=== PATIENT | female | born 1995 | race Caucasian/White ===

== ENCOUNTER 2018-05-10 18:28 | Emergency (ER) | payer MEDICAID, SELFPAY ==
[2018-05-10 18:33] VITALS: BP 133/90; PULSE 82; RESP 16; TEMP 36.8; O2SAT 99
--- NOTE | 2018-05-10 19:01 | W.ED.GENAD ---
Discharge Plan Discharge Details Chief Complaint: Vascular Reason For Visit: LEG PAINS Primary Care Provider: NONE,NONE ED Provider: Jalen Sierra Home Meds and New Rx's Prescriptions: No Action Ibuprofen [Motrin Ib] 200 MG Tablet 600 mg PO Q6H 5 Days Qty: 60 RF: 0 Medical Decision Making MDM Narrative Medical decision making narrative: This is a 22-year-old female who presents with atraumatic right lower extremity/calf swelling. She has asymmetric swelling and calf tenderness on exam. She is otherwise well-appearing. She does not take oral contraceptives currently and she does not have a family history of thrombosis. Differential diagnosis includes DVT, Romero's cyst, muscular strain. Ultrasound not available tonight and has been ordered for tomorrow morning, likely at 9 AM. Discussed with the patient risks and benefits to anticoagulation with Lovenox ?1. I do feel that she has an exam suspicious for DVT. She states that she is not . With the patient's consent, she is given single dose of 100 mg subcu Lovenox, she will return tomorrow for ultrasound of the right leg to rule out DVT HPI - General Adult General Mode of arrival: ambulatory. Date/Time Provider Initiated Documentation: 05/10/18 18:37. Limitations to Documentation: no limitations. Information obtained by: patient. HPI Narrative: 22-year-old female presents from home with a gradual onset over 4 days of right calf pain and swelling. She has dull, achy, minimally radiating pain. It is worse with flexion, improved with rest. It has not been associated with chest pain or shortness of breath. No other exacerbating or ameliorating factors Related Data Previous Rx's Medication Instructions Recorded Ibuprofen [Motrin Ib] 600 mg PO Q6H 5 Days #60 tablet 04/02/18 Allergies Allergy/AdvReac Type Severity Reaction Status Date / Time No Known Allergies Allergy Unverified 05/10/18 18:39 General Stated Complaint: Vascular HALEY: 3 Review of Systems Review of Systems 6 systems reviewed, otherwise neg PFSH Family History Mother Multiple sclerosis Medical History Chlamydia trachomatis infection (05/17/13) Recent childbirth (06/01/17) Social History Smoking/Tobacco Use Status: Never Exam Const General: cooperative Orientation: alert, awake and oriented x3 HENMT Head: normal to inspection Eyes General: appearance normal, both eyes and all related structures Eyelids: eyelids normal Pupils: PERRL EOM: EOM intact bilaterally Resp Effort & Inspection: normal respiratory effort and able to speak in complete sentences Auscultation: clear to auscultation bilaterally Cardio Rate: regular rate Rhythm: regular rhythm Neuro General: alert and awake Cognition: normal cognition Speech: speech normal Extrem General: full ROM, normal capillary refill and calf tenderness (Right primarily lateral calf tenderness and approximately 2 cm difference circumference from contralateral. Distal 2+ DP bilaterally) on the right Psych Speech and Movement: speech and movement normal Mood: congruent mood Affect: normal affect Attitude: cooperative Course Vital Signs Temperature 36.8 C 05/10/18 18:33 Pulse 82 05/10/18 18:33 Respiratory Rate 16 05/10/18 18:33 Blood Pressure 133/90 05/10/18 18:33 Pulse Oximetry 99 05/10/18 18:33 Temperature 36.8 C 05/10/18 18:33 Pulse 82 05/10/18 18:33 Respiratory Rate 16 05/10/18 18:33 Blood Pressure 133/90 05/10/18 18:33 Pulse Oximetry 99 05/10/18 18:33
--- NOTE | 2018-05-10 19:07 | ED.GENADUL_ITS ---
Discharge Plan Discharge Details Chief Complaint: Vascular Reason For Visit: LEG PAINS Primary Care Provider: NONE,NONE ED Provider: Jalen Sierra Home Meds and New Rx's Prescriptions: No Action Ibuprofen [Motrin Ib] 200 MG Tablet 600 mg PO Q6H 5 Days Qty: 60 RF: 0 Medical Decision Making MDM Narrative Medical decision making narrative: This is a 22-year-old female who presents with atraumatic right lower extremity/calf swelling. She has asymmetric swelling and calf tenderness on exam. She is otherwise well-appearing. She does not take oral contraceptives currently and she does not have a family history of thrombosis. Differential diagnosis includes DVT, Romero's cyst, muscular strain. Ultrasound not available tonight and has been ordered for tomorrow morning, likely at 9 AM. Discussed with the patient risks and benefits to anticoagulation with Lovenox ?1. I do feel that she has an exam suspicious for DVT. She states that she is not . With the patient's consent, she is given single dose of 100 mg subcu Lovenox, she will return tomorrow for ultrasound of the right leg to rule out DVT HPI - General Adult General Mode of arrival: ambulatory . Date/Time Provider Initiated Documentation: 05/10/18 18:37 . Limitations to Documentation: no limitations . Information obtained by: patient . HPI Narrative: 22-year-old female presents from home with a gradual onset over 4 days of right calf pain and swelling. She has dull, achy, minimally radiating pain. It is worse with flexion, improved with rest. It has not been associated with chest pain or shortness of breath. No other exacerbating or ameliorating factors Related Data Previous Rx's Medication Instructions Recorded Ibuprofen [Motrin Ib] 600 mg PO Q6H 5 Days #60 tablet 04/02/18 Allergies Allergy/AdvReac Type Severity Reaction Status Date / Time No Known Allergies Allergy Unverified 05/10/18 18:39 General Stated Complaint: Vascular HALEY: 3 Review of Systems Review of Systems 6 systems reviewed, otherwise neg PFSH Family History Mother Multiple sclerosis Medical History Chlamydia trachomatis infection (05/17/13) Recent childbirth (06/01/17) Social History Smoking/Tobacco Use Status: Never Exam Const General: cooperative Orientation: alert, awake and oriented x3 HENMT Head: normal to inspection Eyes General: appearance normal, both eyes and all related structures Eyelids: eyelids normal Pupils: PERRL EOM: EOM intact bilaterally Resp Effort & Inspection: normal respiratory effort and able to speak in complete sentences Auscultation: clear to auscultation bilaterally Cardio Rate: regular rate Rhythm: regular rhythm Neuro General: alert and awake Cognition: normal cognition Speech: speech normal Extrem General: full ROM, normal capillary refill and calf tenderness (Right primarily lateral calf tenderness and approximately 2 cm difference circumference from contralateral. Distal 2+ DP bilaterally) on the right Psych Speech and Movement: speech and movement normal Mood: congruent mood Affect: normal affect Attitude: cooperative Course Vital Signs Temperature 36.8 C 05/10/18 18:33 Pulse 82 05/10/18 18:33 Respiratory Rate 16 05/10/18 18:33 Blood Pressure 133/90 05/10/18 18:33 Pulse Oximetry 99 05/10/18 18:33 Temperature 36.8 C 05/10/18 18:33 Pulse 82 05/10/18 18:33 Respiratory Rate 16 05/10/18 18:33 Blood Pressure 133/90 05/10/18 18:33 Pulse Oximetry 99 05/10/18 18:33
[2018-05-10] MEDS: Enoxaparin 100 MG/ML SYR SC (19:35)
[2018-05-10 19:39] VITALS: BP 133/90; PULSE 82; RESP 16; TEMP 36.8; O2SAT 99
== END 2018-05-10 19:39 | disposition home or self-care (01) ==
PROVIDERS: Emergency Provider Emergency Medicine
DX: M79.661 Pain in right lower leg (principal)
CPT/HCPCS: 96372; 99284; 99283; J1650

== ENCOUNTER 2018-05-11 10:30 | Emergency (ER) | payer MEDICAID, SELFPAY ==
[2018-05-11 10:52] VITALS: BP 97/67; PULSE 79; RESP 12; TEMP 36.8; O2SAT 97
--- NOTE | 2018-05-11 11:30 | W.ED.GENAD ---
Discharge Plan Disposition Patient Disposition: HOME Condition: Good Discharge Details Chief Complaint: Recheck Clinical Impression: Right calf pain, Muscle inflammation Primary Care Provider: NONE,NONE ED Provider: Angeli Sebastian Home Meds and New Rx's Prescriptions: Continue Ibuprofen [Motrin Ib] 200 MG Tablet 600 mg PO Q6H 5 Days Qty: 60 RF: 0 No Action amoxicillin-pot clavulanate [Augmentin] 875-125 mg tablet 1 tab PO BID Qty: 14 RF: 0 Discharge Instructions Instructions: Leg Pain (ED) Additional Instructions: Encourage rest, ice, elevation. Encourage hydration Tylenol and/or ibuprofen as needed for discomfort. Continue with Semaj wrap while pain persist. I have asked her acute care assistant to help facilitate follow-up with primary care, you should hear from her in the next few days. If you develop new or worsening symptoms please seek care urgently once again. Referrals: NONE,NONE [Primary Care Provider] - Discharge Data Discharge Date/Time-TO BE ENTERED AT DEPARTURE: 05/11/18 11:49 Medical Decision Making MDM Narrative Medical decision making narrative: Patient presents today with chief complaint of lateral right calf pain. Patient presents for outpatient ultrasound results. I did consult with the radiologist who reviewed the images. He advised there is no evidence of DVT. Is reported there is fluid in the soft tissue of the calf but states this is limited to the area where patient is having discomfort. Reported that he could be inflammatory versus small hematoma. Advised that it is not diffuse like edema nor is a focal like an abscess or Romero's cyst. I discussed these results with the patient. While initially, when she saw Dr. Muniz yesterday, she had reported that pain had insidious onset, she is now reporting that she felt a pop prior to the onset of symptoms when she bent down to water her ducks. Since that time the pain had progressively increase. However, today the pain is improving. I plan to wrap the lower extremity with an Semaj to help with swelling. Encourage rest, ice, elevation. Patient does not have a primary care, I have asked her acute care assistant to help facilitate follow-up. We discussed new/worsening symptoms once he care urgently once again. Advised Tylenol and/or ibuprofen as needed for discomfort. All of her questions and concerns were addressed and she is in agreement with this plan. HPI - General Adult General Date/Time Provider Initiated Documentation: 05/11/18 11:20. Limitations to Documentation: no limitations. Information obtained by: patient. HPI Narrative: Patient is a 22-year-old female presenting today with chief complaint lateral right calf pain. Please see yesterday's note as patient seen in the ER and is presenting today for follow-up. Patient received Lovenox injection yesterday with concern for DVT. Patient presented this morning for outpatient ultrasound. Presents the ER at this time for results. She reports that around the leg is feeling improved from yesterday. However, she does report that during the night she developed nausea, vomiting and diarrhea. She reports these were fairly limited and that she has not had any nausea, vomiting or diarrhea since 7:00 this morning. She is questioning if this may have been related to the medication she received yes Related Data Previous Rx's Medication Instructions Recorded Ibuprofen [Motrin Ib] 600 mg PO Q6H 5 Days #60 tablet 04/02/18 amoxicillin-pot clavulanate 1 tab PO BID #14 tab 05/13/18 [Augmentin] Allergies Allergy/AdvReac Type Severity Reaction Status Date / Time No Known Allergies Allergy Unverified 05/13/18 12:05 General Stated Complaint: Recheck HALEY: 4 Review of Systems Constitutional Reports as per HPI, Denies chills and Denies fever(s) Cardiovascular Denies chest pain, Denies chest pain with activity, Denies dyspnea and Denies dyspnea on exertion Respiratory Denies cough, Denies dyspnea and Denies dyspnea on exertion Musculoskeletal Reports as per HPI Integumentary/Breasts Reports as per HPI Neurologic Reports as per HPI [facility] Family History Mother Multiple sclerosis Medical History Chlamydia trachomatis infection (05/17/13) Recent childbirth (06/01/17) Social History Smoking/Tobacco Use Status: Never Exam Const General: cooperative, healthy appearing, comfortable, no acute distress and well developed Nutritional Appearance: average body habitus Orientation: alert and awake Resp Effort & Inspection: normal respiratory effort, able to speak in complete sentences and no respiratory distress Auscultation: clear to auscultation bilaterally Cardio Rate: regular rate Rhythm: regular rhythm Heart Sounds: S1 normal and S2 normal Skin General skin exam: no rashes or lesions noted Lesions: no lesions Rashes: no rashes Trauma: no lacerations or abrasions Neuro General: alert and awake Cognition: normal cognition Speech: speech normal Gait: normal gait Motor: muscle tone normal throughout Sensory Exam: no sensory deficits noted Extrem General: abnormal to inspection (Patient endorses posterior calf pain. However, this is not reproducible on exam today. Calf is soft and nontender. No pedal edema. 2+ pulses. Full range of motion of the ankle and.), full ROM and normal capillary refill Course Vital Signs Temperature 36.8 C 05/11/18 10:52 Pulse 79 05/11/18 10:52 Respiratory Rate 12 05/11/18 10:52 Blood Pressure 97/67 L 05/11/18 10:52 Pulse Oximetry 97 05/11/18 10:52 Temperature 36.8 C 05/11/18 10:52 Pulse 79 05/11/18 10:52 Respiratory Rate 12 05/11/18 10:52 Blood Pressure 97/67 L 05/11/18 10:52 Pulse Oximetry 97 05/11/18 10:52
--- NOTE | 2018-05-11 11:35 | ED.GENADUL_ITS ---
Discharge Plan Disposition Patient Disposition: HOME Condition: Good Discharge Details Chief Complaint: Recheck Clinical Impression: Right calf pain, Muscle inflammation Primary Care Provider: NONE,NONE ED Provider: Angeli Sebastian Home Meds and New Rx's Prescriptions: Continue Ibuprofen [Motrin Ib] 200 MG Tablet 600 mg PO Q6H 5 Days Qty: 60 RF: 0 No Action amoxicillin-pot clavulanate [Augmentin] 875-125 mg tablet 1 tab PO BID Qty: 14 RF: 0 Discharge Instructions Instructions: Leg Pain (ED) Additional Instructions: Encourage rest, ice, elevation. Encourage hydration Tylenol and/or ibuprofen as needed for discomfort. Continue with Semaj wrap while pain persist. I have asked her hemodialysis patient care specialist to help facilitate follow-up with primary care, you should hear from her in the next few days. If you develop new or worsening symptoms please seek care urgently once again. Referrals: NONE,NONE [Primary Care Provider] - Discharge Data Discharge Date/Time-TO BE ENTERED AT DEPARTURE: 05/11/18 11:49 Medical Decision Making MDM Narrative Medical decision making narrative: Patient presents today with chief complaint of lateral right calf pain. Patient presents for outpatient ultrasound results. I did consult with the radiologist who reviewed the images. He advised there is no evidence of DVT. Is reported there is fluid in the soft tissue of the calf but states this is limited to the area where patient is having discomfort. Reported that he could be inflammatory versus small hematoma. Advised that it is not diffuse like edema nor is a focal like an abscess or Romero's cyst. I discussed these results with the patient. While initially, when she saw Dr. Muniz yesterday, she had reported that pain had insidious onset, she is now reporting that she felt a pop prior to the onset of symptoms when she bent down to water her ducks. Since that time the pain had progressively increase. However, today the pain is improving. I plan to wrap the lower extremity with an Semaj to help with swelling. Encourage rest, ice , elevation. Patient does not have a primary care, I have asked her hemodialysis patient care specialist to help facilitate follow-up. We discussed new/worsening symptoms once he care urgently once again. Advised Tylenol and/or ibuprofen as needed for discomfort. All of her questions and concerns were addressed and she is in agreement with this plan. HPI - General Adult General Date/Time Provider Initiated Documentation: 05/11/18 11:20 . Limitations to Documentation: no limitations . Information obtained by: patient . HPI Narrative: Patient is a 22-year-old female presenting today with chief complaint lateral right calf pain. Please see yesterday's note as patient seen in the ER and is presenting today for follow-up. Patient received Lovenox injection yesterday with concern for DVT. Patient presented this morning for outpatient ultrasound. Presents the ER at this time for results. She reports that around the leg is feeling improved from yesterday. However, she does report that during the night she developed nausea, vomiting and diarrhea. She reports these were fairly limited and that she has not had any nausea, vomiting or diarrhea since 7:00 this morning. She is questioning if this may have been related to the medication she received yes Related Data Previous Rx's Medication Instructions Recorded Ibuprofen [Motrin Ib] 600 mg PO Q6H 5 Days #60 tablet 04/02/18 amoxicillin-pot clavulanate 1 tab PO BID #14 tab 05/13/18 [Augmentin] Allergies Allergy/AdvReac Type Severity Reaction Status Date / Time No Known Allergies Allergy Unverified 05/13/18 12:05 General Stated Complaint: Recheck HALEY: 4 Review of Systems Constitutional Reports as per HPI, Denies chills and Denies fever(s) Cardiovascular Denies chest pain, Denies chest pain with activity, Denies dyspnea and Denies dyspnea on exertion Respiratory Denies cough, Denies dyspnea and Denies dyspnea on exertion Musculoskeletal Reports as per HPI Integumentary/Breasts Reports as per HPI Neurologic Reports as per HPI [facility] Family History Mother Multiple sclerosis Medical History Chlamydia trachomatis infection (05/17/13) Recent childbirth (06/01/17) Social History Smoking/Tobacco Use Status: Never Exam Const General: cooperative, healthy appearing, comfortable, no acute distress and well developed Nutritional Appearance: average body habitus Orientation: alert and awake Resp Effort & Inspection: normal respiratory effort, able to speak in complete sentences and no respiratory distress Auscultation: clear to auscultation bilaterally Cardio Rate: regular rate Rhythm: regular rhythm Heart Sounds: S1 normal and S2 normal Skin General skin exam: no rashes or lesions noted Lesions: no lesions Rashes: no rashes Trauma: no lacerations or abrasions Neuro General: alert and awake Cognition: normal cognition Speech: speech normal Gait: normal gait Motor: muscle tone normal throughout Sensory Exam: no sensory deficits noted Extrem General: abnormal to inspection (Patient endorses posterior calf pain. However , this is not reproducible on exam today. Calf is soft and nontender. No pedal edema. 2+ pulses. Full range of motion of the ankle and.), full ROM and normal capillary refill Course Vital Signs Temperature 36.8 C 05/11/18 10:52 Pulse 79 05/11/18 10:52 Respiratory Rate 12 05/11/18 10:52 Blood Pressure 97/67 L 05/11/18 10:52 Pulse Oximetry 97 05/11/18 10:52 Temperature 36.8 C 05/11/18 10:52 Pulse 79 05/11/18 10:52 Respiratory Rate 12 05/11/18 10:52 Blood Pressure 97/67 L 05/11/18 10:52 Pulse Oximetry 97 05/11/18 10:52
== END 2018-05-11 11:49 | disposition home or self-care (01) ==
PROVIDERS: Emergency Provider Physician Assistant
DX: M79.661 Pain in right lower leg (principal); M60.861 Other myositis, right lower leg; Z71.2 Person consulting for explanation of examination or test findings
CPT/HCPCS: 99281

== ENCOUNTER 2018-05-11 13:00 | Outpatient (CLI) | payer MEDICAID, SELFPAY ==
--- NOTE | 2018-05-11 10:30 | DI.US_ITS ---
SYMPTOMS/DIAGNOSIS: RT LEG PAIN, RT CALF PAIN RIGHT LOWER EXTREMITY ULTRASOUND: The deeps veins of the right lower extremity show normal compression, augmentation and color flow. No evidence of a deep venous thrombus is identified. There is fluid seen in the soft tissues in the area of pain in the right calf. This may represent edema or hemorrhage. Please correlate clinically. If there is concern for soft tissue or muscle injury, MRI may be considered for further evaluation. IMPRESSION: No evidence of a right lower extremity deep venous thrombus.
== END 2018-05-11 13:20 ==
PROVIDERS: Visit Provider Emergency Medicine
DX: M79.661 Pain in right lower leg (principal)
CPT/HCPCS: 93971

== ENCOUNTER 2018-05-13 11:07 | Emergency (ER) | payer MEDICAID, SELFPAY ==
[2018-05-13 12:01] VITALS: BP 124/77; PULSE 62; RESP 16; TEMP 37; O2SAT 99
--- NOTE | 2018-05-13 12:19 | ED.GENADUL_ITS ---
Discharge Plan Disposition Patient Disposition: HOME Condition: Stable Discharge Details Chief Complaint: Cellulitis Clinical Impression: Muscle strain of right lower leg Primary Care Provider: NONE,NONE ED Provider: Dennys Alvarez Home Meds and New Rx's Prescriptions: New amoxicillin-pot clavulanate [Augmentin] 875-125 mg tablet 1 tab PO BID Qty: 14 RF: 0 Continue Ibuprofen [Motrin Ib] 200 MG Tablet 600 mg PO Q6H 5 Days Qty: 60 RF: 0 Discharge Instructions Instructions: Muscle Strain (ED) Additional Instructions: if redness spreads up or down the leg start taking the antibiotic follow up with your primary care provider in 1-2 weeks if no improvement if you have severe worsening of pain or high fevers return to the emergency department Discharge Data Discharge Physician: Dennys Alvarez Medical Decision Making MDM Narrative Medical decision making narrative: Patient here with 4 days of right calf discomfort. Had u/s 2 days ago without dvt and she now states the pain has improved but originally the right lateral leg had some mild erythema and has moved now to the medial portion. I suspect this is still a strain vs hematoma. No pain or warmth to suggest cellulitis or crepitus to suggest nec fasc. Advised RICE but will also provide abx and advised if redness spreads to start taking this and return precautions given Differential Diagnosis celulitis, strain, hematoma HPI - General Adult General Mode of arrival: ambulatory . Date/Time Provider Initiated Documentation: 05/13/18 11:26 . Limitations to Documentation: no limitations . Information obtained by: patient . History of Present Illness 22 year old F presents to the emergency department with the chief complaint of right calf pain, described as mild, with intensity rated at 2. Quality is described as aching, and is localized to the lower extremity. Patient reports no radiation. Patient started experiencing this day(s) (4) and it has been intermittent. Rest improves symptom(s), Movement worsens symptoms . Patient notes no other symptoms.. Patient did receive the following treatments prior to arrival, NSAID Related Data Previous Rx's Medication Instructions Recorded Ibuprofen [Motrin Ib] 600 mg PO Q6H 5 Days #60 tablet 04/02/18 amoxicillin-pot clavulanate 1 tab PO BID #14 tab 05/13/18 [Augmentin] Allergies Allergy/AdvReac Type Severity Reaction Status Date / Time No Known Allergies Allergy Unverified 05/13/18 12:05 General Stated Complaint: Cellulitis HALEY: 4 Review of Systems Review of Systems All systems reviewed & are unremarkable except as noted in HPI and below Constitutional Denies chills, Denies fever(s) and Denies weakness Eyes Patient Denies loss of vision ENT Denies change in voice Cardiovascular Denies chest pain and Denies dyspnea Respiratory Denies dyspnea Gastrointestinal Denies abdominal pain, Denies nausea and Denies vomiting Genitourinary Denies dysuria Musculoskeletal Denies joint swelling Integumentary/Breasts Denies rash Neurologic Denies loss of vision and Denies weakness Psychiatric Denies depression Endocrine Denies cold intolerance and Denies heat intolerance Allergic/Immunologic Reports urticaria PFSH Family History Mother Multiple sclerosis Medical History Chlamydia trachomatis infection (05/17/13) Recent childbirth (06/01/17) Social History Smoking/Tobacco Use Status: Never Exam Const General: no acute distress Orientation: alert HENMT Head: normal to inspection Ears: external ears normal General nose exam: external nose normal Mouth: moist mucous membranes Eyes General: appearance normal, both eyes and all related structures Neck Neck: normal visual inspection Resp Effort & Inspection: normal respiratory effort and able to speak in complete sentences Cardio Rate: regular rate Skin General skin exam: no rashes or lesions noted Neuro General: alert and oriented x3 Extrem General: full ROM, normal capillary refill, no clubbing, cyanosis or edema and other (pain over medial right calf, 1cm area of mild erythema that is not warm to touch and not crepitus) Psych Mental Status: mental status grossly normal Course Vital Signs Temperature 37.0 C 05/13/18 12:01 Pulse 62 05/13/18 12:01 Respiratory Rate 16 05/13/18 12:01 Blood Pressure 124/77 05/13/18 12:01 Pulse Oximetry 99 05/13/18 12:01 Temperature 37.0 C 05/13/18 12:01 Pulse 62 05/13/18 12:01 Respiratory Rate 16 05/13/18 12:01 Blood Pressure 124/77 05/13/18 12:01 Pulse Oximetry 99 05/13/18 12:01
--- NOTE | 2018-05-16 09:03 | CMPROGNOTE_ITS ---
Care Management Progress Note 05/16/18-Pt seen in ED for R calf pain. Was seen by COREY Jara. Pt needs to establish PCP. Referral sent to [facility] as Leelee Najera was automation controls expert.
== END 2018-05-13 12:36 | disposition home or self-care (01) ==
PROVIDERS: Emergency Provider Emergency Medicine
DX: S86.911A Strain of unspecified muscle(s) and tendon(s) at lower leg level, right leg, initial encounter (principal); X58.XXXA Exposure to other specified factors, initial encounter
CPT/HCPCS: 99283

== ENCOUNTER 2018-07-15 10:55 | Emergency (ER) | payer MEDICAID, SELFPAY ==
[2018-07-15 11:12] VITALS: BP 135/73; PULSE 70; RESP 14; TEMP 36.5; O2SAT 100
--- NOTE | 2018-07-15 11:21 | DI.US_ITS ---
SYMPTOM/DIAGNOSIS: UMBILICUS DRAINAGE, ? ABSCESS ANTERIOR ABDOMINAL WALL ULTRASOUND: Sonographic evaluation of the umbilical region was performed. No fluid collection or soft tissue mass is seen in the umbilical region sonographically. IMPRESSION: Negative examination. Follow up as clinically appropriate.
--- NOTE | 2018-07-15 12:49 | ED.GENADUL_ITS ---
Discharge Plan Disposition Patient Disposition: HOME Condition: Stable Discharge Details Chief Complaint: Cellulitis Clinical Impression: Umbilicus discharge Primary Care Provider: NONE,NONE ED Provider: Ryan Barbosa Home Meds and New Rx's Prescriptions: New cephalexin 500 mg tablet 500 mg PO TID 5 Days Qty: 15 RF: 0 clotrimazole 1 % cream 1 applic TP BID 14 Days Qty: 30 RF: 0 No Action No Known Home Meds RF: 0 Discharge Instructions Instructions: Cellulitis (ED), Skin Yeast Infection (ED) Additional Instructions: Please start with the cream and use for the first 24-hour if not improving after that point you may start the antibiotic pills. If you start these take them until they are fully completed. Return to the emergency department for any new or significant worsening of symptoms or if you have no improvement. If you choose you may contact our care management department for assistance of the status establishment of primary care services. Referrals: Primary Care Provider [Outside] Medical Decision Making Patient presenting to the emergency department for bellybutton pain. She states that this started 3 days ago which was similar to episodes in the past where she that she had an ingrown hair and used a antibiotic cream that was given to her by her mother which resolved her symptoms. She used that cream a day ago and had no improvement of symptoms and then has noticed some drainage. Patient denies any fever chills, nausea vomiting diarrhea. Physical exam is remarkable for soft tissue swelling within the umbilicus, drainage. There is no significant erythema, induration, and belly exam is otherwise unremarkable and no other tenderness is noted except for directly around the umbilicus. Clinical impression is more of a superficial soft tissue yeast infection first ingrown hair given that on visual exam deep into umbilicus there is some hair present. But I feel that soft tissue ultrasound to rule out abscess is warranted given patient's body habitus making it difficult to easily examine. Patient is otherwise stable and I do not feel any interventions are needed at this time. Wound culture was obtained. Review of soft tissue ultrasound is unremarkable and shows no evidence of abscess. Patient was placed on clotrimazole cream to use for the next week but to begin this for the first 24 hours and if not improving to start Keflex for suspicion of possible bacterial source as well. Patient to return for any new or significant worsening of symptoms otherwise follow-up with primary care as needed for reassessment. After discussion of diagnosis and plan of care patient has no further needs, questions, or concerns and states clear understanding to return to the emergency department for any worsening symptoms. Patient states that she does not have a primary care provider to follow-up with but states that if she improves she would not follow-up with 1 so I do not feel that is beneficial to get patient established with PCP at this time due to her more than likely not keeping a scheduled appointment. Did discuss with patient to call and speak with our care management team if she needs assistance in establishing PCP HPI General Mode of arrival: ambulatory . Date/Time Provider Initiated Documentation: 07/15/18 10:56 . Limitations to Documentation: no limitations . Information obtained by: patient and RN notes reviewed . History of Present Illness 23 year old F presents to the emergency department with the chief complaint of Bellybutton discharge/discomfort, described as moderate, with intensity rated at 7. Quality is described as aching, and is localized to the abdomen. Patient reports no radiation. Patient started experiencing this day (s) (3) and it has been constant. No exacerbating factors reported . Patient notes no other symptoms.. Related Data Home Medications Medication Instructions Recorded Confirmed Unknown [No Known Home Meds] 07/15/18 07/15/18 cephalexin 500 mg PO TID 5 Days #15 tab 07/15/18 clotrimazole 1 applic TP BID 14 Days #30 gm 07/15/18 Previous Rx's Medication Instructions Recorded cephalexin 500 mg PO TID 5 Days #15 tab 07/15/18 clotrimazole 1 applic TP BID 14 Days #30 gm 07/15/18 Allergies Allergy/AdvReac Type Severity Reaction Status Date / Time No Known Allergies Allergy Unverified 07/15/18 11:23 General Stated Complaint: GenMedical HALEY: 5 Review of Systems Constitutional Denies body ache(s), Denies chills and Denies fever(s) Cardiovascular Denies chest pain and Denies dyspnea Respiratory Denies dyspnea Gastrointestinal Reports as per HPI, Reports abdominal pain, Denies nausea and Denies vomiting Integumentary/Breasts Denies rash Neurologic Denies confusion and Denies sensory deficit Psychiatric Denies confusion PFSH Family History Mother Multiple sclerosis Medical History Chlamydia trachomatis infection (05/17/13) Recent childbirth (06/01/17) Social History Smoking/Tobacco Use Status: Never Exam Const General: cooperative, no acute distress and not ill appearing Orientation: alert, awake and oriented x3 HENMT Mouth: moist mucous membranes Resp Effort & Inspection: normal respiratory effort, able to speak in complete sentences and no respiratory distress GI Inspection: obesity and other (Umbilicus foul-smelling drainage) Palpation: soft, no hepatosplenomegaly, not firm and tender periumbilically; not in the epigastrum, not in the LLQ, not in the RLQ, not in the LUQ, not in the RUQ, not at McBurney's point, Conley's sign negative, obturator sign negative and Rovsing's sign negative Auscultation: normal bowel sounds Neuro General: alert, awake, oriented x3, moves all extremities and no focal motor deficits Sensory Exam: no sensory deficits noted Course Vital Signs Temperature 36.5 C 07/15/18 11:12 Pulse 70 07/15/18 11:12 Respiratory Rate 14 07/15/18 11:12 Blood Pressure 135/73 07/15/18 11:12 Pulse Oximetry 100 07/15/18 11:12 Temperature 36.5 C 07/15/18 11:12 Temperature Source Temporal Artery Scan 07/15/18 11:12 Pulse 70 07/15/18 11:12 Respiratory Rate 14 07/15/18 11:12 Respiratory Effort 07/15/18 11:22 Blood Pressure 135/73 07/15/18 11:12 Pulse Oximetry 100 07/15/18 11:12 Oxygen Delivery Method Room Air 07/15/18 11:12 Oxygen Flow Rate 0 07/15/18 11:12 Pain Level 7 07/15/18 11:12 Lab/Test Results Lab/Test Results: 07/15/18 11:20 Umbilical Wound Culture - Pending 07/15/18 11:20 Umbilical Gram Stain - Pending POC- Test(urine) Negative
[2018-07-15 13:24] VITALS: BP 135/73; PULSE 70; RESP 14; TEMP 36.5; O2SAT 100
== END 2018-07-15 13:10 | disposition home or self-care (01) ==
PROVIDERS: Emergency Provider Nurse Practitioner Family
DX: L03.311 Cellulitis of abdominal wall (principal); B37.2 Candidiasis of skin and nail
CPT/HCPCS: 81025; 87077; 99284; 76705; 87070; 87205

== ENCOUNTER 2018-08-16 13:27 | Outpatient (CLI) | payer MEDICAID, SELFPAY ==
--- NOTE | 2018-08-16 12:29 | DI.US_ITS ---
SYMPTOMS/DIAGNOSIS: PELVIC PAIN X 24 HOURS, ? ECTOPIC OB ULTRASOUND: Many abnormalities cannot be diagnosed. A normal exam does not exclude a congenital anomaly. Radiology No. [id number] LMP: Exam Date: 08/16/18 [facility] wks days on EDC ([facility]) 07/09/18 Confirmed: HISTORY: ---- PREDICTED GESTATIONAL AGE NUMBER 5+3 weeks with a range of week to weeks. 1 2 3 Multiple Determined by___1STUS__x_LMP___HISTORY Info. pertaining to fetus # PLACENTA PRESENTATION Grade Cephalic___ Anterior___Posterior___ Breech____ Right Left Transverse(head right___ Fundal___Low-lying___Previa___ Transverse(head left___ Varying BIOMETRY AMNIOTIC FLUID BPD: mm weeks Normal HC: mm weeks Oligo Polyhydramnios AC: mm weeks FL: mm weeks AMNIOTIC FLUID INDEX >26 WK CRL: mm weeks Cisterna Magna: mm CI: RUQ: LUQ Cerebellum: cm EFW: grams Percentile RLQ: LLQ GSD: 4 mm Total: cms Composite AGE= 5+1 wks EDC by US: 04/17/19 BIOPHYSICAL PROFILE ANATOMY IDENTIFIED SCORE 0/2 Heart: 4-Chamber___Rate:BPM LVOT: RVOT: Amniotic Fluid(>2cms)____ Stomach: Kidneys: Respirations (>30 secs) Bladder: Post. Fossa: Body Flex/Extension 3 vessel cord: Ventricles: cord insertion: Lips:____ Extremity Flex/Extension spinal morphology: Nose: Total Score= Palate: NS=not seen COMMENTS: Transabdominal and transvaginal exams were performed. The uterus is retroverted. There is a 4 mm gestational sac within a thickened endometrium, corresponding to 5 weeks 1 day. There is a question of faintly visualized heart rate and yolk sac. No definite pole is seen. There is some free fluid in the cul-de-sac. No ectopic is visible. An involuting corpus luteum cyst is seen on the left ovary. The right ovary is unremarkable. IMPRESSION: Early intrauterine gestation of 5 weeks 1 day. Free fluid is seen ; however, there is no ectopic .
[2018-08-16 15:31] LABS: HCG Quant, Pregnancy 1773 mIU/mL (1-3)
== END 2018-08-16 13:47 ==
PROVIDERS: Visit Provider Advanced Practice Midwife
DX: R10.2 Pelvic and perineal pain (principal); Z32.01 Encounter for pregnancy test, result positive; Z34.91 Encounter for supervision of normal pregnancy, unspecified, first trimester
CPT/HCPCS: 36415; 76817; 84702

== ENCOUNTER 2018-08-18 12:30 | Outpatient (CLI) | payer MEDICAID, SELFPAY ==
[2018-08-18 13:29] LABS: HCG Quant, Pregnancy 2703 mIU/mL (1-3)
== END 2018-08-18 12:50 ==
PROVIDERS: Visit Provider Advanced Practice Midwife
DX: Z32.01 Encounter for pregnancy test, result positive (principal)
CPT/HCPCS: 36415; 84702

== ENCOUNTER 2018-09-16 15:22 | Outpatient (REF) | payer MEDICAID, SELFPAY ==
[2018-09-16 17:34] LABS: *AMPHETAMINES SCREEN URINE Negative (Negative); *BARBITURATES SCREEN URINE Negative (Negative); *BENZODIAZEPINES SCREEN URINE Negative (Negative); Cannabinoids THC POSITIVE (Negative); Cocaine Screen,Urine Negative (Negative); METHADONE URINE SCREEN Negative (Negative); OPIATES URINE SCREEN Negative (Negative)
[2018-09-16 17:44] LABS: Tricyclic Antidepressants Negative (Negative)
[2018-09-21 18:22] LABS: Buprenorphine Negative; Norbuprenorphine Negative
== END 2018-09-16 15:42 ==
LOC: LBN 15:22
PROVIDERS: Visit Provider Advanced Practice Midwife
DX: Z34.91 Encounter for supervision of normal pregnancy, unspecified, first trimester (principal)
CPT/HCPCS: 80307; 87086

== ENCOUNTER 2018-10-14 10:42 | Outpatient (CLI) | payer MEDICAID, SELFPAY ==
[2018-10-14 12:56] LABS: Abs Immature Grans 0.01 k/cumm (0.0-0.09); Absolute Basophil Count 0.01 k/cumm (0.0-0.2); Absolute Eosinophil Count 0.05 k/cumm (0.0-0.7); Absolute Lymphocyte Count 1.61 k/cumm (1.2-3.4); Absolute Monocyte Count 0.41 k/cumm (0.11-0.7); Absolute Neutrophil Count 5.83 k/cumm (1.2-6.7); Basophils % 0.1; Eosinophils % 0.6; HCT 37.2 % (36.0-46.0); HGB 12.2 g/dL (12.0-15.5); Immature Grans % 0.1; Lymphocytes % 20.3; Mean Corp. HGB Concentration 32.8 g/dL (32.0-36.0); Mean Corpuscular Hemoglobin 27.8 pg (27.0-33.0); Mean Corpuscular Volume 84.7 fL (80-95); Mean Platelet Volume 9.4 fL (8.0-11.0); Monocytes % 5.2; Neutrophils % 73.7; Platelet Count 264 x1000/uL (130-400); RBC 4.39 m/cumm (4.00-5.20); RBC Distribution Width 12.7 % (11.7-14.6); White Blood Cell Count 7.92 k/cumm (4.4-10.8)
[2018-10-14 13:02] LABS: Glucose,1 Hr (Glucola) 83 mg/dL (80-140)
[2018-10-17 11:21] LABS: HIV-1/2 Ag & Ab Screen Negative (NEGAT)
[2018-10-17 11:43] LABS: Hepatitis B Surface Ag Negative (NEGAT)
[2018-10-17 12:05] LABS: Hepatitis C Ab w Rflx HCV PCR Negative (NEGAT)
[2018-10-17 12:52] LABS: Rubella IgG Ab (UVM) Positive; Syphilis Serology (RPR) Negative (Negative); Varicella IgG Antibody Negative
== END 2018-10-14 11:02 ==
PROVIDERS: Visit Provider Advanced Practice Midwife
DX: Z34.91 Encounter for supervision of normal pregnancy, unspecified, first trimester (principal); Z11.59 Encounter for screening for other viral diseases; Z01.84 Encounter for antibody response examination; Z11.4 Encounter for screening for human immunodeficiency virus [HIV]
CPT/HCPCS: 36415; 80055; 82950; 86787; 86803; 86850; 86900; 86901; 87340; 87389; 86592; 86762

== ENCOUNTER 2018-11-11 11:50 | Outpatient (CLI) | payer MEDICAID, SELFPAY ==
[2018-11-14 13:41] LABS: AFP 20.8 ng/mL; Cigarette smoking status non-smoker; GA used in risk estimate Scan estimate; INHIBIN 92 pg/mL; IVF Pregnancy No; Initial or repeat testing Initial testing; Insulin dependent diabetes No; Maternal Weight 191 lbs; Number of Fetuses 1; Physician Phone Number 802-748-7300; Prev Down(T21)/Trisomy Pregnan No; Prev Pregnancy w/NTD No; RECOMMENDED FOLLOW UP None.; Results Summary Normal risk; hCG, TOTAL 5.8 IU/mL; hCG, TOTAL MoM 0.25 MoM
== END 2018-11-11 12:10 ==
PROVIDERS: Visit Provider Advanced Practice Midwife
DX: Z34.92 Encounter for supervision of normal pregnancy, unspecified, second trimester (principal); Z36.89 Encounter for other specified antenatal screening
CPT/HCPCS: 36415; 81511

== ENCOUNTER 2018-11-18 01:19 | Outpatient (CLI) | payer MEDICAID, SELFPAY ==
--- NOTE | 2018-11-18 11:27 | DI.US_ITS ---
SYMPTOMS/DIAGNOSIS: , SURVEY, Z34.90 OB ULTRASOUND: There is a single living intrauterine gestation in variable position. The placenta is fundal. The biometric measurements correspond to 19 weeks 1 day. No abnormalities are identified. The amount of amniotic fluid appears visually normal. IMPRESSION: survey is within normal limits. Many abnormalities cannot be diagnosed. A normal exam does not exclude a congenital anomaly. Radiology No. [id number] LMP: Exam Date: 11/18/18 [facility] wks days on EDC ([facility]) 04/20/19 Confirmed: HISTORY: survey PREDICTED GESTATIONAL AGE NUMBER 18+1 weeks with a range of 17+1 weeks to 19+1 weeks. 1 Determined by___1STUS___LMP___HISTORY Info. pertaining to fetus # PLACENTA PRESENTATION Grade I Cephalic___ Anterior___Posterior___ Breech____ Right Left Transverse(head right___ Fundal X Low-lying___Previa___ Transverse(head left___ Varying X BIOMETRY AMNIOTIC FLUID BPD: 45 mm 19+5 weeks Normal HC: 166 mm 19+2 weeks AC: 140 mm 19+3 weeks FL: 27 mm 18+2 weeks AMNIOTIC FLUID INDEX >26 WK CRL: mm weeks Cisterna Magna: 5 mm CI: 85 RUQ: LUQ Cerebellum: 1.8 cm EFW: 267 grams Percentile 90% RLQ: LLQ Total: cms Composite AGE= 19+1 wks EDC by US 04/13/19 BIOPHYSICAL PROFILE ANATOMY IDENTIFIED SCORE 0/2 Heart: 4-Chamber X Rate: 130 BPM LVOT: X RVOT: X Amniotic Fluid(>2cms)____ Stomach: X Kidneys: X Respirations (>30 secs) Bladder: X Post. Fossa: X Body Flex/Extension 3 vessel cord: X Ventricles: X cord insertion: X Lips: X Extremity Flex/Extension spinal morphology: X Nose: X Total Score= Palate: X NS=not seen
== END 2018-11-18 01:39 ==
PROVIDERS: Visit Provider Advanced Practice Midwife
DX: Z34.92 Encounter for supervision of normal pregnancy, unspecified, second trimester (principal)
CPT/HCPCS: 76805

== ENCOUNTER 2019-02-17 13:24 | Outpatient (CLI) | payer MEDICAID, SELFPAY ==
[2019-02-17 13:42] LABS: HCT 32.3 % (36.0-46.0); HGB 10.6 g/dL (12.0-15.5); Mean Corp. HGB Concentration 32.8 g/dL (32.0-36.0); Mean Corpuscular Volume 85.2 fL (80-95); Mean Platelet Volume 8.7 fL (8.0-11.0); Platelet Count 264 x1000/uL (130-400); RBC 3.79 m/cumm (4.00-5.20); RBC Distribution Width 12.6 % (11.7-14.6); White Blood Cell Count 9.34 k/cumm (4.4-10.8)
[2019-02-17 13:55] LABS: Glucose,1 Hr (Glucola) 127 mg/dL (80-140)
== END 2019-02-17 13:44 ==
PROVIDERS: Visit Provider Advanced Practice Midwife
DX: Z34.93 Encounter for supervision of normal pregnancy, unspecified, third trimester (principal)
CPT/HCPCS: 36415; 82950; 85027

== ENCOUNTER 2019-03-21 11:25 | Outpatient (CLI) | payer MEDICAID, SELFPAY | END 2019-03-21 11:45 | PROVIDERS: Visit Provider Advanced Practice Midwife | DX: O26.893 Other specified pregnancy related conditions, third trimester (principal); Z3A.35 35 weeks gestation of pregnancy; R51 Headache; H53.8 Other visual disturbances | CPT/HCPCS: 36415; 80053; 85027; 59025; 84550 ==

== ENCOUNTER 2019-03-21 13:04 | Outpatient (CLI) | payer MEDICAID, SELFPAY ==
[2019-03-21 13:40] LABS: HCT 33.3 % (36.0-46.0); HGB 10.8 g/dL (12.0-15.5); Mean Corp. HGB Concentration 32.4 g/dL (32.0-36.0); Mean Corpuscular Hemoglobin 26.7 pg (27.0-33.0); Mean Corpuscular Volume 82.4 fL (80-95); Mean Platelet Volume 8.8 fL (8.0-11.0); Platelet Count 336 x1000/uL (130-400); RBC 4.04 m/cumm (4.00-5.20); RBC Distribution Width 12.5 % (11.7-14.6); White Blood Cell Count 12.12 k/cumm (4.4-10.8)
[2019-03-21 14:33] LABS: ALT 13 U/L (12-78); AST 10 U/L (15-37); Albumin 2.4 g/dL (3.4-5.0); Alkaline Phosphatase 190 U/L (46-116); Anion Gap 9.6 mmol/L (3-11); BUN 5 mg/dL (7-18); Bilirubin, Total 0.1 mg/dL (0.2-1.0); CO2 23.4 mmol/L (21.0-32.0); CREATININE 0.53 mg/dL (0.55-1.02); Calcium 8.2 mg/dL (8.5-10.1); Chloride 106 mmol/L (98-107); Glucose 88 mg/dL (70-100); Potassium 3.9 mmol/L (3.5-5.1); Sodium 139 mmol/L (136-145); Total Protein 5.9 g/dL (6.4-8.2); Uric Acid 3.2 mg/dL (2.6-6.0)
== END 2019-03-21 13:24 ==
PROVIDERS: Visit Provider Advanced Practice Midwife
DX: Z34.93 Encounter for supervision of normal pregnancy, unspecified, third trimester (principal)
CPT/HCPCS: 36415; 80053; 85027; 84550

== ENCOUNTER 2019-03-24 16:00 | Outpatient (REF) | payer MEDICAID, SELFPAY ==
[2019-03-24 19:25] LABS: *AMPHETAMINES SCREEN URINE Negative (Negative); *BARBITURATES SCREEN URINE Negative (Negative); *BENZODIAZEPINES SCREEN URINE Negative (Negative); Cannabinoids THC Negative (Negative); Cocaine Screen,Urine Negative (Negative); METHADONE URINE SCREEN Negative (Negative); OPIATES URINE SCREEN Negative (Negative)
[2019-03-24 20:06] LABS: Tricyclic Antidepressants Negative (Negative)
[2019-04-01 20:49] LABS: Buprenorphine Negative; Norbuprenorphine Negative
== END 2019-03-24 16:20 ==
LOC: LBN 16:00
PROVIDERS: Visit Provider Advanced Practice Midwife
DX: Z34.93 Encounter for supervision of normal pregnancy, unspecified, third trimester (principal); Z36.85 Encounter for antenatal screening for Streptococcus B
CPT/HCPCS: 80307; 87081

== ENCOUNTER 2019-04-04 01:17 | Outpatient (RCR) | payer MEDICAID, SELFPAY ==
[2019-03-28] MEDS: Normal Saline Flush 10 ML SYR IVP (13:44)
[2019-03-28] MEDS: IRON SUCROSE COMPLEX 200 MG in Normal Saline 100 ML 110 MG IVPB (13:44)
== END 2019-04-05 23:59 | disposition home or self-care (01) ==
LOC: INF 01:17
PROVIDERS: Visit Provider Advanced Practice Midwife
DX: D64.9 Anemia, unspecified (principal); Z3A.37 37 weeks gestation of pregnancy
CPT/HCPCS: 96365; J1756

== ENCOUNTER 2019-04-15 04:25 | Inpatient (IN) | payer MEDICAID, SELFPAY ==
[2019-04-15 09:48] LABS: HCT 36.1 % (36.0-46.0); HGB 11.9 g/dL (12.0-15.5); Mean Corpuscular Hemoglobin 27.4 pg (27.0-33.0); Mean Corpuscular Volume 83.2 fL (80-95); Mean Platelet Volume 8.6 fL (8.0-11.0); Platelet Count 372 x1000/uL (130-400); RBC 4.34 m/cumm (4.00-5.20); RBC Distribution Width 14.1 % (11.7-14.6); White Blood Cell Count 13.98 k/cumm (4.4-10.8)
[2019-04-15] MEDS: Acetaminophen 325 MG TAB 650 MG PO (17:01)
[2019-04-15] MEDS: Ibuprofen 600 MG TAB PO (17:01)
[2019-04-15] MEDS: Hamamelis Leaf/Glycerin 100 EACH BOX PR (17:05)
[2019-04-16] MEDS: Acetaminophen 325 MG TAB 650 MG PO ×3 (04:45→18:43)
[2019-04-16] MEDS: Docusate Sodium 100 MG CAP PO ×2 (14:23→18:43)
[2019-04-16] MEDS: Ibuprofen 600 MG TAB PO (18:43)
[2019-04-17] MEDS: Ibuprofen 600 MG TAB PO ×2 (06:36→13:01)
[2019-04-17] MEDS: Acetaminophen 325 MG TAB 650 MG PO ×2 (06:36→13:01)
== END 2019-04-17 13:15 | disposition home or self-care (01) | DRG 807 ==
PROVIDERS: Admitting Provider Advanced Practice Midwife; Visit Provider Advanced Practice Midwife
DX: O77.0 Labor and delivery complicated by meconium in amniotic fluid (principal); Z37.0 Single live birth; O76 Abnormality in fetal heart rate and rhythm complicating labor and delivery; O69.81X0 Labor and delivery complicated by cord around neck, without compression, not applicable or unspecified; Z3A.39 39 weeks gestation of pregnancy
CPT/HCPCS: 36415; 85027

== ENCOUNTER 2019-07-11 11:16 | Outpatient (REF) | payer MEDICAID, SELFPAY ==
[2019-07-11 19:44] LABS: HCT 37.6 % (36.0-46.0); HGB 12.1 g/dL (12.0-15.5); Mean Corp. HGB Concentration 32.2 g/dL (32.0-36.0); Mean Corpuscular Hemoglobin 26.4 pg (27.0-33.0); Mean Corpuscular Volume 82.1 fL (80-95); Mean Platelet Volume 9.5 fL (8.0-11.0); Platelet Count 417 x1000/uL (130-400); RBC 4.58 m/cumm (4.00-5.20); RBC Distribution Width 13.1 % (11.7-14.6); White Blood Cell Count 8.19 k/cumm (4.4-10.8)
[2019-07-11 20:00] LABS: Iron 73 ug/dL (50-175); Total Iron Binding Capacity 309 ug/dL (250-450); Transferrin Sat 24 % (15-50)
== END 2019-07-11 11:36 ==
LOC: NCHCN 11:16
PROVIDERS: PCP Nurse Practitioner Family; Visit Provider Nurse Practitioner Family
DX: D50.9 Iron deficiency anemia, unspecified (principal)
CPT/HCPCS: 85027; 83540; 83550

== ENCOUNTER 2019-09-03 02:10 | Emergency (ER) | payer MEDICAID, SELFPAY ==
[2019-09-03 02:13] VITALS: BP 139/89; PULSE 109; RESP 20; TEMP 36.4; O2SAT 98
--- NOTE | 2019-09-03 02:24 | ED.GENADUL_ITS ---
Discharge Plan Disposition Patient Disposition: HOME Condition: Good Discharge Details Chief Complaint: Sorethroat Clinical Impression: Acute herpangina Primary Care Provider: Brandon Fraga ED Provider: Braulio Vee Home Meds and New Rx's Prescriptions: New Lidocaine Viscous 2 % solution 15 ml MM Q4H PRN (Reason: pain) Qty: 100 RF: 0 No Action Gummy 400 mcg-35 mg -25 mg-5 mg tablet,chewable 1 tab PO BID RF: 0 (DME) breast pump device See Rx Instructions .ROUTE .MEDSUPPLY Qty: 1 RF: 0 ferrous sulfate 325 mg (65 mg iron) tablet 325 mg PO DAILY RF: 0 norethindrone (contraceptive) [Ortho Micronor] 0.35 mg tablet 0.35 mg PO DAILY Qty: 84 RF: 4 Discharge Instructions Additional Instructions: You have what is called herpangina. It is a viral infection causing painful blisters in the back of your throat. Please use the spray to the back of your throat every 4 hours. Please drink plenty of fluids to stay well-hydrated. If the straight does not take care of the pain, please fill the prescription for the viscous lidocaine, rinse gargle and swish every 4-6 hours to help with the pain. If you notice any worsening of your symptoms, or any new symptoms such as vomiting, diarrhea, fever, chills, shortness of breath, chest pain, numbness, weakness, or fainting , please return immediately to the emergency department for reevaluation. Please follow up with your primary care provider as soon as possible for reassessment and reevaluation. As always, it was a pleasure participating in your medical care today. Referrals: Brandon Fraga, [employer] [Primary Care Provider] - Medical Decision Making This is a very pleasant 24-year-old female who presents today for sore throat for the last 4 days. She has had mild fever responds to Tylenol. She is currently breast-feeding and does not take Motrin. Physical exam demonstrates evidence of herpangina, no evidence of hand-foot mouth disease, no evidence of peritonsillar abscess or tonsillitis. Strep test is negative. Did offer IV and fluids for the patient but she has refused and would like to hold off on an IV at this time. She is still drinking well. Vital signs stable. Hurricaine spray was used and complete anesthesia was achieved and patient's pain was resolved. We will give Hurricaine spray to go home with recommend use every 4 to 6 hours. We will give a prescription for viscous lidocaine if she needs this as well as an alternative. Discussed the importance of notably limited use of both of these substances. Discussed red flags and risks of them as well. I have extensively reviewed the treatment plan and discharge instructions with the patient. I have addressed all patient concerns at this time. The patient was made aware of what symptoms to monitor for that would warrant a return to the emergency department. Discussed the plan with the patient, they demonstrate verbal understanding and agreement with our assessment and plan at this time. HPI General Date/Time Provider Initiated Documentation: 09/03/19 02:11 . HPI Narrative: This is a pleasant 24-year-old female with no significant past medical history who presents today for evaluation of painful sore throat. Patient states that for the last 4 days she has had mild sore throat, occasional fever which improves with Tylenol. Pain is related to swallowing, and is notably in the posterior aspect of her throat. She does admit to very minimal cough. She denies any vomiting or diarrhea. She has been able to continue to drink well at home, but states that it is mildly painful. She is currently breast-feeding so is not taking any ibuprofen. She denies any other complaints at this time. She denies headache, neck pain, chest pain shortness of breath. Related Data Home Medications Medication Instructions Recorded Confirmed [id number] 400 mcg-om3 35 mg-dha 25 1 tab PO BID tab 08/25/18 09/03/19 mg-epa 5 mg-fish oil chewable tablet breast pump #1 each 03/17/19 05/23/19 ferrous sulfate 325 mg (65 mg 325 mg PO DAILY 04/07/19 09/03/19 iron) tablet norethindrone (contraceptive) 0.35 0.35 mg PO DAILY #84 tab 05/23/19 09/03/19 mg tablet lidocaine HCl [Lidocaine Viscous] 15 ml MM Q4H PRN #100 ml 09/03/19 Previous Rx's Medication Instructions Recorded breast pump #1 each 03/17/19 norethindrone (contraceptive) 0.35 0.35 mg PO DAILY #84 tab 05/23/19 mg tablet lidocaine HCl [Lidocaine Viscous] 15 ml MM Q4H PRN #100 ml 09/03/19 Allergies Allergy/AdvReac Type Severity Reaction Status Date / Time No Known Allergies Allergy Verified 09/03/19 02:17 General Stated Complaint: Sorethroat HALEY: 4 Review of Systems All systems reviewed & are unremarkable except as noted in HPI and below PFSH Medical History (Updated 04/26/19 @ 14:50 by Lizbeth Araujo CNM) BMI 30.0-30.9,adult (Chronic) Chlamydia trachomatis infection (Resolved 05/17/13) Rx with Zithromax. YE 01/03/14 -neg History of migraine (Acute) Mild acid reflux (Chronic) Positive test (Acute) Recent childbirth (Resolved 06/01/17) [place]- 6lbs 14oz Social History (Updated 09/02/18 @ 13:57 by Claudia Drew MD) Smoking/Tobacco Use Status: Never Alcohol Intake: never Drug use: Occasionally Substance use type: marijuana Household members: children and other Details: BF Brandi walter Do you feel safe in your relationship?: Yes History History 2 Para 2 Hx # Term Pregnancies 2 Multiple births 0 Hx # Pregnancies 0 Ectopic pregnancies 0 AB induced 0 Hx Number of Living Children 1 AB spontaneous 0 Past Pregnancies Del. Date GA/Weeks # Outcome Route Wgt Sex Labor Lgth Anesthes ia Location Prov Complic 06/01/17 40 No Successful vaginal 3.118 kg Male 5 hrs N [facility] 04/15/19 39 No Successful vaginal 3.203 kg Male A carlos alberto Araujo CNM Delivery Date: 06/01/17 On 09/16/18 @ 11:06 Katherin Vines [place], used nitrous, nml Delivery Date: 04/15/19 No notes to display Exam Narrative Exam Narrative: 1.Const: Well-nourished, Well-developed, appearing stated age 2.Eyes: PERRL, no conjunctival injection, and symmetrical lids. 3.ENT: Atraumatic external nose and ears. Moist MM. Neck: Symmetric, trachea midline, No thyromegaly. Posterior oropharynx demonstrates evidence of herpangina-like lesions, present over the uvula and the posterior oropharynx. No large vesicles, tonsils are normal size and not large. No tonsillar exudates. No evidence peritonsillar abscess. No evidence of herpes like lesion. No other abnormalities. 4.CVS: +S1/S2, No murmurs or gallops. Peripheral pulses 2+ and equal in all extremities. Brisk capillary refill in all extremities. 5.RESP: Unlabored respiratory effort. Clear to auscultation bilaterally. No wheezes rales or rhonchi 6.GI: Soft, Nontender/Nondistended, No hepatosplenomegaly. No guarding or rebound. 7.MSK: Normocephalic/Atraumatic, Extremities w/o deformity or ttp No cyanosis or clubbing, Normal movement of all extremities 8.Skin: Warm, Dry. No rashes or lesions. 9.Neuro: financial cost analyst II-XII grossly intact. Sensation grossly intact, no focal neurologic deficits. 10.Psych: (AAO) x3. Appropriate mood and affect Course Vital Signs Vital signs: Vital Signs Temperature 36.4 C L 09/03/19 02:13 Pulse 109 H 09/03/19 02:13 Respiratory Rate 20 09/03/19 02:13 Blood Pressure 139/89 09/03/19 02:13 Pulse Oximetry 98 09/03/19 02:13 Temperature 36.4 C L 09/03/19 02:13 Temperature Source Skin 09/03/19 02:13 Pulse 109 H 09/03/19 02:13 Respiratory Rate 20 09/03/19 02:13 Respiratory Effort 09/03/19 02:13 Blood Pressure 139/89 09/03/19 02:13 Pulse Oximetry 98 09/03/19 02:13 Oxygen Delivery Method Room Air 09/03/19 02:13 Oxygen Flow Rate 0 09/03/19 02:13 Pain Level 7 09/03/19 02:13
[2019-09-03 02:41] VITALS: BP 139/89; PULSE 109; RESP 20; O2SAT 98
== END 2019-09-03 02:40 | disposition home or self-care (01) ==
LOC: ER 02:41
PROVIDERS: Emergency Provider Student in an Organized Health Care Education/Training Program; PCP Nurse Practitioner Family
DX: B08.5 Enteroviral vesicular pharyngitis (principal)
CPT/HCPCS: 99283

== ENCOUNTER 2019-09-04 20:45 | Emergency (ER) | payer MEDICAID, SELFPAY ==
[2019-09-04 21:01] VITALS: BP 144/79; PULSE 110; RESP 18; TEMP 36.6; O2SAT 97
--- NOTE | 2019-09-04 21:12 | ED.GENADUL_ITS ---
Discharge Plan Disposition Patient Disposition: HOME Condition: Stable Discharge Details Chief Complaint: EyeProblem Clinical Impression: Conjunctivitis Primary Care Provider: Brandon Fraga ED Provider: Jalen Sierra Home Meds and New Rx's Prescriptions: Continued Gummy 400 mcg-35 mg -25 mg-5 mg tablet,chewable 1 tab PO BID RF: 0 (DME) breast pump device See Rx Instructions .ROUTE .MEDSUPPLY Qty: 1 RF: 0 ferrous sulfate 325 mg (65 mg iron) tablet 325 mg PO DAILY RF: 0 norethindrone (contraceptive) [Ortho Micronor] 0.35 mg tablet 0.35 mg PO DAILY Qty: 84 RF: 4 Lidocaine Viscous 2 % solution 15 ml MM Q4H PRN (Reason: pain) Qty: 100 RF: 0 Discharge Instructions Instructions: Conjunctivitis (ED) Additional Instructions: Continue Tylenol and/or ibuprofen as needed for sore throat. Use erythromycin ointment 4 times daily for 5 to 7 days to affected eyes. Continue small, frequent sips of fluids to maintain hydration. Return for any acute concern. Medical Decision Making 24-year-old female presents from home with 2 days of right eye injection and crusting of the eyelid, slight association with sore throat and diagnosis of herpangina. She does have evidence of acute right conjunctivitis on exam. Will treat with erythromycin ointment. She is stable for outpatient management. HPI General Mode of arrival: ambulatory . Date/Time Provider Initiated Documentation: 09/04/19 20:46 . Limitations to Documentation: no limitations . Information obtained by: patient . History of Present Illness 24 year old F presents to the emergency department with the chief complaint of Right greater than left conjunctivitis, described as mild, Quality is described as constant, and is localized to the eyes. Patient reports no radiation. Patient started experiencing this day(s) and it has been constant. No relieving factors improve symptom(s), No exacerbating factors reported . Patient notes other (Sore throat and recent diagnosis herpangina). Patient did receive the following treatments prior to arrival, none Related Data Home Medications Medication Instructions Recorded Confirmed [id number] 400 mcg-om3 35 mg-dha 25 1 tab PO BID tab 08/25/18 09/04/19 mg-epa 5 mg-fish oil chewable tablet breast pump #1 each 03/17/19 09/04/19 ferrous sulfate 325 mg (65 mg 325 mg PO DAILY 04/07/19 09/04/19 iron) tablet norethindrone (contraceptive) 0.35 0.35 mg PO DAILY #84 tab 05/23/19 09/04/19 mg tablet Lidocaine Viscous 15 ml MM Q4H PRN #100 ml 09/03/19 09/04/19 Previous Rx's Medication Instructions Recorded breast pump #1 each 03/17/19 norethindrone (contraceptive) 0.35 0.35 mg PO DAILY #84 tab 05/23/19 mg tablet Lidocaine Viscous 15 ml MM Q4H PRN #100 ml 09/03/19 Allergies Allergy/AdvReac Type Severity Reaction Status Date / Time No Known Allergies Allergy Verified 09/04/19 21:04 General Stated Complaint: EyeProblem HALEY: 4 Review of Systems Narrative: 6 systems reviewed and otherwise negative [facility] Medical History BMI 30.0-30.9,adult (Chronic) Chlamydia trachomatis infection (Resolved 05/17/13) Rx with Zithromax. YE 01/03/14 -neg History of migraine (Acute) Mild acid reflux (Chronic) Positive test (Acute) Recent childbirth (Resolved 06/01/17) [place]- 6lbs 14oz Family History Mother Multiple sclerosis sx consist of temperature instability Diabetes Maternal Grandmother Diabetes Social History (Updated 09/02/18 @ 13:57 by Claudia Drew MD) Smoking/Tobacco Use Status: Never Alcohol Intake: never Drug use: Occasionally Substance use type: marijuana Household members: children and other Details: BF Brandi walter Do you feel safe in your relationship?: Yes History History 2 Para 2 Hx # Term Pregnancies 2 Multiple births 0 Hx # Pregnancies 0 Ectopic pregnancies 0 AB induced 0 Hx Number of Living Children 1 AB spontaneous 0 Past Pregnancies Del. Date GA/Weeks # Outcome Route Wgt Sex Labor Lgth Anesthes ia Location Prov Complic 06/01/17 40 No Successful vaginal 3.118 kg Male 5 hrs N [facility] [place] 04/15/19 39 No Successful vaginal 3.203 kg Male A carlos alberto Araujo CNM Delivery Date: 06/01/17 On 09/16/18 @ 11:06 Katherin Vines [place], used nitrous, nml Delivery Date: 04/15/19 No notes to display Exam Narrative Exam Narrative: GEN: awake, alert, oriented 3. Pleasant, well groomed, interactive. HEAD: Normocephalic, atraumatic ENT: Mucous membranes moist, oropharynx unremarkable, External ear exam unremarkable EYES: PERRL, EOMI, right eye injected, crusting of the eyelids, NECK: Full ROM, no JR, no menigismus CHEST/RESP: Nontender, clear to auscultation bilateral, no wheeze/rhonchi/rales CARDIOVASCULAR: RRR, no murmur, rub ruby. 2+ Rad pulse bilateral ABDOMEN: Soft, nontender, no mass. +Bowel sounds EXT: Full ROM, no edema, no rash Neuro: Grossly normal neurologic exam, conversant, interactive. Psych: Speech fluent, thoughts congruent, affect normal Course Vital Signs Vital signs: Vital Signs Temperature 36.6 C 09/04/19 21:01 Pulse 110 H 09/04/19 21:01 Respiratory Rate 18 09/04/19 21:01 Blood Pressure 144/79 H 09/04/19 21:01 Pulse Oximetry 97 09/04/19 21:01 Temperature 36.6 C 09/04/19 21:01 Temperature Source Tympanic 09/04/19 21:01 Pulse 110 H 09/04/19 21:01 Respiratory Rate 18 09/04/19 21:01 Respiratory Effort Non-Labored 09/04/19 21:03 Blood Pressure 144/79 H 09/04/19 21:01 Blood Pressure Position Sitting 09/04/19 21:01 Pulse Oximetry 97 09/04/19 21:01 Oxygen Delivery Method Room Air 09/04/19 21:01 Oxygen Flow Rate 0 09/04/19 21:01 Pain Level 5 09/04/19 21:01
[2019-09-04] MEDS: Erythromycin Ophth Oint 3.5 GM TUBE OP (21:16)
[2019-09-04 21:28] VITALS: BP 144/79; PULSE 110; RESP 18; TEMP 36.6; O2SAT 97
== END 2019-09-04 21:30 | disposition home or self-care (01) ==
PROVIDERS: Emergency Provider Emergency Medicine; PCP Nurse Practitioner Family
DX: H10.33 Unspecified acute conjunctivitis, bilateral (principal)
CPT/HCPCS: 99283

== ENCOUNTER 2019-12-26 18:28 | Outpatient (REF) | payer SELFPAY ==
[2019-12-26 18:30] LABS: HCT 40.4 % (36.0-46.0); HGB 13.2 g/dL (12.0-15.5); Mean Corp. HGB Concentration 32.7 g/dL (32.0-36.0); Mean Corpuscular Hemoglobin 26.8 pg (27.0-33.0); Mean Corpuscular Volume 82.1 fL (80-95); Mean Platelet Volume 9.8 fL (8.0-11.0); Platelet Count 364 x1000/uL (130-400); RBC 4.92 m/cumm (4.00-5.20); RBC Distribution Width 13.6 % (11.7-14.6); White Blood Cell Count 8.59 k/cumm (4.4-10.8)
[2019-12-26 18:53] LABS: Anion Gap 9.3 mmol/L (3-11); BUN 7 mg/dL (7-18); CO2 25.7 mmol/L (21.0-32.0); CREATININE 0.83 mg/dL (0.55-1.02); Calcium 8.8 mg/dL (8.5-10.1); Chloride 107 mmol/L (98-107); Glucose 86 mg/dL (74-106); Potassium 4.3 mmol/L (3.5-5.1); Sodium 142 mmol/L (136-145); TSH (W/Ref FT4) 1.66 uIU/mL (0.36-3.74)
[2019-12-26 19:57] LABS: Iron 45 ug/dL (50-170)
== END 2019-12-26 18:48 ==
LOC: NCHCN 18:28
PROVIDERS: PCP Nurse Practitioner Family; Visit Provider Nurse Practitioner Family
DX: D50.9 Iron deficiency anemia, unspecified (principal); R63.5 Abnormal weight gain
CPT/HCPCS: 80048; 85027; 83540; 84443

== ENCOUNTER 2020-01-11 16:54 | Emergency (ER) | payer MEDICAID, SELFPAY ==
[2020-01-11 16:59] VITALS: BP 135/85; PULSE 89; RESP 16; TEMP 36.8; O2SAT 95
--- NOTE | 2020-01-11 17:13 | ED.GENADUL_ITS ---
Discharge Plan Disposition Patient Disposition: HOME Condition: Stable Discharge Details Chief Complaint: GenMedical Clinical Impression: Bilateral hand swelling Primary Care Provider: Brandon Fraga ED Provider: Corey Dangelo Home Meds and New Rx's Prescriptions: Continued (DME) breast pump device See Rx Instructions .ROUTE .MEDSUPPLY Qty: 1 RF: 0 norethindrone (contraceptive) [Ortho Micronor] 0.35 mg tablet 0.35 mg PO DAILY Qty: 84 RF: 4 Discharge Instructions Additional Instructions: Do not wear ring for 32-3 days after swelling completely resolved. Please do not use magic mushrooms. Do not use drugs. Please drink plenty of fluid and allow for rest today. Please contact your primary care physician to arrange follow-up. Return to the ER for any worsening or new concerning symptoms. Referrals: Brandon Fraga, AERONAUTICAL PRODUCTS SALES ENGINEER [Primary Care Provider] - Discharge Data Discharge Date/Time-TO BE ENTERED AT DEPARTURE: 01/11/20 17:21 HPI General Mode of arrival: ambulatory . Date/Time Provider Initiated Documentation: 01/11/20 17:05 . Limitations to Documentation: no limitations . Information obtained by: patient . HPI Narrative: 24-year-old female here with chief complaint of bilateral hand swelling. Patient notes that this afternoon she ingested magic mushrooms. She then went for a hike. After the hike she noted that her hands seem swollen. Swelling has since improved. She was quite concerned about this and the potential that it was a side effect of the mushrooms that she ingested. Other people did ingest mushrooms and had no side effects. She denies associated shortness of breath, tongue swelling, or rash. No nausea or vomiting. No swelling of any other joints. Related Data Home Medications Medication Instructions Recorded Confirmed breast pump #1 each 03/17/19 01/11/20 norethindrone (contraceptive) 0.35 0.35 mg PO DAILY #84 tab 05/23/19 01/11/20 mg tablet Previous Rx's Medication Instructions Recorded breast pump #1 each 03/17/19 norethindrone (contraceptive) 0.35 0.35 mg PO DAILY #84 tab 05/23/19 mg tablet Allergies Allergy/AdvReac Type Severity Reaction Status Date / Time No Known Allergies Allergy Verified 01/11/20 17:05 General Stated Complaint: GenMedical HALEY: 3 Review of Systems Constitutional Constitutional: Denies fever(s) Respiratory Respiratory: Reports as per HPI Gastrointestinal Gastrointestinal: Denies nausea and Denies vomiting Musculoskeletal Musculoskeletal: Reports as per HPI Integumentary/Breasts Skin/Breast: Reports as per HPI PFSH Medical History BMI 30.0-30.9,adult (Chronic) Chlamydia trachomatis infection (Resolved 05/17/13) Rx with Zithromax. YE 01/03/14 -neg History of migraine (Acute) Mild acid reflux (Chronic) Positive test (Acute) Recent childbirth (Resolved 06/01/17) Barry- 6lbs 14oz Family History Mother Multiple sclerosis sx consist of temperature instability Diabetes Maternal Grandmother Diabetes Social History Smoking/Tobacco Use Status: Never Alcohol Intake: never Drug use: Occasionally Substance use type: marijuana Household members: children and other Details: BF Brandi walter Do you feel safe at home: Yes (unable to assess privately) Do you feel safe in your relationship?: Yes History History 2 Para 2 Hx # Term Pregnancies 2 Multiple births 0 Hx # Pregnancies 0 Ectopic pregnancies 0 AB induced 0 Hx Number of Living Children 1 AB spontaneous 0 Past Pregnancies Del. Date GA/Weeks # Outcome Route Wgt Sex Labor Lgth Anesthes ia Location Prov Complic 06/01/17 40 No Successful vaginal 3.118 kg Male [address] [facility] - A[place] 04/15/19 39 No Successful vaginal 3.203 kg Male A carlos alberto Araujo CNM Delivery Date: 06/01/17 Barry used nitrous, nml Katherin Vines Delivery Date: 04/15/19 No notes to display Exam Const General: cooperative and no acute distress HENMT Mouth: moist mucous membranes Eyes Conjunctivae: normal conjunctivae Neck Neck: trachea midline and supple Resp Auscultation: clear to auscultation bilaterally, no rales, no rhonchi and no wheezes Cardio Rate: regular rate and not tachycardic Rhythm: regular rhythm Pulses: radial pulses present bilaterally 2+ GI Palpation: soft and nontender Skin General skin exam: no rashes or lesions noted Neuro General: patient alert, patient awake, patient oriented x3 and tone normal Extrem General: other (Questionable faint edema bilateral hands) Psych Appearance: grossly normal Speech and Movement: speech and movement normal Affect: anxious affect (Mild) Attitude: cooperative Thought Process: normal Thought Content: normal Insight: insight good Course Vital Signs Vital signs: Vital Signs Temperature 36.8 C 01/11/20 16:59 Pulse 89 01/11/20 16:59 Respiratory Rate 16 01/11/20 16:59 Blood Pressure 135/85 01/11/20 16:59 Pulse Oximetry 95 01/11/20 16:59 Temperature 36.8 C 01/11/20 16:59 Temperature Source Tympanic 01/11/20 16:59 Pulse 89 01/11/20 16:59 Respiratory Rate 16 01/11/20 16:59 Respiratory Effort Non-Labored 01/11/20 17:04 Blood Pressure 135/85 01/11/20 16:59 Blood Pressure Position Sitting 01/11/20 16:59 Pulse Oximetry 95 01/11/20 16:59 Oxygen Delivery Method Room Air 01/11/20 16:59 Oxygen Flow Rate 0 01/11/20 16:59 Pain Level 2 01/11/20 16:59
== END 2020-01-11 17:21 | disposition home or self-care (01) ==
PROVIDERS: Emergency Provider Student in an Organized Health Care Education/Training Program; PCP Nurse Practitioner Family
DX: R60.0 Localized edema (principal); F16.10 Hallucinogen abuse, uncomplicated
CPT/HCPCS: 99282

== ENCOUNTER 2020-03-21 08:10 | Outpatient (REF) | payer MEDICAID, SELFPAY ==
[2020-03-21 15:22] LABS: Vitamin D 25 Total 30.8 ng/ml (30-100)
== END 2020-03-21 08:30 ==
LOC: NCHCN 08:10
PROVIDERS: PCP Nurse Practitioner Family; Visit Provider Nurse Practitioner Psychiatric/Mental Health
DX: F39 Unspecified mood [affective] disorder (principal)
CPT/HCPCS: 82306

== ENCOUNTER 2020-07-12 17:18 | Outpatient (REF) | payer MEDICAID, SELFPAY ==
[2020-07-12 19:42] LABS: HCT 38.9 % (36.0-46.0); HGB 12.6 g/dL (11.2-15.7); MCH 26.8 pg (27.0-33.0); MCHC 32.4 % (32.0-36.0); MCV 82.8 fL (80-95); MPV 9.5 fL (8.0-11.0); Platelet Count 395 10^3/uL (130-400); RDW 12.4 % (11.7-14.6); RDW-SD 37.6 fL; WBC 10.45 10^3/uL (4.4-10.8)
[2020-07-12 19:52] LABS: Iron 47 ug/dL (50-170); Total Iron Binding Capacity 318 ug/dL (250-450); Transferrin Sat 15 % (15-50)
== END 2020-07-12 17:38 ==
LOC: NCHCN 17:18
PROVIDERS: PCP Nurse Practitioner Family; Visit Provider Nurse Practitioner Family
DX: D50.9 Iron deficiency anemia, unspecified (principal)
CPT/HCPCS: 85027; 83540; 83550

== ENCOUNTER 2020-07-30 14:08 | Outpatient (REF) | payer MEDICAID, SELFPAY ==
--- NOTE | 2020-07-30 14:00 | PAPFT_PTH ---
PATIENT: Shanti Wilson LOC: [facility] U#:[id number] AGE/SX: 25/F ROOM: RE07/30/[address]: AUSTIN Gomez : 1995 BED: DIS: 07/30/2020 SPEC #: [id number] RECD: 07/30/20 18:11 STATUS: LASHELL REQ #: [id number] CHELO: 07/30/20 14:[address]: Jessy Thomas DEPT: [facility] Cytology RECD BY: Tyesha Hanks ENTERED: 07/30/20 18:12 SP TYPE: PAPFT OTHR DR: Brandon Fraga Tissues: 1 - CX/ENDOCX FOR PAP SMEARS Procedures: PAP THIN PREP/UVM Screening Comments: [id number]
== END 2020-07-30 14:28 ==
LOC: LBN 14:08
PROVIDERS: PCP Nurse Practitioner Family; Visit Provider Nurse Practitioner Family
DX: Z12.4 Encounter for screening for malignant neoplasm of cervix (principal)
CPT/HCPCS: 88142

== ENCOUNTER 2020-09-20 20:29 | Outpatient (REF) | payer MEDICAID, SELFPAY ==
[2020-09-21 16:42] LABS: COVID-19 RT-PCR UVMMC Result Negative (Negative)
== END 2020-09-20 20:49 ==
LOC: NCHCN 20:29
PROVIDERS: PCP Nurse Practitioner Family; Visit Provider Nurse Practitioner Family
DX: R19.7 Diarrhea, unspecified (principal)
CPT/HCPCS: U0003

== ENCOUNTER 2020-10-21 06:00 | Emergency (ER) | payer MEDICAID, SELFPAY ==
[2020-10-21] VITALS (26 sets, daily range): BP systolic 113–162; BP diastolic 59–87; PULSE 72–94; RESP 15–24; TEMP 36–36.7; O2SAT 97–101
--- NOTE | 2020-10-21 06:00 | RT.EKG_ITS ---
APPROVED REPORT Exam: Resting ECG Patient Location: E HR:97 bpm ECG Measurements Heart Rate 97 AXIS TX 171 P 50 QRSd 89 QRS 57 QT 346 T 16 QTc 439 Conclusion Sinus rhythm...normal P axis, V-rate 60- 99
--- NOTE | 2020-10-21 06:10 | ED.GENADUL_ITS ---
Discharge Plan Disposition Patient Disposition: HOME Condition: Stable Discharge Details Clinical Impression: Chest pain Primary Care Provider: Brandon Fraga ED Provider: Susana Dangelo Home Meds and New Rx's Prescriptions: New omeprazole 20 mg capsule,delayed release(DR/EC) 20 mg PO DAILY Qty: 28 RF: 0 Discontinued ferrous sulfate [Feosol] 325 mg (65 mg iron) tablet 325 mg PO DAILY RF: 0 No Action prenat.vits,priyanka,[id number] Tablet 1 tab PO DAILY RF: 0 Discharge Instructions Instructions: Chest Pain (ED), Gastritis (ED), Diet for Stomach Ulcers and Gastritis (ED), GERD (Gastroesophageal Reflux Disease) (ED) Additional Instructions: Please return immediately to the emergency department if you develop any new or worsening symptoms, if your condition does not improve as expected, or if you become otherwise concerned. It is extremely important that you call soon as possible to make an appointment to be seen in follow-up for this visit by your primary care doctor. Referrals: Brandon Fraga COMPUTER SCIENCE TEACHER [Primary Care Provider] - Medical Decision Making <Dennys Alvarez MD - Last Filed: 10/21/20 07:02> 25 yo female who denies chronic medical problems comes in with chest tightness since yesterday but feels it might be worse today than yesterday and has no prior history of having pain like she is having. She describes it as a tightness across the chest anteriorly. She denies any falls and no fevers, dyspnea, chills, abdominal pain, back pain. She doesn't smoke and denies drug use other than rare marijuana use. She does appear anxious on exam. HAs clear lung sounds without murmurs and no leg swelling. She has a heart rate on my exam of 110. Her heart score is 1 so. will obtain ecg and troponin to evaluate for this. She is wells score low but given her heart rate can't exclude PE, will obtain d dimer. She has no tearing back pain and normal neurovascular exam so doubt dissection. Other possibilities for her pain could be costochondritis or esophageal spasm but will evaluate for more life threatening pathology labs unremarkable and she feels improved and appears less anxious, heart rate is 80. Will obtain delta troponin and if this is negative and has no significant changes likely d/c and f/u with pcp. Pt signed out to Dr. Dangelo pending repeat troponin and ecg Differential Diagnosis Differential Diagnosis: nstemi, pe, pericarditis, gastritis, esophageal spasm Imaging Data Radiologic Study: Attestation: I personally reviewed and interpreted this imaging study as follows: Imaging: X-Ray My impression: no acute findings Lab Data Lab results reviewed: Yes I reviewed the patient's lab results. ECG Data Attestation: I personally reviewed and interpreted this ECG (s) as follows: Prior ECG tracings: not available for review Interpretation: sinus rhythm, rate of 97, pr 171, no acute st t wave ischemic findings <Susana Dangelo MD - Last Filed: 10/21/20 10:41> Shanti Wilson is a 25-year-old woman with a history of acid reflux who presented to emergency department with chest pain, signed out to me by Dr. Alvarez with repeat troponin, repeat EKG pending. Patient reports from my assessment that she is currently having heartburn which she reports is sharp/burning pain in her chest. Patient reports that ever since delivering her last child 2 years ago she has had persistent heartburn that has usually been characterized as burning pain in her left upper quadrant. Patient reports that recently this pain has worsened and has been present in her chest. Patient reports that she has been drinking multiple cola sodas per day throughout her life. She reports that she was seen by her PCP approximately 1 month ago for heartburn, was told to cut down on soda, and was also given m edication which she believes was Protonix. Patient reports that she was told not to take too much Protonix due to potential bone loss, and has subsequently not taken any of the medication. Patient reports that she has cut back her soda intake, and is now drinking 3 Coke/Pepsi's per day. Patient reports that when she has cut back more significantly on soda she has noticed a significant improvement in her heartburn symptoms. Patient reports that she presented to emergency department because had her burning heartburn pain seemerd to progress from her left upper quadrant into her chest over the past few days she became somewhat concerned. Patient reports that she is currently experiencing burning pain in her chest. Patient received GI cocktail, reported immediate resolution of symptoms. I had a lengthy discussion with patient regarding reflux/gastritis diet and behavioral changes, including cessation of soda intake, restarting omeprazole for short course. Patient states that she does not believe she has any of the medication as it was likely thrown out. HEART score is low. Repeat EKG okay, troponin negative. Plan for short-term omeprazole, stop iron for now given potential for GI irritation and as no current anemia, outpatient follow-up with PCP. I had a lengthy discussion with Patient regarding return to emergency department precautions, home care, and importance of outpatient follow-up. Pt verbalizes understanding of the plan and is amenable. Patient discharged to home with clear plan for outpatient follow- up. All questions were answered. Disposition decision was made weighing the risks and benefits of hospitalization versus outpatient treatment, the risk for further decompensation, and the patient's wishes. Medical Records Medical records reviewed: Yes I reviewed the patient's medical records. Lab Data Lab results reviewed: Yes I reviewed the patient's lab results. ECG Data Attestation: I personally reviewed and interpreted this ECG (s) as follows: Interpretation: EKG 9: 17 shows sinus rhythm at 72, normal axis, no acute ischemic changes, no major change from prior, nondiagnostic EKG HPI <Dennys Alvarez MD - Last Filed: 10/21/20 07:02> General Mode of arrival: ambulatory . Date/Time Provider Initiated Documentation: 10/21/20 06:02 . Limitations to Documentation: no limitations . Information obtained by: patient . History of Present Illness 25 year old F presents to the emergency department with the chief complaint of chest pain, described as moderate, and is localized to the chest. and it has been constant. No relieving factors improve symptom(s), No exacerbating factors reported . Patient notes no other symptoms.. Patient did receive the [facility] lowing treatments prior to arrival, none Related Data Home Medications Medication Instructions Recorded Confirmed prenat.vits,priyanka,nhf-fujo-jdjpe 1 tab PO DAILY 07/30/20 10/21/20 omeprazole 20 mg PO DAILY #28 cap 10/21/20 Previous Rx's Medication Instructions Recorded omeprazole 20 mg PO DAILY #28 cap 10/21/20 Allergies Allergy/AdvReac Type Severity Reaction Status Date / Time No Known Allergies Allergy Verified 10/21/20 06:28 General HALEY: 3 Review of Systems <Dennys Alvarez MD - Last Filed: 10/21/20 07:02> All systems reviewed & are unremarkable except as noted in HPI and below Constitutional Constitutional: Denies chills, Denies fever(s) and Denies weakness Cardiovascular Cardiovascular: Denies dyspnea Respiratory Respiratory: Denies cough and Denies dyspnea Gastrointestinal Gastrointestinal: Denies abdominal pain, Denies nausea and Denies vomiting Neurologic Neurologic: Denies weakness Psychiatric Psychiatric: Denies depression PFSH <Dennys Alvarez MD - Last Filed: 10/21/20 07:02> Medical History (Updated 10/21/20 @ 07:02 by Dennys Alvarez MD) BMI 30.0-30.9,adult Chlamydia trachomatis infection (05/17/13) Rx with Zithromax. YE 01/03/14 -neg History of migraine Mild acid reflux Positive test Recent childbirth (06/01/17) Barry- 6lbs 14oz Family History Mother Multiple sclerosis sx consist of temperature instability Diabetes Maternal Grandmother Diabetes Social History Smoking/Tobacco Use Status: Never Smoking risk assessment performed?: Yes Alcohol Intake: never Drug use: Occasionally Substance use type: marijuana Household members: children and other Details: BF Brandi walter Do you feel safe at home: Yes (unable to assess privately) Do you feel safe in your relationship?: Yes History History 2 Para 2 Hx # Term Pregnancies 2 Multiple births 0 Hx # Pregnancies 0 Ectopic pregnancies 0 AB induced 0 Hx Number of Living Children 1 AB spontaneous 0 Past Pregnancies Del. Date GA/Weeks # Outcome Route Wgt Sex Labor Lgth Anesthes ia Location Prov Complic 06/01/17 40 No Successful vaginal 3118.448 g Male 5 hrs [facility] - [place] 04/15/19 39 No Successful vaginal 3203.496 g Male [place] RICA Araujo Delivery Date: 06/01/17 Barry used nitrous, nml Katherin Vines Delivery Date: 04/15/19 No notes to display Exam <Dennys Alvarez MD - Last Filed: 10/21/20 07:02> Const General: anxious Orientation: alert HENMT Head: normal to inspection Ears: external ears normal General nose exam: external nose normal Mouth: moist mucous membranes Eyes General: appearance normal, both eyes and all related structures Neck Neck: normal visual inspection Resp Effort & Inspection: normal respiratory effort and able to speak in complete sentences Cardio Rate: tachycardic Skin General skin exam: no rashes or lesions noted Neuro General: patient alert and patient oriented x3 Extrem General: normal to inspection Psych Mental Status: mental status grossly normal Sign Out <Dennys Alvarez MD - Last Filed: 10/21/20 07:02> Sign Out Data: Sign Out Comment: pending delta troponin and ecg, labs including d dimer unremarkable and cxr also unremarkable. Last updated by Dennys Alvarez MD at 10/21/20 07:03
--- NOTE | 2020-10-21 06:15 | DI.RAD_ITS ---
EXAM: XR CHEST 2V PA LATERAL CLINICAL HISTORY: chest pain. TECHNIQUE: 2D digital imaging was performed. COMPARISON: Chest x-ray August 2015 FINDINGS: Heart size is normal. The mediastinum is not widened. Lungs are clear. No infiltrates nor pleural effusions. IMPRESSION: No acute pulmonary findings.No significant change compared to 2014 DATA REPOSITORY: RADIATION DOSE DELIVERED:
[2020-10-21] MEDS: Aspirin 81 MG CHEW 324 MG CH (06:16)
[2020-10-21 06:26] LABS: Abs Immature Grans 0.02 10^3/uL (0.0-0.06); Absolute Basophil Count 0.07 10^3/uL (0.0-0.2); Absolute Eosinophil Count 0.09 10^3/uL (0.0-0.7); Absolute Lymphocyte Count 2.21 10^3/uL (1.2-3.4); Absolute Monocyte Count 0.49 10^3/uL (0.1-0.8); Basophils % 0.8; HCT 38.1 % (36.0-46.0); HGB 12.4 g/dL (11.2-15.7); Immature Grans % 0.2; Lymphocytes % 25.2; MCH 27.1 pg (27.0-33.0); MCHC 32.5 % (32.0-36.0); MCV 83.2 fL (80-95); MPV 9.1 fL (8.0-11.0); Monocytes % 5.6; Neutrophils % 67.2; Nucleated RBC 0 %; Platelet Count 328 10^3/uL (130-400); RBC 4.58 10^6/uL (3.93-5.22); RDW 12.5 % (11.7-14.6); RDW-SD 38.4 fL; WBC 8.78 10^3/uL (4.4-10.8)
[2020-10-21 06:42] LABS: ALT 18 U/L (14-59); AST 9 U/L (15-37); Albumin 3.6 g/dL (3.4-5.0); Alkaline Phosphatase 116 U/L (46-116); Anion Gap 4.8 mmol/L (3-11); BUN 9 mg/dL (7-18); Bilirubin, Direct 0.05 mg/dL (0.00-0.20); Bilirubin, Total 0.2 mg/dL (0.2-1.0); CO2 26.2 mmol/L (21.0-32.0); CREATININE 0.9 mg/dL (0.55-1.02); Calcium 8.8 mg/dL (8.5-10.1); Chloride 104 mmol/L (98-107); Glucose 102 mg/dL (74-106); Lipase 47 U/L (73-393); Potassium 3.5 mmol/L (3.5-5.1); Sodium 135 mmol/L (136-145); Total Protein 7.3 g/dL (6.4-8.2)
[2020-10-21 06:43] LABS: Troponin I < 0.05 ng/mL (<0.06)
--- NOTE | 2020-10-21 06:45 | RT.EKG_ITS ---
APPROVED REPORT Exam: Resting ECG Patient Location: E HR:72 bpm ECG Measurements Heart Rate 72 AXIS ND 185 P 12 QRSd 87 QRS 2 QT 368 T 32 QTc 402 Conclusion Sinus rhythm...normal P axis, V-rate 60- 99 sinus rhythm at 72, normal axis, no acute ischemic changes, no major change from prior, nondiagnostic EKG
--- NOTE | 2020-10-21 06:46 | DI.VRAD_ITS ---
PROCEDURE INFORMATION: Exam: XR Chest, 2 Views Exam date and time: 10/21/2020 6:17 AM Age: 25 years old Clinical indication: Type not specified; Patient HX: Chest pain for 2 days TECHNIQUE: Imaging protocol: XR of the chest Views: 2 views. COMPARISON: CR ABD FLAT UPRIGHT PA CHEST 08/08/2015 1:49 PM FINDINGS: Lungs: Unremarkable. No consolidation. Pleural spaces: Unremarkable. No pleural effusion. No pneumothorax. Heart/Mediastinum: Unremarkable. No cardiomegaly. Bones/joints: Unremarkable. IMPRESSION: No acute findings. Dictated and Authenticated by: Luis E Davies MD. Ordering:URI Noyola MD
[2020-10-21 06:57] LABS: D-Dimer 145 ng/mlFEU (<500)
[2020-10-21] MEDS: Lidocaine 2% Viscous 15 ML CUP (08:12)
[2020-10-21] MEDS: Mylanta Suspension 30 ML CUP (08:13)
[2020-10-21 09:42] LABS: Troponin I < 0.05 ng/mL (<0.06)
== END 2020-10-21 10:25 | disposition home or self-care (01) ==
PROVIDERS: Emergency Medicine; Emergency Provider Student in an Organized Health Care Education/Training Program; PCP Nurse Practitioner Family
DX: R07.89 Other chest pain (principal); K21.9 Gastro-esophageal reflux disease without esophagitis
CPT/HCPCS: 80053; 81025; 83690; 93005; 99284; 71046; 82248; 83735; 84484; 85025; 85379; 93010

== ENCOUNTER 2021-01-09 13:10 | Outpatient (CLI) | payer MEDICAID, SELFPAY ==
--- NOTE | 2021-01-09 13:20 | DI.US_ITS ---
Exam(s) US OB 1ST TRIMESTER EXAM: US OB 1ST TRIMESTER CLINICAL HISTORY: RLQ pain with + home PT, R10.31, ? ECTOPIC TECHNIQUE: Ultrasound performed using standard protocol. COMPARISON: US US OB 2-3 trimester from 11/18/2018 FINDINGS: Ob ultrasound was performed utilizing 1st trimester protocol. There is no evidence of an intrauterin e gestational sac. Uterus measures 8.2 x 4.1 x 5.4 cm. There is 3.4 x 1.9 x 2.5 cm diameter complex left ovarian cyst, corpus luteum not excluded. IMPRESSION: No evidence of intrauterine gestation. Ectopic is not excluded the basis of this examinati on. Results of this exam have been verbally communicated with provider. DATA REPOSITORY:
[2021-01-09 14:25] LABS: HCG Quant, Pregnancy 10 mIU/mL (1-3)
== END 2021-01-09 13:11 | disposition home or self-care (01) ==
PROVIDERS: PCP Nurse Practitioner Family; Visit Provider Nurse Practitioner Family
DX: R10.31 Right lower quadrant pain (principal); N83.292 Other ovarian cyst, left side
CPT/HCPCS: 36415; 76801; 84702

== ENCOUNTER 2021-01-13 07:26 | Outpatient (CLI) | payer MEDICAID, SELFPAY ==
[2021-01-13 07:57] LABS: HCG Quant, Pregnancy 1 mIU/mL (1-3)
== END 2021-01-13 07:27 | disposition home or self-care (01) ==
PROVIDERS: PCP Nurse Practitioner Family; Visit Provider Nurse Practitioner Family
DX: R10.2 Pelvic and perineal pain (principal); N92.6 Irregular menstruation, unspecified
CPT/HCPCS: 36415; 84702

== ENCOUNTER 2021-03-31 15:41 | Emergency (ER) | payer MEDICAID, SELFPAY ==
--- NOTE | 2021-03-31 15:45 | DI.RAD_ITS ---
Exam(s) XR PORTABLE CHEST AP EXAM: XR PORTABLE CHEST AP CLINICAL HISTORY: cough, sob. TECHNIQUE: 2D digital imaging was performed. COMPARISON: CR,XR XR CHEST 2V PA LATERAL from 10/21/2020 FINDINGS: Heart size is normal. The mediastinum is not widened. Lungs are clear. No infiltrates nor obvious pleural effusions. IMPRESSION: No acute pulmonary findings on this single AP portable view of the chest. No significant change compared to 10/21/2020 DATA REPOSITORY: RADIATION DOSE DELIVERED: All CT scans at this facility use at least one of these dose optimization techniques: automated exposure control; mA and/or kV adjustment per patient size (includes targeted e xams where dose is matched to clinical indication); or iterative reconstruction.
[2021-03-31 15:47] VITALS: BP 145/100; PULSE 134; RESP 20; TEMP 37.2; O2SAT 100
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
[2021-03-31] MEDS: Albuterol/Ipratropium 3 ML UPD VIAL UPD (16:08)
[2021-03-31 17:00] VITALS: RESP 18
[2021-03-31 17:01] LABS: COVID-19 PCR Negative (Negative)
[2021-03-31 17:34] VITALS: BP 130/80; PULSE 104; RESP 18; TEMP 37.2; O2SAT 100
[2021-03-31] MEDS: Albuterol HFA 8 GM 60 PUFF INH IH (17:34)
== END 2021-03-31 17:37 | disposition home or self-care (01) ==
PROVIDERS: Emergency Provider Student in an Organized Health Care Education/Training Program; PCP Nurse Practitioner Family
DX: R05 Cough (principal); R06.02 Shortness of breath; Z20.822 Contact with and (suspected) exposure to COVID-19
CPT/HCPCS: 87635; 94640; 99283; 71045; J7620

== ENCOUNTER 2021-04-02 20:19 | Emergency (ER) | payer MEDICAID, SELFPAY ==
--- NOTE | 2021-04-02 20:15 | RT.EKG_ITS ---
APPROVED REPORT Exam: Resting ECG Reason for Exam: chest pain, shortness of breath Patient Location: E HR:77 bpm ECG Measurements Heart Rate 77 AXIS MD 165 P 45 QRSd 90 QRS 70 QT 357 T 32 QTc 405 Conclusion Sinus rhythm...normal P axis, V-rate 60- 99
[2021-04-02 20:23] VITALS: BP 134/90; PULSE 83; RESP 18; TEMP 36.6; O2SAT 99
[2021-04-02 20:27] VITALS: RESP 20
--- NOTE | 2021-04-02 21:35 | NUR.NOTE ---
Nursing Note: Dr. Dangelo at bedside.
[2021-04-02 22:03] LABS: Abs Immature Grans 0.03 10^3/uL (0.0-0.06); Absolute Basophil Count 0.03 10^3/uL (0.0-0.2); Absolute Eosinophil Count 0.09 10^3/uL (0.0-0.7); Absolute Lymphocyte Count 3.69 10^3/uL (1.2-3.4); Absolute Monocyte Count 0.48 10^3/uL (0.1-0.8); Absolute Neutrophil Count 6.33 10^3/uL (1.2-6.7); Basophils % 0.3; Eosinophils % 0.8; HGB 12.9 g/dL (11.2-15.7); Immature Grans % 0.3; Lymphocytes % 34.6; MCH 27.2 pg (27.0-33.0); MCHC 32.3 % (32.0-36.0); MCV 84.4 fL (80-95); MPV 8.8 fL (8.0-11.0); Monocytes % 4.5; Neutrophils % 59.5; Nucleated RBC 0 %; Platelet Count 330 10^3/uL (130-400); RBC 4.74 10^6/uL (3.93-5.22); RDW 12.4 % (11.7-14.6); RDW-SD 37.7 fL; WBC 10.65 10^3/uL (4.4-10.8)
--- NOTE | 2021-04-02 22:08 | DI.RAD_ITS ---
Exam(s) XR CHEST 2V PA LATERAL EXAM: XR CHEST 2V PA LATERAL CLINICAL HISTORY: cough. TECHNIQUE: 2D digital imaging was performed. COMPARISON: CR XR PORTABLE CHEST AP from 03/31/2021 FINDINGS: Heart size is normal. The mediastinum is not widened. Lungs are clear. No infiltrates nor pleural effusions. IMPRESSION: No acute pulmonary findings. DATA REPOSITORY: RADIATION DOSE DELIVERED:
[2021-04-02 22:10] VITALS: RESP 8
[2021-04-02] MEDS: Albuterol/Ipratropium 3 ML UPD VIAL UPD (22:10)
[2021-04-02 22:16] LABS: ALT 16 U/L (14-59); AST 11 U/L (15-37); Albumin 3.9 g/dL (3.4-5.0); Alkaline Phosphatase 81 U/L (46-116); Anion Gap 9.8 mmol/L (3-11); BUN 10 mg/dL (7-18); Bilirubin, Total 0.4 mg/dL (0.2-1.0); CO2 26.2 mmol/L (21.0-32.0); CREATININE 0.9 mg/dL (0.55-1.02); Calcium 9.2 mg/dL (8.5-10.1); Chloride 105 mmol/L (98-107); Glucose 89 mg/dL (74-106); Potassium 3.8 mmol/L (3.5-5.1); Sodium 141 mmol/L (136-145); Total Protein 7.7 g/dL (6.4-8.2)
[2021-04-02 22:18] LABS: Troponin I < 0.05 ng/mL (<0.06)
--- NOTE | 2021-04-02 22:22 | DI.VRAD_ITS ---
PROCEDURE INFORMATION: Exam: XR Chest Exam date and time: 04/02/2021 9:48 PM Age: 25 years old Clinical indication: Cough TECHNIQUE: Imaging protocol: XR of the chest. Views: 2 views. COMPARISON: CR XR PORTABLE CHEST AP 03/31/2021 4:04 PM FINDINGS: Lungs: Unremarkable. No consolidation. Pleural spaces: Unremarkable. No pleural effusion. No pneumothorax. Heart/Mediastinum: Unremarkable. No cardiomegaly. Bones/joints: Unremarkable. IMPRESSION: No acute findings. Dictated and Authenticated by: Will Ludwig MD. Ordering:GEOR[place] Nicole MD
--- NOTE | 2021-04-02 22:27 | ED.GENADUL_ITS ---
Discharge Plan Disposition Patient Disposition: HOME Condition: Stable Discharge Details Clinical Impression: Cough, URI (upper respiratory infection) Primary Care Provider: Brandon Fraga ED Provider: Corey Dangelo Home Meds and New Rx's Prescriptions: Continued prenat.vits,priyanka,[id number] Tablet 1 tab PO DAILY RF: 0 Discharge Instructions Instructions: Upper Respiratory Infection (ED), Acute Cough (ED) Additional Instructions: Please take ibuprofen over the counter. Take 600mg by mouth every 6 hours as needed for pain. Continue to use albuterol inhaler with spacer, 2 puffs every 4-6 hours as needed for shortness of breath or wheeze. Maintain quarantine at home until Covid testing is negative. Please contact your primary care physician to arrange follow-up. Return to the ER for any worsening or new concerning symptoms. Referrals: Brandon Fraga, CHILD CARE DEVELOPMENT SPECIALIST [Primary Care Provider] - Discharge Data Discharge Date/Time-TO BE ENTERED AT DEPARTURE: 04/02/21 22:58 Medical Decision Making 25-year-old female presents with shortness of breath and pleuritic chest pain today with persistent cough over the past week. Patient is saturating well in no respiratory distress. Patient is hemodynamically stable. Suspect viral URI. Consider bacterial pneumonia developing from prior ED visit. Chest x-ray was reviewed and interpreted by me, no infiltrate. Labs reviewed and no leukocytosis. Of note there is a mild lymphocytosis noted. Consider pulmonary embolism. Patient is low risk and PERC aaplies. I have checked a D-dimer out of abundance precaution and is negative. Out of abundance of caution and given her symptoms, I will set up another Covid test and have him quarantine at home. She was encouraged to increase hydration and allow for plenty of rest. She also encouraged to utilize her albuterol inhaler for shortness of breath or wheezing which she was prescribed today. Lab Data Lab results reviewed: Yes I reviewed the patient's lab results. Labs: Laboratory Tests Range/Units 04/02/21 04/02/21 04/02/21 21:53 21:53 21:53 WBC (4.4-10.8) 10^3/uL 10.65 RBC (3.93-5.22) 10^6/uL 4.74 Hgb (11.2-15.7) g/dL 12.9 Hct (36.0-46.0) % 40.0 MCV (80-95) fL 84.4 MCH (27.0-33.0) pg 27.2 MCHC (32.0-36.0) % 32.3 RDW (11.7-14.6) % 12.4 Plt Count (130-400) 10^3/uL 330 MPV (8.0-11.0) fL 8.8 Immature Gran % 0.3 Neutrophils % 59.5 Lymphocytes % 34.6 Monocytes % 4.5 Eosinophils % 0.8 Basophils % 0.3 Nucleated RBC % % 0 Absolute Neutrophils (1.2-6.7) 10^3/uL 6.33 Absolute Lymphocytes (1.2-3.4) 10^3/uL 3.69 H Absolute Monocytes (0.1-0.8) 10^3/uL 0.48 Absolute Eosinophils (0.0-0.7) 10^3/uL 0.09 Absolute Basophils (0.0-0.2) 10^3/uL 0.03 D-Dimer (<500) ng/mlFEU 179 Sodium (136-145) mmol/L 141 Potassium (3.5-5.1) mmol/L 3.8 Chloride (98-107) mmol/L 105 Carbon Dioxide (21.0-32.0) mmol/L 26.2 Anion Gap (3-11) mmol/L 9.8 BUN (7-18) mg/dL 10 Creatinine (0.55-1.02) mg/dL 0.9 Estimated GFR/1.73 m2 (mL/min/1.73m2) >= 60.00 Glucose (74-106) mg/dL 89 Calcium (8.5-10.1) mg/dL 9.2 Total Bilirubin (0.2-1.0) mg/dL 0.4 AST (15-37) U/L 11 L ALT (14-59) U/L 16 Alkaline Phosphatase (46-116) U/L 81 Troponin I (<0.06) ng/mL < 0.05 Total Protein (6.4-8.2) g/dL 7.7 Albumin (3.4-5.0) g/dL 3.9 Lupus with flare so back HPI General Mode of arrival: ambulatory . Date/Time Provider Initiated Documentation: 04/02/21 20:58 . Limitations to Documentation: no limitations . Information obtained by: patient . HPI Narrative: 25-year-old male presents with chief complaint of shortness of breath. Patient states that for shortness of breath for the past 3 days. He was seen here on 726 and diagnosed with viral URI. She notes that today she was feeling well and she went for a walk shortness of breath increased. She also notes associated pleuritic chest discomfort with deep breath. He states she has had persistent cough over the p ast 8 days that is intermittently productive also low-grade fever. Patient has had 2 - Covid test in the past week but does note that he continues to have decreased smell and taste sensation. She is not vaccinated. She denies leg swelling or calf pain. No recent immobility or surgery. Related Data Home Medications Medication Instructions Recorded Confirmed prenat.vits,priyanka,[id number] 1 tab PO DAILY 07/30/20 10/21/20 Allergies Allergy/AdvReac Type Severity Reaction Status Date / Time No Known Allergies Allergy Verified 01/09/21 12:41 General Stated Complaint: SOB HALEY: 3 Review of Systems All systems reviewed & are unremarkable except as noted in HPI and below Constitutional Constitutional: Reports as per HPI Cardiovascular Cardiovascular: Reports chest pain and Reports dyspnea Respiratory Respiratory: Reports as per HPI, Reports cough and Reports dyspnea PFSH Medical History BMI 30.0-30.9,adult Chlamydia trachomatis infection (05/17/13) Rx with Zithromax. YE 01/03/14 -neg History of migraine Mild acid reflux Positive test Recent childbirth (06/01/17) Barry- 6lbs 14oz Spontaneous miscarriage Family History Mother Multiple sclerosis sx consist of temperature instability Diabetes Maternal Grandmother Diabetes Social History Smoking/Tobacco Use Status: Never Smoking risk assessment performed?: Yes Alcohol Intake: never Drug use: Occasionally Substance use type: marijuana Household members: children and other Details: Brandi Davila Do you feel safe at home: Yes (unable to assess privately) Do you feel safe in your relationship?: Yes History History 2 Para 2 Hx # Term Pregnancies 2 Multiple births 0 Hx # Pregnancies 0 Ectopic pregnancies 0 AB induced 0 Hx Number of Living Children 2 AB spontaneous 0 Past Pregnancies Del. Date GA/Weeks # Outcome Route Wgt Sex Labor Lgth Anesthes ia Location Prov Complic 06/01/17 40 No Successful vaginal 3118.448 g Male 5 hrs [facility] - [facility] 04/15/19 39 No Successful vaginal 3203.496 g Male [facility] RICA Araujo 01/13/21 4 Unsuccessful Delivery Date: 06/01/17 [place], used nitrous, nml Katherin Vines Delivery Date: 04/15/19 No notes to display Delivery Date: 01/13/21 Biochemical Juany Arriaza Exam Const General: cooperative and no acute distress HENMT Mouth: moist mucous membranes Eyes Conjunctivae: normal conjunctivae Sclera: normal sclerae Neck Neck: trachea midline and supple Resp Auscultation: clear to auscultation bilaterally, no rales, no rhonchi and no wheezes Cardio Rate: regular rate and not tachycardic Rhythm: regular rhythm Heart Sounds: S1 normal and no murmurs GI Palpation: soft, not firm, no guarding, no masses, not rigid and nontender Skin General skin exam: no rashes or lesions noted Neuro General: patient alert, patient awake, patient oriented x3 and tone normal Extrem General: no calf tenderness and no edema Psych Mental Status: mental status grossly normal Course Vital Signs Vital signs: Vital Signs Temperature 36.6 C 04/02/21 20:23 Pulse 83 04/02/21 20:23 Respiratory Rate 18 04/02/21 20:23 Blood Pressure 134/90 04/02/21 20:23 Pulse Oximetry 99 04/02/21 20:23 Temperature 36.6 C 04/02/21 20:23 Temperature Source Temporal Artery Scan 04/02/21 20:23 Pulse 83 04/02/21 20:23 Respiratory Rate 20 04/02/21 20:27 Respiratory Effort Non-Labored 04/02/21 20:27 Respiratory Depth Normal 04/02/21 20:27 Respiratory Pattern Normal 04/02/21 20:27 Blood Pressure 134/90 04/02/21 20:23 Blood Pressure Position Sitting 04/02/21 20:23 Pulse Oximetry 99 04/02/21 20:23 Oxygen Delivery Method Room Air 04/02/21 20:23 Oxygen Flow Rate 0 04/02/21 20:23 Pain Level 6 04/02/21 20:23 Lab/Test Results Lab/Test Results: Laboratory Tests Range/Units 04/02/21 04/02/21 21:53 21:53 WBC (4.4-10.8) 10^3/uL 10.65 RBC (3.93-5.22) 10^6/uL 4.74 Hgb (11.2-15.7) g/dL 12.9 Hct (36.0-46.0) % 40.0 MCV (80-95) fL 84.4 MCH (27.0-33.0) pg 27.2 MCHC (32.0-36.0) % 32.3 RDW (11.7-14.6) % 12.4 Plt Count (130-400) 10^3/uL 330 MPV (8.0-11.0) fL 8.8 Immature Gran % 0.3 Neutrophils % 59.5 Lymphocytes % 34.6 Monocytes % 4.5 Eosinophils % 0.8 Basophils % 0.3 Nucleated RBC % % 0 Absolute Neutrophils (1.2-6.7) 10^3/uL 6.33 Absolute Lymphocytes (1.2-3.4) 10^3/uL 3.69 H Absolute Monocytes (0.1-0.8) 10^3/uL 0.48 Absolute Eosinophils (0.0-0.7) 10^3/uL 0.09 Absolute Basophils (0.0-0.2) 10^3/uL 0.03 Sodium (136-145) mmol/L 141 Potassium (3.5-5.1) mmol/L 3.8 Chloride (98-107) mmol/L 105 Carbon Dioxide (21.0-32.0) mmol/L 26.2 Anion Gap (3-11) mmol/L 9.8 BUN (7-18) mg/dL 10 Creatinine (0.55-1.02) mg/dL 0.9 Estimated GFR/1.73 m2 (mL/min/1.73m2) >= 60.00 Glucose (74-106) mg/dL 89 Calcium (8.5-10.1) mg/dL 9.2 Total Bilirubin (0.2-1.0) mg/dL 0.4 AST (15-37) U/L 11 L ALT (14-59) U/L 16 Alkaline Phosphatase (46-116) U/L 81 Troponin I (<0.06) ng/mL < 0.05 Total Protein (6.4-8.2) g/dL 7.7 Albumin (3.4-5.0) g/dL 3.9
[2021-04-02 22:29] VITALS: BP 124/61; PULSE 82; RESP 18; O2SAT 96
[2021-04-02 22:30] LABS: D-Dimer 179 ng/mlFEU (<500)
[2021-04-02 22:31] VITALS: RESP 18; O2SAT 96
[2021-04-04 14:41] LABS: COVID-19 RT-PCR UVMMC Result Negative (Negative)
== END 2021-04-02 22:58 | disposition home or self-care (01) ==
PROVIDERS: Emergency Provider Student in an Organized Health Care Education/Training Program; PCP Nurse Practitioner Family
DX: J06.9 Acute upper respiratory infection, unspecified (principal); R05 Cough; Z20.822 Contact with and (suspected) exposure to COVID-19; R06.02 Shortness of breath
CPT/HCPCS: 80053; 93005; 94640; 99284; U0003; 71046; 84484; 85025; 85379; 93010; J7620

== ENCOUNTER 2021-05-27 18:40 | Emergency (ER) | payer MEDICAID, SELFPAY ==
[2021-05-27] VITALS (27 sets, daily range): BP systolic 120–145; BP diastolic 61–85; PULSE 68–109; RESP 11–24; TEMP 36.9–37.1; O2SAT 97–100
--- NOTE | 2021-05-27 19:00 | RT.EKG_ITS ---
APPROVED REPORT Exam: Resting ECG Reason for Exam: chest tightness Patient Location: E HR:91 bpm ECG Measurements Heart Rate 91 AXIS CA 158 P 66 QRSd 87 QRS 69 QT 339 T 43 QTc 417 Conclusion Sinus rhythm...normal P axis, V-rate 60- 99
--- NOTE | 2021-05-27 19:51 | ED.GENADUL_ITS ---
Discharge Plan Disposition Patient Disposition: HOME Condition: Stable Discharge Details Clinical Impression: Chest pain due to GERD, Acute dyspnea Primary Care Provider: Brandon Fraga ED Provider: Ana Escobar Home Meds and New Rx's Prescriptions: No Action prenat.vits,priyanka,lqb-knjh-zihsp Tablet 1 tab PO DAILY RF: 0 Discharge Instructions Instructions: GERD (Gastroesophageal Reflux Disease) (ED), Dyspnea (ED) Additional Instructions: Gargle with warm salt water up to 3 times daily as needed for sore throat. Take a antiacid such as Prilosec or omeprazole which you can get jsgb-ssw-tqrakuk daily. The chest x-ray was within normal limits. EKG also within normal limits, please continue quarantine until negative test and your symptoms resolved. Follow up with primary care provider in 3-5 days. Return to ED sooner if any worsening or concerns. Increase oral fluids. Please take Tylenol or Ibuprofen with food every 4-6 hours as needed for pain and swelling. Stand Alone Forms: PENDING COVID-19 TESTING Referrals: Brandon Fraga, SOLUTION ADVISOR [Primary Care Provider] - 3 days Medical Decision Making 25-year-old female presents to the ER with chief complaint of fever T-max 100.1 at home, shortness of breath and mild chest pain which he describes as tightness which was relieved by an albuterol inhaler. She is afebrile upon arrival. She did not take any Tylenol or ibuprofen prior to arrival. She reports possible Covid exposure from her son he does not have Covid a week ago. She is unvaccinated. She is complaining of some mild sore throat and right ear pain. Denies any loss of taste or smell. Vital signs are stable upon arrival O2 sat is 98 to 100% on room air. She denies any other associated symptoms. EKG was reviewed by Dr. Jalen Sierra MD ER attending, please see his official report. Normal sinus rhythm noted no ST elevation by me me no ectopy. Rapid strep swab ordered and Covid swab ordered. Rapid strep and Covid are negative. Chest x-ray ordered which is also within normal limits. Upon patient reevaluation she does report that she does have a history of reflux she does not normally take something daily for it. She reports that shortness of breath increases before she burps. GI cocktail given and I did discuss with her home care including to take a gcqp-iac-zqshoep antacid such as Prevacid daily. And to discuss with her primary care provider. Patient discharged in hemodynamically stable condition. This text was generated using [employer] system, please disregard any oddities of phrase or misspellings. HPI General Mode of arrival: ambulatory . Date/Time Provider Initiated Documentation: 05/27/21 19:31 . Limitations to Documentation: no limitations . Information obtained by: patient and RN notes reviewed . HPI Narrative: 25-year-old female presents to the ER with chief complaint of fever T-max 100.1 at home, shortness of breath and mild chest pain which he describes as tightness which was relieved by an albuterol inhaler. She is afebrile upon arrival. She did not take any Tylenol or ibuprofen prior to arrival. She reports possible Covid exposure from her son he does not have Covid a week ago. She is unvaccinated. She is complaining of some mild sore throat and right ear pain. Denies any loss of taste or smell. Vital signs are stable upon arrival O2 sat is 98 to 100% on room air. She denies any other associated symptoms. Related Data Home Medications Medication Instructions Recorded Confirmed prenat.vits,priyanka,vac-ckjs-uzivc 1 tab PO DAILY 07/30/20 05/27/21 Allergies Allergy/AdvReac Type Severity Reaction Status Date / Time No Known Allergies Allergy Verified 05/27/21 19:28 General Stated Complaint: RespSymp HALEY: 3 Review of Systems All systems reviewed & are unremarkable except as noted in HPI and below ENT Ears, Nose, Mouth, and Throat: Reports sore throat Cardiovascular Cardiovascular: Reports chest pain and Reports dyspnea Respiratory Respiratory: Reports dyspnea PFSH Medical History BMI 30.0-30.9,adult Chlamydia trachomatis infection (05/17/13) Rx with Zithromax. YE 01/03/14 -neg History of migraine Mild acid reflux Positive test Recent childbirth (06/01/17) [place]- 6lbs 14oz Spontaneous miscarriage Family History Mother Multiple sclerosis sx consist of temperature instability Diabetes Maternal Grandmother Diabetes Social History Smoking/Tobacco Use Status: Never Smoking risk assessment performed?: Yes Alcohol Intake: never Drug use: Occasionally Substance use type: marijuana Household members: children and other Details: BF Kim walterArvin Barry Do you feel safe at home: Yes (unable to assess privately) Do you feel safe in your relationship?: Yes History History 2 Para 2 Hx # Term Pregnancies 2 Multiple births 0 Hx # Pregnancies 0 Ectopic pregnancies 0 AB induced 0 Hx Number of Living Children 2 AB spontaneous 0 Past Pregnancies Del. Date GA/Weeks # Outcome Route Wgt Sex Labor Lgth Anesthes ia Location Prov Complic 06/01/17 40 No Successful vaginal 3118.448 g Male 5 hrs [facility] - [facility] 04/15/19 39 No Successful vaginal 3203.496 g Male Anesigifredo RICA Araujo 01/13/21 4 Unsuccessful Delivery Date: 06/01/17 Barry, used nitrous, nml Katherin Vines Delivery Date: 04/15/19 No notes to display Delivery Date: 01/13/21 Biochemical ArsalanJuany Exam Narrative Exam Narrative: Constitutional: Alert and oriented x3. Appears stated age. Normal body habitus. Patient appears anxious pressured speech. Head: Normocephalic, no trauma. Eyes: Pupils PERRLA, Red reflex noted, EOM's intact. Eyelids symmetrical without lesions, discharge, or swelling. ENT: Bilateral TM's WNL, External ear normal to inspection, no mastoid TTP, sw elling, or erythema, Nasal turbinates WNL, no nasal discharge. Normal dentition, Posterior pharynx WNL, Chest: RRR, Normal S1, S2, distal pulses intact. Resp: Lungs clear to auscultation bilaterally, no wheezes, rales, or rhonchi. Musculoskeletal: Normal gait, 5/5 strength to all four extremities. Skin: No suspicious rashes or lesions. Capillary refill less than 2 sec. Neurologic: Cranial nerves II-XII intact. Alert and oriented x 3. DTR's intact. Hematologic/Lymphatic: No ecchymosis, no lymphadenopathy. Course Vital Signs Vital signs: Vital Signs Temperature 36.9 C 05/27/21 18:56 Pulse 99 H 05/27/21 18:56 Respiratory Rate 18 05/27/21 18:56 Blood Pressure 139/83 05/27/21 18:56 Pulse Oximetry 100 05/27/21 18:56 Temperature 37.1 C 05/27/21 19:45 Temperature Source Oral 05/27/21 19:45 Pulse 86 05/27/21 19:45 Respiratory Rate 19 05/27/21 19:45 Respiratory Effort Non-Labored 05/27/21 19:40 Blood Pressure 129/72 05/27/21 19:45 Blood Pressure Position Sitting 05/27/21 18:56 Pulse Oximetry 98 05/27/21 19:45 Oxygen Delivery Method Room Air 05/27/21 19:45 Oxygen Flow Rate 0 05/27/21 19:45 Pain Level 3 05/27/21 18:56
[2021-05-27 20:05] LABS: Source Nasal/Nares
--- NOTE | 2021-05-27 20:30 | DI.RAD_ITS ---
Exam(s) XR PORTABLE CHEST AP EXAM: XR PORTABLE CHEST AP CLINICAL HISTORY: SOB, Chest pain PUI. TECHNIQUE: 2D digital imaging was performed. COMPARISON: CR,XR XR CHEST 2V PA LATERAL from 04/02/2021 FINDINGS: Heart size is upper normal. The mediastinum is not widened. Lungs are clear. No infiltrates nor obvious pleural effusions. Chest leads in place IMPRESSION: No acute pulmonary findings on this single AP portable view of the chest. DATA REPOSITORY: RADIATION DOSE DELIVERED: All CT scans at this facility use at least one of these dose optimization techniques: automated exposure control; mA and/or kV adjustment per patient size (includes targeted e xams where dose is matched to clinical indication); or iterative reconstruction.
--- NOTE | 2021-05-27 21:40 | DI.VRAD_ITS ---
PROCEDURE INFORMATION: Exam: XR Chest Exam date and time: 05/27/2021 8:42 PM Age: 25 years old Clinical indication: Shortness of breath; Patient HX: SOB, chest pain TECHNIQUE: Imaging protocol: XR of the chest. Views: 1 view. COMPARISON: CR XR CHEST 2V PA LATERAL 04/02/2021 10:07 PM FINDINGS: Lungs: Unremarkable. No consolidation. Pleural spaces: Unremarkable. No pleural effusion. No pneumothorax. Heart/Mediastinum: Unremarkable. No cardiomegaly. Bones/joints: Unremarkable. IMPRESSION: No acute findings. Dictated and Authenticated by: Preston Gamez MD. Ordering:CHUCK Perez MD
[2021-05-27 22:04] LABS: COVID-19 PCR Negative (Negative)
== END 2021-05-27 22:22 | disposition home or self-care (01) ==
PROVIDERS: Emergency Provider Registered Nurse Emergency; PCP Nurse Practitioner Family
DX: K21.9 Gastro-esophageal reflux disease without esophagitis (principal); R07.89 Other chest pain; R06.00 Dyspnea, unspecified; Z20.822 Contact with and (suspected) exposure to COVID-19
CPT/HCPCS: 81025; 87635; 87880; 93005; 99284; U0003; 71045; 87081; 93010; 99283

== ENCOUNTER 2021-08-13 08:53 | Emergency (ER) | payer MEDICAID, SELFPAY ==
[2021-08-13] VITALS (17 sets, daily range): BP systolic 116–133; BP diastolic 67–88; PULSE 84–131; RESP 11–30; TEMP 36.7; O2SAT 98–100
--- NOTE | 2021-08-13 08:45 | RT.EKG_ITS ---
APPROVED REPORT Exam: Resting ECG Reason for Exam: chest pain Patient Location: E HR:106 bpm ECG Measurements Heart Rate 106 AXIS TX 147 P 71 QRSd 89 QRS 75 QT 325 T -25 QTc 431 Conclusion Sinus tachycardia with irregular rate...V-rate 87-128, variation>10%
--- NOTE | 2021-08-13 09:07 | ED.GENADUL_ITS ---
Discharge Plan Disposition Patient Disposition: HOME Condition: Stable Discharge Details Clinical Impression: Chest pain, Shortness of breath Primary Care Provider: Brandon Fraga ED Provider: Dennys Alvarez Discharge Instructions Instructions: Chest Pain (ED) Additional Instructions: your blood work, ekg and cat scan did not show any concerning findings at this time follow up with your primary care provider within 1 week if you feel more ill, have worsening pain or shortness of breath return to the emergency department Medical Decision Making 26 yo female who denies chronic medical problems comes in with a week of chest pain and shortness of breath though it has worsened over the past day and feels anxious. She denies cough, fevers, chills, and denies prior cardiac history. She denies abdominal pain or n/v. She has clear lungs, no murmurs, no jvd, no leg swelling or calf tenderness. She is speaking in full sentences though does feel anxious. No abdominal tenderness. She is noted to be tachycardic. She does state her pain worsens when she takes a deep breath and is sharp and substernal. She has a heart score of 1, will send troponin. She has a moderate wells score, will obtain cta to evaluate for PE. Unlikely dissection given lack of upper back pain and normal vascular exam. Will also obtain covid test given her shortness of breath and she is not vaccinated. imaging and troponin negative, negative covid. Hr no 90 and she feels improved, less anxious. She has prn ativan already prescribed and advised to follow up with pcp and return precautions given Differential Diagnosis Differential Diagnosis: pe, nstemi, pericarditis, anxiety Imaging Data Radiologic Study: Attestation: I personally reviewed and interpreted this imaging study as follows: Imaging: CT Scan Radiologist's impression: FINDINGS: Tracheobronchial tree: Patent where visualized. Pulmonary parenchyma: No consolidation or dominant measurable mass. No architectural distortion. Pulmonary Arteries: No evidence of filling defect to suggest pulmonary emboli. There is artifact from contrast in the adjacent superior vena cava. Mediastinum and Priya: No dominant adenopathy or fluid collection. The esophagus is unremarkable. Visualized thyroid gland: Unremarkable. Pleura: No effusion or pneumothorax. Heart: The heart is not dilated. No coronary artery calcifications are seen. No pericardial effusion. Aorta: Thoracic aorta non-dilated. No evidence of dissection. Upper abdomen: Unremarkable. Soft tissues: Unremarkable. Bones: Within normal limits for the patient's age. IMPRESSION: 1. No evidence of pulmonary embolism, thoracic aortic dissection or aneurysm. 2. Results of this exam have been verbally communicated with provider. ECG Data Attestation: I personally reviewed and interpreted this ECG (s) as follows: Prior ECG tracings: available for review Interpretation: sinus tachycardia, rate of 106, no stemi, pr 147 HPI General Mode of arrival: ambulatory . Date/Time Provider Initiated Documentation: 08/13/21 08:53 . Limitations to Documentation: no limitations . Information obtained by: patient . History of Present Illness 26 year old F presents to the emergency department with the chief complaint of chest pain, described as moderate, Patient reports no radiation. Patient started experiencing this day(s) (1) and it has been constant. No relieving factors improve symptom(s), No exacerbating factors reported . Patient notes shortness of breath. Patient did receive the following treatments prior to arrival, none Related Data Allergies Allergy/AdvReac Type Severity Reaction Status Date / Time No Known Allergies Allergy Verified 08/13/21 09:07 General Stated Complaint: Chest Pain HALEY: 2 Review of Systems All systems reviewed & are unremarkable except as noted in HPI and below Constitutional Constitutional: Denies chills, Denies fever(s) and Denies weakness Respiratory Respiratory: Denies cough Gastrointestinal Gastrointestinal: Denies abdominal pain, Denies nausea and Denies vomiting Musculoskeletal Musculoskeletal: Denies joint swelling Neurologic Neurologic: Denies weakness [facility] Medical History BMI 30.0-30.9,adult Chlamydia trachomatis infection (05/17/13) Rx with Zithromax. YE 01/03/14 -neg History of migraine Mild acid reflux Positive test Recent childbirth (06/01/17) [place]- 6lbs 14oz Spontaneous miscarriage Family History Mother Multiple sclerosis sx consist of temperature instability Diabetes Maternal Grandmother Diabetes Social History Smoking/Tobacco Use Status: Never Smoking risk assessment performed?: Yes Alcohol Intake: current Alcohol Intake frequency: a few times a week Drug use: Current Sobriety Substance use type: marijuana Household members: children and other Details: Kim Davila- Barry Do you feel safe at home: Yes (unable to assess privately) Do you feel safe in your relationship?: Yes History History 2 Para 2 Hx # Term Pregnancies 2 Multiple births 0 Hx # Pregnancies 0 Ectopic pregnancies 0 AB induced 0 Hx Number of Living Children 2 AB spontaneous 0 Past Pregnancies Del. Date GA/Weeks # Outcome Route Wgt Sex Labor Lgth Anesthes ia Location Prov Complic 06/01/17 40 No Successful vaginal 3118.448 g Male 5 hrs [facility] - [facility] 04/15/19 39 No Successful vaginal 3203.496 g Male Anea Van, CNRanjith 01/13/21 4 Unsuccessful Delivery Date: 06/01/17 Barry used nitrous, nml Katherin Vines Delivery Date: 04/15/19 No notes to display Delivery Date: 01/13/21 Biochemical Juany Arriaza Exam Const General: no acute distress Orientation: alert HENMT Head: normal to inspection Ears: external ears normal General nose exam: external nose normal Mouth: moist mucous membranes Eyes General: appearance normal, both eyes and all related structures Neck Neck: normal visual inspection Resp Effort & Inspection: normal respiratory effort and able to speak in complete sentences Cardio Rate: tachycardic Skin General skin exam: no rashes or lesions noted Neuro General: patient alert and patient oriented x3 Extrem General: normal to inspection Psych Mental Status: mental status grossly normal Course Vital Signs Vital signs: Vital Signs Temperature 36.7 C 08/13/21 09:03 Pulse 119 H 08/13/21 09:03 Respiratory Rate 16 08/13/21 09:03 Blood Pressure 133/84 08/13/21 09:03 Pulse Oximetry 99 08/13/21 09:03 Temperature 36.7 C 08/13/21 09:03 Pulse 119 H 08/13/21 09:03 Respiratory Rate 16 08/13/21 09:03 Blood Pressure 133/84 08/13/21 09:03 Blood Pressure Position Supine 08/13/21 09:03 Pulse Oximetry 99 08/13/21 09:03 Oxygen Delivery Method Room Air 08/13/21 09:03 Oxygen Flow Rate 0 08/13/21 09:03 Pain Level 6 08/13/21 09:03
--- NOTE | 2021-08-13 09:17 | DI.CT_ITS ---
Exam(s) CT CHEST PE CTA EXAM: CT CHEST PE CTA CLINICAL HISTORY: chest pain and shortness of breath. TECHNIQUE: Imaging Protocol: Axial CT angiography was performed with multi-slice acquisition and mu lti-planar and/or 3D reconstructions. CONTRAST MATERIAL: Intravenous: Omnipaque 350 Contrast volume:85 mL COMPARISON: CT ABD PELVIS WITH CONTRAST from 08/14/2017 CR,XR XR PORTABLE CHEST AP from 05/27/2021 CR,XR XR PORTABLE CHEST AP from 05/27/2021 FINDINGS: Tracheobronchial tree: Patent where visualized. Pulmonary parenchyma: No consolidation or dominant measurable mass. No architectural distortion. Pulmonary Arteries: No evidence of filling defect to suggest pulmonary emboli. There is artifact from contrast in the adjacent superior vena cava. Mediastinum and Priya: No dominant adenopathy or fluid collection. The esophagus is unremarkable. Visualized thyroid gland: Unremarkable. Pleura: No effusion or pneumothorax. Heart: The heart is not dilated. No coronary artery calcifications are seen. No pericardial effusion. Aorta: Thoracic aorta non-dilated. No evidence of dissection. Upper abdomen: Unremarkable. Soft tissues: Unremarkable. Bones: Within normal limits for the patient's age. IMPRESSION: 1. No evidence of pulmonary embolism, thoracic aortic dissection or aneurysm. 2. Results of this exam have been verbally communicated with provider. RADIATION DOSE DELIVERED: 522.23mGy.cm Total DLP DATA REPOSITORY: All CT scans at this facility are submitted to the National Radiology Data Registry (NRDR) Dose Index Registry (DIR) with the [employer] ([employer]). RADIATION OPTIMIZATION: All CT scans at this facility use at least one of these dose optimization te chniques: automated exposure control; mA and/or kV adjustment per patient size (includes targeted exa ms where dose is matched to clinical indication); or iterative reconstruction.
[2021-08-13 09:22] LABS: Abs Immature Grans 0.03 10^3/uL (0.0-0.06); Absolute Basophil Count 0.04 10^3/uL (0.0-0.2); Absolute Eosinophil Count 0.03 10^3/uL (0.0-0.7); Absolute Lymphocyte Count 2.21 10^3/uL (1.2-3.4); Absolute Monocyte Count 0.51 10^3/uL (0.1-0.8); Absolute Neutrophil Count 7.18 10^3/uL (1.2-6.7); Basophils % 0.4; Eosinophils % 0.3; HCT 39.2 % (36.0-46.0); HGB 12.8 g/dL (11.2-15.7); Immature Grans % 0.3; Lymphocytes % 22.1; MCH 27.2 pg (27.0-33.0); MCHC 32.7 % (32.0-36.0); MCV 83.4 fL (80-95); MPV 8.9 fL (8.0-11.0); Monocytes % 5.1; Neutrophils % 71.8; Nucleated RBC 0 %; Platelet Count 333 10^3/uL (130-400); RDW 12.1 % (11.7-14.6); RDW-SD 36.8 fL
[2021-08-13 09:41] LABS: Source Nasal/Nares
[2021-08-13] MEDS: Omnipaque 350 MG/ML 100 ML BTL IV (09:46)
[2021-08-13 09:54] LABS: ALT 15 U/L (14-59); AST 10 U/L (15-37); Alkaline Phosphatase 91 U/L (46-116); Anion Gap 10.1 mmol/L (3-11); BUN 11 mg/dL (7-18); Bilirubin, Total 0.4 mg/dL (0.2-1.0); CO2 25.9 mmol/L (21.0-32.0); CREATININE 0.9 mg/dL (0.55-1.02); Calcium 9.9 mg/dL (8.5-10.1); Chloride 103 mmol/L (98-107); Glucose 99 mg/dL (74-106); Magnesium 2.3 mg/dL (1.8-2.4); Sodium 139 mmol/L (136-145); Total Protein 8.2 g/dL (6.4-8.2)
[2021-08-13 09:56] LABS: Troponin I < 0.05 ng/mL (<0.06)
[2021-08-13 10:30] LABS: COVID-19 PCR Negative (Negative)
== END 2021-08-13 11:16 | disposition home or self-care (01) ==
PROVIDERS: Emergency Provider Emergency Medicine; PCP Nurse Practitioner Family
DX: R07.9 Chest pain, unspecified (principal); R06.02 Shortness of breath
CPT/HCPCS: 36415; 71275; 80053; 81025; 83690; 87635; 93005; 99285; 83735; 83880; 84484; 85025; 93010; 99284; J3490

== ENCOUNTER 2021-09-04 07:39 | Emergency (ER) | payer MEDICAID, SELFPAY ==
[2021-09-04 07:47] VITALS: BP 127/80; PULSE 100; RESP 16; TEMP 36.6; O2SAT 100
--- NOTE | 2021-09-04 08:00 | DI.US_ITS ---
Exam(s) US ABDOMEN LIMITED EXAM: US ABDOMEN LIMITED CLINICAL HISTORY: ruq pain, ?cholecystitis TECHNIQUE: Ultrasound abdomen performed using standard protocol. COMPARISON: US US OB 1ST TRIMESTER from 01/09/[address] CHEST PE CTA from 08/13/2021 FINDINGS: There is no ascites evident. LIVER: There are no hepatic lesions evident nor dilatation of intrahepatic ducts. GALLBLADDER/BILIARY: There are no gallstones. No gallbladder wall edema nor pericholecystic fluid. The common hepatic duct isnot dilated, measuring 3mm at the level of nirmal hepatis. PANCREAS: There is no evidence of pancreatic mass nor dilatation of the pancreatic duct. RIGHT KIDNEY:No evidence of solid mass, calculus, nor hydronephrosis. No cortical cysts evident. IMPRESSION: 1. No evidence of cholelithiasis nor dilatation of the biliary tree. 2. No other significant ultrasound findings in the right upper quadrant. 3. There is no ascites. DATA REPOSITORY:
--- NOTE | 2021-09-04 08:11 | ED.GENADUL_ITS ---
Discharge Plan Disposition Patient Disposition: HOME Condition: Stable Discharge Details Chief Complaint: Abd Prob Clinical Impression: Gastroesophageal reflux disease, Upper abdominal pain Primary Care Provider: Brandon Fraga ED Provider: Dennys Alvarez Home Meds and New Rx's Prescriptions: No Action No Known Home Meds RF: 0 Discharge Instructions Instructions: GERD (Gastroesophageal Reflux Disease) (ED) Additional Instructions: restart taking the omeprazole and you can use as needed mylanta or tums, follow dosing instructions on packaging follow up with your primary care provider within 1 week if you feel more ill, have severe worsening pain or persistent vomit return to the emergency department Medical Decision Making 26 yo female with hx of gerd, anxiety, who comes in with cc of intermittent abdominal pain that improved with omeprazole but since being off the omeprazole pain has increased. She denies fevers, chills, chest pain. She doesn't have shortness of breath but when she takes a deep breath in she feels pain in the right upper abdomen. She was seen on 08/13 and had negative cta for pe and labs were reassuring. She appears anxious but stable on exam, clear lungs, no jvd, no pedal edema. She is tender in the right upper abdomen and epigastric region. No lower abdomen tenderness. Suspect this could be reflux related but given the ruq tenderness will obtain u/s to evaluate for cholecystitis and evaluate for possible pancreatitis. Given negative cta and labs a few weeks ago and no chest pain do not feel repeat workup for acs or pe indicated and no tearing back pain to suggest dissection labs and imaging unremarkable and she feels better after mylanta, has minimal epigastric tenderness and no guarding, do not feel ct indicated at this time. She will resume ppi and advised to f/u with pcp, return precautions given Differential Diagnosis Differential Diagnosis: biliary colic, gerd, cholecystitis Imaging Data Radiologic Study: Attestation: I personally reviewed and interpreted this imaging study as follows: Imaging: Ultrasound Radiologist's impression: no acute findings Lab Data Lab results reviewed: Yes I reviewed the patient's lab results. HPI General Mode of arrival: ambulatory . Date/Time Provider Initiated Documentation: 09/04/21 07:58 . Limitations to Documentation: no limitations . Information obtained by: patient . History of Present Illness 26 year old F presents to the emergency department with the chief complaint of abdominal pain, described as moderate, Quality is described as stabbing and aching, and is localized to the abdomen. Patient reports no radiation. Patient started experiencing this week(s) (3) and it has been intermittent. No relieving factors improve symptom(s), Other factors that worsen symptoms (deep breaths) . Patient notes no other symptoms.. Patient did receive the following treatments prior to arrival, none Related Data Home Medications Medication Instructions Recorded Confirmed Unknown [No Known Home Meds] 09/04/21 09/04/21 Allergies Allergy/AdvReac Type Severity Reaction Status Date / Time No Known Allergies Allergy Verified 09/04/21 07:53 General Stated Complaint: Abd Prob HALEY: 3 Review of Systems All systems reviewed & are unremarkable except as noted in HPI and below Constitutional Constitutional: Denies chills, Denies fever(s) and Denies weakness Cardiovascular Cardiovascular: Denies chest pain and Denies dyspnea Respiratory Respiratory: Denies cough and Denies dyspnea Gastrointestinal Gastrointestinal: Denies vomiting Musculoskeletal Musculoskeletal: Denies joint swelling Neurologic Neurologic: Denies weakness PFSH All Active Problems (Updated 09/04/21 @ 09:19 by Dennys Alvarez MD) Chest pain (Acute) Shortness of breath (Acute) Gastroesophageal reflux disease (Chronic) Upper abdominal pain (Acute) Encounter for fertility planning (Acute) Irregular periods/menstrual cycles (Acute) Cough (Acute) Cough (Acute) URI (upper respiratory infection) (Acute) Chest pain due to GERD (Acute) Acute dyspnea (Acute) Spontaneous miscarriage (Acute) Mild acid reflux (Chronic) History of migraine (Acute) BMI 30.0-30.9,adult (Chronic) Medical History BMI 30.0-30.9,adult Chlamydia trachomatis infection (05/17/13) Rx with Zithromax. YE 01/03/14 -neg History of migraine Mild acid reflux Positive test Recent childbirth (06/01/17) Barry- 6lbs 14oz Spontaneous miscarriage Family History Mother Multiple sclerosis sx consist of temperature instability Diabetes Maternal Grandmother Diabetes Social History Smoking/Tobacco Use Status: Never Smoking risk assessment performed?: Yes Alcohol Intake: former Drug use: Current Sobriety Substance use type: does not use and marijuana Household members: children and other Details: BF Brandi walter Do you feel safe at home: Yes (unable to assess privately) Do you feel safe in your relationship?: Yes History History 2 Para 2 Hx # Term Pregnancies 2 Multiple births 0 Hx # Pregnancies 0 Ectopic pregnancies 0 AB induced 0 Hx Number of Living Children 2 AB spontaneous 0 Past Pregnancies Del. Date GA/Weeks # Outcome Route Wgt Sex Labor Lgth Anesthes ia Location Prov Complic 06/01/17 40 No Successful vaginal 3118.448 g Male 5 hrs [facility] 04/15/19 39 No Successful vaginal 3203.496 g Male [facility] 01/13/21 4 Unsuccessful Delivery Date: 06/01/17 Barry used nitrous, nml [facility] Delivery Date: 04/15/19 No notes to display Delivery Date: 01/13/21 [facility] Exam Const General: no acute distress Orientation: alert HENMT Head: normal to inspection Ears: external ears normal General nose exam: external nose normal Mouth: moist mucous membranes Eyes General: appearance normal, both eyes and all related structures Neck Neck: normal visual inspection Resp Effort & Inspection: normal respiratory effort and able to speak in complete sentences Cardio Rate: regular rate GI Palpation: soft and tender Skin General skin exam: no rashes or lesions noted Neuro General: patient alert and patient oriented x3 Extrem General: normal to inspection Psych Mental Status: mental status grossly normal Course Vital Signs Vital signs: Vital Signs Temperature 36.6 C 09/04/21 07:47 Pulse 100 H 09/04/21 07:47 Respiratory Rate 16 09/04/21 07:47 Blood Pressure 127/80 09/04/21 07:47 Pulse Oximetry 100 09/04/21 07:47 Temperature 36.6 C 09/04/21 07:47 Temperature Source Skin 09/04/21 07:47 Pulse 100 H 09/04/21 07:47 Respiratory Rate 16 09/04/21 07:47 Respiratory Effort 09/04/21 07:47 Blood Pressure 127/80 09/04/21 07:47 Blood Pressure Position Sitting 09/04/21 07:47 Pulse Oximetry 100 09/04/21 07:47 Oxygen Delivery Method Room Air 09/04/21 07:47 Oxygen Flow Rate 0 09/04/21 07:47 Pain Level 6 09/04/21 07:47
[2021-09-04] MEDS: Mylanta Suspension 30 ML CUP PO (08:19)
[2021-09-04 08:26] LABS: Bilirubin Negative (Negative); Blood Negative (Negative); Clarity Clear (Clear); Glucose Negative (Negative); Ketones Negative (Negative); Leukocyte Esterase Negative (Negative); Nitrite Negative (Negative); Specific Gravity 1.015 (1.005-1.025); Urobilinogen 0.2 EU/dL (Up TO 0.2)
[2021-09-04 08:37] LABS: Abs Immature Grans 0.03 10^3/uL (0.0-0.06); Absolute Basophil Count 0.04 10^3/uL (0.0-0.2); Absolute Eosinophil Count 0.05 10^3/uL (0.0-0.7); Absolute Monocyte Count 0.41 10^3/uL (0.1-0.8); Absolute Neutrophil Count 5.31 10^3/uL (1.2-6.7); Basophils % 0.5; Eosinophils % 0.6; HCT 38.5 % (36.0-46.0); HGB 12.6 g/dL (11.2-15.7); Immature Grans % 0.4; Lymphocytes % 24.5; MCH 27.6 pg (27.0-33.0); MCHC 32.7 % (32.0-36.0); MCV 84.2 fL (80-95); MPV 9.4 fL (8.0-11.0); Monocytes % 5.3; Neutrophils % 68.7; Nucleated RBC 0 %; Platelet Count 282 10^3/uL (130-400); RBC 4.57 10^6/uL (3.93-5.22); RDW 12.4 % (11.7-14.6); RDW-SD 37.5 fL; WBC 7.74 10^3/uL (4.4-10.8)
[2021-09-04 08:59] LABS: Lipase 26 U/L (73-393)
[2021-09-04 09:00] LABS: ALT 14 U/L (14-59); AST 12 U/L (15-37); Albumin 4.1 g/dL (3.4-5.0); Alkaline Phosphatase 86 U/L (46-116); Anion Gap 8.8 mmol/L (3-11); BUN 6 mg/dL (7-18); Bilirubin, Direct 0.1 mg/dL (0.0-0.2); Bilirubin, Total 0.5 mg/dL (0.2-1.0); CO2 26.2 mmol/L (21.0-32.0); CREATININE 0.8 mg/dL (0.55-1.02); Calcium 9.6 mg/dL (8.5-10.1); Chloride 104 mmol/L (98-107); Glucose 99 mg/dL (74-106); Potassium 3.9 mmol/L (3.5-5.1); Sodium 139 mmol/L (136-145); Total Protein 7.9 g/dL (6.4-8.2)
[2021-09-04 09:19] VITALS: BP 120/68; PULSE 79; RESP 16; O2SAT 98
== END 2021-09-04 09:30 | disposition home or self-care (01) ==
PROVIDERS: Emergency Provider Emergency Medicine; PCP Nurse Practitioner Family
DX: K21.9 Gastro-esophageal reflux disease without esophagitis (principal); R10.11 Right upper quadrant pain
CPT/HCPCS: 36415; 80053; 81025; 83690; 99284; 76705; 81003; 82248; 85025; 99283

== ENCOUNTER 2021-09-16 10:02 | Outpatient (CLI) | payer MEDICAID, SELFPAY ==
[2021-09-16 11:24] LABS: HCG Quant, Pregnancy 16 mIU/mL (1-3)
== END 2021-09-16 10:03 | disposition home or self-care (01) ==
LOC: LBO 10:02
PROVIDERS: PCP Nurse Practitioner Family; Visit Provider Nurse Practitioner Family
DX: N92.6 Irregular menstruation, unspecified (principal)
CPT/HCPCS: 36415; 84702

== ENCOUNTER 2021-09-16 12:42 | Emergency (ER) | payer MEDICAID, SELFPAY ==
[2021-09-16 12:53] VITALS: BP 153/93; PULSE 128; RESP 20; TEMP 36.6; O2SAT 96
--- NOTE | 2021-09-16 13:15 | DI.CT_ITS ---
Exam(s) CT HEAD CERVICAL SPINE WO EXAM: CT HEAD CERVICAL SPINE WO COMPARISON: No exams were available for comparison FINDINGS: CT examination of the cervical spine was performed without contrast administration. There is no evidence of acute cervical spine fracture or dislocation. Intervertebral disc spaces are well maintained. Tracheolaryngeal structures appear intact. No cervical mass or adenopathy. Noncontrast cranial CT was performed. Ventricular system is normal in appearance. No evidence of acute intracranial hemorrhage, mass effect, or midline shift. No calvarial fracture. The orbital and temporal bone structures appear intact. Visualized mastoid air cells and paranasal sinuses appear clear. IMPRESSION: No evidence of acute cervical spine injury. No evidence of acute intracranial injury. RADIATION DOSE DELIVERED: 1,614.46mGy.cm Total DLP 1,614.46mGy.cm Total DLP 23.86mGy CTDIvol DATA REPOSITORY: All CT scans at this facility are submitted to the National Radiology Data Registry (NRDR) Dose Index Registry (DIR) with the [employer] ([employer]). RADIATION OPTIMIZATION: All CT scans at this facility use at least one of these dose optimization te chniques: automated exposure control; mA and/or kV adjustment per patient size (includes targeted exa ms where dose is matched to clinical indication); or iterative reconstruction.
[2021-09-16 13:47] LABS: Abs Immature Grans 0.04 10^3/uL (0.0-0.06); Absolute Basophil Count 0.01 10^3/uL (0.0-0.2); Absolute Eosinophil Count 0.03 10^3/uL (0.0-0.7); Absolute Lymphocyte Count 0.88 10^3/uL (1.2-3.4); Absolute Monocyte Count 0.51 10^3/uL (0.1-0.8); Absolute Neutrophil Count 8.02 10^3/uL (1.2-6.7); Basophils % 0.1; Eosinophils % 0.3; HCT 43.2 % (36.0-46.0); HGB 13.8 g/dL (11.2-15.7); Immature Grans % 0.4; Lymphocytes % 9.3; MCH 27.2 pg (27.0-33.0); MCHC 31.9 % (32.0-36.0); MCV 85.2 fL (80-95); MPV 9.3 fL (8.0-11.0); Monocytes % 5.4; Neutrophils % 84.5; Nucleated RBC 0 %; Platelet Count 289 10^3/uL (130-400); RBC 5.07 10^6/uL (3.93-5.22); RDW 12.4 % (11.7-14.6); RDW-SD 38.1 fL; WBC 9.49 10^3/uL (4.4-10.8)
[2021-09-16] MEDS: Normal Saline 1,000 ML 1000 ML IV (13:48)
[2021-09-16 14:02] LABS: PTT Activated 23.9 sec (21.0-27.5); Prothrombin Time 10.4 sec (9.3-11.0)
[2021-09-16 14:06] LABS: ALT 12 U/L (14-59); AST 7 U/L (15-37); Alkaline Phosphatase 89 U/L (46-116); Anion Gap 9.4 mmol/L (3-11); BUN 9 mg/dL (7-18); Bilirubin, Total 0.4 mg/dL (0.2-1.0); CO2 24.6 mmol/L (21.0-32.0); CREATININE 0.9 mg/dL (0.55-1.02); Calcium 8.8 mg/dL (8.5-10.1); Chloride 105 mmol/L (98-107); Glucose 96 mg/dL (74-106); Lipase 27 U/L (73-393); Potassium 3.7 mmol/L (3.5-5.1); Sodium 139 mmol/L (136-145); Total Protein 8.1 g/dL (6.4-8.2)
[2021-09-16 14:15] LABS: Troponin I < 50 ng/L (<or=60)
[2021-09-16] MEDS: Omnipaque 350 MG/ML 100 ML BTL IJ (14:15)
--- NOTE | 2021-09-16 14:26 | DI.CT_ITS ---
Exam(s) CT CHEST/ABD/PEL W EXAM: CT CHEST/ABD/PEL W TECHNIQUE: CT examination of the chest, abdomen, and pelvis was performed with bolus infusion of 100 cc of Omnipaque 350. COMPARISON: CT CT CHEST PE CTA from 08/13/2021 FINDINGS: There is no evidence of a thoracic vascular injury. The lungs are clear. No pneumothorax or pleural effusion. No mediastinal hematoma. No adenopathy in the chest. Tracheobronchial tree appears intact. The liver, spleen, and pancreas appear normal. Gallbladder and bile ducts are normal. Adrenals and kidneys are unremarkable. No evidence of urinary tract injury or obstruction. No abdominal or pelvic vascular injury seen. No abdominal or pelvic adenopathy. No significant abdomi nal wall hernia or hematoma. No evidence of bowel injury. Note is made of small to moderate amount free fluid in the pelvis, this is a nonspecific finding and could be due to shop and alteration tailor causes rather than trauma. Please correlate clinically. No fracture identified in the region surveyed. IMPRESSION: Small to moderate quantity of free fluid is noted in the pelvis, otherwise no evidence of acute injur y of the chest, abdomen, or pelvis. RADIATION DOSE DELIVERED: 1,611.82mGy.cm Total DLP 1,611.82mGy.cm Total DLP 23.14mGy CTDIvol DATA REPOSITORY: All CT scans at this facility are submitted to the National Radiology Data Registry (NRDR) Dose Index Registry (DIR) with the [employer] ([employer]). RADIATION OPTIMIZATION: All CT scans at this facility use at least one of these dose optimization te chniques: automated exposure control; mA and/or kV adjustment per patient size (includes targeted exa ms where dose is matched to clinical indication); or iterative reconstruction.
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
[2021-09-16 14:45] VITALS: BP 116/77; PULSE 103; O2SAT 95
[2021-09-16 14:50] LABS: Source Nasal/Nares
[2021-09-16] MEDS: Acetaminophen 500 MG TAB 1000 MG PO (15:07)
[2021-09-16 15:16] LABS: Bilirubin Negative (Negative); Blood Negative (Negative); Clarity Clear (Clear); Glucose Negative (Negative); Ketones Negative (Negative); Leukocyte Esterase Negative (Negative); Nitrite Negative (Negative); Urobilinogen 0.2 EU/dL (Up TO 0.2); pH 5.5 (5-8)
[2021-09-16 15:21] LABS: Bacteria Negative HPF (Negative); C & S Indicated? No; Casts Negative LPF (Negative); Crystals Negative HPF (Negative); Epithelial Cells Few HPF (Negative); Mucus Negative (Negative); Other Cells Negative (Negative); RBC 0-2 HPF (0-2); WBC 0-2 HPF (0-5)
[2021-09-16 15:29] LABS: COVID-19 PCR Negative (Negative)
[2021-09-16 17:11] LABS: HCT 37.4 % (36.0-46.0); HGB 12.1 g/dL (11.2-15.7); MCH 27.7 pg (27.0-33.0); MCHC 32.4 % (32.0-36.0); MCV 85.6 fL (80-95); Platelet Count 294 10^3/uL (130-400); RBC 4.37 10^6/uL (3.93-5.22); RDW 12.2 % (11.7-14.6); RDW-SD 38.3 fL; WBC 10.15 10^3/uL (4.4-10.8)
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
[2021-09-16 17:48] VITALS: BP 116/77; PULSE 103; O2SAT 95
== END 2021-09-16 17:53 | disposition home or self-care (01) ==
PROVIDERS: Physician Assistant; Emergency Provider Registered Nurse Emergency; PCP Nurse Practitioner Family
DX: O26.891 Other specified pregnancy related conditions, first trimester (principal); M54.2 Cervicalgia; R00.0 Tachycardia, unspecified; M79.652 Pain in left thigh; R51.9 Headache, unspecified; R06.02 Shortness of breath; Z20.822 Contact with and (suspected) exposure to COVID-19; V49.9XXA Car occupant (driver) (passenger) injured in unspecified traffic accident, initial encounter
CPT/HCPCS: 36415; 73552; 74177; 80048; 80053; 83690; 85027; 86850; 86900; 86901; 87635; 96360; 99285; 70450; 71260; 72125; 81003; 81015; 83735; 84484; 84702; 85025; 85610; 85730; 99284; J3490

== ENCOUNTER 2021-09-18 04:17 | Outpatient (CLI) | payer MEDICAID, SELFPAY ==
[2021-09-18 11:49] LABS: HCG Quant, Pregnancy 33 mIU/mL (1-3)
== END 2021-09-18 04:18 | disposition home or self-care (01) ==
LOC: LBO 04:17
PROVIDERS: PCP Nurse Practitioner Family; Visit Provider Nurse Practitioner Family
DX: N92.6 Irregular menstruation, unspecified (principal)
CPT/HCPCS: 36415; 84702

== ENCOUNTER 2021-10-01 09:57 | Emergency (ER) | payer MEDICAID, SELFPAY ==
[2021-10-01 10:05] VITALS: BP 126/66; PULSE 102; RESP 16; TEMP 36.3; O2SAT 100
--- NOTE | 2021-10-01 10:15 | DI.US_ITS ---
Exam(s) US OB 1ST TRIMESTER EXAM: US OB 1ST TRIMESTER CLINICAL HISTORY: Vaginal Spotting, RLQ abd Pain, . TECHNIQUE: First trimester obstetrical ultrasound was performed. COMPARISON: US US ABDOMEN LIMITED from 09/04/2021 FINDINGS: There is an intrauterine gestational sac which contains a normal appearing yolk sac with 3 millimeter diameter. No intrauterine pole visible at this time. There is no evidence of subchorionic hemorrhage. Maternal ovaries: Both ovaries appear unremarkable although there does appear to be some free fluid around the left ova ry and cul-de-sac. Small finding measuring 6 x 5 millimeter in the left adnexa adjacent to the left ovary. This may jus t represent bowel loop within fluid. IMPRESSION:: Intrauterine gestational sac as described above which contains a normal appearing yolk sac but no obvious pole. Adnexal findings as described above including some free fluid. Recommend correlation with appropriate blood work. Recommend repeat transvaginal ultrasound in a few days time, earlier if clinically indicated. This study does not rule out the possibility of ectopic DATA REPOSITORY:
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
[2021-10-01 10:39] LABS: Bilirubin Negative (Negative); Blood Negative (Negative); Clarity Clear (Clear); Glucose Negative (Negative); Ketones Negative (Negative); Leukocyte Esterase Negative (Negative); Nitrite Negative (Negative); pH 8.5 (5-8)
[2021-10-01] MEDS: Normal Saline 1,000 ML 1000 ML IV (10:40)
[2021-10-01 10:47] LABS: Bacteria Negative HPF (Negative); C & S Indicated? No; Casts 0-2 Hyaline LPF (Negative); Crystals Negative HPF (Negative); Epithelial Cells Few HPF (Negative); Mucus Negative (Negative); RBC Negative HPF (0-2); WBC Negative HPF (0-5)
[2021-10-01 10:53] LABS: Abs Immature Grans 0.02 10^3/uL (0.0-0.06); Absolute Basophil Count 0.02 10^3/uL (0.0-0.2); Absolute Eosinophil Count 0.04 10^3/uL (0.0-0.7); Absolute Lymphocyte Count 1.81 10^3/uL (1.2-3.4); Absolute Monocyte Count 0.36 10^3/uL (0.1-0.8); Absolute Neutrophil Count 4.47 10^3/uL (1.2-6.7); Basophils % 0.3; Eosinophils % 0.6; HCT 41.9 % (36.0-46.0); HGB 13.7 g/dL (11.2-15.7); Immature Grans % 0.3; Lymphocytes % 26.9; MCH 27.4 pg (27.0-33.0); MCHC 32.7 % (32.0-36.0); MCV 83.8 fL (80-95); MPV 9.4 fL (8.0-11.0); Monocytes % 5.4; Neutrophils % 66.5; Nucleated RBC 0 %; Platelet Count 289 10^3/uL (130-400); RDW 12.5 % (11.7-14.6); RDW-SD 37.5 fL; WBC 6.72 10^3/uL (4.4-10.8)
[2021-10-01 11:19] LABS: Anion Gap 10.3 mmol/L (3-11); BUN 8 mg/dL (7-18); CO2 26.7 mmol/L (21.0-32.0); CREATININE 0.8 mg/dL (0.55-1.02); Calcium 8.6 mg/dL (8.5-10.1); Chloride 103 mmol/L (98-107); Glucose 96 mg/dL (74-106); Potassium 3.7 mmol/L (3.5-5.1); Sodium 140 mmol/L (136-145)
[2021-10-01 11:20] LABS: HCG Quant, Pregnancy 5431 mIU/mL (1-3)
[2021-10-01 12:11] VITALS: BP 113/60; PULSE 86; TEMP 36.7; O2SAT 98
[2021-10-01 12:21] VITALS: BP 113/60; PULSE 86; RESP 16; TEMP 36.7; O2SAT 98
[2021-10-02 15:04] LABS: COVID-19 RT-PCR UVMMC Result Positive (Negative)
--- NOTE | 2021-10-02 15:09 | W.ED.FU ---
Addendum: Patient did return phone call and was informed approximately 3:15 PM on October 02 of the Covid + Follow Up Plan: Left phone message for the patient regarding Covid positive test from October 01. ER note from that visit shows the patient was previously aware of Covid positive.
== END 2021-10-01 12:20 | disposition home or self-care (01) ==
PROVIDERS: Emergency Provider Registered Nurse Emergency; PCP Nurse Practitioner Family
DX: O26.891 Other specified pregnancy related conditions, first trimester (principal); Z3A.01 Less than 8 weeks gestation of pregnancy; U07.1 COVID-19; R10.31 Right lower quadrant pain; O20.8 Other hemorrhage in early pregnancy
CPT/HCPCS: 36415; 80048; 96360; 99284; U0003; 76801; 81003; 81015; 84702; 85025

== ENCOUNTER 2021-10-16 09:14 | Emergency (ER) | payer MEDICAID, SELFPAY ==
[2021-10-16 09:23] VITALS: BP 145/87; PULSE 95; RESP 16; TEMP 36.4; O2SAT 100
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
== END 2021-10-16 09:38 | disposition home or self-care (01) ==
LOC: ER 09:38
PROVIDERS: Emergency Provider Student in an Organized Health Care Education/Training Program; PCP Nurse Practitioner Family
DX: R09.81 Nasal congestion (principal); Z33.1 Pregnant state, incidental
CPT/HCPCS: 99281

== ENCOUNTER 2021-11-06 04:15 | Outpatient (CLI) | payer MEDICAID, SELFPAY ==
[2021-11-06 11:10] LABS: Kit/Specimen SENT
[2021-11-06 11:13] LABS: Abs Immature Grans 0.03 10^3/uL (0.0-0.06); Absolute Basophil Count 0.02 10^3/uL (0.0-0.2); Absolute Eosinophil Count 0.03 10^3/uL (0.0-0.7); Absolute Lymphocyte Count 1.73 10^3/uL (1.2-3.4); Absolute Monocyte Count 0.32 10^3/uL (0.1-0.8); Absolute Neutrophil Count 5.98 10^3/uL (1.2-6.7); Basophils % 0.2; Eosinophils % 0.4; HCT 36.7 % (36.0-46.0); Immature Grans % 0.4; Lymphocytes % 21.3; MCH 27.3 pg (27.0-33.0); MCHC 32.7 % (32.0-36.0); MCV 83.6 fL (80-95); MPV 9.1 fL (8.0-11.0); Monocytes % 3.9; Neutrophils % 73.8; Nucleated RBC 0 %; Platelet Count 288 10^3/uL (130-400); RBC 4.39 10^6/uL (3.93-5.22); RDW 12.1 % (11.7-14.6); RDW-SD 36.9 fL; WBC 8.11 10^3/uL (4.4-10.8)
[2021-11-06 11:24] LABS: Glucose,1 Hr (Glucola) 92 mg/dL (80-140)
[2021-11-06 12:01] LABS: TSH (W/Ref FT4) 1.28 uIU/mL (0.36-3.74)
[2021-11-07 10:22] LABS: Hepatitis B Surface Ag Negative (Negative)
[2021-11-07 10:50] LABS: HIV-1/2 Ag & Ab Screen Negative (Negative)
[2021-11-07 11:00] LABS: Hepatitis C Ab w Rflx HCV PCR Negative (Negative)
[2021-11-07 11:24] LABS: Varicella IgG Antibody Negative (See Note)
[2021-11-07 11:28] LABS: Rubella IgG Ab (UVM) Positive (See Note)
[2021-11-09 14:55] LABS: Syphilis IgG w/Reflex Nonreactive (Nonreactive)
== END 2021-11-06 04:16 | disposition home or self-care (01) ==
LOC: LBO 04:15
PROVIDERS: Advanced Practice Midwife; PCP Nurse Practitioner Family; Visit Provider Obstetrics & Gynecology
DX: Z34.91 Encounter for supervision of normal pregnancy, unspecified, first trimester
CPT/HCPCS: 82950; 86787; 86803; 86850; 86900; 86901; 87340; 87389; 84443; 85025; 86762; 86780

== ENCOUNTER 2021-11-06 15:18 | Outpatient (REF) | payer MEDICAID, SELFPAY ==
[2021-11-06 16:01] LABS: *AMPHETAMINES SCREEN URINE Negative (Negative); *BARBITURATES SCREEN URINE Negative (Negative); *BENZODIAZEPINES SCREEN URINE Negative (Negative); Cannabinoids THC Negative (Negative); Cocaine Screen,Urine Negative (Negative); METHADONE URINE SCREEN Negative (Negative); OPIATES URINE SCREEN Negative (Negative)
[2021-11-06 16:05] LABS: Tricyclic Antidepressants Negative (Negative)
[2021-11-07 15:28] LABS: Chlamydia Result Negative (Negative); GC Result Negative (Negative)
[2021-11-12 12:04] LABS: Buprenorphine Negative ng/mL (Cutoff: 5.0); Norbuprenorphine Negative ng/mL (Cutoff: 2.5)
== END 2021-11-06 15:19 | disposition home or self-care (01) ==
LOC: LBN 15:18
PROVIDERS: PCP Nurse Practitioner Family; Visit Provider Advanced Practice Midwife
DX: Z34.91 Encounter for supervision of normal pregnancy, unspecified, first trimester
CPT/HCPCS: 80307; 87491; 87591; 87086

== ENCOUNTER 2021-12-12 02:34 | Outpatient (CLI) | payer MEDICAID, SELFPAY ==
[2021-12-15 20:47] LABS: AFP 18.6 ng/mL; Cigarette smoking status non-Smoker; GA used in risk estimate Scan estimate; IVF Pregnancy No; Initial or repeat testing Initial testing; Insulin dependent diabetes No; Maternal Weight 205 lbs; Number of Fetuses 1; Physician Phone Number 802-748-7300; Prev Pregnancy w/NTD No; RECOMMENDED FOLLOW UP None.; Results Summary Normal risk
== END 2021-12-12 02:35 | disposition home or self-care (01) ==
LOC: LBO 02:34
PROVIDERS: PCP Nurse Practitioner Family; Visit Provider Advanced Practice Midwife
DX: Z34.92 Encounter for supervision of normal pregnancy, unspecified, second trimester (principal); Z36.89 Encounter for other specified antenatal screening; Z3A.15 15 weeks gestation of pregnancy
CPT/HCPCS: 36415; 82105

== ENCOUNTER 2021-12-31 02:53 | Outpatient (CLI) | payer MEDICAID, SELFPAY ==
--- NOTE | 2021-12-31 07:30 | DI.US_ITS ---
Exam(s) US OB 2-3 TRIMESTER EXAM: US OB 2-3 TRIMESTER CLINICAL HISTORY: ,z34.90. TECHNIQUE: Transabdominal obstetrical ultrasound performed. COMPARISON: US US OB 1ST TRIMESTER from 10/01/2021 FINDINGS: Transabdominal obstetrical ultrasound performed. FINDINGS: Number of fetuses: One. position: Variable Placental grade: 1 Placental location: Anterior. No evidence of previa. BIOMETRIC DATA: BPD: 43 millimeters, 19+ 0 weeks HC: 158 millimeters, 18+ 5 weeks AC: 135 millimeters, 19+ 0 weeks FL: 29 millimeters, 18+ 5 weeks Cisterna Magna: 3.1 millimeters Cerebellum: 1.9 cm EFW: 261 grms 63% Composite Age: 18+ 6 weeks EDC by US: 28 May 2022 Heart Rate: 141BPM Amniotic fluid: Amount of fluid is visually within normal limits. ANATOMICAL SURVEY: Four-chambered heart: Unremarkable. LVOT: Unremarkable. RVOT: Unremarkable. Left-sided stomach: Unremarkable. urinary bladder: Unremarkable. Bilateral kidneys: Unremarkable. Three-vessel cord: Unremarkable. Cord insertion: Unremarkable. Umbilical artery velocity: Unremarkable. Posterior fossa:Unremarkable. ventricles: Unremarkable. nose: Unremarkable. lips: Unremarkable. palate: Unremarkable. spine: Unremarkable. Two arms and two legs: Unremarkable. IMPRESSION: 1. Single live intrauterine gestation as above. Size and weight are in the expected range. 2. Normal anatomic survey. DATA REPOSITORY:
== END 2021-12-31 03:13 ==
PROVIDERS: PCP Nurse Practitioner Family; Visit Provider Advanced Practice Midwife
DX: Z34.92 Encounter for supervision of normal pregnancy, unspecified, second trimester (principal); Z3A.18 18 weeks gestation of pregnancy
CPT/HCPCS: 76805

== ENCOUNTER 2022-01-11 12:19 | Emergency (ER) | payer BC, MEDICAID, SELFPAY ==
[2022-01-11 12:32] VITALS: BP 127/78; PULSE 122; RESP 16; TEMP 36.1; O2SAT 98
--- NOTE | 2022-01-11 12:49 | ED.GENADUL_ITS ---
Discharge Plan Disposition Patient Disposition: HOME Condition: Stable Discharge Details Clinical Impression: Superficial bruising of lower leg, Irritation of eyelid Primary Care Provider: Brandon Fraga ED Provider: Tierra Stewart Home Meds and New Rx's Prescriptions: Continued prenat.vits,priyanka,[id number] Tablet 1 tab PO DAILY 0RF aspirin [Adult Low Dose Aspirin] 81 mg tablet,delayed release (DR/EC) 81 mg PO DAILY Qty: 90 3RF metoclopramide HCl [Reglan] 5 mg tablet 5 mg PO QAC Qty: 30 3RF Rx Instructions: administer 30 minutes before meals ferrous sulfate 324 mg (65 mg iron) tablet,delayed release (DR/EC) 324 mg PO DAILY Qty: 90 3RF ondansetron 4 mg tablet,disintegrating 4 mg PO Q6H PRN (Reason: nausea and vomiting) Qty: 90 2RF Discharge Instructions Instructions: Contusion in Adults (ED) Additional Instructions: Rest, ice and elevate your right leg several times daily for the next 2 days. You can apply cool compresses to your right eye several times daily for 20 minutes at a time. Avoid any lotions, ointments, make-up to your right eye until symptoms improve. Return immediately to the emergency department if you develop any fever or swelling or redness around your right eye or if you develop significant right leg swelling or pain for further evaluation. Discharge Data Discharge Date/Time-TO BE ENTERED AT DEPARTURE: 01/11/22 14:25 Discharge Physician: Tierra Stewart Medical Decision Making 26 yo F at 20 weeks presents for bruise noted to her right distal lower leg today and an area of irritation to her right noticed a few days ago. She has a 1 x 1 cm faint area of ecchymosis to her right posterior distal leg. This is slightly tender to the touch but there is no cellulitis. Due to the local nature of the small area of ecchymosis, suspect most likely contusion. She has no calf tenderness, leg swelling and is neurovascularly intact. History and presentation does not appear consistent with DVT and do not feel indication for anticoagulation or referral for right ultrasound. Her right eye appears normal to inspection without cellulitis, trauma, injury to the eye itself or eye discharge. She has no pain with extraocular movements. PERRLA. Presentation potentially consistent with contact dermatitis. Recommend that she apply cool compress to the eye and avoid any lotions or make-up for a few days. Advised to rest, ice and elevate the right leg. Case has been discussed with CANINE ENFORCEMENT OFFICER and is there was concern for DVT clinically, Lovenox would be indicated. Discussed with patient that her history and presentation appears most likely consistent with a localized contusion but to return here immediately if her leg becomes painful with diffuse swelling for further evaluation and consideration for right leg ultrasound. Advised to apply cool compresses to the right eye several times daily. Advised to follow up with the primary care doctor for re-evaluation. Usual and customary return precautions given prior to discharge. Medical Records Medical records reviewed: Yes I reviewed the patient's medical records. HPI General Mode of arrival: ambulatory . Date/Time Provider Initiated Documentation: 01/11/22 12:33 . Limitations to Documentation: no limitations . Information obtained by: patient . HPI Narrative: Patient is a 26-year-old female G4, P2 at 20 weeks who presents with a bruise to her right lower leg that she noticed today and was concerned about a possible blood clot. She also states that she felt some irritation lateral to her right eyes few days ago and recently used an old make-ups and was not sure if this was the cause. She states it feels slightly irritated but denies any itching. She denies any pain within her eye itself. She denies any injury within her eye. She denies any discharge from the eye. Related Data Home Medications Medication Instructions Recorded Confirmed prenat.vits,priyanka,[id number] 1 tab PO DAILY 09/16/21 01/11/22 aspirin 81 mg tablet,delayed 81 mg PO DAILY #90 tab 10/17/21 01/11/22 release (Adult Low Dose Aspirin) metoclopramide HCl 5 mg tablet 5 mg PO QAC #30 tab 10/17/21 01/01/22 (Reglan) ondansetron 4 mg disintegrating 4 mg PO Q6H PRN #90 tab 11/02/21 01/11/22 tablet ferrous sulfate 324 mg (65 mg 324 mg PO DAILY #90 tab 01/01/22 01/01/22 iron) tablet,delayed release Previous Rx's Medication Instructions Recorded aspirin 81 mg tablet,delayed 81 mg PO DAILY #90 tab 10/17/21 release (Adult Low Dose Aspirin) metoclopramide HCl 5 mg tablet 5 mg PO QAC #30 tab 10/17/21 (Reglan) ondansetron 4 mg disintegrating 4 mg PO Q6H PRN #90 tab 11/02/21 tablet ferrous sulfate 324 mg (65 mg 324 mg PO DAILY #90 tab 01/01/22 iron) tablet,delayed release Allergies Allergy/AdvReac Type Severity Reaction Status Date / Time No Known Allergies Allergy Verified 01/11/22 12:38 General Stated Complaint: RashLesion HALEY: 5 Review of Systems All systems reviewed & are unremarkable except as noted in HPI and below Constitutional Constitutional: Denies chills, Denies excessive sweating, Denies fatigue, Denies fever(s), Denies weakness and Denies weight loss Eyes Eyes: Reports system reviewed and no additional complaints, except as documented and Denies blurry vision ENT Ears, Nose, Mouth, and Throat: Denies vertigo, Denies dizziness, Denies otalgia, Denies nasal congestion, Denies sore throat and Denies throat swelling Cardiovascular Cardiovascular: Denies chest pain, Denies syncope, Denies rapid heart rate and Denies dyspnea Respiratory Respiratory: Denies chest congestion, Denies cough, Denies pain on inspiration and Denies dyspnea Gastrointestinal Gastrointestinal: Denies abdominal pain, Denies diarrhea and Denies vomiting Genitourinary Genitourinary: Denies hematuria, Denies dysuria and Denies flank pain Musculoskeletal Musculoskeletal: Denies back pain and Denies joint swelling Integumentary/Breasts Skin/Breast: Denies lesions and Denies rash Neurologic Neurologic: Denies behavioral changes, Denies confusion, Denies vertigo, Denies dizziness, Denies syncope, Denies localized weakness and Denies weakness Psychiatric Psychiatric: Denies behavioral changes, Denies confusion and Denies depression Endocrine Endocrine: Denies excessive sweating and Denies fatigue Hematologic/Lymphatic Hematologic/Lymphatic: Denies easy bruising and Denies lymphadenopathy Allergic/Immunologic Allergic/Immunologic: Denies throat swelling PFSH All Active Problems (Updated 01/11/22 @ 14:08 by Tierra Stewart DO) Superficial bruising of lower leg (Acute) Irritation of eyelid (Acute) Anxiety (Chronic) BMI 34.0-34.9,adult (Acute) (Acute) Mild acid reflux (Chronic) Medical History (Updated 01/11/22 @ 14:08 by Tierra Stewart DO) BMI 30.0-30.9,adult Chlamydia trachomatis infection (05/17/13) Rx with Zithromax. YE 01/03/14 -neg COVID-19 affecting in first trimester Early stage of History of migraine Irregular periods/menstrual cycles Positive test Positive test Recent childbirth (06/01/17) Barry- 6lbs 14oz Family History (Updated 11/06/21 @ 09:33 by Richa Rasheed CNM) Mother Multiple sclerosis sx consist of temperature instability Diabetes Thrombocytopenia Maternal Grandmother Diabetes Pulmonary embolism Aneurysm of this age 72. smoker Father Substance use disorder Social History Smoking/Tobacco Use Status: Never Smoking risk assessment performed?: Yes Alcohol Intake: former Drug use: Current Sobriety Substance use type: does not use Household members: children and other Details: BF Brandi walter Do you feel safe at home: Yes (unable to assess privately) Do you feel safe in your relationship?: Yes History History 4 Para 2 Hx # Term Pregnancies 2 Multiple births 0 Hx # Pregnancies 0 Ectopic pregnancies 0 AB induced 0 Hx Number of Living Children 2 AB spontaneous 0 Past Pregnancies Del. Date GA/Weeks # Outcome Route Wgt Sex Labor Lgth Anesthes ia Location [facility] 06/01/17 40 No Successful vaginal 3118.448 g Male 5 hrs [facility] 04/15/19 39 No Successful vaginal 3203.496 g Male 16 [facility] 01/13/21 4 Unsuccessful Delivery Date: 06/01/17 Last Updated by: Ewa Vines Used nitrous, nml [place] Delivery Date: 04/15/19 Last Updated by: Ewa Vines Nml unmedicated though cat 2 tracing, used nitrous. [place] Delivery Date: 01/13/21 Last Updated by: Juany Arriaza DO Biochemical Exam Const General: cooperative and healthy appearing Orientation: alert, awake and oriented x3 HENMT Head: normal to inspection Ears: hearing grossly normal bilaterally and external ears normal General nose exam: external nose normal Face and sinus: normal facial exam Mouth: oral mucosae normal Teeth and gingiva: dentition normal Throat: posterior oropharynx normal Eyes General: appearance normal, both eyes and all related structures Eyelids: eyelids normal Conjunctivae: conjunctivae normal Pupils: PERRL EOM: EOM intact bilaterally Neck Neck: normal visual inspection Lymphatic: no lymphadenopathy noted Chest Chest: normal inspection of the chest Resp Effort & Inspection: normal respiratory effort and able to speak in complete sentences Auscultation: clear to auscultation bilaterally Cardio Rate: regular rate Rhythm: regular rhythm GI Inspection: normal to inspection Palpation: soft, not firm, no guarding, no hepatosplenomegaly, no masses and nontender Auscultation: normal bowel sounds Back/Spine/Pelvis Back: no CVA tenderness Skin General skin exam: no rashes or lesions noted Neuro General: patient alert and patient awake Cognition: normal cognition Speech: speech normal Gait: normal gait Motor: muscle tone normal throughout Sensory Exam: no sensory deficits noted Extrem General: full ROM and capillary refill normal Ankle/foot/toe images: 1. 1 x 1 cm tender faint area of ecchymosis noted to the right posterior distal leg. There is no surrounding erythema, fluctuance or induration. Other: No right leg calf tenderness. Right DP/PT pulses intact. Negative Homans' sign right leg. Psych Appearance: grossly normal Mental Status: mental status grossly normal Speech and Movement: speech and movement normal Affect: normal affect Thought Process: normal Course Vital Signs Vital signs: Vital Signs Temperature 97 F L 01/11/22 12:32 Pulse 122 H 01/11/22 12:32 Respiratory Rate 16 01/11/22 12:32 Blood Pressure 127/78 01/11/22 12:32 Pulse Oximetry 98 01/11/22 12:32 Temperature 97 F L 01/11/22 12:32 Temperature Source Temporal Artery Scan 01/11/22 12:32 Pulse 122 H 01/11/22 12:32 Respiratory Rate 16 01/11/22 12:32 Blood Pressure 127/78 01/11/22 12:32 Blood Pressure Position Sitting 01/11/22 12:32 Pulse Oximetry 98 01/11/22 12:32 Pain Level 1 01/11/22 12:32
== END 2022-01-11 14:25 | disposition home or self-care (01) ==
PROVIDERS: Emergency Provider Physician Assistant; PCP Nurse Practitioner Family
DX: O26.892 Other specified pregnancy related conditions, second trimester (principal); S80.11XA Contusion of right lower leg, initial encounter; X58.XXXA Exposure to other specified factors, initial encounter; H53.141 Visual discomfort, right eye; Z3A.20 20 weeks gestation of pregnancy
CPT/HCPCS: 99282

== ENCOUNTER 2022-01-18 17:53 | Emergency (ER) | payer BC, MEDICAID, SELFPAY ==
[2022-01-18 17:56] VITALS: BP 143/77; PULSE 79; RESP 16; TEMP 36.2; O2SAT 99
--- NOTE | 2022-01-18 18:15 | W.ED.GENAD ---
Discharge Plan Disposition Patient Disposition: HOME Condition: Stable Discharge Details Clinical Impression: Left thigh pain Primary Care Provider: Brandon Fraga ED Provider: Ana Escobar Home Meds and New Rx's Prescriptions: Continued prenat.vits,priyanka,[id number] Tablet 1 tab PO DAILY aspirin [Adult Low Dose Aspirin] 81 mg tablet,delayed release (DR/EC) 81 mg PO DAILY Qty: 90 3RF metoclopramide HCl [Reglan] 5 mg tablet 5 mg PO QAC Qty: 30 3RF Rx Instructions: administer 30 minutes before meals ferrous sulfate 324 mg (65 mg iron) tablet,delayed release (DR/EC) 324 mg PO DAILY Qty: 90 3RF ondansetron 4 mg tablet,disintegrating 4 mg PO Q6H PRN (Reason: nausea and vomiting) Qty: 90 2RF Discharge Instructions Instructions: Leg Pain (ED) Additional Instructions: Please follow-up as directed by diagnostic imaging for a ultrasound tomorrow. You may apply ice and compression if that helps pain. Do not rub the area or massage the area. Follow up with primary care provider in 3-5 days. Return to ED sooner if any worsening or concerns. Increase oral fluids. Please take Tylenol with food every 4-6 hours as needed for pain and swelling. Referrals: Brandon Fraga, [employer] [Primary Care Provider] - 1 week Discharge Data Discharge Date/Time-TO BE ENTERED AT DEPARTURE: 01/18/22 18:25 Medical Decision Making 26-year-old female presents to the ER with chief complaint of left upper thigh lump and tenderness. Patient reports that she noticed this approximately 2 weeks ago. She denies any known injury. There is no ecchymosis or redness noted. She does have a small questionable lump on palpation. Discussed differential diagnosis with patient including healing hematoma, fatty deposit, contusion, DVT she verbalizes understanding. Will order a ultrasound to be done tomorrow and have patient present to the ER for results to put her mind at ease. She denies any chest pain shortness of breath or any other associated symptoms. No significant erythema or signs of cellulitis noted. This text was generated using [employer] system, please disregard any oddities of phrase or misspellings. HPI General Mode of arrival: ambulatory. Date/Time Provider Initiated Documentation: 01/18/22 17:55. Limitations to Documentation: no limitations. Information obtained by: patient, RN notes reviewed and old records reviewed. HPI Narrative: 26-year-old female presents to the ER with chief complaint of left upper thigh lump and tenderness. Patient reports that she noticed this approximately 2 weeks ago. She denies any known injury. There is no ecchymosis or redness noted. She does have a small questionable lump on palpation. She reports that this is very tender to the touch. She denies any other associated symptoms no calf pain no swollen leg, no abdominal pain no chest pain shortness of breath. Patient is approximately 22 weeks and takes a daily baby aspirin due to COVID infection in the early weeks of . Related Data Home Medications Medication Instructions Recorded Confirmed prenat.vits,priyanka,[id number]-mkrpl 1 tab PO DAILY 09/16/21 01/18/22 aspirin 81 mg tablet,delayed 81 mg PO DAILY #90 tabs 10/17/21 01/18/22 release (Adult Low Dose Aspirin) metoclopramide HCl 5 mg tablet 5 mg PO QAC #30 tabs 10/17/21 01/18/22 (Reglan) ondansetron 4 mg disintegrating 4 mg PO Q6H PRN nausea and 11/02/21 01/18/22 tablet vomiting #90 tabs ferrous sulfate 324 mg (65 mg 324 mg PO DAILY #90 tabs 01/01/22 01/18/22 iron) tablet,delayed release Previous Rx's Medication Instructions Recorded aspirin 81 mg tablet,delayed 81 mg PO DAILY #90 tabs 10/17/21 release (Adult Low Dose Aspirin) metoclopramide HCl 5 mg tablet 5 mg PO QAC #30 tabs 10/17/21 (Reglan) ondansetron 4 mg disintegrating 4 mg PO Q6H PRN nausea and 11/02/21 tablet vomiting #90 tabs ferrous sulfate 324 mg (65 mg 324 mg PO DAILY #90 tabs 01/01/22 iron) tablet,delayed release Allergies Allergy/AdvReac Type Severity Reaction Status Date / Time No Known Allergies Allergy Verified 01/18/22 18:00 General Stated Complaint: Orthopedic HALEY: 3 Review of Systems All systems reviewed & are unremarkable except as noted in HPI and below Musculoskeletal Musculoskeletal: Reports as per HPI, Denies back pain and Reports other (Left upper thigh pain and lump) PFSH All Active Problems (Updated 01/18/22 @ 18:21 by Ana Escobar) Left thigh pain (Acute) Bruises easily (Acute) Superficial bruising of lower leg (Acute) Irritation of eyelid (Acute) Anxiety (Chronic) BMI 34.0-34.9,adult (Acute) (Acute) Mild acid reflux (Chronic) Medical History BMI 30.0-30.9,adult Chlamydia trachomatis infection (05/17/13) Rx with Zithromax. YE 01/03/14 -neg COVID-19 affecting in first trimester Early stage of Family history of thrombocytopenia History of migraine Irregular periods/menstrual cycles Positive test Positive test Recent childbirth (06/01/17) Barry- 6lbs 14oz Family History Mother Multiple sclerosis sx consist of temperature instability Diabetes Thrombocytopenia Maternal Grandmother Diabetes Pulmonary embolism Aneurysm of this age 72. smoker Father Substance use disorder Social History Smoking/Tobacco Use Status: Never Smoking risk assessment performed?: Yes Alcohol Intake: former Drug use: Current Sobriety Substance use type: does not use Household members: children and other Details: Brandi Davila Do you feel safe at home: Yes (unable to assess privately) Do you feel safe in your relationship?: Yes History History 4 Para 2 Hx # Term Pregnancies 2 Multiple births 0 Hx # Pregnancies 0 Ectopic pregnancies 0 AB induced 0 Hx Number of Living Children 2 AB spontaneous 0 Past Pregnancies Del. Date GA/Weeks # Outcome Route Wgt Sex Labor Lgth Anesthesia Location Prov Complic 06/01/17 40 No Successful vaginal 3118.448 g Male 5 hrs [facility] 04/15/19 39 No Successful vaginal 3203.496 g Male 16 [facility] 01/13/21 4 Unsuccessful Delivery Date: 06/01/17 Last Updated by: Ewa Vines Used nitrous, nml [place] Delivery Date: 04/15/19 Last Updated by: Ewa Vines Nml unmedicated though cat 2 tracing, used nitrous. [place] Delivery Date: 05/10/21 Last Updated by: Juany Arriaza DO Biochemical Exam Extrem General: normal to inspection, full ROM and capillary refill normal Left lower extremity: hip/thigh Details: normal to inspection, tenderness Location: of the proximal upper leg Location: laterally and anteriorly and normal ROM; no abrasions, no lacerations, no ecchymosis, no crepitus, no penetrating wound, no deformity and no unusual warmth Upper/lower leg/hip images: 1. Tenderness and questionable swelling Course Vital Signs Vital signs: Vital Signs Temperature 36.2 C L 01/18/22 17:56 Pulse 79 01/18/22 17:56 Respiratory Rate 16 01/18/22 17:56 Blood Pressure 143/77 H 01/18/22 17:56 Pulse Oximetry 99 01/18/22 17:56 Temperature 36.2 C L 01/18/22 17:56 Temperature Source Skin 01/18/22 17:56 Pulse 79 01/18/22 17:56 Respiratory Rate 16 01/18/22 17:56 Respiratory Effort 01/18/22 18:02 Blood Pressure 143/77 H 01/18/22 17:56 Blood Pressure Position Sitting 01/18/22 17:56 Pulse Oximetry 99 01/18/22 17:56 Oxygen Delivery Method Room Air 01/18/22 17:56 Oxygen Flow Rate 0 01/18/22 17:56 Pain Level 8 01/18/22 17:56 Comment 01/18/22 17:56
--- NOTE | 2022-01-18 18:23 | NUR.NOTE ---
Request for left lower extremity venous doppler for left thigh pain and swelling/, follow up in ED, to be done SHANNA. Radha Hathaway
--- NOTE | 2022-01-19 | DI.US_ITS ---
Exam(s) US LOWER EXTREMITY VENOUS LT EXAM: US LOWER EXTREMITY VENOUS LT CLINICAL HISTORY: LT THIGH PAIN AND SWELLING, PT TECHNIQUE: Left lower extremity venous ultrasound performed using grayscale, color-flow, and spectra l Doppler analysis. COMPARISON: No exams were available for comparison FINDINGS: The left common femoral, femoral and popliteal veins demonstrate normal compressibility, augmentation , and color Doppler. The posterior tibial veins are patent. The saphenofemoral junction is unremarka ble. There is no evidence of a Romero cyst. There is a 1.2 x 0.6 x 1.1 cm well-circumscribed avascul ar cystic lesion in the soft tissues of the left thigh corresponding to the palpable lump. This is n onspecific. IMPRESSION: 1. No DVT. 2. Small benign-appearing 1.2 cm simple cyst in the soft tissues of the left thigh corresponding to t he palpable abnormality. DATA REPOSITORY:
== END 2022-01-18 18:25 | disposition home or self-care (01) ==
PROVIDERS: Emergency Provider Registered Nurse Emergency; PCP Nurse Practitioner Family
DX: O26.892 Other specified pregnancy related conditions, second trimester (principal); M79.652 Pain in left thigh; R22.42 Localized swelling, mass and lump, left lower limb
CPT/HCPCS: 99282

== ENCOUNTER 2022-01-19 14:51 | Emergency (ER) | payer MEDICAID, SELFPAY ==
[2022-01-19 15:05] VITALS: BP 151/79; PULSE 104; RESP 16; TEMP 36.8; O2SAT 100
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
== END 2022-01-19 15:48 | disposition home or self-care (01) ==
PROVIDERS: Emergency Provider Emergency Medicine; PCP Nurse Practitioner Family
DX: L72.8 Other follicular cysts of the skin and subcutaneous tissue (principal)

== ENCOUNTER → 2022-01-19 16:42 | Outpatient (CLI) | payer BC, MEDICAID, SELFPAY | PROVIDERS: PCP Nurse Practitioner Family; Visit Provider Registered Nurse Emergency | DX: O99.891 Other specified diseases and conditions complicating pregnancy (principal); M79.652 Pain in left thigh; R22.42 Localized swelling, mass and lump, left lower limb; Z3A.00 Weeks of gestation of pregnancy not specified | CPT/HCPCS: 93971 ==

== ENCOUNTER 2022-02-26 03:11 | Outpatient (CLI) | payer BC, MEDICAID, SELFPAY ==
[2022-02-26 09:29] LABS: HCT 32.1 % (36.0-46.0); HGB 10.5 g/dL (11.2-15.7); MCH 27.7 pg (27.0-33.0); MCHC 32.7 % (32.0-36.0); MCV 85 fL (80-95); MPV 8.9 fL (8.0-11.0); Platelet Count 241 10^3/uL (130-400); RBC 3.79 10^6/uL (3.93-5.22); RDW 12.4 % (11.7-14.6); RDW-SD 37.8 fL; WBC 9.04 10^3/uL (4.4-10.8)
[2022-02-26 09:50] LABS: Glucose,1 Hr (Glucola) 132 mg/dL (80-140)
== END 2022-02-26 03:12 | disposition home or self-care (01) ==
LOC: LBO 03:11
PROVIDERS: Advanced Practice Midwife; PCP Nurse Practitioner Family; Visit Provider Advanced Practice Midwife
DX: Z34.92 Encounter for supervision of normal pregnancy, unspecified, second trimester (principal); Z3A.27 27 weeks gestation of pregnancy
CPT/HCPCS: 36415; 82950; 85027

== ENCOUNTER → 2022-04-08 01:57 | Outpatient (CLI) | payer BC, MEDICAID, SELFPAY ==
--- NOTE | 2022-04-08 06:45 | DI.US_ITS ---
Exam(s) US OB WHITNEY WEIGHT EXAM: US OB WHITNEY WEIGHT CLINICAL HISTORY: WHITNEY and weight,H/O COVID,u07.1,o98.511. TECHNIQUE: Transabdominal obstetrical ultrasound performed. COMPARISON: US US OB 2-3 TRIMESTER from 12/31/2021 FINDINGS:: Number of fetuses: One. position: Vertex. Placental location: Anterior. No evidence of previa. 10 millimeters subchorionic cyst. BIOMETRIC DATA: BPD: 87mm = 35+1 weeks HC: 310mm = 34+5 weeks AC: 307mm = 34+5 weeks FL: 63 mm = 32+4 weeks EFW: 2367 Gms = 64% Composite Age: 34+2 weeks EDC: 28 May 2022 Heart Rate: 159BPM Amniotic fluid index: 8.1 cm. Amount of fluid is visually within normal limits. IMPRESSION: size and weight are within the expected range. DATA REPOSITORY:
== END ==
PROVIDERS: PCP Nurse Practitioner Family; Visit Provider Advanced Practice Midwife
DX: O98.512 Other viral diseases complicating pregnancy, second trimester (principal); U07.1 COVID-19
CPT/HCPCS: 76816

== ENCOUNTER 2022-04-22 09:55 | Outpatient (REF) | payer BC, MEDICAID, SELFPAY ==
[2022-04-22 10:57] LABS: *AMPHETAMINES SCREEN URINE Negative (Negative); *BARBITURATES SCREEN URINE Negative (Negative); *BENZODIAZEPINES SCREEN URINE Negative (Negative); Cannabinoids THC Negative (Negative); Cocaine Screen,Urine Negative (Negative); METHADONE URINE SCREEN Negative (Negative); OPIATES URINE SCREEN Negative (Negative); Tricyclic Antidepressants Negative (Negative)
[2022-04-29 14:26] LABS: Buprenorphine Negative ng/mL (Cutoff: 5.0); Norbuprenorphine Negative ng/mL (Cutoff: 2.5)
== END 2022-04-22 09:56 | disposition home or self-care (01) ==
LOC: LBN 09:55
PROVIDERS: PCP Nurse Practitioner Family; Visit Provider Advanced Practice Midwife
DX: Z34.93 Encounter for supervision of normal pregnancy, unspecified, third trimester (principal); Z3A.34 34 weeks gestation of pregnancy
CPT/HCPCS: 80307

== ENCOUNTER 2022-05-01 18:13 | Outpatient (REF) | payer BC, MEDICAID, SELFPAY | END 2022-05-01 18:14 | disposition home or self-care (01) | LOC: LBN 18:13 | PROVIDERS: PCP Nurse Practitioner Family; Visit Provider Advanced Practice Midwife | DX: Z34.93 Encounter for supervision of normal pregnancy, unspecified, third trimester (principal); Z36.85 Encounter for antenatal screening for Streptococcus B; Z3A.36 36 weeks gestation of pregnancy | CPT/HCPCS: 87081 ==

== ENCOUNTER 2022-05-06 02:19 | Outpatient (RCR) | payer BC, MEDICAID, SELFPAY ==
[2022-04-23] MEDS: IRON SUCROSE COMPLEX 200 MG in Normal Saline 100 ML 440 MG IVPB (07:11)
[2022-04-23] MEDS: Normal Saline Flush 10 ML SYR IVP (07:11)
[2022-04-29] MEDS: Normal Saline Flush 10 ML SYR IVP (07:17)
[2022-04-29 07:29] LABS: HGB 10.9 g/dL (11.2-15.7)
[2022-04-29] MEDS: IRON SUCROSE COMPLEX 200 MG in Normal Saline 100 ML 440 MG IVPB (07:34)
[2022-05-06] MEDS: IRON SUCROSE COMPLEX 200 MG in Normal Saline 100 ML 440 MG IVPB (07:19)
[2022-05-06] MEDS: Normal Saline Flush 10 ML SYR IVP (07:19)
== END 2022-05-06 23:59 | disposition home or self-care (01) ==
LOC: INF 02:19
PROVIDERS: PCP Nurse Practitioner Family; Visit Provider Advanced Practice Midwife
DX: O99.013 Anemia complicating pregnancy, third trimester (principal)
CPT/HCPCS: 36415; 96365; 85018; J1756

== ENCOUNTER 2022-05-20 01:30 | Outpatient (RCR) | payer BC, MEDICAID, SELFPAY ==
[2022-05-13] MEDS: Normal Saline Flush 10 ML SYR IVP (07:17)
[2022-05-13 07:28] LABS: HCT 34.8 % (36.0-46.0); HGB 11.3 g/dL (11.2-15.7)
== END 2022-06-05 23:59 | disposition home or self-care (01) ==
LOC: INF 01:30
PROVIDERS: PCP Nurse Practitioner Family; Visit Provider Advanced Practice Midwife
DX: O99.013 Anemia complicating pregnancy, third trimester (principal)
CPT/HCPCS: 36415; 85014; 85018

== ENCOUNTER 2022-05-30 16:17 | Outpatient (CLI) | payer BC, MEDICAID, SELFPAY ==
--- OUTSIDE RECORDS SUMMARY | 2022-05-30 16:18 | XMS_ITS | Encounter Summary ---
:1995 Author Organization [facility] Address [address] [place] [address] Care Team Providers Name Role Phone Unknown, Provider Primary Care Provider Encounter Details Date Type Department Care Team Description 11/06/2021 Lab Requisition [facility] Outr Resulting Lab, Pathology & Laboratory Provider [facility] [address] [place] [address] Social History Tobacco Use Types Packs/Day Years Used Date Never Assessed Sex Assigned at Date Recorded Not on file documented as of this encounter Plan of Treatment Not on filedocumented as of this encounter Procedures Procedure Name Priority Date/Time Associated Comments Diagnosis CHLAMYDIA/N. Routine 11/06/2021 10:10 Results for this GONORRHOEAE AMPLIFIED EST proced ure are in RNA the results section. documented in this encounter Results CHLAMYDIA/N. GONORRHOEAE AMPLIFIED RNA (11/06/2021 10:10 EST) Pathologist Sig nature Gonococcus Result Negative Negative [facility] Chlamydia Result Negative Negative [facility] Specimen Swab - Entire endocervix (body structure ) Performing Organization Address City/State/ZIP Code Phon e Number [facility] [address] [place] [address] SERVICES documented in this encounter Visit Diagnoses Not on filedocumented in this encounter Care Teams Ear Muff Assembler Relationship Specialty Start Date End Date Unknown, Provider, PCP - General 11/16/16 documented as of this encounter
--- OUTSIDE RECORDS SUMMARY | 2022-05-30 16:18 | XMS_ITS | Encounter Summary ---
:1995 Author Organization [facility] Address [address] [place] [address] Care Team Providers Name Role Phone Unknown, Provider Primary Care Provider Encounter Details Date Type Department Care Team Description 04/03/2021 Lab Requisition [facility] Outr Resulting Lab, Pathology & Laboratory Provider [facility] [address] [place] [address] Social History Tobacco Use Types Packs/Day Years Used Date Never Assessed Sex Assigned at Date Recorded Not on file documented as of this encounter Plan of Treatment Not on filedocumented as of this encounter Procedures Procedure Name Priority Date/Time Associated Diagnosis Comme nts COVID-19 TEST [facility] Today 04/02/2021 22:55 LAB PCR EDT COVID-19 TESTING Routine 04/02/2021 22:55 Results for this EDT procedure are i n the results section. documented in this encounter Results COVID-19 TEST [facility] PCR (04/02/2021 22:55 EDT) Specimen Swab - Entire nasopharynx (body structur e) Performing Organization Address City/State/ZIP Code Phon e Number [facility] [address] [place] [address] SERVICES COVID-19 TESTING (04/02/2021 22:55 EDT) COVID-19 rt-PCR Negative Negative [facility] Result Comment: [facility] This test has not been FDA c leared or approved. This test has been authorized by FDA under an EUA for use by authorized laboratories. This test has been authorized only for detection of nucleic acid fro SERVICES m 2019-nCoV, not for any oth er viruses or pathogens. This test is only authorized for the duration of the declaration that circumstances exist justifying the authorization of emergency use of in vitro d iagnostic tests for detectio n and/or diagnosis of 2019-nCoV under section 564(b)(1) of Act, 21 U.S.C ?? 360bbb-3(b) (1), unless the authorization is terminated or revoked sooner. Negative results do not prec lude 2019-nCoV infection and should not be used as the sole basis for treatment or other patient management decisions. Negative results must be combined with clinical observa tions, patient history, and epidemiological informatio n. Testing was performed using the theron SARS-CoV-2 assay ([employer] on the Theron 6800 System Performing Lab [address] [facility] SERVICES Specimen Swab Performing Organization Address City/State/ZIP Code Phon e Number [facility] [address] [place] [id number] SERVICES documented in this encounter Visit Diagnoses Not on filedocumented in this encounter Additional Health Concerns Infection Onset Date Last Indicated Resolved Time COVID-19 10/01/2021 10/01/2021 10/21/2021 22:15 EST documented as of this encounter Care Teams Environmental Health Inspector Relationship Specialty Start Date End Date Unknown, Provider, PCP - General 11/16/16 documented as of this encounter
--- OUTSIDE RECORDS SUMMARY | 2022-05-30 16:18 | XMS_ITS | Encounter Summary ---
:1995 Author Organization [facility] Address [address] [place] [address] Care Team Providers Name Role Phone Unknown, Provider Primary Care Provider Encounter Details Date Type Department Care Team Description 10/01/2021 Lab Requisition [facility] Outr Resulting Lab, Pathology & Laboratory Provider [facility] [address] [place] [address] Social History Tobacco Use Types Packs/Day Years Used Date Never Assessed Sex Assigned at Date Recorded Not on file documented as of this encounter Plan of Treatment Not on filedocumented as of this encounter Procedures Procedure Name Priority Date/Time Associated Diagnosis Comme nts COVID-19 TEST [facility] Today 10/01/2021 12:10 LAB PCR EST COVID-19 TESTING Routine 10/01/2021 12:10 Results for this EST procedure are i n the results section. documented in this encounter Results COVID-19 TEST [facility] PCR (10/01/2021 12:10 EST) Specimen Swab Performing Organization Address City/State/ZIP Code Phon e Number [facility] [address] [place] [address] SERVICES (ABNORMAL) COVID-19 TESTING (10/01/2021 12:10 EST) COVID-19 rt-PCR Positive (AA) Negative [facility] Result Comment: LABORATORY This test has not been FDA c leared or approved. This test has been authorized by FDA under an EUA for use by authorized laboratories. This test has been authorized only for detection of nucleic acid fro SERVICES m 2018-nCo, not for any oth er viruses or pathogens. This test is only authorized for the duration of the declaration that circumstances exist justifying the authorization of emergency use of in vitro d iagnostic tests for detectio n and/or diagnosis of 2018-nCoV under section 564(b)(1) of Act, 21 U.S.C ?? 360bbb-3(b) (1), unless the authorization is terminated or revoked sooner. Testing was performed using the theorn SARS-CoV-2 assay ([employer] on the Theron 6800 System Performing Lab [address] [facility] SERVICES Specimen Swab Performing Organization Address City/State/[facility] Code Phon e Number [facility] [address] [place] [address] SERVICES documented in this encounter Visit Diagnoses Not on filedocumented in this encounter Additional Health Concerns Infection Onset Date Last Indicated Resolved Time COVID-19 10/01/2021 10/01/2021 10/21/2021 22:15 EST documented as of this encounter Care Teams Forensic Science Examiner Relationship Specialty Start Date End Date Unknown, Provider, PCP - General 11/16/16 documented as of this encounter
--- OUTSIDE RECORDS SUMMARY | 2022-05-30 16:18 | XMS_ITS | Encounter Summary ---
:1995 Author Organization [facility] Address [address] [place] [address] Care Team Providers Name Role Phone Unknown, Provider Primary Care Provider Encounter Details Date Type Department Care Team Description 11/06/2021 Lab Requisition [facility] Outr Resulting Lab, Pathology & Laboratory Provider [facility] [address] [place] [address] Social History Tobacco Use Types Packs/Day Years Used Date Never Assessed Sex Assigned at Date Recorded Not on file documented as of this encounter Plan of Treatment Not on filedocumented as of this encounter Procedures Procedure Name Priority Date/Time Associated Diagnosis Comme nts HEPATITIS C AB W Routine 11/06/2021 11:00 Results for this REFLEX TO HCV RNA EST procedure are in BY PCR the results section. HEPATITIS B SURFACE Routine 11/06/2021 11:00 Resu lts for this ANTIGEN EST procedure are i n the results section. documented in this encounter Results HEPATITIS B SURFACE ANTIGEN (11/06/2021 11:00 EST) Pathologist Sig nature Hep B Surface Ag Negative Negative [facility] Specimen Blood - Venous blood (substance) Performing Organization Address [facility]/ZIP Code Phon e Number [facility] [address] [place] [address] SERVICES HEPATITIS C AB W REFLEX TO HCV RNA BY PCR (11/06/2021 11:00 EST) Pathologist Sig nature Hep C Antibody Negative Negative [facility] Specimen Blood - Venous blood (substance) Performing Organization Address [facility] Phon e Number [facility] [address] [place] [address] SERVICES documented in this encounter Visit Diagnoses Not on filedocumented in this encounter Care Teams Embedded Systems Developer Relationship Specialty Start Date End Date Unknown, Provider, PCP - General 11/16/16 documented as of this encounter
--- OUTSIDE RECORDS SUMMARY | 2022-05-30 16:18 | XMS_ITS | Encounter Summary ---
:1995 Author Organization [facility] Address [address] [place] [address] Care Team Providers Name Role Phone Unknown, Provider Primary Care Provider Encounter Details Date Type Department Care Team Description 11/06/2021 Lab Requisition [facility] Outr Resulting Lab, Pathology & Laboratory Provider [facility] [address] [place] [address] Social History Tobacco Use Types Packs/Day Years Used Date Never Assessed Sex Assigned at Date Recorded Not on file documented as of this encounter Plan of Treatment Not on filedocumented as of this encounter Procedures Procedure Name Priority Date/Time Associated Diagnosis Comme nts RUBELLA IGG Routine 11/06/2021 11:00 Results for this ANTIBODY EST procedure are i n the results section. VARICELLA IGG Routine 11/06/2021 11:00 Results fo r this ANTIBODY EST procedure are i n the results section. documented in this encounter Results VARICELLA IGG ANTIBODY (11/06/2021 11:00 EST) Varicella IgG Ab NegativeComment: See Note [facility] Absence of LABORATORY SERVICES detectable Varicella Zoster virus IgG antibodies. A negative result generally indicates no detectable antibody, but does not rule out acute infection. If VZV exposure is suspected, a second sample should be collected and tested no less than one or two weeks later. Specimen Blood - Venous blood (substance) Performing Organization Address City/[facility]/ZIP Code Phon e Number [facility] [address] [place] [address] SERVICES RUBELLA IGG ANTIBODY (11/06/2021 11:00 EST) Rubella IgG Ab PositiveComment: See Note [facility] Positive for IgG LABORATORY SERVICES antibodies to Rubella virus. Specimen Blood - Venous blood (substance) Performing Organization Address City/State/ZIP Code Phon e Number [facility] [address] [place] [address] SERVICES documented in this encounter Visit Diagnoses Not on filedocumented in this encounter Care Teams Hand Salter Relationship Specialty Start Date End Date Unknown, Provider, PCP - General 11/16/16 documented as of this encounter
--- OUTSIDE RECORDS SUMMARY | 2022-05-30 16:19 | XMS_ITS | Encounter Summary ---
:1995 Author Organization [facility] Address [address] [place] [address] Care Team Providers Name Role Phone Unknown, Provider Primary Care Provider Encounter Details Date Type Department Care Team Description 11/13/2016 Results Only [facility] Moises Hogan [phone] [facility] [place] [id number] Social History Tobacco Use Types Packs/Day Years Used Date Never Assessed Sex Assigned at Date Recorded Not on file documented as of this encounter Plan of Treatment Not on filedocumented as of this encounter Procedures Procedure Name Priority Date/Time Associated Diagnosis Comme nts PAP TEST- RESULT Routine 11/13/2016 0:00 EST Resu lts for this ONLY procedure are i n the results section. documented in this encounter Results PAP TEST- RESULT ONLY (11/13/2016 0:00 EST) Pathology Report: CYTOPATHOLOGY REPORT [facility] Reports generated via electronic interface contain kiley ginal data; SERVICES however they are lacking the format of the original re port. Caution should be taken when reading/interpreting unfo rmatted reports. Name: ? SHANTI MORALES ? Accession #: ? [id number] : ? 1995 (Age: 3 0) ??F ?Collect Date: ? 11/13 Location: ? [facility] ? Receive Date : ? 11/16/2016 Provider: ?MOISES HOGAN Copy to: ?BEATRIZ ARELLANO MD ? Specimen/Source: ? Pap Test, Cervix, ThinPrep Imaging System with manual evaluation Last Menstrual Period: ? 08/20/16 Menstrual/ Status: ? Hormonal/Contraceptive Status: ? None Other: ? Additional clinical information: Hx STDs ? SPECIMEN ADEQUACY ? Satisfactory for Evaluation - transformation zone component present GENERAL CATEGORIZATION ? Negative for Intraepithelial Lesion or Malignan cy ? Document reviewed and electronically signed by: ? IRON Higgins(ASCP) ? Report Date: ??11/18/2016 11:14 End of Report Specimen Performing Organization Address City/State/ZIP Code Phon e Number [facility] [address] [place] [address] SERVICES documented in this encounter Visit Diagnoses Not on filedocumented in this encounter Care Teams Scrap Yard Worker Relationship Specialty Start Date End Date Unknown, Provider, PCP - General 11/16/16 documented as of this encounter
--- OUTSIDE RECORDS SUMMARY | 2022-05-30 16:19 | XMS_ITS | Encounter Summary ---
:1995 Author Organization [facility] Address [address] [place] [address] Care Team Providers Name Role Phone Unknown, Provider Primary Care Provider Encounter Details Date Type Department Care Team Description 07/31/2020 Lab Requisition [facility] Jessy Thomas E ncounter for other Pathology & PUBLIC ADDRESS ANNOUNCER general examination Laboratory Medicine [address] [place], [place] [address] [facility] [id number] [place] [address] Social History Tobacco Use Types Packs/Day Years Used Date Never Assessed Sex Assigned at Date Recorded Not on file documented as of this encounter Plan of Treatment Not on filedocumented as of this encounter Procedures Procedure Name Priority Date/Time Associated Diagnosis Comme nts PAP TEST Today 07/30/2020 14:00 EST Encounter for other Results for this general examination procedur e are in the results section. documented in this encounter Results PAP TEST (07/30/2020 14:00 EST) Specimens A. Cervix and/or [facility] MEDICAL Endocervix , ThinPrep CENTER Imaging System with LABORATORY Manual Evaluation SERVICES Specimen Adequacy Satisfactory for [facility] MEDICAL Evaluation - CENTER transformation zone LABORATORY component present SERVICES General Negative for [facility] intraepithelial TACOMA lesion or malignancy LABORATORY SERVICES Attestation . [facility] signed by Farzad shaw LABORATORY DOREEN Esparza(A SCP) SERVICES on 08/05/2020 a t 1322 Clinical History See below [facility] Performing Lab [facility] Scanned Images [facility] Specimen Pap Test - Cervix and/or Endocervix Performing Organization Address City/State/ZIP Code Phon e Number [facility] [address] [place] [address] SERVICES documented in this encounter Visit Diagnoses Diagnosis Encounter for other general examination documented in this encounter Additional Health Concerns Infection Onset Date Last Indicated Resolved Time COVID-19 10/01/2021 10/01/2021 10/21/2021 22:15 EST documented as of this encounter Care Teams Outside Contractor Sales Relationship Specialty Start Date End Date Unknown, Provider, PCP - General 11/16/16 documented as of this encounter
--- OUTSIDE RECORDS SUMMARY | 2022-05-30 16:19 | XMS_ITS | Encounter Summary ---
:1995 Author Organization [facility] Address [address] [place] [address] Care Team Providers Name Role Phone Unknown, Provider Primary Care Provider Encounter Details Date Type Department Care Team Description 09/20/2020 Lab Requisition [facility] Outr Resulting Lab, Pathology & Laboratory Provider [facility] [address] [place] [address] Social History Tobacco Use Types Packs/Day Years Used Date Never Assessed Sex Assigned at Date Recorded Not on file documented as of this encounter Plan of Treatment Not on filedocumented as of this encounter Procedures Procedure Name Priority Date/Time Associated Diagnosis Comme nts COVID-19 TEST [facility] Today 09/20/2020 15:30 LAB PCR EST COVID-19 TESTING Routine 09/20/2020 15:30 Results for this EST procedure are i n the results section. documented in this encounter Results COVID-19 TEST [facility] LAB PCR (09/20/2020 15:30 EST) Specimen Swab - Entire nasopharynx (body structur e) Performing Organization Address City/State/ZIP Code Phon e Number [facility] [address] [place] [address] SERVICES COVID-19 TESTING (09/20/2020 15:30 EST) COVID-19 rt-PCR Negative Negative [facility] Result Comment: CENTER LABORATORY Negative results do not prec lude 2019-nCoV infection and should not be used as the sole basis for treatment or other patient management decisions. Negative results must be combined with clinical observa SERVICES tions, patient history, and epidemiological informatio n. This test was developed and its performance characteristics determined by [facility]. It has not been cleared or approved by the US Food and Drug Administration. FDA does not require this test to go through premarket FDA review. This t est is used for clinical purposes. It should not be regarded as investigational or for research. This laboratory is certified under the Clinical Laboratory Improvement Amendm ents (CLIA) as qualified to perform high complexity clinical laboratory testing. This test is based on the CD C COVID-19 Emergency Use Authorization (EUA) assay, with minor modification as defined by the FDA Performed on the [employer] Flex RT-PCR System. Performing Lab [facility] Lab [facility] SERVICES Specimen Swab Performing Organization Address City/State/[facility] Code Phon e Number [facility] [address] [place] [address] SERVICES documented in this encounter Visit Diagnoses Not on filedocumented in this encounter Additional Health Concerns Infection Onset Date Last Indicated Resolved Time COVID-19 10/01/2021 10/01/2021 10/21/2021 22:15 EST documented as of this encounter Care Teams Airline Reservationist Relationship Specialty Start Date End Date Unknown, Provider, PCP - General 11/16/16 documented as of this encounter
[2022-05-30 17:15] VITALS: BP 131/64; PULSE 81; TEMP 36.7
[2022-05-30 17:35] VITALS: BP 131/64; PULSE 81
--- NOTE | 2022-05-31 07:38 | W.OBNST ---
Date of service: 05/30/22 Time of Service: 20:00 NST Evaluation Reason for NST Reasons for Nonstress Test: DECREASED MOVEMENT Gestational Age Gestational Age in Weeks and Days: 40 Weeks and 1Days Test and Monitor Explained Test/Monitor Explained: Test Explained, Monitor Explained and Patient Verbalized Understanding Vital Signs Blood Pressure: 131/64 Pulse: 81 Temperature: 98.1 F Urine Results Urine Protein: Negative Urine Ketones: Negative Urine Glucose: Negative Urine Blood: Negative NST Information Date on Monitor: 05/30/22 Time on Monitor: 17:00 Date off Monitor: 05/30/22 Time off Monitor: 17:36 Total Time on Monitor: 36 NST Interventions: PO Hydration Contraction Frequency: Occasional NST Evaluation Patient States Movement: Present and Decreased FHR Baseline: 135 Variability: Moderate 6-25 bpm Accelerations: 15x15 Decelerations: None NST Results: Reactive Note NST Note NST Reviewed and Verified by: Ewa Vines
[2022-05-31 07:39] VITALS: BP 131/64; PULSE 81; TEMP 36.7
== END 2022-05-30 17:40 | disposition home or self-care (01) ==
LOC: BCD 16:18 → OBS 16:46
PROVIDERS: Visit Provider Advanced Practice Midwife
DX: O36.8130 Decreased fetal movements, third trimester, not applicable or unspecified (principal); Z3A.40 40 weeks gestation of pregnancy
CPT/HCPCS: 59025

== ENCOUNTER 2022-06-01 09:17 | Outpatient (CLI) | payer BC, MEDICAID, SELFPAY ==
[2022-06-01 09:43] VITALS: BP 127/65; PULSE 96; TEMP 36.7
--- NOTE | 2022-06-01 12:03 | W.OBNST ---
Date of service: 06/01/22 Time of Service: 12:03 NST Evaluation Reason for NST Reasons for Nonstress Test: DECREASED MOVEMENT Gestational Age Gestational Age in Weeks and Days: 40 Weeks and 3Days Test and Monitor Explained Test/Monitor Explained: Test Explained, Monitor Explained and Patient Verbalized Understanding Vital Signs Blood Pressure: 127/65 Pulse: 96 Temperature: 98.1 F Urine Results Urine Protein: Positive Urine Ketones: Negative Urine Glucose: Negative Urine Blood: Negative NST Information Date on Monitor: 06/01/22 Time on Monitor: 09:40 Date off Monitor: 06/01/22 Time off Monitor: 10:12 Total Time on Monitor: 32 NST Interventions: PO Hydration Contraction Frequency: q12 NST Evaluation Patient States Movement: Present FHR Baseline: 135 Variability: Moderate 6-25 bpm Accelerations: 15x15 Decelerations: None NST Results: Reactive Note NST Note Note: Shanti has some anxiety related to post dates . SVE at the office 1 cm/50/post/-1. She has concerns today about the WHITNEY and WHITNEY of [address] Arriaza with bedside US. IOL not possible today due to limited staffing. IOL scheduled at 41 weeks on 06/05 and Shanti feels comfortable with this plan. NST Reviewed and Verified by: Richa Rasheed
[2022-06-01 12:07] VITALS: BP 127/65; PULSE 96; TEMP 36.7
== END 2022-06-01 10:35 | disposition home or self-care (01) ==
LOC: BCD 09:18 → OBS 09:20
PROVIDERS: PCP Advanced Practice Midwife; Visit Provider Advanced Practice Midwife
DX: O36.8130 Decreased fetal movements, third trimester, not applicable or unspecified (principal); Z3A.40 40 weeks gestation of pregnancy
CPT/HCPCS: 59025

== ENCOUNTER 2022-06-03 06:54 | Inpatient (IN) | payer BC, MEDICAID, SELFPAY ==
[2022-06-03] VITALS (22 sets, daily range): BP systolic 110–159; BP diastolic 58–82; PULSE 81–109; RESP 16–22; TEMP 36.4–37; O2SAT 97–109
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
[2022-06-03 08:07] LABS: Source Nasal/Nares
[2022-06-03 08:08] LABS: HCT 36.4 % (36.0-46.0); MCV 85 fL (80-95); MPV 8.6 fL (8.0-11.0); Platelet Count 286 10^3/uL (130-400); RBC 4.29 10^6/uL (3.93-5.22); RDW 13.9 % (11.7-14.6); RDW-SD 42.7 fL; WBC 12.54 10^3/uL (4.4-10.8)
[2022-06-03 09:23] LABS: COVID-19 PCR Negative (Negative)
[2022-06-03] MEDS: Oxytocin 10 UNITS/ML VIAL IM (10:47)
--- NOTE | 2022-06-03 11:12 | W.OBDELIVERY ---
Date of service: 06/03/22 Time of Service: 11:12 OB Labor/ Delivery Information Baby A Delivery Delivery Method: Spontaneaous Presentation: Cephalic Cephalic Position: Vertex Vertex Position: Right Occipital Anterior Breech Position: N/A Cord Description-Baby A: 3 Vessels and Nuchal Cord (loose, reduced over shoulder and baby delivered through loop) Amniotic Fluid: Meconium Estimated Blood Loss: 200 ml Delivery Outcome: Liveborn Transferred: Remains with Mother Note: Pt used nitrous oxide inhalant effectively while advancing rapidly through her labor. Pt reported the urge to bear down, on exam was found to be 8 cm vtx @ 0 station. Preparations for delivery and 2nd stage huddle completed, shortly thereafter of a vigorous male was accomplished, CNM assisted by FOB in delivering the head and body of the baby, nuchal cord was noted and pushed down over the anterior shoulder which came easily, body was delivered through the loop of cord into FOB's hands and he placed the baby in mother's arms immediately. Drying and stim done on mother's chest, 10 units of pitocin given IM, cord ceased pulsations at 2 minutes, clamped and cut by FOB. Cord blood collected, Wallace placenta intact with 3VC. No lacerations found on inspection of vulva and vagina, minimal rubra, fundus firm below umbilicus. Apgars 7/9, weight 3270 gms. Providers Nurse Orthopedic Shoes Salesperson: Ewa Vines Nurse: Annie Alfaro Nurse: Germania Walker Labor/Delivery Information Number of Babies in Womb: 1 Steroids Given: None Reason Steroids Not Administered: N/A Group Beta Strep: Negative Antibiotics Administered: No Rubella Status: Immune Blood Type: O+ Varicella Immunity: Nonimmune Medication in Delivery: 10 units pitocin IM Maternal Complications: None Shoulder Dystocia: No Stages of Labor Onset of Labor Date: 06/03/22 Onset of Labor Time: 03:25 ROM Baby A: 06/03/22 ROM Baby A: 05:30 Baby A Infant Gender: Female Gestational Status: Term (39-41.6 wks) weight: 7 lb 3.346 oz Weight Comment: 3270 gms Score-1 Minute Interval(Baby A) Heart Rate-1 minute: 100 BPM or Greater Respiratory Effort- 1 minute: Slow Respiration/Weak Cry Muscle Tone-1 minute: Active Movement Reflex Response-1 minute: Prompt Response Color-1 minute: Pallor or Cyanosis Score-5 Minute Interval(Baby A) Heart Rate- 5 minute: 100 BPM or Greater Respiratory Effort-5 minute: Spontaneous/Strong Cry Muscle Tone-5 minute: Active Movement Reflex Response-5 minute: Prompt Response Color-5 minute: Bluish Hands or Feet
[2022-06-03] MEDS: Ibuprofen 600 MG TAB PO ×2 (11:31→20:15)
[2022-06-03] MEDS: Acetaminophen 325 MG TAB 650 MG PO ×2 (15:03→20:15)
--- NOTE | 2022-06-03 16:22 | W.PM.OBPNV1 ---
Date of service: 06/04/22 Time of Service: 06:46 Assessment and Plan Assessment and plan (1) Term delivered: Status: Acute Assessment and plan: A: nml PPD#1 off to a good start experienced confident parents with supports in place at home P: Expect discharge later today or tomorrow Varicella vaccine prior to discharge F/up at 2 & 6 wks Written instructions reviewed and given to pt Planning POP's for BCM Subjective Subjective Patient comments: No complaints, Pain well controlled, Tolerating diet and Flatus present Patient's Mood: happy Preemption baby status: Doing well, Nursing well, Rooming in and Strong Bonding Observed feeding status: Exclusively breast feeding Exam Physical Exam Vital signs: Temp Pulse Resp BP Pulse Ox 98.4 F 93 H 16 116/69 109 H 06/03/22 14:45 06/03/22 14:45 06/03/22 14:45 06/03/22 14:45 06/03/22 12:44 Vital Signs Reviewed: Yes Constitutional Constitutional: no acute distress, obese and cooperative HEENT Exam HEENT Exam: Normal Neck Exam Neck Exam: Normal Breast Exam Bilateral: Breast Exam: Normal and Soft Nipple Exam: Normal and Uninjured Respiratory Exam Respiratory Exam: Normal Cardiovascular Exam Cardiovascular Exam: Normal Abdominal Exam Abdomen: Other (soft and nontender) Fundal Exam Fundus: Below Umbilicus and Firm Rectal Exam Rectal Exam: Normal Exam Perineum: Intact and Normal Extremities Exam Extremity Exam: Normal Back/Spine/Pelvis Exam Back Exam: Normal Skin Exam Skin Exam: Normal Neurological Exam Neurological Exam: Normal Psychiatric Exam Psychiatric Exam: Normal
[2022-06-04 00:20] VITALS: BP 117/74; PULSE 105; RESP 18; TEMP 36.6
[2022-06-04] MEDS: Ibuprofen 600 MG TAB PO ×3 (06:47→22:47)
[2022-06-04] MEDS: Acetaminophen 325 MG TAB 650 MG PO ×3 (06:47→22:47)
[2022-06-04 08:50] VITALS: BP 111/70; PULSE 80; RESP 16; TEMP 36.6; O2SAT 98
[2022-06-04] MEDS: Docusate Sodium 100 MG CAP PO (09:08)
[2022-06-04] MEDS: Varicella Virus Vaccine (Live) 0.5 ML SC (11:42)
[2022-06-04 11:52] VITALS: BP 109/71; PULSE 91; RESP 16; TEMP 36.8; O2SAT 95
[2022-06-04 15:40] VITALS: BP 115/70; PULSE 83; RESP 16; TEMP 36.8; O2SAT 97
[2022-06-04] MEDS: Calcium Carbonate *TUMS* 500 MG CHEW 1000 MG PO (16:46)
[2022-06-04 20:05] VITALS: BP 115/76; PULSE 76; RESP 18; TEMP 37.2
[2022-06-04] MEDS: Hamamelis Leaf/Glycerin 100 EACH BOX PR (20:35)
[2022-06-05 07:55] VITALS: BP 114/72; PULSE 91; RESP 16; TEMP 37; O2SAT 97
--- NOTE | 2022-06-05 08:34 | W.PM.OBPNV1 ---
Date of service: 06/05/22 Time of Service: 08:34 Assessment and Plan Assessment and plan (1) Term delivered: Status: Acute Assessment and plan: A: PPD#2 Nml recovery P: Discharge to home Instructions reviewed and given F/up appts at 2 & 6 wks given Subjective Subjective Patient comments: No complaints, Pain well controlled, Tolerating diet and Bowel Movement Patient's Mood: happy baby status: Doing well, Nursing well, Rooming in and Strong Bonding Observed [place] feeding status: Exclusively breast feeding Exam Physical Exam Vital signs: Temp Pulse Resp BP Pulse Ox 98.9 F 76 18 115/76 97 06/04/22 20:05 06/04/22 20:05 06/04/22 20:05 06/04/22 20:05 06/04/22 15:40 Vital Signs Reviewed: Yes Constitutional Constitutional: no acute distress, obese and cooperative HEENT Exam HEENT Exam: Normal Neck Exam Neck Exam: Normal Breast Exam Bilateral: Breast Exam: Normal and Soft Nipple Exam: Normal and Bruised Respiratory Exam Respiratory Exam: Normal Cardiovascular Exam Cardiovascular Exam: Normal Abdominal Exam Abdomen: Other (soft, nontender) Fundal Exam Fundus: Below Umbilicus and Firm Rectal Exam Rectal Exam: Not Done Exam Perineum: Intact Extremities Exam Extremity Exam: Normal, Full ROM and Warm to Touch Back/Spine/Pelvis Exam Back Exam: Normal Skin Exam Skin Exam: Normal Neurological Exam Neurological Exam: Normal Psychiatric Exam Psychiatric Exam: Normal
--- NOTE | 2022-06-05 08:42 | DSE_ITS ---
Date of service: 06/05/22 Time of Service: 08:42 DS: Diagnosis Discharge Diagnosis (1) Term delivered: Status: Acute Discharge Plan Disposition Patient Disposition: HOME Condition: Good Discharge Details Reason For Visit: Rule Out Labor Admit Date/Time: 06/03/22 06:54 Admit Provider: Richa Rasheed Attending Provider: Richa Rasheed Primary Care Provider: Richa Rasheed Hospital Course Hospital Course: on day of admission, nml PP course, discharge per pt desire at 48 hours Home Meds and New Rx's Prescriptions: No Action prenat.vits,priyanka,[id number] Tablet 1 tab PO DAILY magnesium oxide 400 mg (241.3 mg magnesium) tablet 400 mg PO DAILY Discharge Instructions Additional Instructions: Please keep 2 and 6 wk appointments, call for any questions or concerns. Stand Alone Forms: BC Instructions, BC Post Vaginal Deliver Activity:: Activity as Tolerated Equipment/Supplies:: No Equipment Needed Diet:: Normal Diet Discharge Orders Discharge Orders: Discharge Order (Routine); Ordered 06/05/22 Ordered By: Ewa Vines OB:DS Summary Summary Vaginal Delivery Method: Spontaneaous Episiotomy Description: None Laceration Description: None Laceration Extension: N/A Contraception Discussed Contraception Discussed: Yes Contraceptive Plan: Control Pill/Patch, [place] Gender-Baby A: Female weight: 7 lb 3.346 oz Status at Discharge Functional status at discharge: independent ambulation Overall status at discharge: patient is progressing back to baseline Mental Status: mental status grossly normal Speech and Movement: speech and movement normal and speech clear Mood: congruent mood Affect: normal affect Exam Physical Exam Vital signs: Temp Pulse Resp BP Pulse Ox 98.9 F 76 18 115/76 97 06/04/22 20:05 06/04/22 20:05 06/04/22 20:05 06/04/22 20:05 06/04/22 15:40 Constitutional Constitutional: no acute distress, obese and cooperative HEENT Exam HEENT Exam: Normal Neck Exam Neck Exam: Normal Breast Exam Bilateral: Breast Exam: Normal and Soft Respiratory Exam Respiratory Exam: Normal Cardiovascular Exam Cardiovascular Exam: Normal Abdominal Exam Abdomen: Other (soft, nontender) Fundal Exam Fundus: Below Umbilicus and Firm Rectal Exam Rectal Exam: Not Done Exam Perineum: Intact Extremities Exam Extremity Exam: Normal, Full ROM and Warm to Touch Back/Spine/Pelvis Exam Back Exam: Normal Skin Exam Skin Exam: Normal Neurological Exam Neurological Exam: Normal Psychiatric Exam Psychiatric Exam: Normal PFSH All Active Problems (Updated 06/03/22 @ 16:22 by Ewa Vines) Term delivered (Acute) Maternal varicella, non-immune (Acute) Anxiety (Chronic) BMI 34.0-34.9,adult (Acute) Medical History (Updated 06/03/22 @ 16:22 by Ewa Vines) BMI 30.0-30.9,adult Bruises easily Chlamydia trachomatis infection (05/17/13) Rx with Zithromax. YE 01/03/14 -neg COVID-19 affecting in first trimester Early stage of Family history of thrombocytopenia History of migraine Irregular periods/menstrual cycles Mild acid reflux Positive test Positive test Recent childbirth (06/01/17) Barry- 6lbs 14oz Spontaneous onset of labor Family History Mother Multiple sclerosis sx consist of temperature instability Diabetes Thrombocytopenia Maternal Grandmother Diabetes Pulmonary embolism Aneurysm of this age 72. smoker Father Substance use disorder Social History Smoking/Tobacco Use Status: Never Smoking risk assessment performed?: Yes Alcohol Intake: former Drug use: Current Sobriety Substance use type: does not use Household members: children and other Details: Brandi Davila Do you feel safe at home: Yes (unable to assess privately) Do you feel safe in your relationship?: Yes History History 4 Para 2 Hx # Term Pregnancies 2 Multiple births 0 Hx # Pregnancies 0 Ectopic pregnancies 0 AB induced 0 Hx Number of Living Children 2 AB spontaneous 0 Past Pregnancies Del. Date GA/Weeks # Preg Succ Route Wgt Sex Labor Lgth Anesth esia Location Prov Complic 06/01/17 40 No vaginal 6 lb 14 oz Male 5 hrs [facility] 04/15/19 39 No vaginal 7 lb 1 oz Male 16 [facility] 01/13/21 4 Delivery Date: 06/01/17 Last Updated by: Ewa Vines Used nitrous, nml Barry Delivery Date: 04/15/19 Last Updated by: Ewa Vines Nml unmedicated though cat 2 tracing, used nitrous. [facility] Delivery Date: 01/13/21 Last Updated by: Juany Arriaza, DO Biochemical DS: Data Vitals/I&O Vitals and I&O: Vital Signs Temperature 98.9 F 06/04/22 20:05 Pulse 76 06/04/22 20:05 Pulse Rhythm Regular 06/04/22 20:05 Respiratory Rate 18 06/04/22 20:05 Respiratory Depth Normal 06/03/22 07:00 Blood Pressure 115/76 06/04/22 20:05 Blood Pressure Mean 89 06/04/22 20:05 Pulse Oximetry 97 06/04/22 15:40 Oxygen Delivery Method Room Air 06/03/22 07:00 Oxygen Flow Rate 0 06/03/22 07:00 Pain Level 4 06/04/22 22:47 Intake & Output 06/04/22 06/04/22 06/05/22 11:59 23:59 11:59 Other: Urine Color Yellow
== END 2022-06-05 09:50 | disposition home or self-care (01) | DRG 807 ==
PROVIDERS: Admitting Provider Advanced Practice Midwife; PCP Advanced Practice Midwife; Visit Provider Advanced Practice Midwife
DX: O99.02 Anemia complicating childbirth (principal); Z37.0 Single live birth; Z3A.40 40 weeks gestation of pregnancy; O99.62 Diseases of the digestive system complicating childbirth; K21.9 Gastro-esophageal reflux disease without esophagitis; M54.31 Sciatica, right side; O99.344 Other mental disorders complicating childbirth; O75.89 Other specified complications of labor and delivery
CPT/HCPCS: 36415; 85027; 86850; 86900; 86901; 87635; J2590

== ENCOUNTER 2022-06-12 16:20 | Outpatient (REF) | payer BC, MEDICAID, SELFPAY | END 2022-06-12 16:21 | disposition home or self-care (01) | LOC: LBN 16:20 | PROVIDERS: PCP Advanced Practice Midwife; Visit Provider Advanced Practice Midwife | DX: N39.0 Urinary tract infection, site not specified (principal) | CPT/HCPCS: 87086 ==

== ENCOUNTER 2022-07-10 04:07 | Emergency (ER) | payer BC, MEDICAID, SELFPAY ==
[2022-07-10 04:13] VITALS: BP 147/78; PULSE 97; RESP 18; TEMP 36.7; O2SAT 98
--- OUTSIDE RECORDS SUMMARY | 2022-07-10 04:13 | XMS_ITS | Encounter Summary ---
:1995 Author Organization [facility] Address [address] [place] [address] Care Team Providers Name Role Phone Unknown, Provider Primary Care Provider Encounter Details Date Type Department Care Team Description 11/06/2021 Lab Requisition [facility] Outr Resulting Lab, Pathology & Laboratory Provider [facility] [address] [place] [address] Social History Tobacco Use Types [...] EST) Varicella IgG Ab NegativeComment: See Note [facility] Absence of LABORATORY SERVICES detectable Varicella Zoster virus IgG antibodies. A negative result generally indicates no detectable antibody, but does not rule out acute infection. If VZV exposure is suspected, a second sample should be collected and tested no less than one or two weeks later. Specimen Blood - Venous blood (substance) Performing Organization Address City/[facility]/ZIP Code Phon e Number [facility] [address] [place] [address] SERVICES RUBELLA IGG ANTIBODY (11/06/2021 11:00 EST) Rubella IgG Ab PositiveComment: See Note [facility] Positive for IgG LABORATORY SERVICES antibodies to Rubella virus. Specimen Blood - Venous blood (substance) Performing Organization Address City/State/ZIP Code Phon e Number [facility] [address] [place] [address] SERVICES documented in this encounter Visit Diagnoses Not on filedocumented in this encounter Care Teams Inspector Floor Relationship Specialty Start Date End Date Unknown, Provider, PCP - General 11/16/16 documented as of this encounter
--- OUTSIDE RECORDS SUMMARY | 2022-07-10 04:13 | XMS_ITS | Encounter Summary ---
:1995 Author Organization [facility] Address [address] [place] [address] Care Team Providers Name Role Phone Unknown, Provider Primary Care Provider Encounter Details Date Type Department Care Team Description 11/13/2016 Results Only [facility]- [facility] Moises Hogan [phone] [facility] [facility] [address] [place] [id number] Social History Tobacco Use Types Packs/Day Years [...] (11/13/2016 0:00 EST) Pathology Report: CYTOPATHOLOGY REPORT [facility] Reports generated via electronic interface contain [...] Organization Address City/State/ZIP Code Phon e Number [facility] [address] [place] [address] SERVICES documented in this encounter Visit Diagnoses Not on filedocumented in this encounter Care Teams Ambulance Driver Relationship Specialty Start Date End Date Unknown, Provider, PCP - General 11/16/16 documented as of this encounter
--- OUTSIDE RECORDS SUMMARY | 2022-07-10 04:13 | XMS_ITS | Encounter Summary ---
:[address] [facility] Address [address] [place] [address] Care Team Providers Name Role Phone Unknown, Provider Primary Care Provider Encounter Details Date Type Department Care Team Description 11/06/2021 Lab Requisition [facility] Outr Resulting Lab, Pathology & Laboratory Provider [facility] [address] [place] [address] Social History Tobacco Use Types Packs/Day Years Used Date Never Assessed Sex Assigned at Date Recorded Not on file documented as of this encounter Plan of Treatment Not on filedocumented as of this encounter Procedures Procedure Name Priority Date/Time Associated Comments Diagnosis HIV 1/2 ANTIGEN AND Routine 11/06/2021 11:00 Resu lts for this ANTIBODY, 4TH EST procedure are in GENERATION the results section. documented in this encounter Results HIV 1/2 ANTIGEN AND ANTIBODY, 4TH GENERATION (11/06/2021 11:00 EST) HIV 1 and 2 NegativeComment: If Negative [facility] Antibody/p24 acute HIV-1 LABORATORY Antigen, 4th infection is SERVICES Generation suspected in a high risk patient, submit plasma specimen for HIV-1 RNA quantitation test. Specimen Blood - Venous blood (substance) Narrative [facility] LABORATORY SERVICES - 11/07/2021 10:45 EST Fourth Generation assay performed on the Siemens Centaur XPT. Performing Organization Address City/State/ZIP Code Phon e Number [facility] [address] [place] [address] SERVICES documented in this encounter Visit Diagnoses Not on filedocumented in this encounter Care Teams Front Desk Specialist Relationship Specialty Start Date End Date Unknown, Provider, PCP - General 11/16/16 documented as of this encounter
--- OUTSIDE RECORDS SUMMARY | 2022-07-10 04:13 | XMS_ITS | Encounter Summary ---
:1995 Author Organization [facility] Address [address] [place] [address] Care Team Providers Name Role Phone Unknown, Provider Primary Care Provider Encounter Details Date Type Department Care Team Description 09/20/2020 Lab Requisition [facility] Outr Resulting Lab, Pathology & Laboratory Provider [facility] [address] [place] [address] Social History Tobacco Use Types Packs/Day Years Used Date Never Assessed Sex Assigned at Date Recorded Not on file documented as of this encounter Plan of Treatment Not on filedocumented as of this encounter Procedures Procedure Name Priority Date/Time Associated Diagnosis Comme nts COVID-19 TEST [facility] Today 09/20/2020 15:30 LAB PCR EST COVID-19 TESTING Routine 09/20/2020 15:30 Results for this EST procedure are i n the results section. documented in this encounter Results COVID-19 TEST [facility] LAB PCR (09/20/2020 15:30 EST) Specimen Swab - Entire nasopharynx (body structur e) Performing Organization Address City/State/ZIP Code Phon e Number [facility] [address] [place] [address] SERVICES COVID-19 TESTING (09/20/2020 15:30 EST) COVID-19 rt-PCR Negative Negative [facility] Result Comment: CENTER LABORATORY Negative results do not prec lude 2019-nCoV infection and should not be used as the sole basis for treatment or other patient management decisions. Negative results must be combined with clinical observa SERVICES tions, patient history, and epidemiological informatio n. This test was developed and its performance characteristics determined by [facility]. It has not been cleared or approved [...] defined by the FDA Performed on the [employer] Flex RT-PCR System. Performing Lab [facility] Lab [facility] SERVICES Specimen Swab Performing Organization Address City/State/[facility] Code Phon e Number [facility] [address] [place] [address] SERVICES documented in this encounter Visit Diagnoses Not on filedocumented in this encounter Additional Health Concerns Infection Onset Date Last Indicated Resolved Time COVID-19 10/01/2021 10/01/2021 10/21/2021 22:15 EST documented as of this encounter Care Teams Technician Biological Health Relationship Specialty Start Date End Date Unknown, Provider, PCP - General 11/16/16 documented as of this encounter
--- OUTSIDE RECORDS SUMMARY | 2022-07-10 04:13 | XMS_ITS | Encounter Summary ---
:[address] [facility] Address [address] [place] [address] Care Team Providers Name Role Phone Unknown, Provider Primary Care Provider Encounter Details Date Type Department Care Team Description 11/06/2021 Lab Requisition [facility] Outr Resulting Lab, Pathology & Laboratory Provider [facility] [address] [place] [address] Social History Tobacco Use Types Packs/Day Years [...] nature Hep B Surface Ag Negative Negative [facility] SERVICES Specimen Blood - Venous blood (substance) Performing Organization Address [facility]/ZIP Code Phon e Number [facility] [address] [place] [address] SERVICES HEPATITIS C AB W REFLEX TO HCV RNA BY PCR (11/06/2021 11:00 EST) Pathologist Sig nature Hep C Antibody Negative Negative [facility] SERVICES Specimen Blood - Venous blood (substance) Performing Organization Address [facility] Phon e Number [facility] [address] [place] [address] SERVICES documented in this encounter Visit Diagnoses Not on filedocumented in this encounter Care Teams Foreman Or Supervisor And Operator Relationship Specialty Start Date End Date Unknown, Provider, PCP - General 11/16/16 documented as of this encounter
--- OUTSIDE RECORDS SUMMARY | 2022-07-10 04:13 | XMS_ITS | Encounter Summary ---
:1995 Author Organization Address [address] [place] [address] Care Team Providers Name Role Phone Unknown, Provider Primary Care Provider Encounter Details Date Type Department Care Team Description 10/01/2021 Lab Requisition [facility] Outr Resulting Lab, Pathology & Laboratory Provider [facility] [address] [place] [address] Social History Tobacco Use Types Packs/Day Years Used Date Never Assessed Sex Assigned at Date Recorded Not on file documented as of this encounter Plan of Treatment Not on filedocumented as of this encounter Procedures Procedure Name Priority Date/Time Associated Diagnosis Comme nts COVID-19 TEST [facility] Today 10/01/2021 12:10 LAB PCR EST COVID-19 TESTING Routine 10/01/2021 12:10 Results for this EST procedure are i n the results section. documented in this encounter Results COVID-19 TEST [facility] LAB PCR (10/01/2021 12:10 EST) Specimen Swab Performing Organization Address City/State/ZIP Code Phon e Number [facility] [address] [place] [address] SERVICES (ABNORMAL) COVID-19 TESTING (10/01/2021 12:10 EST) COVID-19 rt-PCR Positive (AA) Negative [facility] Result Comment: LABORATORY This test [...] revoked sooner. Testing was performed using the theron SARS-CoV-2 assay ([employer] on the Theron 6800 System Performing Lab [employer]on [address] [facility] Lab [facility] SERVICES Specimen Swab Performing Organization Address City/State/[facility] Code Phon e Number [facility] [address] [place] [address] SERVICES documented in this encounter Visit Diagnoses Not on filedocumented in this encounter Additional Health Concerns Infection Onset Date Last Indicated Resolved Time COVID-19 10/01/2021 10/01/2021 10/21/2021 22:15 EST documented as of this encounter Care Teams Photovoltaic Solar Cell Designer Relationship Specialty Start Date End Date Unknown, Provider, PCP - General 11/16/16 documented as of this encounter
--- OUTSIDE RECORDS SUMMARY | 2022-07-10 04:13 | XMS_ITS | Encounter Summary ---
:1995 Author Organization [facility] Address [address] [place] [address] Care Team Providers Name Role Phone Unknown, Provider Primary Care Provider Encounter Details Date Type Department Care Team Description 07/31/2020 Lab Requisition [facility] Jessy Thomas E ncounter for other Pathology & PRODUCT TECHNOLOGY SCIENTIST general examination Laboratory Medicine [address] [place], [place] [address] [facility] [id number] [place] [address] Social History Tobacco Use Types [...] (07/30/2020 14:00 EST) Specimens A. Cervix and/or [facility] Endocervix , ThinPrep CENTER Imaging System with LABORATORY Manual Evaluation SERVICES Specimen Adequacy Satisfactory for [facility] Evaluation - CENTER transformation zone LABORATORY component present SERVICES General Negative for [facility] intraepithelial [place] lesion or malignancy LABORATORY SERVICES Attestation . [facility] signed by Farzad shaw LABORATORY DOREEN Esparza(A SCP) SERVICES on 08/05/2020 a t 1322 Clinical History See below [facility] SERVICES Performing Lab [facility] SERVICES Scanned Images [facility] SERVICES Specimen Pap Test - Cervix and/or Endocervix Performing Organization Address City/State/ZIP Code Phon e Number [facility] [address] [place] [address] SERVICES documented in this encounter Visit Diagnoses Diagnosis Encounter for other general examination documented in this encounter Additional Health Concerns Infection Onset Date Last Indicated Resolved Time COVID-19 10/01/2021 10/01/2021 10/21/2021 22:15 EST documented as of this encounter Care Teams Investigator Cash Shortage Relationship Specialty Start Date End Date Unknown, Provider, PCP - General 11/16/16 documented as of this encounter
--- OUTSIDE RECORDS SUMMARY | 2022-07-10 04:13 | XMS_ITS | Encounter Summary ---
:1995 Author Organization [facility] Address [address] [place] [address] Care Team Providers Name Role Phone Unknown, Provider Primary Care Provider Encounter Details Date Type Department Care Team Description 11/06/2021 Lab Requisition [facility] Outr Resulting Lab, Pathology & Laboratory Provider [facility] [address] [place] [address] Social History Tobacco Use Types Packs/Day Years [...] Pathologist Sig nature Gonococcus Result Negative Negative [facility] LABORATORY SERVICES Chlamydia Result Negative Negative [facility]OR[facility] SERVICES Specimen Swab - Entire endocervix (body structure ) Performing Organization Address City/State/ZIP Code Phon e Number [facility] [address] [place] [address] SERVICES documented in this encounter Visit Diagnoses Not on filedocumented in this encounter Care Teams Vehicle Service Agent Relationship Specialty Start Date End Date Unknown, Provider, PCP - General 11/16/16 documented as of this encounter
--- NOTE | 2022-07-10 04:25 | W.ED.GENAD ---
Discharge Plan Disposition Patient Disposition: HOME Condition: Improving Discharge Details Clinical Impression: URI (upper respiratory infection) Primary Care Provider: Richa Rasheed ED Provider: Jalen Sierra Home Meds and New Rx's Prescriptions: New amoxicillin-pot clavulanate 875-125 mg tablet 1 tab PO BID 10 Days Qty: 20 0RF Continued prenat.vits,priyanka,lob-tilq-nuvve Tablet 1 tab PO DAILY norethindrone (contraceptive) 0.35 mg tablet 0.35 mg PO DAILY Qty: 84 4RF Varivax (PF) 1,350 unit/0.5 mL suspension for reconstitution 0.5 ml subcut ONCE Qty: 10 0RF Rx Instructions: as a single dose, give at 6 week appt magnesium oxide 400 mg (241.3 mg magnesium) tablet 400 mg PO DAILY Discharge Instructions Instructions: Upper Respiratory Infection (ED) Additional Instructions: As we discussed, may use/begin a course of Augmentin if needed for development of fever, persistent ear pain over the next 24 hours. Tylenol and or ibuprofen as needed for pain. May use vtni-vus-klrdzbg Claritin once during the daytime as well as Benadryl 25 to 50 mg at night as these will help to decongest you. Small, frequent sips of fluids to maintain hydration. Return to the emergency department for any acute concern. Medical Decision Making 27-year-old female with right ear pain. She has had days of URI symptoms with dry cough and rhinorrhea. She had snapping and crackling in her right ear tonight and felt increased pain. On exam she does have slight middle ear effusion, no evidence of acute otitis media. Discussed with her that she may be developing a sinusitis or otitis media and will prescribe her Augmentin to be used if needed for persistent discomfort over 24 hours time. She will use decongestant and gnfy-pry-fkhqffe analgesics. She is stable for discharge. HPI General Mode of arrival: ambulatory. Date/Time Provider Initiated Documentation: 07/10/22 04:12. Limitations to Documentation: no limitations. Information obtained by: patient. History of Present Illness 27 year old F presents to the emergency department with the chief complaint of Right ear pain, rhinorrhea and dry cough, described as mild, Quality is described as dull and constant, and is localized to the head and right. Patient reports no radiation. Patient started experiencing this hour(s) No relieving factors improve symptom(s), No exacerbating factors reported . Patient notes cough. Patient did receive the following treatments prior to arrival, none Related Data Home Medications Medication Instructions Recorded Confirmed prenat.vits,priyanka,max-fsys-twsfl 1 tab PO DAILY 09/16/21 06/17/22 magnesium oxide 400 mg (241.3 mg 400 mg PO DAILY 04/08/22 06/17/22 magnesium) tablet norethindrone (contraceptive) 0.35 0.35 mg PO DAILY #84 tabs 06/17/22 06/17/22 mg tablet varicella virus vacc live (PF) 0.5 ml subcut ONCE #10 ea 06/17/22 06/17/22 1,350 unit/0.5 mL subcutaneous susp (Varivax (PF)) amoxicillin 875 mg-potassium 1 tab PO BID 10 days #20 tabs 07/10/22 clavulanate 125 mg tablet Previous Rx's Medication Instructions Recorded norethindrone (contraceptive) 0.35 0.35 mg PO DAILY #84 tabs 06/17/22 mg tablet varicella virus vacc live (PF) 0.5 ml subcut ONCE #10 ea 06/17/22 1,350 unit/0.5 mL subcutaneous susp (Varivax (PF)) amoxicillin 875 mg-potassium 1 tab PO BID 10 days #20 tabs 07/10/22 clavulanate 125 mg tablet Allergies Allergy/AdvReac Type Severity Reaction Status Date / Time No Known Allergies Allergy Verified 06/17/22 13:05 General Stated Complaint: EarProblem HALEY: 4 Review of Systems Narrative: 6 systems reviewed and otherwise negative, see HPI PFSH All Active Problems (Updated 07/10/22 @ 04:27 by Jalen Sierra MD) URI (upper respiratory infection) (Acute) Coccyx sprain (Acute) from childbirth Maternal varicella, non-immune (Acute) Anxiety (Chronic) BMI 34.0-34.9,adult (Acute) Medical History BMI 30.0-30.9,adult Bruises easily Chlamydia trachomatis infection (05/17/13) Rx with Zithromax. YE 01/03/14 -neg Family history of thrombocytopenia History of migraine Irregular periods/menstrual cycles Family History Mother Multiple sclerosis sx consist of temperature instability Diabetes Thrombocytopenia Maternal Grandmother Diabetes Pulmonary embolism Aneurysm of this age 72. smoker Father Substance use disorder Social History Smoking/Tobacco Use Status: Never Smoking risk assessment performed?: Yes Alcohol Intake: former Drug use: Current Sobriety Substance use type: does not use Household members: children and other Details: Brandi Davila Do you feel safe at home: Yes (unable to assess privately) Do you feel safe in your relationship?: Yes History History 4 Para 3 Hx # Term Pregnancies 3 Multiple births 0 Hx # Pregnancies 0 Ectopic pregnancies 0 AB induced 0 Hx Number of Living Children 3 AB spontaneous 0 Past Pregnancies Del. Date GA/Weeks # Preg Succ Route Wgt Sex Labor Lgth Anesthesia Location Prov Complic 06/01/17 40 No vaginal 3118.448 g Male 5 hrs [facility] 04/15/19 39 No vaginal 3203.496 g Male 16 [facility] 01/13/21 4 06/03/22 40 No Yes vaginal 3270.004 g Female local [facility] Delivery Date: 06/01/17 Last Updated by: Ewa Vines Used nitrous, nml [facility] Delivery Date: 04/15/19 Last Updated by: Ewa Vines Nml unmedicated though cat 2 tracing, used nitrous. [facility] Delivery Date: 01/13/21 Last Updated by: Juany Arriaza DO [facility] Delivery Date: 06/03/22 Last Updated by: FLAKITO Ocasio [facility] Exam Narrative Exam Narrative: GEN: awake, alert, oriented 3. Pleasant, well groomed, interactive. HEAD: Normocephalic, atraumatic ENT: Mucous membranes moist, oropharynx unremarkable, right tympanic membrane is congested and distended but with no erythema present external ear exam unremarkable EYES: PERRL, EOMI NECK: Full ROM, no JR, no menigismus CHEST/RESP: Nontender, clear to auscultation bilateral, no wheeze/rhonchi/rales CARDIOVASCULAR: RRR, no murmur, rub ruby. 2+ Rad pulse bilateral Neuro: Grossly normal neurologic exam, conversant, interactive. Psych: Speech fluent, thoughts congruent, affect normal Course Vital Signs Vital signs: Vital Signs Temperature 36.7 C 07/10/22 04:13 Pulse 97 H 07/10/22 04:13 Respiratory Rate 18 07/10/22 04:13 Blood Pressure 147/78 H 07/10/22 04:13 Pulse Oximetry 98 07/10/22 04:13 Temperature 36.7 C 07/10/22 04:13 Temperature Source Temporal Artery Scan 07/10/22 04:13 Pulse 97 H 07/10/22 04:13 Respiratory Rate 18 07/10/22 04:13 Blood Pressure 147/78 H 07/10/22 04:13 Blood Pressure Position Sitting 07/10/22 04:13 Pulse Oximetry 98 07/10/22 04:13
[2022-07-10] MEDS: Acetaminophen 500 MG TAB 1000 MG PO (04:34)
== END 2022-07-10 04:40 | disposition home or self-care (01) ==
PROVIDERS: Emergency Provider Emergency Medicine; PCP Advanced Practice Midwife
DX: J06.9 Acute upper respiratory infection, unspecified (principal)
CPT/HCPCS: 99283

== ENCOUNTER 2022-08-24 03:39 | Emergency (ER) | payer BC, MEDICAID, SELFPAY ==
[2022-08-24 03:51] VITALS: BP 143/87; PULSE 122; RESP 16; TEMP 37.1; O2SAT 99
--- NOTE | 2022-08-24 04:07 | ED.GENADUL_ITS ---
Discharge Plan Disposition Patient Disposition: Home Condition: Improving Discharge Details Clinical Impression: COVID-19 Primary Care Provider: Richa Rasheed ED Provider: Jalen Sierra Home Meds and New Rx's Prescriptions: Continued prenat.vits,priyanka,ytl-dlmp-zbfmk Tablet 1 tab PO DAILY norethindrone (contraceptive) 0.35 mg tablet 0.35 mg PO DAILY Qty: 84 4RF No Action Varivax (PF) 1,350 unit/0.5 mL suspension for reconstitution 0.5 ml subcut ONCE Qty: 10 0RF Rx Instructions: as a single dose, give at 6 week appt Discharge Instructions Instructions: COVID-19 (Coronavirus Disease 2019) (ED), COVID-19 and Children (ED) Additional Instructions: Your COVID test was positive today. Continue mask precautions at home and in the community. Tylenol and ibuprofen as needed for pain. Small, frequent sips of fluids to maintain good hydration. Return to the emergency department for any acute concern. Medical Decision Making 27-year-old female who has sick contacts with her children at home. She presents with days of intermittent episodes of fever, cough, body ache. She felt particularly worried this evening and presented to the ER. She arrives afebrile and well-appearing, oxygenating normally. Viral swab obtained and patient positive for COVID-19. Discussed with her home management. Do not feel that she meets the window for treatment with antiviral. She is stable for discharge to home. HPI General Mode of arrival: ambulatory . Date/Time Provider Initiated Documentation: 08/24/22 03:46 . Limitations to Documentation: no limitations . Information obtained by: patient . History of Present Illness 27 year old F presents to the emergency department with the chief complaint of Fever, cough, malaise, described as mild and moderate, Patient started experiencing this day(s) and it has been intermittent. No relieving factors improve symptom(s), No exacerbating factors reported . Patient notes cough, fever/chills, malaise and other (Loose stool at home); denies loss of appetite and nausea/vomiting. Patient did receive the following treatments prior to arrival, other (Tylenol) Related Data Home Medications Medication Instructions Recorded Confirmed prenat.vits,priyanka,adi-jlzk-fasee 1 tab PO DAILY 01/11/22 11/07/22 norethindrone (contraceptive) 0.35 0.35 mg PO DAILY #84 tabs 06/17/22 06/17/22 mg tablet varicella virus vacc live (PF) 0.5 ml subcut ONCE #10 ea 06/17/22 06/17/22 1,350 unit/0.5 mL subcutaneous susp (Varivax (PF)) Previous Rx's Medication Instructions Recorded norethindrone (contraceptive) 0.35 0.35 mg PO DAILY #84 tabs 06/17/22 mg tablet varicella virus vacc live (PF) 0.5 ml subcut ONCE #10 ea 06/17/22 1,350 unit/0.5 mL subcutaneous susp (Varivax (PF)) Allergies Allergy/AdvReac Type Severity Reaction Status Date / Time No Known Allergies Allergy Verified 06/17/22 13:05 General Stated Complaint: Fever HALEY: 4 Review of Systems Narrative: Subjective fever at home, diarrhea, cough and body ache. Sick contacts at home. Sick systems were reviewed and otherwise negative PFSH All Active Problems (Updated 08/24/22 @ 05:06 by Jalen Sierra MD) COVID-19 (Acute) care and examination (Acute) Maternal varicella, non-immune (Acute) Anxiety (Chronic) BMI 34.0-34.9,adult (Acute) Medical History BMI 30.0-30.9,adult Bruises easily Chlamydia trachomatis infection (05/17/13) Rx with Zithromax. YE 01/03/14 -neg Coccyx sprain from childbirth Family history of thrombocytopenia History of migraine Irregular periods/menstrual cycles Family History Mother Multiple sclerosis sx consist of temperature instability Diabetes Thrombocytopenia Maternal Grandmother Diabetes Pulmonary embolism Aneurysm of this age 72. smoker Father Substance use disorder Social History Smoking/Tobacco Use Status: Never Smoking risk assessment performed?: Yes Alcohol Intake: former Drug use: Current Sobriety Substance use type: does not use Household members: children and other Details: Brandi Davila Do you feel safe at home: Yes (unable to assess privately) Do you feel safe in your relationship?: Yes History History 4 Para 3 Hx # Term Pregnancies 3 Multiple births 0 Hx # Pregnancies 0 Ectopic pregnancies 0 AB induced 0 Hx Number of Living Children 3 AB spontaneous 0 Past Pregnancies Del. Date GA/Weeks # Preg Succ Route Wgt Sex Labor Lgth Anesth esia Location Prov Complic 06/01/17 40 No vaginal 3118.448 g Male 5 hrs [facility] 04/15/19 39 No vaginal 3203.496 g Male 16 [facility] 01/13/21 4 06/03/22 40 No Yes vaginal 3270.004 g Female local [facility] Delivery Date: 06/01/17 Last Updated by: Ewa Vines Used nitrous, nml [facility] Delivery Date: 04/15/19 Last Updated by: Ewa Vines Nml unmedicated though cat 2 tracing, used nitrous. [facility] Delivery Date: 01/13/21 Last Updated by: Juany Arriaza DO [facility] Delivery Date: 06/03/22 Last Updated by: FLAKITO Ocasio [facility] Exam Narrative Exam Narrative: GEN: awake, alert, oriented 3. Pleasant, well groomed, interactive. HEAD: Normocephalic, atraumatic ENT: Mucous membranes moist, oropharynx unremarkable, External ear exam unremarkable EYES: PERRL, EOMI NECK: Full ROM, no JR, no menigismus CHEST/RESP: Nontender, clear to auscultation bilateral, no wheeze/rhonchi/rales CARDIOVASCULAR: Regular, borderline tachycardia, no murmur, rub ruby. 2+ Rad pulse bilateral ABDOMEN: Soft, nontender, no mass. +Bowel sounds EXT: Full ROM, no edema, no rash Neuro: Grossly normal neurologic exam, conversant, interactive. Psych: Speech fluent, thoughts congruent, affect normal Course Vital Signs Vital signs: Vital Signs Temperature 37.1 C 08/24/22 03:51 Pulse 122 H 08/24/22 03:51 Respiratory Rate 16 08/24/22 03:51 Blood Pressure 143/87 H 08/24/22 03:51 Pulse Oximetry 99 08/24/22 03:51 Temperature 37.1 C 08/24/22 03:51 Temperature Source Oral 08/24/22 03:51 Pulse 122 H 08/24/22 03:51 Respiratory Rate 16 08/24/22 03:51 Respiratory Effort 08/24/22 03:57 Blood Pressure 143/87 H 08/24/22 03:51 Blood Pressure Position Sitting 08/24/22 03:51 Pulse Oximetry 99 08/24/22 03:51 Oxygen Delivery Method Room Air 08/24/22 03:51 Oxygen Flow Rate 0 08/24/22 03:51 Pain Level 3 08/24/22 03:51
[2022-08-24 04:46] LABS: Influenza A PCR Negative (Negative); Influenza B PCR Negative (Negative); RSV PCR Negative (Negative)
[2022-08-24 04:58] LABS: COVID-19 PCR Positive (Negative); Source Nasopharynx
== END 2022-08-24 05:13 | disposition home or self-care (01) ==
PROVIDERS: Emergency Provider Emergency Medicine; PCP Advanced Practice Midwife
DX: U07.1 COVID-19 (principal)
CPT/HCPCS: 87637; 99282; 99283

== ENCOUNTER 2023-07-02 16:51 | Outpatient (REF) | payer BC, SELFPAY ==
[2023-07-02 19:12] LABS: HCT 39.6 % (36.0-46.0); HGB 12.7 g/dL (11.2-15.7); MCH 26.6 pg (27.0-33.0); MCHC 32.1 % (32.0-36.0); MCV 83 fL (80-95); MPV 9.2 fL (8.0-11.0); Platelet Count 348 10^3/uL (130-400); RBC 4.77 10^6/uL (3.93-5.22); RDW 13.2 % (11.7-14.6); RDW-SD 39.7 fL; WBC 11.44 10^3/uL (4.4-10.8)
[2023-07-02 19:29] LABS: Anion Gap 8.2 mmol/L (3-11); BUN 9 mg/dL (7-18); CO2 26.8 mmol/L (21.0-32.0); Calcium 9.4 mg/dL (8.5-10.1); Chloride 104 mmol/L (98-107); Estimated GFR 79.19 (mL/min/1.73m2); Glucose 82 mg/dL (74-106); Potassium 4.1 mmol/L (3.5-5.1); Sodium 139 mmol/L (136-145); TSH (W/Ref FT4) 2.57 uIU/mL (0.36-3.74)
== END 2023-07-02 16:52 | disposition home or self-care (01) ==
LOC: NCHCN 16:51
PROVIDERS: PCP Advanced Practice Midwife; Visit Provider Nurse Practitioner Family
DX: F41.1 Generalized anxiety disorder (principal); R51.9 Headache, unspecified; D50.9 Iron deficiency anemia, unspecified; Z68.39 Body mass index [BMI] 39.0-39.9, adult; Z00.00 Encounter for general adult medical examination without abnormal findings
CPT/HCPCS: 80048; 85027; 84443

== ENCOUNTER 2023-09-14 15:27 | Outpatient (REF) | payer BC, SELFPAY | END 2023-09-14 15:28 | disposition home or self-care (01) | LOC: LBN 15:27 | PROVIDERS: PCP Advanced Practice Midwife; Visit Provider Physician Assistant Medical | DX: N89.8 Other specified noninflammatory disorders of vagina (principal) | CPT/HCPCS: 87480; 87510; 87660 ==

== ENCOUNTER 2023-09-22 15:48 | Outpatient (REF) | payer BC, SELFPAY ==
--- NOTE | 2023-09-22 14:55 | PAPFT_PTH ---
PATIENT: Shanti Wilson LOC: [facility] U#:[id number] AGE/SX: 28/F ROOM: RE09/22/[address]: Rosemary Martin MD : [id number] BED: DIS: 09/22/2023 SPEC #: [id number] RECD: 09/22/23 17:33 STATUS: LASHELL REKeny #: [id number] CHELO: 09/22/23 14:[address]: Rosemary Martin DEPT: [facility] Cytology RECD BY: Tyesha Hanks ENTERED: 09/22/23 17:34 SP TYPE: PAPFT OTHR DR: Richa Rasehed Tissues: 1 - CX/ENDOCX FOR PAP SMEARS Procedures: PAP THIN PREP/UVM Screening HPV DNA PROBE Comments: [id number]
== END 2023-09-22 15:49 | disposition home or self-care (01) ==
LOC: LBN 15:48
PROVIDERS: PCP Advanced Practice Midwife; Visit Provider Obstetrics & Gynecology
DX: Z12.4 Encounter for screening for malignant neoplasm of cervix (principal)
CPT/HCPCS: 88142; 87624

== ENCOUNTER 2024-03-08 17:44 | Emergency (ER) | payer BC, SELFPAY ==
--- NOTE | 2024-03-08 17:45 | RT.EKG_ITS ---
APPROVED REPORT Exam: Resting ECG Reason for Exam: chest pain Patient Location: E HR:82 bpm ECG Measurements Heart Rate 82 AXIS NH 153 P 47 QRSd 94 QRS 72 QT 377 T 28 QTc 442 Conclusion Sinus rhythm...normal P axis, V-rate 60- 99 Narrow complex normal sinus rhythm at a rate of 82. Normal axis. Intervals within normal limits. N o ST segment abnormalities. No T wave inversions. Appears similar to prior dated 3 years ago.
[2024-03-08 17:48] VITALS: BP 151/103; PULSE 89; RESP 16; TEMP 36.4; O2SAT 100
--- NOTE | 2024-03-08 17:54 | ED.GENADUL_ITS ---
Discharge Plan Disposition Patient Disposition: Home Condition: Stable Discharge Details Clinical Impression: Non-cardiac chest pain Primary Care Provider: Richa Rasheed ED Provider: Braulio Leyva Home Meds and New Rx's Prescriptions: Continued Mirena 21 mcg/24 hours (8 yrs) 52 mg intrauterine device 1 device intrauterine ONCE Rx Instructions: as a single dose dfbzftgddzfr-Vc-kbsf-minerals 18-0.4 mg tablet 1 tab PO DAILY ibuprofen 200 mg capsule 200 mg PO Q6H PRN acetaminophen 325 mg capsule 325 mg PO ONCE PRN Discharge Instructions Instructions: Costochondritis Additional Instructions: You were seen in the emergency department for your right-sided chest pain, this is unlikely to be cardiac, you no family history of early cardiac disease, your cardiac enzymes are negative with reliable onset duration, we did a blood test called a D-dimer that rules out a blood clot in the lungs. Your chest X-Ray is clear of any pathology. This is likely musculoskeletal chest pain- I recommend you trial the OTC topical gel called Voltaren or diclofenac for pain relief due to musculoskeletal chest pain. Please return to the ER for any severe increase in chest pain, chest pain or shortness of breath, dizziness, near fainting, chest pain with sweating. Referrals: Richa Rasheed CNM [Primary Care Provider] - Discharge Data Discharge Date/Time-TO BE ENTERED AT DEPARTURE: 03/08/24 20:13 HPI General Date/Time Provider Initiated Documentation: 03/08/24 17:50 . HPI Narrative: 28 year-old female presents to ED today by POV/ambulating with a chief complaint of substernal chest pain, radiates to R chest/mid-back- endorsing pain intermittently on chronic timeline, but has had nausea for 2 days. Patient questions whether this is anxiety related. Quality described as just doesn't feel right, brief chest pains, no radiation to fever, cough, shortness of breath, dizziness, diaphoresis, does have a hormonal IUD. Severity is described as 6/10. Palliating factors include nothing specific- usually goes away spontaneously. Provoking factors include nothing specific. Events leading up to the incident/Associated Symptoms: Patient denies any family history of early cardiac disease. Patient not anticoagulated. Related Data Home Medications Medication Instructions Recorded Confirmed acetaminophen 325 mg capsule 325 mg PO ONCE PRN 09/22/23 03/08/24 ibuprofen 200 mg capsule 200 mg PO Q6H PRN 09/22/23 03/08/24 toeivwulofrb-Ox-yciy-minerals 18 1 tab PO DAILY 09/22/23 03/08/24 mg-0.4 mg tablet levonorgestrel 21 mcg/24 hr (up to 1 device intrauterine ONCE 11/05/23 03/08/24 8 years) 52 mg intrauterine device (Mirena) Allergies Allergy/AdvReac Type Severity Reaction Status Date / Time No Known Allergies Allergy Verified 03/08/24 17:52 General Stated Complaint: Chest Pain HALEY: 3 Review of Systems All systems reviewed & are unremarkable except as noted in HPI and below Exam Narrative Exam Narrative: GENERAL APPEARANCE: Well-nourished, non-toxic, awake and alert, atraumatic, no acute distress. SKIN: Warm, pink, dry, intact, without rashes/lesions/ulcerations. HEAD: Normocephalic, atraumatic, normal hair distribution for gender/age. EYES: Pupils PERRLA, EOMs intact without nystagmus, normal conjunctiva, no exudates on lids/lashes. ENT: Nares patent, no circumoral cyanosis, no facial swelling NECK: Supple, trachea midline, painless cervical ROM. LUNGS/CHEST: Lungs CTA bilaterally, non-labored respirations, normal A/P diameter, symmetrical expansion, no chest wall deformity HEART (CV/PV): Regular rate and rhythm without murmur, no peripheral edema, no JVD. ABDOMEN: Soft, non-distended, no guarding. MSK: Normal ROM, no swelling/deformity to bilateral UEs or LEs, moving all extremities without weakness, no cyanosis, spine midline without tenderness, normal curvature. NEURO: Mental Status AAOx4 - alert to person, place, time, events No facial droop, no forehead involvement. Motor: No focal weakness - strength 5/5 in bilateral UEs and LEs, proximal and distal, symmetric. Sensory: sensation intact to light touch globally. Gait normal: patient ambulated without ataxia into ED room. PSYCH: euthymic, cooperative, pleasant, appropriate speech Course Vital Signs Vital signs: Vital Signs Temperature 36.4 C L 03/08/24 17:48 Pulse 89 03/08/24 17:48 Respiratory Rate 16 03/08/24 17:48 Blood Pressure 151/103 H 03/08/24 17:48 Pulse Oximetry 100 03/08/24 17:48 Temperature 36.4 C L 03/08/24 17:48 Temperature Source Temporal Artery Scan 03/08/24 17:48 Pulse 89 03/08/24 17:48 Respiratory Rate 16 03/08/24 17:48 Respiratory Effort Normal, Non-Labored 03/08/24 17:51 Blood Pressure 151/103 H 03/08/24 17:48 Blood Pressure Position Sitting 03/08/24 17:48 Pulse Oximetry 100 03/08/24 17:48 Oxygen Delivery Method Room Air 03/08/24 17:48 Oxygen Flow Rate 0 03/08/24 17:48 Pain Level 6 03/08/24 17:48 Medical Decision Making This dictation utilizes vbcxp-lu-igid dictation software and may contain unedited grammatical errors. 28 year-old female presents to ED today by POV/ambulating with a chief complaint of substernal chest pain, radiates to R chest/mid-back- endorsing pain intermittently on chronic timeline, but has had nausea for 2 days. Patient questions whether this is anxiety related. Quality described as just doesn't feel right, brief chest pains, no radiation to fever, cough, shortness of breath, dizziness, diaphoresis, does have a hormonal IUD. Severity is described as 6/10. Palliating factors include nothing specific- usually goes away spontaneously. Provoking factors include nothing specific. Patients' medical history: Noncontributory. Family and social history: No family history of early cardiac disease, has a family history of thrombocytopenia. Pertinent exam findings / vital signs include benign cardiopulmonary exam, neuro intact, benign abdomen, nontoxic. Differential / pathologies of concern include costochondritis, anxiety, unlikely ACS, PE. Diagnostic studies of: -CBC, CMP, D-dimer, troponin I, lipase, EKG, chest x-ray. -CBC benign -CMP benign -D-dimer neg, do not suspect PE -Trop I negative with reliable onset -Lipase WNL -EKG without arrhythmia, ST abnormalities or T wave abnormalities -CXR benign Interventions of: -none, reassurance. ED Course/Assessment/Plan: 28-year-old female presents with right-sided chest pain, is intermittent in nature and ongoing many episodes in the past, usually abates without issue, questions whether it is anxiety, D-dimer shows no positive value unlikely PE, EKG without concerns for ACS, troponin negative with reliable onset, counseled on costochondritis and using topical Voltaren gel to the area as well as strict return criteria for any further chest pain especially with diaphoresis, shortness of breath, dizziness. Findings not consistent with ACS, PE, PNA, PTX. Disposition of Non-Cardiac Chest Pain. Patient verbalized understanding of the plan and return to ED criteria and engaged in shared decision making. Medical Records Medical records reviewed: Yes I reviewed the patient's medical records. Imaging Data Radiologic Study: Attestation: I personally reviewed and interpreted this imaging study as follows: Imaging: X-Ray Radiologist's impression: Exam: XR Chest Exam date and time: 03/08/2024 8:01 PM Age: 28 years old Clinical indication: Other: R sided chest pain TECHNIQUE: Imaging protocol: Radiologic exam of the chest. Views: 2 views. COMPARISON: CT CHEST/ABD/PEL W 09/16/2021 2:13 PM FINDINGS: Lungs: Lungs are adequately inflated and symmetric. No focal consolidation or evidence of pulmonary edema. Pleural spaces: No pleural effusion. No pneumothorax. Heart/Mediastinum: Cardiomediastinal contours within normal limits. Bones/joints: No acute osseous finding. IMPRESSION: No acute findings. Dictated and Authenticated by: Mc Herrera MD. Lab Data Lab results reviewed: Yes I reviewed the patient's lab results. Labs: Laboratory Tests Range/Units 03/08/24 18:39 WBC (4.4-10.8) 10^3/uL 8.01 RBC (3.93-5.22) 10^6/uL 4.76 Hgb (11.2-15.7) g/dL 13.5 Hct (36.0-46.0) % 40.7 MCV (80-95) fL 86 MCH (27.0-33.0) pg 28.4 MCHC (32.0-36.0) % 33.2 RDW (11.7-14.6) % 12.6 Plt Count (130-400) 10^3/uL 263 MPV (8.0-11.0) fL 9.4 Immature Gran % % 0.2 Neutrophils % % 70.1 Lymphocytes % % 22.7 Monocytes % % 4.9 Eosinophils % % 1.6 Basophils % % 0.5 Nucleated RBC % (0.0-0.3) % 0.0 Absolute Neutrophils (1.2-6.7) 10^3/uL 5.61 Absolute Lymphocytes (1.2-3.4) 10^3/uL 1.82 Absolute Monocytes (0.1-0.8) 10^3/uL 0.39 Absolute Eosinophils (0.0-0.7) 10^3/uL 0.13 Absolute Basophils (0.0-0.2) 10^3/uL 0.04 D-Dimer (<500) ng/mlFEU 262 Sodium (136-145) mmol/L 140 Potassium (3.5-5.1) mmol/L 3.6 Chloride (98-107) mmol/L 105 Carbon Dioxide (21.0-32.0) mmol/L 25.5 Anion Gap (3-11) mmol/L 9.5 BUN (7-18) mg/dL 8 Creatinine (0.55-1.02) mg/dL 0.8 Est GFR (CKD-EPI 2020) (mL/min/1.73m2) 103.50 Glucose (74-106) mg/dL 88 Calcium (8.5-10.1) mg/dL 9.0 Total Bilirubin (0.2-1.0) mg/dL 0.43 AST (15-37) U/L 10 L ALT (14-59) U/L 16 Alkaline Phosphatase (46-116) U/L 95 Troponin I (< or =60) ng/L < 50 Total Protein (6.4-8.2) g/dL 7.4 Albumin (3.4-5.0) g/dL 4.1 Lipase (16-77) U/L 16 Quality:SDOH Health Related Social Needs: No Data to Display PFSH All Active Problems (Updated 03/08/24 @ 19:39 by COREY Infante) Non-cardiac chest pain (Acute) Anxiety (Chronic) Medical History (Updated 03/08/24 @ 19:39 by COREY Infante) Presence of IUD Mirena IUD placed 10/08/23 COVID-19 Coccyx sprain from childbirth Family history of thrombocytopenia Bruises easily History of migraine Chlamydia trachomatis infection (05/17/13) Rx with Zithromax. YE 01/03/14 -neg Family History Mother Multiple sclerosis sx consist of temperature instability Diabetes Thrombocytopenia Maternal Grandmother Diabetes Pulmonary embolism Aneurysm of this age 72. smoker Father Substance use disorder Social History Smoking/Tobacco Use Status: Never Smoking risk assessment performed?: Yes Alcohol Intake: former Drug use: Current Sobriety Substance use type: does not use Household members: children and other Details: Brandi Davila Housing: apartment Do you feel safe at home: Yes (unable to assess privately) Do you feel safe in your relationship?: Yes History History 4 Para 3 Hx # Term Pregnancies 3 Multiple births 0 Hx # Pregnancies 0 Ectopic pregnancies 0 AB induced 0 Hx Number of Living Children 3 AB spontaneous 0 Past Pregnancies Del. Date GA/Weeks # Preg Succ Route Wgt Sex Labor Lgth Anesth esia Location Prov Complic 06/01/17 40 No vaginal 3118.448 g Male 5 hrs [facility] 04/15/19 39 No vaginal 3203.496 g Male 16 [facility] 01/13/21 4 06/03/22 40 No Yes vaginal 3270.004 g Female local [facility] Delivery Date: 06/01/17 Last Updated by: Ewa Vines Used nitrous, nml [place] Delivery Date: 04/15/19 Last Updated by: Ewa Vines Nml unmedicated though cat 2 tracing, used nitrous. [place] Delivery Date: 01/13/21 Last Updated by: Juany Arriaza DO [facility] Delivery Date: 06/03/22 Last Updated by: FLAKITO Ocasio
[2024-03-08 18:42] VITALS: PULSE 84; O2SAT 100
[2024-03-08 18:46] VITALS: BP 130/72; PULSE 76
[2024-03-08 18:50] VITALS: PULSE 77; RESP 17
[2024-03-08] MEDS: Acetaminophen 500 MG TAB 1000 MG PO (18:52)
[2024-03-08] MEDS: Ketorolac 10 MG TAB PO (18:52)
[2024-03-08 18:53] LABS: Abs Immature Grans 0.02 10^3/uL (0.0-0.06); Absolute Basophil Count 0.04 10^3/uL (0.0-0.2); Absolute Eosinophil Count 0.13 10^3/uL (0.0-0.7); Absolute Lymphocyte Count 1.82 10^3/uL (1.2-3.4); Absolute Monocyte Count 0.39 10^3/uL (0.1-0.8); Absolute Neutrophil Count 5.61 10^3/uL (1.2-6.7); Basophils % 0.5 %; Eosinophils % 1.6 %; HCT 40.7 % (36.0-46.0); HGB 13.5 g/dL (11.2-15.7); Immature Grans % 0.2 %; Lymphocytes % 22.7 %; MCH 28.4 pg (27.0-33.0); MCHC 33.2 % (32.0-36.0); MCV 86 fL (80-95); MPV 9.4 fL (8.0-11.0); Monocytes % 4.9 %; Neutrophils % 70.1 %; Platelet Count 263 10^3/uL (130-400); RBC 4.76 10^6/uL (3.93-5.22); RDW 12.6 % (11.7-14.6); RDW-SD 39.4 fL; WBC 8.01 10^3/uL (4.4-10.8)
[2024-03-08 19:14] LABS: ALT 16 U/L (14-59); AST 10 U/L (15-37); Albumin 4.1 g/dL (3.4-5.0); Alkaline Phosphatase 95 U/L (46-116); Anion Gap 9.5 mmol/L (3-11); BUN 8 mg/dL (7-18); Bilirubin, Total 0.43 mg/dL (0.2-1.0); CO2 25.5 mmol/L (21.0-32.0); CREATININE 0.8 mg/dL (0.55-1.02); Chloride 105 mmol/L (98-107); Glucose 88 mg/dL (74-106); Lipase 16 U/L (16-77); Potassium 3.6 mmol/L (3.5-5.1); Sodium 140 mmol/L (136-145); Total Protein 7.4 g/dL (6.4-8.2)
[2024-03-08 19:17] LABS: Troponin I < 50 ng/L (< or =60)
[2024-03-08 19:28] LABS: D-Dimer 262 ng/mlFEU (<500)
--- NOTE | 2024-03-08 19:30 | DI.RAD_ITS ---
Exam(s) XR CHEST 2V PA LATERAL EXAM: XR CHEST 2V PA LATERAL CLINICAL HISTORY: R sided chest pain TECHNIQUE: 2D digital imaging was performed of the chest. Two images were obtained. PA and lateral views were obtained. COMPARISON: CR,XR XR PORTABLE CHEST AP from 05/27/2021 FINDINGS: MEDIASTINUM: Normal. HEART: Normal. PULMONARY VASCULATURE: Normal. LUNGS: Clear. PLEURAL SPACE: No pleural effusion or pneumothorax. BONE:Within normal limits for the patient's age. OTHER FINDINGS:Normal. IMPRESSION: No acute pulmonary findings. DATA REPOSITORY: RADIATION DOSE DELIVERED:
[2024-03-08 20:11] VITALS: BP 120/60; PULSE 80; RESP 16; TEMP 36.7; O2SAT 98
--- NOTE | 2024-03-08 21:44 | DI.VRAD_ITS ---
PROCEDURE INFORMATION: Exam: XR Chest Exam date and time: 03/08/2024 8:01 PM Age: 28 years old Clinical indication: Other: R sided chest pain TECHNIQUE: Imaging protocol: Radiologic exam of the chest. Views: 2 views. COMPARISON: CT CHEST/ABD/PEL W 09/16/2021 2:13 PM FINDINGS: Lungs: Lungs are adequately inflated and symmetric. No focal consolidation or evidence of pulmonary edema. Pleural spaces: No pleural effusion. No pneumothorax. Heart/Mediastinum: Cardiomediastinal contours within normal limits. Bones/joints: No acute osseous finding. IMPRESSION: No acute findings. Dictated and Authenticated by: Mc Herrera MD. Ordering:MATEO Ramsey MD
== END 2024-03-08 20:13 | disposition home or self-care (01) ==
PROVIDERS: Emergency Provider Physician Assistant; PCP Advanced Practice Midwife
DX: R07.89 Other chest pain (principal)
CPT/HCPCS: 36415; 80053; 81025; 83690; 93005; 99285; 71046; 84484; 85025; 85379; 93010; 99284

== ENCOUNTER 2024-04-27 09:42 | Emergency (ER) | payer BC, SELFPAY ==
[2024-04-27 09:51] VITALS: BP 141/88; PULSE 84; RESP 16; TEMP 36.6; O2SAT 100
[2024-04-27] MEDS: Normal Saline 1,000 ML 1000 ML IV (10:57)
[2024-04-27] MEDS: Ketorolac 15 MG/ML VIAL 10 MG IVP (10:58)
[2024-04-27] MEDS: Prochlorperazine 10 MG/2 ML VIAL IVP (10:59)
[2024-04-27] MEDS: MAGNESIUM SULFATE 2 GM/50 ML BAG IVINF (10:59)
--- OUTSIDE RECORDS SUMMARY | 2024-04-27 11:35 | XMS_ITS | Encounter Summary ---
Author Organization [facility] Address [address] [place] [address] Care Team Providers Care Porcelain Mixer Name Role Phone Unknown, Provider Primary Care Provider [phone] Encounter Details Date Type Department Care Team (Late st Contact Info) Description 11/13/[address] [facility] [phone] Moises Hogan [address] [facility] [place] [place] [address] Social History Tobacco Use Types Packs/Day Years Used Date Smoking Tobacco: Never Assessed Sex and Gender Information Value Date Recorded Sex Assigned at Not on file Gender Identity Not on file Sexual Orientation Not on file documented as of this encounter Plan of Treatment Not on file documented as of this encounter Procedures Procedure Name Priority Date/Time Associated Diagnosis Comments PAP TEST- RESULT ONLY Routine 11/13/2016 0:00 EST documented in this encounter Results * PAP TEST- RESULT ONLY (11/13/2016 0:00 EST) Pathology Report: CYTOPATHOLOGY REPORT Reports generated via electronic interface contain original data; however they are lacking the format of the original report. Caution should be taken when reading/interpreti ng unformatted reports. Name: ? SHANTI MORALES ? Accession #: ? [id number] : ? 1995 (Age: 21) ??F ?Collect Date: ? 11/13/2016 Location: ? [facility] ? Receive Date: ? 11/16/2016 Provider: ?MOISES HOGAN Copy to: ?BEATRIZ ARELLANO MD ? Specimen/Source: ?Pap Test, Cervix, ThinPrep Imaging System with manual evaluation Last Menstrual Period: ? 08/20/16 Menstrual/Pregnanc y Status: ? Hormonal/Contracep tive Status: ? None Other: ? Additional clinical information: Hx STDs ? SPECIMEN ADEQUACY ? Satisfactory for Evaluation - transformation zone component present GENERAL CATEGORIZATION ? Negative for Intraepithelial Lesion or Malignancy ? Document reviewed and electronically signed by: ? IRON Higgins(ASCP) ? Report Date: ??11/18/2016 11:14 End of Report [facility] 11/13/2016 11/16/2016 Moises Hogan PATHOLOGY ORDERABLES [facility] [address] [place] [address] documented in this encounter Visit Diagnoses Not on filedocumented in this encounter Care Teams Porcelain Mixer Relationship Specialty Start Date End Date Unknown, Provider, PCP - General 11/16/16 documented as of this encounter
--- OUTSIDE RECORDS SUMMARY | 2024-04-27 11:35 | XMS_ITS | Encounter Summary ---
Author Organization [facility] Address [address] [place] [address] Care Team Providers Care Telephone Maintainer Name Role Phone Unknown, Provider Primary Care Provider Encounter Details Date Type Department Care Team (Late st Contact Info) Description 11/06/2021 Lab Requisition [facility] Pathology & Laboratory Medicine - [facility] [address] [place] [address] Outr Resulting Lab, Provider Social History Tobacco Use Types Packs/Day Years Used Date Smoking Tobacco: Never Assessed Sex and Gender Information Value Date Recorded Sex Assigned at Not on file Gender Identity Not on file Sexual Orientation Not on file documented as of this encounter Plan of Treatment Not on file documented as of this encounter Procedures Procedure Name Priority Date/Time Associated Diagnosis Comments HEPATITIS C AB W REFLEX TO HCV RNA BY PCR Routine 11/06/2021 11:00 EST HEPATITIS B SURFACE ANTIGEN Routine 11/06/2021 11:00 EST documented in this encounter Results * HEPATITIS B SURFACE ANTIGEN (11/06/2021 11:00 EST) Hep B Surface Ag Negative Negative 11/07/2021 10:17 EST [facility] Blood VENOUS BLOOD / Unknown 11/06/2021 11:00 EST 11/06/2021 21:47 EST Provider Outr Resulting Lab CHEMISTRY & BLOOD GAS ORDERABLES [facility] [address] [place] [address] * HEPATITIS C AB W REFLEX TO HCV RNA BY PCR (11/06/2021 11:00 EST) Hep C Antibody Negative Negative 11/07/2021 10:56 EST [facility] Blood VENOUS BLOOD / Unknown 11/06/2021 11:00 EST 11/06/2021 21:47 EST Provider Outr Resulting Lab CHEMISTRY & BLOOD GAS ORDERABLES Performing Organization Address City/State/[facility] Co de Phone Number [facility] [address] [place] [address] documented in this encounter Visit Diagnoses Not on filedocumented in this encounter Care Teams Telephone Maintainer Relationship Specialty Start Date End Date Unknown, Provider, PCP - General 11/16/16 documented as of this encounter
--- OUTSIDE RECORDS SUMMARY | 2024-04-27 11:35 | XMS_ITS | Referral Summary ---
Author Organization [facility] Address [address] [place] [id number] Care Team Providers Care Associate Pathologist Name Role Phone Unknown, Provider Primary Care Provider Social History Tobacco Use Types Packs/Day Years Used Date Smoking Tobacco: Never Assessed Sex and Gender Information Value Date Recorded Sex Assigned at Not on file Gender Identity Not on file Sexual Orientation Not on file Plan of Treatment Not on file Procedures Procedure Name Priority Date/Time Associated Diagnosis Comments HEPATITIS C AB W REFLEX TO HCV RNA BY PCR Routine 11/06/2021 11:00 EST from Last 3 Months or Most Recently Relevant to Health Maintenance Results * HEPATITIS C AB W REFLEX TO HCV RNA BY PCR (11/06/2021 11:00 EST) Hep C Antibody Negative Negative 11/07/2021 10:56 EST [facility] Blood VENOUS BLOOD / Unknown 11/06/2021 11:00 EST 11/06/2021 21:47 EST Provider Outr Resulting Lab CHEMISTRY & BLOOD GAS ORDERABLES [facility] [address] [place] [address] from Last 3 Months or Most Recently Relevant to Health Maintenance Care Teams Associate Pathologist Relationship Specialty Start Date End Date Unknown, Provider, PCP - General 11/16/16
--- OUTSIDE RECORDS SUMMARY | 2024-04-27 11:35 | XMS_ITS | Encounter Summary ---
Author Organization [facility] Address [address] [place] [address] Care Team Providers Care Pnp Name Role Phone Unknown, Provider Primary Care Provider Encounter Details Date Type Department Care Team (Late st Contact Info) Description 04/03/2021 Lab Requisition [facility] Pathology & Laboratory Medicine - [facility] [address] [place] [address] Outr Resulting Lab, Provider Social History Tobacco [...] Procedure Name Priority Date/Time Associated Diagnosis Comments ZZCOVID-19 TEST [facility] PCR Today 04/02/2021 22:55 EDT COVID-19 TESTING Routine 04/02/2021 22:5 5 EDT documented in this encounter Results * COVID-19 TEST [facility] PCR (04/02/2021 22:55 EDT) Swab ENTIRE NASOPHARYNX / Unknown 04/02/2021 22:55 EDT 04/03/2021 15:43 EDT Provider Outr Resulting Lab MICROBIOLOGY - GENERAL ORDERABLES [facility] [address] [place] [address] * COVID-19 TESTING (04/02/2021 22:55 EDT) COVID-19 rt-PCR Result Negative Negative 04/04/2021 14:36 EDT [facility] Comment: This test has not been FDA cleared or approved. This test has been authorized by FDA under an EUA for use by authorized laboratories. This test has been authorized only for detection of nucleic acid from 2019-nCoV, not for any other viruses or pathogens. This test is only authorized for the duration of the declaration that circumstances exist justifying the authorization of emergency use of in vitro diagnostic tests for detection and/or diagnosis of 2019-nCoV under section 564(b)(1) of Act, 21 U.S.C ?? 360bbb-3(b) (1), unless the authorization is terminated or revoked sooner. Negative results do not preclude 2019-nCoV infection and should not be used as the sole basis for treatment or other patient management decisions. Negative results must be combined with clinical observations, patient history, and epidemiological information. Testing was performed using the theron SARS-CoV-2 assay ([employer] on the Theron 6800 System Performing Lab Theron [address] [facility] 04/04/2021 14:36 EDT [facility] Swab 04/02/2021 22:5 5 EDT 04/03/2021 15:43 EDT Provider Outr Resulting Lab MICROBIOLOGY - GENERAL ORDERABLES [facility] [address] [place] [address] documented in this encounter Visit Diagnoses Not on filedocumented in this encounter Additional Health Concerns Infection Onset Date Last Indicated Resolved Time COVID-19 10/01/2021 10/01/2021 10/21/2021 22:1 5 EST documented as of this encounter Care Teams Pnp Relationship Specialty Start Date End Date Unknown, Provider, PCP - General 11/16/16 documented as of this encounter
--- OUTSIDE RECORDS SUMMARY | 2024-04-27 11:35 | XMS_ITS | Encounter Summary ---
Author Organization [facility] Address [address] [place] [address] Care Team Providers Care Rating Officer Name Role Phone Unknown, Provider Primary Care Provider Encounter Details Date Type Department Care Team (Late st Contact Info) Description 11/06/2021 Lab Requisition [facility] Pathology & [facility] [address] [place] [address] Outr Resulting Lab, Provider Social History Tobacco [...] Procedure Name Priority Date/Time Associated Diagnosis Comments HIV 1/2 ANTIGEN AND ANTIBODY, 4TH GENERATION Routine 11/06/2021 11:00 EST documented in this encounter Results * HIV 1/2 ANTIGEN AND ANTIBODY, 4TH GENERATION (11/06/2021 11:00 EST) HIV 1 and 2 Antibody/p24 Antigen, 4th Generation Negative Negative 11/07/2021 10:45 EST [facility] Comment:If acute HIV-1 infec tion is suspected in a high risk patient, submit plasma specimen for HIV-1 RNA quantitation test. Blood VENOUS BLOOD / Unknown 11/06/2021 11:00 EST 11/06/2021 21:47 EST Narrative [facility] - 11/07/2021 10:45 EST Fourth Generation assay performed on the Siemens Centaur XPT. Provider Outr Resulting Lab IMMUNOLOGY A ND SEROLOGY ORDERABLES [facility] [address] [place] [address] documented in this encounter Visit Diagnoses Not on filedocumented in this encounter Care Teams Rating Officer Relationship Specialty Start Date End Date Unknown, Provider, PCP - General 11/16/16 documented as of this encounter
--- OUTSIDE RECORDS SUMMARY | 2024-04-27 11:35 | XMS_ITS | Encounter Summary ---
Author Organization [facility] Address [address] [place] [address] Care Team Providers Care Procurement Coordinator Name Role Phone Unknown, Provider Primary Care Provider Encounter Details Date Type Department Care Team (Late st Contact Info) Description 11/06/2021 Lab Requisition [facility] Pathology & Laboratory Medicine - [facility] [address] [place] [address] Outr Resulting Lab, Provider Social History Tobacco [...] Procedure Name Priority Date/Time Associated Diagnosis Comments RUBELLA IGG ANTIBODY Routine 11/06/2021 11:00 EST VARICELLA IGG ANTIBODY Routine 11/06/2021 11:00 EST documented in this encounter Results * VARICELLA IGG ANTIBODY (11/06/2021 11:00 EST) Varicella IgG Ab Negative See Note 11/07/2021 11:19 EST [facility] Comment:Absence of detectabl e Varicella Zoster virus IgG antibodies. A negative result generally indicates no detectable antibody, but does not rule out acute infection. If VZV exposure is suspected, a second sample should be collected and tested no less than one or two weeks later. Blood VENOUS BLOOD / Unknown 11/06/2021 11:00 EST 11/06/2021 21:47 EST Provider Outr Resulting Lab IMMUNOLOGY A ND SEROLOGY ORDERABLES [facility] [address] [place] [address] * RUBELLA IGG ANTIBODY (11/06/2021 11:00 EST) Rubella IgG Ab Positive See Note 11/07/2021 11:23 EST [facility] Comment:Positive for IgG ant ibodies to Rubella virus. Blood VENOUS BLOOD / Unknown 11/06/2021 11:00 EST 11/06/2021 21:47 EST Provider Outr Resulting Lab CHEMISTRY & BLOOD GAS ORDERABLES Performing Organization Address [facility] Co de Phone Number [facility] [address] [place] [address] documented in this encounter Visit Diagnoses Not on filedocumented in this encounter Care Teams Procurement Coordinator Relationship Specialty Start Date End Date Unknown, Provider, PCP - General 11/16/16 documented as of this encounter
--- OUTSIDE RECORDS SUMMARY | 2024-04-27 11:35 | XMS_ITS | Clinical Summary ---
Author Organization [facility] Address [address] [place] [address] Care Team Providers Care Shut Off Worker Name Role Phone Unknown, Provider Primary Care Provider [phone] Social History Tobacco Use Types Packs/Day Years Used Date Smoking Tobacco: Never Assessed Sex and Gender Information Value Date Recorded Sex Assigned at Not on file Gender Identity Not on file Sexual Orientation Not on file Plan of Treatment Health Maintenance Due Date Last Done Comments Hepatitis B Vaccine (1 of 3 - 19+ 3-dose series) 06/11 COVID-19 Vaccine (2022- season) 2023 Hepatitis C Screen Completed 11/06/2021 Procedures Procedure Name Priority Date/Time Associated Diagnosis Comments HEPATITIS C AB W REFLEX TO HCV RNA BY PCR Routine 11/06/2021 11:00 EST from Last 3 Months or Most Recently Relevant to Health Maintenance Results * HEPATITIS C AB W REFLEX TO HCV RNA BY PCR (11/06/2021 11:00 EST) Hep C Antibody Negative Negative 11/07/2021 10:56 EST [facility] Blood VENOUS BLOOD / Unknown 11/06/2021 11:00 EST 11/06/2021 21:47 EST Provider Outr Resulting Lab CHEMISTRY & BLOOD GAS ORDERABLES [facility] [address] [place] [address] from Last 3 Months or Most Recently Relevant to Health Maintenance Care Teams Shut Off Worker Relationship Specialty Start Date End Date Unknown, Provider, PCP - General 11/16/16
--- OUTSIDE RECORDS SUMMARY | 2024-04-27 11:35 | XMS_ITS | Encounter Summary ---
Author Organization [facility] Address [address] [place] [address] Care Team Providers Care Mill Tender Washing Name Role Phone Unknown, Provider Primary Care Provider Encounter Details Date Type Department Care Team (Late st Contact Info) Description 09/23/2023 Lab Requisition [facility] Pathology & Laboratory Medicine - [facility] [address] [place] [address] Rosemary Martin MD [address] [place] [address] [place] [address] Encounter for other general examination Social History Tobacco Use Types Packs/Day Years Used Date Smoking Tobacco: Never Assessed Sex and Gender Information Value Date Recorded Sex Assigned at Not on file Gender Identity Not on file Sexual Orientation Not on file documented as of this encounter Plan of Treatment Not on file documented as of this encounter Procedures Procedure Name Priority Date/Time Associated Diagnosis Comments PAP TEST Today 09/22/2023 14:55 EST Encounter for other general examination HPV DNA DETECTION WITH GENOTYPING, PCR Today 09/22/2023 14:55 EST Encounter for other general examination documented in this encounter Results * HUMAN PAPILLOMAVIRUS (HPV) DETECTION-HIGH RISK TYPES (09/22/2023 14:55 EST) HPV other High Risk types, PCR Negative Negative 10/06/2023 15:19 EST [facility] Comment:No E6 or E7 mRNA is detected from HPV types 16,18,31,33,35,39,45,51,52,56,58,59,66, and 68 by interactive media project manager mediated amplification. Pap Test CERVIX UTERI STRUCTURE / Unknown 09/22/2023 14:55 EST 10/05/2023 12:40 EST Rosemary Martin MD MICROBIOLOGY - GENER AL ORDERABLES [facility] [address] [place] [address] * PAP TEST (09/22/2023 14:55 EST) Specimens A. Cervix and/or Endocervix , ThinPrep Imaging System with Manual Evaluation 10/06/2023 15:19 [facility] Specimen Adequacy Satisfactory for Evaluation - transformation zone component present 10/06/2023 15:19 [facility] General Categorization Negative for intraepithelial lesion or malignancy 10/06/2023 15:19 [facility] Attestation . 10/06/2023 15:19 [facility] at 1519 Clinical History See below 10/06/19 24 15:19 [facility] HPV The result for the Human Papillomavirus (HPV) Detection-High Risk Types is Negative. No E6 or E7 mRNA is detected from HPV types 16,18,31,33,35,39 ,45,51,52,56,58,5 9,66, and 68 by interactive media project manager mediated amplification.Radha ting was performed on specimen [id number] and was resulted on 10/06/2023 1519 EST by MIRANDA, LAB INSTRUMENT RESULTS IN 10/06/2023 15:19 EST [facility] Performing Lab [facility] 10/06/2023 15:19 EST [facility] Scanned Images 10/06/2023 15:19 [facility] Pap Test CERVIX UTERI STRUCTURE / Unknown 09/22/2023 14:55 EST 09/23/2023 12:52 EST Rosemary Martin MD PATHOLOGY ORDERABLES Performing Organization Address City/[facility]/ZIP Co de Phone Number [facility] [address] [place] [address] documented in this encounter Visit Diagnoses Diagnosis Encounter for other general examination documented in this encounter Care Teams Mill Tender Washing Relationship Specialty Start Date End Date Unknown, Provider, PCP - General 11/16/16 documented as of this encounter
--- OUTSIDE RECORDS SUMMARY | 2024-04-27 11:35 | XMS_ITS | Encounter Summary ---
Author Organization [facility] Address [address] [place] [address] Care Team Providers Care Television Installer Name Role Phone Unknown, Provider Primary Care Provider Encounter Details Date Type Department Care Team (Late st Contact Info) Description 10/01/2021 Lab Requisition [facility] Pathology & Laboratory Medicine - [facility] [address] [place] [address] Outr Resulting Lab, Provider Social History Tobacco [...] Priority Date/Time Associated Diagnosis Comments ZZCOVID-19 TEST [facility] PCR Today 10/01/2021 12:10 EST COVID-19 TESTING Routine 10/01/2021 12:1 0 EST documented in this encounter Results * COVID-19 TEST [facility] PCR (10/01/2021 12:10 EST) Swab 10/01/2021 12:1 0 EST 10/01/2021 17:04 EST Provider Outr Resulting Lab MICROBIOLOGY - GENERAL ORDERABLES [facility] [address] [place] [address] * (ABNORMAL) COVID-19 TESTING (10/01/2021 12:10 EST) COVID-19 rt-PCR Result Positive( AA) Negative 10/02/2021 13:23 EST [facility] Comment: This test has [...] was performed using the theron SARS-CoV-2 assay ([employer] on the Theron 6800 System Performing Lab Theron 6800 [facility] 10/02/2021 13:23 EST [facility] Swab 10/01/2021 12:1 0 EST 10/01/2021 17:04 EST Provider Outr Resulting Lab MICROBIOLOGY - GENERAL ORDERABLES [facility] [address] [place] [address] documented in this encounter Visit Diagnoses Not on filedocumented in this encounter Additional Health Concerns Infection Onset Date Last Indicated Resolved Time COVID-19 10/01/2021 10/01/2021 10/21/2021 22:1 5 EST documented as of this encounter Care Teams Television Installer Relationship Specialty Start Date End Date Unknown, Provider, PCP - General 11/16/16 documented as of this encounter
--- OUTSIDE RECORDS SUMMARY | 2024-04-27 11:35 | XMS_ITS | Encounter Summary ---
Author Organization [facility] Address [address] [place] [address] Care Team Providers Care Assembler Tractor Name Role Phone Unknown, Provider Primary Care Provider Encounter Details Date Type Department Care Team (Late st Contact Info) Description 11/06/2021 Lab Requisition [facility] Pathology & Laboratory Medicine - [facility] [address] [place] [address] Outr Resulting Lab, Provider Social History Tobacco [...] Procedure Name Priority Date/Time Associated Diagnosis Comments CHLAMYDIA/N. GONORRHOEAE AMPLIFIED NUCLEIC ACID Routine 11/06/2021 10:10 EST documented in this encounter Results * CHLAMYDIA/N. GONORRHOEAE AMPLIFIED RNA (11/06/2021 10:10 EST) Neisseria gonorrhoeae Result Negative Negative 11/07/2021 15:21 EST [facility] Chlamydia trachomatis Result Negative Negative 11/07/2021 15:21 EST [facility] Swab ENTIRE ENDOCERVIX / Unknown 11/06/2021 10:10 EST 11/06/2021 22:01 EST Provider Outr Resulting Lab MICROBIOLOGY - GENERAL ORDERABLES [facility] [address] [place] [address] documented in this encounter Visit Diagnoses Not on filedocumented in this encounter Care Teams Assembler Tractor Relationship Specialty Start Date End Date Unknown, Provider, PCP - General 11/16/16 documented as of this encounter
--- OUTSIDE RECORDS SUMMARY | 2024-04-27 11:35 | XMS_ITS | Encounter Summary ---
Author Organization [facility] Address [address] [place] [address] Care Team Providers Care Head Silverman Name Role Phone Unknown, Provider Primary Care Provider Encounter Details Date Type Department Care Team (Late st Contact Info) Description 07/31/2020 Lab Requisition [facility] Pathology & Laboratory Medicine - [facility] [address] [place] [address] Jessy Thomas, [address] [address] Encounter for other general examination [...] Date/Time Associated Diagnosis Comments PAP TEST Today 07/30/2020 14:00 EST Encounter for other general examination documented in this encounter Results * PAP TEST (07/30/2020 14:00 EST) Specimens A. Cervix and/or Endocervix , ThinPrep Imaging System with Manual Evaluation 08/05/2020 13:22 EST [facility] Specimen Adequacy Satisfactory for Evaluation - transformation zone component present 08/05/2020 13:22 EST [facility] General Categorization Negative for intraepithelial lesion or malignancy 08/05/2020 13:22 EST [facility] Attestation . 08/05/2020 13:22 [facility] at 1322 Clinical History See below 08/05/20 20 13:22 EST [facility] Performing Lab [facility] 08/05/2020 13:22 EST [facility] Scanned Images 08/05/2020 13:22 EST [facility] Papanicolaou smear specimen (specimen) CERVIX UTERI STRUCTURE / Unknown 07/30/2020 14:00 EST 07/31/2020 16:14 EST Jessy Thomas TOP INSTALLER PATHOLOGY ORDERABLES [facility] [address] [place] [address] documented in this encounter Visit Diagnoses Diagnosis Encounter for other general examination documented in this encounter Additional Health Concerns Infection Onset Date Last Indicated Resolved Time COVID-19 10/01/2021 10/01/2021 10/21/2021 22:1 5 EST documented as of this encounter Care Teams Head Silverman Relationship Specialty Start Date End Date Unknown, Provider, PCP - General 11/16/16 documented as of this encounter
--- OUTSIDE RECORDS SUMMARY | 2024-04-27 11:35 | XMS_ITS | Encounter Summary ---
Author Organization [facility] Address [address] [place] [address] Care Team Providers Care Furniture Mechanic Name Role Phone Unknown, Provider Primary Care Provider Encounter Details Date Type Department Care Team (Late st Contact Info) Description 09/20/2020 Lab Requisition [facility] Pathology & Laboratory Medicine - [address] [address] Outr Resulting Lab, Provider Social History Tobacco [...] Priority Date/Time Associated Diagnosis Comments ZZCOVID-19 TEST [facility] PCR Today 09/20/2020 15:30 EST COVID-19 TESTING Routine 09/20/2020 15:3 0 EST documented in this encounter Results * COVID-19 TEST [facility] PCR (09/20/2020 15:30 EST) Swab ENTIRE NASOPHARYNX / Unknown 09/20/2020 15:30 EST 09/20/2020 20:52 EST Provider Outr Resulting Lab MICROBIOLOGY - GENERAL ORDERABLES [facility] [address] [place] [address] * COVID-19 TESTING (09/20/2020 15:30 EST) COVID-19 rt-PCR Result Negative Negative 09/21/2020 16:37 EST [facility] Comment: Negative results do not preclude 2019-nCoV infection and should not be used as the sole basis for treatment or other patient management decisions. Negative results must be combined with clinical observations, patient history, and epidemiological information. This test was developed and its performance characteristics determined by [facility]. It has not been cleared or approved by the US Food and Drug Administration. FDA does not require this test to go through premarket FDA review. This test is used for clinical purposes. It should not be regarded as investigational or for research. This laboratory is certified under the Clinical Laboratory Improvement Amendments (CLIA) as qualified to perform high complexity clinical laboratory testing. This test is based on the CDC COVID-19 Emergency Use Authorization (EUA) assay, with minor modification as defined by the FDA Performed on the [employer] Flex RT-PCR System. Performing Lab [facility] 09/21/2020 16:37 EST [facility] Swab 09/20/2020 15:3 0 EST 09/20/2020 20:52 EST Provider Outr Resulting Lab MICROBIOLOGY - GENERAL ORDERABLES [facility] [address] [place] [address] documented in this encounter Visit Diagnoses Not on filedocumented in this encounter Additional Health Concerns Infection Onset Date Last Indicated Resolved Time COVID-19 10/01/2021 10/01/2021 10/21/2021 22:1 5 EST documented as of this encounter Care Teams Furniture Mechanic Relationship Specialty Start Date End Date Unknown, Provider, PCP - General 11/16/16 documented as of this encounter
--- NOTE | 2024-04-27 16:22 | ED.GENADUL_ITS ---
Discharge Plan Disposition Patient Disposition: Home Condition: Stable Discharge Details Clinical Impression: Headache Primary Care Provider: Richa Rasheed ED Provider: Edenilson Suazo Home Meds and New Rx's Prescriptions: No Action Mirena 21 mcg/24 hours (8 yrs) 52 mg intrauterine device 1 device intrauterine ONCE Rx Instructions: as a single dose zqxpmiyjfmus-Mw-hrhz-minerals 18-0.4 mg tablet 1 tab PO DAILY ibuprofen 200 mg capsule 200 mg PO Q6H PRN acetaminophen 325 mg capsule 325 mg PO ONCE PRN Discharge Instructions Instructions: Headache, Adult ED Additional Instructions: * Please continue fluid increase at home * take yktp-goj-wubqdie magnesium 40 mg daily to help prevent return of headache * Avoid taking NSAIDs or acetaminophen more than 3 days a week to prevent rebound headache * Follow-up with your primary care provider for ongoing management if you continue to have recurrent headache symptoms Discharge Data Discharge Date/Time-TO BE ENTERED AT DEPARTURE: 04/27/24 12:36 HPI General Date/Time Provider Initiated Documentation: 04/27/24 09:58 . Limitations to Documentation: no limitations . Information obtained by: patient . HPI Narrative: 28-year-old female without significant past medical history presents for evaluation of headache. Headache started 5 days ago. She is hide it every day. She describes that it feels like pressure. Not acute onset, she does have history of migraine headaches, but they usually do not last this long. She has not had any vomiting, but has had mild nausea. Has been taking Motrin and Tylenol without relief of symptoms. Denies any trauma. Denies any photophobia or neck stiffness. Related Data Home Medications ?Medication ?Instructions ?Recorded ?Confirmed acetaminophen 325 mg capsule 325 mg PO ONCE PRN 09/22/23 04/27/24 ibuprofen 200 mg capsule 200 mg PO Q6H PRN 09/22/23 04/27/24 gmcncgufztgi-Hi-peom-minerals 18 1 tab PO DAILY 09/22/23 04/27/24 mg-0.4 mg tablet levonorgestrel 21 mcg/24 hr (up to 1 device intrauterine ONCE 11/05/23 04/27/24 8 years) 52 mg intrauterine device (Mirena) Allergies Allergy/AdvReac Type Severity Reaction Status Date / Time No Known Allergies Allergy Verified 04/27/24 09:56 General Stated Complaint: Headache HALEY: 3 Exam Narrative Exam Narrative: Review of Systems: All systems reviewed & are unremarkable except as noted in HPI and below Well-developed, no acute distress NCAT PERRL, normal conjunctiva RRR Unlabored respiratory effort Nondistended abdomen Extremities w/o deformity, no cyanosis, no edema No rashes or lesions. no focal neurologic deficits Appropriate mood and affect Course Vital Signs Vital signs: Vital Signs Temperature 36.6 C 04/27/24 09:51 Pulse 84 04/27/24 09:51 Respiratory Rate 16 04/27/24 09:51 Blood Pressure 141/88 H 04/27/24 09:51 Pulse Oximetry 100 04/27/24 09:51 Temperature 36.6 C 04/27/24 09:51 Pulse 84 04/27/24 09:51 Respiratory Rate 16 04/27/24 09:51 Respiratory Effort Normal 04/27/24 09:55 Blood Pressure 141/88 H 04/27/24 09:51 Pulse Oximetry 100 04/27/24 09:51 Oxygen Delivery Method Room Air 04/27/24 09:51 Oxygen Flow Rate 0 04/27/24 09:51 Pain Level 0 04/27/24 12:34 Medical Decision Making Emergent evaluation of headache. Patient does not have any meningeal signs, nonacute onset of headache, does not have any abnormal blood pressures or any changes in her neurologic exam that would be concerning for possible intracranial process. I do not feel imaging is indicated at this time. Patient was given migraine cocktail including IV fluids and magnesium. Her symptoms improved and resolved, she was discharged with instructions to continue daily magnesium and follow-up with primary care for reevaluation if symptoms persist. Quality:SDOH Health Related Social Needs: Health related social needs risk of homeless, material hardship, food insecurity, transpo insecurity, personal safety PFSH All Active Problems (Updated 04/27/24 @ 11:57 by Edenilson Suazo MD) Headache (Acute) Anxiety (Chronic) Medical History (Updated 04/27/24 @ 11:57 by Edenilson Suazo MD) Presence of IUD Mirena IUD placed 10/08/23 COVID-19 Coccyx sprain from childbirth Family history of thrombocytopenia Bruises easily History of migraine Chlamydia trachomatis infection (05/17/13) Rx with Zithromax. YE 01/03/14 -neg Family History Mother Multiple sclerosis sx consist of temperature instability Diabetes Thrombocytopenia Maternal Grandmother Diabetes Pulmonary embolism Aneurysm of this age 72. smoker Father Substance use disorder Social History Smoking/Tobacco Use Status: Never Smoking risk assessment performed?: Yes Alcohol Intake: former Drug use: Current Sobriety Substance use type: does not use Household members: children and other Details: Brandi Davila Housing: apartment Do you feel safe at home: Yes (unable to assess privately) Do you feel safe in your relationship?: Yes History History 4 Para 3 Hx # Term Pregnancies 3 Multiple births 0 Hx # Pregnancies 0 Ectopic pregnancies 0 AB induced 0 Hx Number of Living Children 3 AB spontaneous 0 Past Pregnancies Del. Date GA/Weeks # Preg Succ Route Wgt Sex Labor Lgth Anesth esia Location Prov Compl 06/01/17 40 No vaginal 3118.448 g Male 5 hrs [facility] 04/15/19 39 No vaginal 3203.496 g Male 16 [facility] 01/13/21 4 06/03/22 40 No Yes vaginal 3270.004 g Female local [facility] Delivery Date: 06/01/17 Last Updated by: Ewa Vines Used nitrous, nml Barry Delivery Date: 04/15/19 Last Updated by: Ewa Vines Nml unmedicated though cat 2 tracing, used nitrous. Jones Delivery Date: 01/13/21 Last Updated by: Juany Arriaza DO Biochemical Delivery Date: 06/03/22 Last Updated by: FLAKITO Ocasio
== END 2024-04-27 12:36 | disposition home or self-care (01) ==
PROVIDERS: Emergency Provider Emergency Medicine; PCP Advanced Practice Midwife
DX: R51.9 Headache, unspecified (principal)
CPT/HCPCS: 96365; 96366; 96375; 99284; 99283; J0780; J1885; J3475

== ENCOUNTER → 2024-05-11 18:42 | Emergency (ER) | payer BC, SELFPAY ==
[2024-05-11] VITALS (17 sets, daily range): BP systolic 116–145; BP diastolic 64–81; PULSE 71–86; RESP 12–15; TEMP 36.9–37.1; O2SAT 98–99
--- OUTSIDE RECORDS SUMMARY | 2024-05-11 18:52 | XMS_ITS | Clinical Summary ---
Author Organization [facility] Address [address] [place] [address] Care Team Providers Care Needlemaker Name Role Phone Unknown, Provider Primary Care Provider [phone] Social History Tobacco Use Types Packs/Day Years Used Date Smoking Tobacco: Never Assessed Sex and Gender Information Value Date Recorded Sex Assigned at Not on file Gender Identity Not on file Sexual Orientation Not on file Plan of Treatment Health Maintenance Due Date Last Done Comments Hepatitis B Vaccine (1 of 3 - 19+ 3-dose series) 06/11 COVID-19 Vaccine ( season) 2024 Hepatitis C Screen Completed 11/06/2021 Procedures Procedure Name Priority Date/Time Associated Diagnosis Comments HEPATITIS C AB W REFLEX TO HCV RNA BY PCR Routine 11/06/2021 11:00 EST from Last 3 Months or Most Recently Relevant to Health Maintenance Results * HEPATITIS C AB W REFLEX TO HCV RNA BY PCR (11/06/2021 11:00 EST) Hep C Antibody Negative Negative 11/07/2021 10:56 EST [facility] Blood VENOUS BLOOD / Unknown 11/06/2021 11:00 EST 11/06/2021 21:47 EST Provider Outr Resulting Lab CHEMISTRY & BLOOD GAS ORDERABLES [facility] [address] [place] [address] from Last 3 Months or Most Recently Relevant to Health Maintenance Care Teams Needlemaker Relationship Specialty Start Date End Date Unknown, Provider, PCP - General 11/16/16
--- OUTSIDE RECORDS SUMMARY | 2024-05-11 18:52 | XMS_ITS | Encounter Summary ---
Author Organization [facility] Address [address] [place] [address] Care Team Providers Care Philosophy Faculty Member Name Role Phone Unknown, Provider Primary Care Provider Encounter Details Date Type Department Care Team (Late st Contact Info) Description 11/06/2021 Lab Requisition [facility] Pathology & Laboratory Medicine - [facility] [address] [place] [address] Outr Resulting Lab, Provider Social History Tobacco [...] Ab Negative See Note 11/07/2021 11:19 EST [facility] Comment:Absence of detectabl e Varicella [...] Resulting Lab IMMUNOLOGY A ND SEROLOGY ORDERABLES [facility] [address] [place] [address] * RUBELLA IGG ANTIBODY (11/06/2021 11:00 EST) Rubella IgG Ab Positive See Note 11/07/2021 11:23 EST [facility] Comment:Positive for IgG ant ibodies to Rubella virus. Blood VENOUS BLOOD / Unknown 11/06/2021 11:00 EST 11/06/2021 21:47 EST Provider Outr Resulting Lab CHEMISTRY & BLOOD GAS ORDERABLES Performing Organization Address [facility] Co de Phone Number [facility] [address] [place] [address] documented in this encounter Visit Diagnoses Not on filedocumented in this encounter Care Teams Philosophy Faculty Member Relationship Specialty Start Date End Date Unknown, Provider, PCP - General 11/16/16 documented as of this encounter
--- OUTSIDE RECORDS SUMMARY | 2024-05-11 18:52 | XMS_ITS | Encounter Summary ---
Author Organization [facility] Address [address] [place] [address] Care Team Providers Care Anesthesiology Medical Doctor Name Role Phone Unknown, Provider Primary Care Provider [phone] Encounter Details Date Type Department Care Team (Late st Contact Info) Description 11/06/2021 Lab Requisition [facility] Pathology & Laboratory Medicine - [facility] [address] [place] [address] Outr Resulting Lab, Provider Social History Tobacco [...] Surface Ag Negative Negative 11/07/2021 10:17 EST [facility] Blood VENOUS BLOOD / Unknown 11/06/2021 11:00 EST 11/06/2021 21:47 EST Provider Outr Resulting Lab CHEMISTRY & BLOOD GAS ORDERABLES [facility] [address] [place] [address] * HEPATITIS C AB W REFLEX TO HCV RNA BY PCR (11/06/2021 11:00 EST) Hep C Antibody Negative Negative 11/07/2021 10:56 EST [facility] Blood VENOUS BLOOD / Unknown 11/06/2021 11:00 EST 11/06/2021 21:47 EST Provider Outr Resulting Lab CHEMISTRY & BLOOD GAS ORDERABLES Performing Organization Address City/State/[facility] Co de Phone Number [facility] [address] [place] [address] documented in this encounter Visit Diagnoses Not on filedocumented in this encounter Care Teams Anesthesiology Medical Doctor Relationship Specialty Start Date End Date Unknown, Provider, PCP - General 11/16/16 documented as of this encounter
--- OUTSIDE RECORDS SUMMARY | 2024-05-11 18:52 | XMS_ITS | Encounter Summary ---
Author Organization [facility] Address [address] [place] [address] Care Team Providers Care Lithographic Press Feeder Name Role Phone Unknown, Provider Primary Care Provider Encounter Details Date Type Department Care Team (Late st Contact Info) Description 11/06/2021 Lab Requisition [facility] Pathology & Laboratory Medicine - [address] [address] Outr Resulting Lab, Provider Social History Tobacco [...] gonorrhoeae Result Negative Negative 11/07/2021 15:21 EST [facility] Chlamydia trachomatis Result Negative Negative 11/07/2021 15:21 EST [facility] Swab ENTIRE ENDOCERVIX / Unknown 11/06/2021 10:10 EST 11/06/2021 22:01 EST Provider Outr Resulting Lab MICROBIOLOGY - GENERAL ORDERABLES [facility] [address] [place] [address] documented in this encounter Visit Diagnoses Not on filedocumented in this encounter Care Teams Lithographic Press Feeder Relationship Specialty Start Date End Date Unknown, Provider, PCP - General 11/16/16 documented as of this encounter
--- OUTSIDE RECORDS SUMMARY | 2024-05-11 18:52 | XMS_ITS | Encounter Summary ---
Author Organization [facility] Address [address] [place] [address] Care Team Providers Care Dental Ceramist Name Role Phone Unknown, Provider Primary Care Provider Encounter Details Date Type Department Care Team (Late st Contact Info) Description 09/23/2023 Lab Requisition [facility] Pathology & Laboratory Medicine - [facility] [address] [place] [address] Rosemary Martin MD [address] [place] [address] [place] [address] Encounter for other general examination [...] types, PCR Negative Negative 10/06/2023 15:19 EST [facility] Comment:No E6 or E7 mRNA is detected from HPV types 16,18,31,33,35,39,45,51,52,56,58,59,66, and 68 by landscape crew leader mediated amplification. Pap Test CERVIX UTERI STRUCTURE / Unknown 09/22/2023 14:55 EST 10/05/2023 12:40 EST Rosemary Martin MD MICROBIOLOGY - GENER AL ORDERABLES [facility] [address] [place] [address] * PAP TEST (09/22/2023 14:55 EST) Specimens A. Cervix and/or Endocervix , ThinPrep Imaging System with Manual Evaluation 10/06/2023 15:19 [facility] Specimen Adequacy Satisfactory for Evaluation - transformation zone component present 10/06/2023 15:19 [facility] General Categorization Negative for intraepithelial lesion or malignancy 10/06/2023 15:19 [facility] Attestation . 10/06/2023 15:19 [facility] at 1519 Clinical History See below 10/06/19 24 15:19 [facility] HPV The result for the Human Papillomavirus (HPV) Detection-High Risk Types is Negative. No E6 or E7 mRNA is detected from HPV types 16,18,31,33,35,39 ,45,51,52,56,58,5 9,66, and 68 by landscape crew leader mediated amplification.Radha ting was performed on specimen [id number] and was resulted on 10/06/2023 1519 EST by MIRANDA, LAB INSTRUMENT RESULTS IN 10/06/2023 15:19 EST [facility] Performing Lab [facility] 10/06/2023 15:19 EST [facility] Scanned Images 10/06/2023 15:19 [facility] Pap Test CERVIX UTERI STRUCTURE / Unknown 09/22/2023 14:55 EST 09/23/2023 12:52 EST Rosemary Martin MD PATHOLOGY ORDERABLES Performing Organization Address City/[facility]/ZIP Co de Phone Number [facility] [address] [place] [address] documented in this encounter Visit Diagnoses Diagnosis Encounter for other general examination documented in this encounter Care Teams Dental Ceramist Relationship Specialty Start Date End Date Unknown, Provider, PCP - General 11/16/16 documented as of this encounter
--- OUTSIDE RECORDS SUMMARY | 2024-05-11 18:52 | XMS_ITS | Referral Summary ---
Author Organization [facility] Address [address] [place] [address] Care Team Providers Care Product Safety Tester Name Role Phone Unknown, Provider Primary Care Provider [phone] Social History Tobacco Use Types Packs/Day Years [...] C Antibody Negative Negative 11/07/2021 10:56 EST [facility] Blood VENOUS BLOOD / Unknown 11/06/2021 11:00 EST 11/06/2021 21:47 EST Provider Outr Resulting Lab CHEMISTRY & BLOOD GAS ORDERABLES [facility] [address] [place] [address] from Last 3 Months or Most Recently Relevant to Health Maintenance Care Teams Product Safety Tester Relationship Specialty Start Date End Date Unknown, Provider, PCP - General 11/16/16
--- OUTSIDE RECORDS SUMMARY | 2024-05-11 18:53 | XMS_ITS | Encounter Summary ---
Author Organization [facility] Address [address] [place] [address] Care Team Providers Care Oral Health Therapist Name Role Phone Unknown, Provider Primary Care Provider [phone] Encounter Details Date Type Department Care Team (Late st Contact Info) Description 11/13/2016 Results Only [facility]- [facility] [phone] Moises Hogan [address] [facility] [place] [address] Social History Tobacco Use Types Packs/Day [...] ? SHANTI MORALES ? Accession #: ? [id number] : ? 1995 (Age: 21) ??F ?Collect [...] Report Date: ??11/18/2016 11:14 End of Report [facility] 11/13/2016 11/16/2016 Moises Hogan PATHOLOGY ORDERABLES [facility] [address] [place] [address] documented in this encounter Visit Diagnoses Not on filedocumented in this encounter Care Teams Oral Health Therapist Relationship Specialty Start Date End Date Unknown, Provider, PCP - General 11/16/16 documented as of this encounter
--- OUTSIDE RECORDS SUMMARY | 2024-05-11 18:53 | XMS_ITS | Encounter Summary ---
Author Organization [facility] Address [address] [place] [address] Care Team Providers Care Emergency Department Manager Name Role Phone Unknown, Provider Primary Care Provider Encounter Details Date Type Department Care Team (Late st Contact Info) Description 11/06/2021 Lab Requisition [facility] Pathology & Laboratory Medicine - [facility] [address] [place] [address] Outr Resulting Lab, Provider Social History Tobacco [...] 4th Generation Negative Negative 11/07/2021 10:45 EST [facility] Comment:If acute HIV-1 infec tion is suspected in a high risk patient, submit plasma specimen for HIV-1 RNA quantitation test. Blood VENOUS BLOOD / Unknown 11/06/2021 11:00 EST 11/06/2021 21:47 EST Narrative [facility] - 11/07/2021 10:45 EST Fourth Generation assay performed on the Siemens Centaur XPT. Provider Outr Resulting Lab IMMUNOLOGY A ND SEROLOGY ORDERABLES [facility] [address] [place] [address] documented in this encounter Visit Diagnoses Not on filedocumented in this encounter Care Teams Emergency Department Manager Relationship Specialty Start Date End Date Unknown, Provider, PCP - General 11/16/16 documented as of this encounter
--- OUTSIDE RECORDS SUMMARY | 2024-05-11 18:53 | XMS_ITS | Encounter Summary ---
Author Organization [facility] Address [address] [place] [address] Care Team Providers Care Fire Loss Prevention Engineer Name Role Phone Unknown, Provider Primary Care Provider Encounter Details Date Type Department Care Team (Late st Contact Info) Description 09/20/2020 Lab Requisition [facility] Pathology & Laboratory Medicine - [address] [address] Outr Resulting Lab, Provider Social History Tobacco [...] Priority Date/Time Associated Diagnosis Comments ZZCOVID-19 TEST [facility] PCR Today 09/20/2020 15:30 EST COVID-19 TESTING Routine 09/20/2020 15:3 0 EST documented in this encounter Results * COVID-19 TEST [facility] PCR (09/20/2020 15:30 EST) Swab ENTIRE NASOPHARYNX / Unknown 09/20/2020 15:30 EST 09/20/2020 20:52 EST Provider Outr Resulting Lab MICROBIOLOGY - GENERAL ORDERABLES [facility] [address] [place] [address] * COVID-19 TESTING (09/20/2020 15:30 EST) COVID-19 rt-PCR Result Negative Negative 09/21/2020 16:37 EST [facility] Comment: Negative results do not preclude 2019-nCoV infection and should not be used as the sole basis for treatment or other patient management decisions. Negative results must be combined with clinical observations, patient history, and epidemiological information. This test was developed and its performance characteristics determined by [facility]. It has not been cleared or approved [...] defined by the FDA Performed on the [employer] Flex RT-PCR System. Performing Lab [facility] 09/21/2020 16:37 EST [facility] Swab 09/20/2020 15:3 0 EST 09/20/2020 20:52 EST Provider Outr Resulting Lab MICROBIOLOGY - GENERAL ORDERABLES [facility] [address] [place] [address] documented in this encounter Visit Diagnoses Not on filedocumented in this encounter Additional Health Concerns Infection Onset Date Last Indicated Resolved Time COVID-19 10/01/2021 10/01/2021 10/21/2021 22:1 5 EST documented as of this encounter Care Teams Fire Loss Prevention Engineer Relationship Specialty Start Date End Date Unknown, Provider, PCP - General 11/16/16 documented as of this encounter
--- OUTSIDE RECORDS SUMMARY | 2024-05-11 18:53 | XMS_ITS | Encounter Summary ---
Author Organization [facility] Address [address] [place] [address] Care Team Providers Care Outboard Technician Name Role Phone Unknown, Provider Primary Care Provider Encounter Details Date Type Department Care Team (Late st Contact Info) Description 10/01/2021 Lab Requisition [facility] Pathology & Laboratory Medicine - [facility] [address] [place] [address] Outr Resulting Lab, Provider Social History Tobacco [...] Priority Date/Time Associated Diagnosis Comments ZZCOVID-19 TEST [facility] PCR Today 10/01/2021 12:10 EST COVID-19 TESTING Routine 10/01/2021 12:1 0 EST documented in this encounter Results * COVID-19 TEST [facility] PCR (10/01/2021 12:10 EST) Swab 10/01/2021 12:1 0 EST 10/01/2021 17:04 EST Provider Outr Resulting Lab MICROBIOLOGY - GENERAL ORDERABLES [facility] [address] [place] [address] * (ABNORMAL) COVID-19 TESTING (10/01/2021 12:10 EST) COVID-19 rt-PCR Result Positive( AA) Negative 10/02/2021 13:[address] [facility] Comment: This test has [...] was performed using the theron SARS-CoV-2 assay ([employer] on the Theron 6800 System Performing Lab Theron 68[address] [facility] 10/02/2021 13:[address] [facility] Swab 10/01/2021 12:1 0 EST 10/01/2021 17:04 EST Provider Outr Resulting Lab MICROBIOLOGY - GENERAL ORDERABLES [facility] [address] [place] [address] documented in this encounter Visit Diagnoses Not on filedocumented in this encounter Additional Health Concerns Infection Onset Date Last Indicated Resolved Time COVID-19 10/01/2021 10/01/2021 10/21/2021 22:1 5 EST documented as of this encounter Care Teams Outboard Technician Relationship Specialty Start Date End Date Unknown, Provider, PCP - General 11/16/16 documented as of this encounter
--- OUTSIDE RECORDS SUMMARY | 2024-05-11 18:53 | XMS_ITS | Encounter Summary ---
Author Organization [facility] Address [address] [place] [address] Care Team Providers Care Coal Tower Operator Name Role Phone Unknown, Provider Primary Care Provider [phone] Encounter Details Date Type Department Care Team (Late st Contact Info) Description 04/03/2021 Lab Requisition [facility] Pathology & Laboratory Medicine - [facility] [address] [place] [address] Outr Resulting Lab, Provider Social History Tobacco [...] Priority Date/Time Associated Diagnosis Comments ZZCOVID-19 TEST [facility] PCR Today 04/02/2021 22:55 EDT COVID-19 TESTING Routine 04/02/2021 22:5 5 EDT documented in this encounter Results * COVID-19 [facility] (04/02/2021 22:55 EDT) Swab ENTIRE NASOPHARYNX / Unknown 04/02/2021 22:55 EDT 04/03/2021 15:43 EDT Provider Outr Resulting Lab MICROBIOLOGY - GENERAL ORDERABLES [facility] [address] [place] [address] * COVID-19 TESTING (04/02/2021 22:55 EDT) COVID-19 rt-PCR Result Negative Negative 04/04/2021 14:36 EDT [facility] Comment: This test has [...] was performed using the theron SARS-CoV-2 assay ([employer] on the Theron 6800 System Performing Lab [address]on [address] [facility] 04/04/2021 14:36 EDT [facility] Swab 04/02/2021 22:5 5 EDT 04/03/2021 15:43 EDT Provider Outr Resulting Lab MICROBIOLOGY - GENERAL ORDERABLES [facility] [address] [place] [address] documented in this encounter Visit Diagnoses Not on filedocumented in this encounter Additional Health Concerns Infection Onset Date Last Indicated Resolved Time COVID-19 10/01/2021 10/01/2021 10/21/2021 22:1 5 EST documented as of this encounter Care Teams Coal Tower Operator Relationship Specialty Start Date End Date Unknown, Provider, PCP - General 11/16/16 documented as of this encounter
--- OUTSIDE RECORDS SUMMARY | 2024-05-11 18:53 | XMS_ITS | Encounter Summary ---
Author Organization [facility] Address [address] [place] [address] Care Team Providers Care Refractive Surgeon Name Role Phone Unknown, Provider Primary Care Provider Encounter Details Date Type Department Care Team (Late st Contact Info) Description 07/31/2020 Lab Requisition [facility] Pathology & Laboratory Medicine - [facility] [address] [place] [address] Jessy Thomas, [address] [place] [address] Encounter for other general examination [...] System with Manual Evaluation 08/05/2020 13:22 EST [facility] Specimen Adequacy Satisfactory for Evaluation - transformation zone component present 08/05/2020 13:22 EST [facility] General Categorization Negative for intraepithelial lesion or malignancy 08/05/2020 13:22 EST [facility] Attestation . 08/05/2020 13:22 [facility] at 1322 Clinical History See below 08/05/20 20 13:22 EST [facility] Performing Lab [facility] 08/05/2020 13:22 EST [facility] Scanned Images 08/05/2020 13:22 EST [facility] Papanicolaou smear specimen (specimen) CERVIX UTERI STRUCTURE / Unknown 07/30/2020 14:00 EST 07/31/2020 16:14 EST Jessy Thomas PRINTING BINDERY ASSISTANT PATHOLOGY ORDERABLES [facility] [address] [place] [address] documented in this encounter Visit Diagnoses Diagnosis Encounter for other general examination documented in this encounter Additional Health Concerns Infection Onset Date Last Indicated Resolved Time COVID-19 10/01/2021 10/01/2021 10/21/2021 22:1 5 EST documented as of this encounter Care Teams Refractive Surgeon Relationship Specialty Start Date End Date Unknown, Provider, PCP - General 11/16/16 documented as of this encounter
[2024-05-11 19:20] LABS: Abs Immature Grans 0.02 10^3/uL (0.0-0.06); Absolute Basophil Count 0.04 10^3/uL (0.0-0.2); Absolute Eosinophil Count 0.28 10^3/uL (0.0-0.7); Absolute Lymphocyte Count 2.38 10^3/uL (1.2-3.4); Absolute Monocyte Count 0.51 10^3/uL (0.1-0.8); Absolute Neutrophil Count 4.86 10^3/uL (1.2-6.7); Basophils % 0.5 %; Eosinophils % 3.5 %; HCT 40.3 % (36.0-46.0); HGB 13.4 g/dL (11.2-15.7); Immature Grans % 0.2 %; Lymphocytes % 29.4 %; MCH 29.2 pg (27.0-33.0); MCHC 33.3 % (32.0-36.0); MCV 88 fL (80-95); MPV 9.1 fL (8.0-11.0); Monocytes % 6.3 %; Neutrophils % 60.1 %; Platelet Count 273 10^3/uL (130-400); RBC 4.59 10^6/uL (3.93-5.22); RDW 11.9 % (11.7-14.6); RDW-SD 38.4 fL; WBC 8.09 10^3/uL (4.4-10.8)
[2024-05-11 19:31] LABS: Bilirubin Negative (Negative); Blood Small (Negative); Clarity Clear (Clear); Glucose Negative (Negative); Ketones Negative (Negative); Leukocyte Esterase Negative (Negative); Nitrite Negative (Negative); Urobilinogen 0.2 mg/dL (Up to 0.2)
[2024-05-11 19:38] LABS: ALT 13 U/L (14-59); AST 10 U/L (15-37); Albumin 4.3 g/dL (3.4-5.0); Alkaline Phosphatase 104 U/L (46-116); Anion Gap 7.7 mmol/L (3-11); BUN 8 mg/dL (7-18); Bilirubin, Total 0.29 mg/dL (0.2-1.0); CO2 28.3 mmol/L (21.0-32.0); CREATININE 0.9 mg/dL (0.55-1.02); Calcium 9.7 mg/dL (8.5-10.1); Chloride 104 mmol/L (98-107); Estimated GFR 89.86 (mL/min/1.73m2); Glucose 81 mg/dL (74-106); Lipase 20 U/L (16-77); Magnesium 2.1 mg/dL (1.8-2.4); Potassium 3.2 mmol/L (3.5-5.1); Sodium 140 mmol/L (136-145); Total Protein 7.7 g/dL (6.4-8.2)
[2024-05-11 19:39] LABS: Bacteria Negative HPF (Negative); C & S Indicated? No; Crystals Negative HPF (Negative); Epithelial Cells Rare HPF (Negative); Mucus Negative (Negative); WBC Negative HPF (0-5)
--- NOTE | 2024-05-11 20:28 | ED.GENADUL_ITS ---
Discharge Plan Disposition Patient Disposition: Home Condition: Stable Discharge Details Clinical Impression: Abdominal pain of unknown etiology, Anxiety, Hypokalemia Primary Care Provider: Tania Salas ED Provider: Brenna Salinas Home Meds and New Rx's Prescriptions: No Action Mirena 21 mcg/24 hours (8 yrs) 52 mg intrauterine device 1 device intrauterine ONCE Rx Instructions: as a single dose lhvolifuvqta-Kw-mbsk-minerals 18-0.4 mg tablet 1 tab PO DAILY ibuprofen 200 mg capsule 200 mg PO Q6H PRN acetaminophen 325 mg capsule 325 mg PO ONCE PRN Discharge Instructions Instructions: Abdominal Pain, Adult ED Additional Instructions: You were seen in the emergency department today for evaluation of abdominal pain. In our department you had a full physical examination performed, had laboratory studies that were reassuring. If desired you can trial xcmq-arw-umcadmg medications such as simethicone (Gas-X) or omeprazole (Prilosec) and should follow-up with your primary care provider to discuss this visit and any symptoms that change, worsen, or persist. You did have a low potassium which you can supplement with potassium rich foods in your diet such as bananas and potatoes. Thank you for allowing us to be part of your care. HPI General Date/Time Provider Initiated Documentation: 05/11/24 18:49 . Limitations to Documentation: no limitations . Information obtained by: patient, family and old records reviewed . HPI Narrative: MDM: In brief, this is a 28-year-old female patient presenting for evaluation of epigastric and right upper quadrant abdominal pain. My differential includes but is not limited to gastritis/PUD, pancreatitis, cholecystitis, biliary colic, hepatitis, certainly considered appendicitis, diverticulitis, bowel obstruction though these are less consistent with the patient's history and physical examination. Considered UTI, nephrolithiasis. No vaginal symptoms or new sexual partners to increase my concern for PID/TOA, and the location of the pain is less concerning for ovarian pathology such as cyst or torsion. The patient is without personal risk factors for mesenteric ischemia or aortic disease. We will obtain laboratory studies to include CBC, CMP, lipase, UA, and U. Preg . I will perform a bedside ultrasound of the gallbladder, and at this time the patient is not desiring of any medications for management of pain or nausea. ED Course: I independently interpreted the laboratory studies, which show no significant leukocytosis, anemia, or thrombocytopenia. The chemistry panel is without evidence of electrolyte abnormality, kidney dysfunction, or liver injury with the exception of a mildly low potassium which the patient can replete orally through her diet. Lipase is low, and the UA is without evidence of infectious findings. She did have a small amount of blood but states that she is starting her period today,, and given the lack of flank pain this likely represents a source of her blood. Ultrasound as noted below was reassuring against acute cholecystitis. On reassessment the patient remains with a benign abdominal examination, and given the reassuring workup is desiring of discharge home. She can follow-up with her primary care provider in the next few days to discuss this visit and any symptoms that change, worsen, or persist. Given the potential for bloating and acid reflux/gastritis, we did discuss the use of mrpd-cwm-nakfxvd simethicone and omeprazole, which the patient will trial in the outpatient environment. At this time, the patient has had a full medical evaluation and is safe for discharge to home. They are hemodynamically stable, ambulatory, and tolerating PO. They are understanding of the follow-up plan and return precautions. They left our facility without incident. Brenna Salinas MD HPI: This is a 28-year-old female patient without significant past medical history presenting for evaluation of abdominal pain. Patient reports that 2 to 3 days ago she started to have sharp pain in her right upper quadrant, which improved with pnok-gkg-cdtyawy ibuprofen as well as when she eats. She reports that she has not had fevers, nausea or vomiting, and denies diarrhea. Last stool was yesterday, states that she has a history of mild constipation but did not notice any blood in her stool or diarrhea. She has not had any vaginal discharge or new sexual partners, though she did note that when she had sexual intercourse the movement associated with this activity made her abdominal pain worse. Reports that the pain does not radiate, and is not associated with any hematuria, dysuria, and she has been able to maintain her p.o. intake. Exam: Gen: Awake and alert, in no apparent distress HEENT: Non-icteric sclera Neck: Supple Lungs: No apparent respiratory distress, normal respiratory effort. CV: Appears well perfused, heart with regular rate and rhythm, strong distal pulses Abdomen: Non-distended, soft, tender to palpation in the right upper quadrant without rigidity, rebound, or guarding. The patient has a negative Conley sign, and no CVA tenderness. MSK: Moves 4 extremities without apparent limitation in ROM Skin: Visualized skin without rashes, cyanosis. Neuro: Normal Gait, no obvious focal deficits or facial asymmetry. Speaks in full, clear sentences. Psych: Appropriate for situation. Related Data Home Medications ?Medication ?Instructions ?Recorded ?Confirmed acetaminophen 325 mg capsule 325 mg PO ONCE PRN 09/22/23 04/27/24 ibuprofen 200 mg capsule 200 mg PO Q6H PRN 09/22/23 04/27/24 avjuutyycqsa-Bo-xkbm-minerals 18 1 tab PO DAILY 09/22/23 04/27/24 mg-0.4 mg tablet levonorgestrel 21 mcg/24 hr (up to 1 device intrauterine ONCE 11/05/23 04/27/24 8 years) 52 mg intrauterine device (Mirena) Allergies Allergy/AdvReac Type Severity Reaction Status Date / Time No Known Allergies Allergy Verified 04/27/24 09:56 General Stated Complaint: Abd Prob HALEY: 3 Course Vital Signs Vital signs: Vital Signs Temperature 37.1 C 05/11/24 18:46 Pulse 77 05/11/24 18:46 Respiratory Rate 15 05/11/24 18:46 Blood Pressure 145/81 H 05/11/24 18:46 Pulse Oximetry 98 05/11/24 18:46 Temperature 36.9 C 05/11/24 18:49 Temperature Source Axillary 05/11/24 18:49 Pulse 74 05/11/24 19:46 Pulse Rhythm Regular 05/11/24 19:18 Pulse Strength Normal 05/11/24 19:18 Respiratory Rate 12 05/11/24 19:18 Respiratory Effort Normal 05/11/24 19:18 Respiratory Depth Normal 05/11/24 19:18 Respiratory Pattern Normal 05/11/24 19:18 Blood Pressure 128/68 05/11/24 19:46 Blood Pressure Mean 82 05/11/24 19:46 Blood Pressure Position Sitting 05/11/24 19:18 Pulse Oximetry 99 05/11/24 19:50 Oxygen Delivery Method Room Air 05/11/24 19:18 Oxygen Flow Rate 0 05/11/24 19:18 Pain Level 7 05/11/24 18:49 Lab/Test Results Lab/Test Results: Laboratory Tests Range/Units 05/11/24 05/11/24 19:05 19:15 WBC (4.4-10.8) 10^3/uL 8.09 RBC (3.93-5.22) 10^6/uL 4.59 Hgb (11.2-15.7) g/dL 13.4 Hct (36.0-46.0) % 40.3 MCV (80-95) fL 88 MCH (27.0-33.0) pg 29.2 MCHC (32.0-36.0) % 33.3 RDW (11.7-14.6) % 11.9 Plt Count (130-400) 10^3/uL 273 MPV (8.0-11.0) fL 9.1 Immature Gran % % 0.2 Neutrophils % % 60.1 Lymphocytes % % 29.4 Monocytes % % 6.3 Eosinophils % % 3.5 Basophils % % 0.5 Nucleated RBC % (0.0-0.3) % 0.0 Absolute Neutrophils (1.2-6.7) 10^3/uL 4.86 Absolute Lymphocytes (1.2-3.4) 10^3/uL 2.38 Absolute Monocytes (0.1-0.8) 10^3/uL 0.51 Absolute Eosinophils (0.0-0.7) 10^3/uL 0.28 Absolute Basophils (0.0-0.2) 10^3/uL 0.04 Sodium (136-145) mmol/L 140 Potassium (3.5-5.1) mmol/L 3.2 L Chloride (98-107) mmol/L 104 Carbon Dioxide (21.0-32.0) mmol/L 28.3 Anion Gap (3-11) mmol/L 7.7 BUN (7-18) mg/dL 8 Creatinine (0.55-1.02) mg/dL 0.9 Est GFR (CKD-EPI 2020) (mL/min/1.73m2) 89.86 Glucose (74-106) mg/dL 81 Calcium (8.5-10.1) mg/dL 9.7 Magnesium (1.8-2.4) mg/dL 2.1 Total Bilirubin (0.2-1.0) mg/dL 0.29 AST (15-37) U/L 10 L ALT (14-59) U/L 13 L Alkaline Phosphatase (46-116) U/L 104 Total Protein (6.4-8.2) g/dL 7.7 Albumin (3.4-5.0) g/dL 4.3 Lipase (16-77) U/L 20 Urine Color (Yellow) Yellow Urine Clarity (Clear) Clear Urine pH (5-8) 6.0 Ur Specific [place] (1.005-1.025) 1.020 Urine Protein (Neg-Trace) mg/dL Negative Urine Ketones (Negative) mg/dL Negative Urine Blood (Negative) Small H Urine Nitrite (Negative) Negative Urine Bilirubin (Negative) Negative Urine Urobilinogen (Up to 0.2) mg/dL 0.2 Ur Leukocyte Esterase (Negative) Negative Urine RBC (0-2) HPF 5-10 H Urine WBC (0-5) HPF Negative Ur Epithelial Cells (Negative) HPF Rare Urine Crystals (Negative) HPF Negative Urine Bacteria (Negative) HPF Negative Urine Mucus (Negative) Negative Ur Culture Indicated? No Urine Glucose (Negative) mg/dL Negative POC- Test(urine) Negative Medical Decision Making Quality:SDOH Health Related Social Needs: Health related social needs risk of homeless, material hardship, food insecurity, transpo insecurity, personal safety PFSH All Active Problems (Updated 05/11/24 @ 22:09 by Brenna Salinas MD) Hypokalemia (Acute) Abdominal pain of unknown etiology (Acute) Headache (Acute) Anxiety (Chronic) Medical History (Updated 05/11/24 @ 22:09 by Brenna Salinas MD) Presence of IUD Mirena IUD placed 10/08/23 COVID-19 Coccyx sprain from childbirth Family history of thrombocytopenia Bruises easily History of migraine Chlamydia trachomatis infection (05/17/13) Rx with Zithromax. YE 01/03/14 -neg Family History Mother Multiple sclerosis sx consist of temperature instability Diabetes Thrombocytopenia Maternal Grandmother Diabetes Pulmonary embolism Aneurysm of this age 72. smoker Father Substance use disorder Social History Smoking/Tobacco Use Status: Never Smoking risk assessment performed?: Yes Alcohol Intake: former Drug use: Current Sobriety Substance use type: does not use Household members: children and other Details: BF jose angelBrandiian Housing: apartment Do you feel safe at home: Yes (unable to assess privately) Do you feel safe in your relationship?: Yes History History 4 Para 3 Hx # Term Pregnancies 3 Multiple births 0 Hx # Pregnancies 0 Ectopic pregnancies 0 AB induced 0 Hx Number of Living Children 3 AB spontaneous 0 Past Pregnancies Del. Date GA/Weeks # Preg Succ Route Wgt Sex Labor Lgth Anesth esia Location Prov Complic 06/01/17 40 No vaginal 3118.448 g Male 5 hrs [facility] 04/15/19 39 No vaginal 3203.496 g Male 16 [facility] 01/13/21 4 06/03/22 40 No Yes vaginal 3270.004 g Female local [facility] Delivery Date: 06/01/17 Last Updated by: Ewa Vines Used nitrous, nml [place] Delivery Date: 04/15/19 Last Updated by: Ewa Vines Nml unmedicated though cat 2 tracing, used nitrous. [facility] Delivery Date: 01/13/21 Last Updated by: DO Lizeth Calero Delivery Date: 06/03/22 Last Updated by: FLAKITO Ocasio Have you Been Recently Intoxicated or Drunk Within the Last 30 days?: No Have you Ever Experienced Previous Episodes of Alcohol Withdrawal?: No Have you ever Experienced Withdrawal Seizures?: No Have you ever Experienced Delirium Tremens(DT)s?: No Have you ever undergone Alcohol Rehabilitation Treatment (i.e, inpt ot outpatient treatment programs)?: No Have you ever Experienced Blackouts?: No Have you ever Combined Alcohol with other Downers within the last 90 days?: No Have you ever Combined Alcohol with any other Substance of Abuse during the last 90 days?: No Positive Blood Alcohol level on Presentation? [PCS.BAL]: No Evidence of Increased Autonomic Activity (i.e. HR>120, tremor, sweating, agitation, nausea)?: No Result: 0 POCUS Exam (ED) Limited Gallbladder Exam DATE OF EXAM: 05/11/24 PROVIDER THAT PERFORMED THE STUDY: Brenna Salinas IS THIS A REPEAT EXAM DURING THIS ENCOUNTER: No REASON FOR VISIT: Abdominal pain VISUALIZED STRUCTURES: Gallbladder and Liver PERTINENT FINDINGS/IMPRESSION: No apparent abnormalities INCIDENTAL FINDINGS: Gallbladder is not dilated, patient reports that she just ate prior to arrival. No pericholecystic fluid, question of a small segment of shadowing within the gallbladder but no visualized stones. Exam complete
== END | disposition home or self-care (01) ==
LOC: ER 20:29 → RED 20:51
PROVIDERS: Emergency Provider Emergency Medicine; PCP Nurse Practitioner Family
DX: R10.11 Right upper quadrant pain (principal); E87.6 Hypokalemia
CPT/HCPCS: 36415; 76705; 80053; 81025; 83690; 99284; 81003; 81015; 83735; 85025; 99283

== ENCOUNTER 2024-05-29 19:58 | Emergency (ER) | payer BC, SELFPAY ==
[2024-05-29 20:01] VITALS: BP 146/91; PULSE 73; RESP 18; TEMP 36.9; O2SAT 98
--- NOTE | 2024-05-29 20:04 | ED.GENADUL_ITS ---
Discharge Plan Disposition Patient Disposition: Home Condition: Stable Discharge Details Clinical Impression: Migraine syndrome Primary Care Provider: Tania Salas ED Provider: Braulio Leyva Home Meds and New Rx's Prescriptions: No Action Mirena 21 mcg/24 hours (8 yrs) 52 mg intrauterine device 1 device intrauterine ONCE Rx Instructions: as a single dose rlrbwxyoyiwa-Fr-mexr-minerals 18-0.4 mg tablet 1 tab PO DAILY ibuprofen 200 mg capsule 200 mg PO Q6H PRN acetaminophen 325 mg capsule 325 mg PO ONCE PRN Discharge Instructions Instructions: Migraine in adults, Headache, Adult ED Additional Instructions: You were seen in the emergency department for your migraine syndrome. You improved with significant aggressive headache medication regimen. For at home relief of persistent migraine please try to take 1000 mg of Tylenol, 400 mg of ibuprofen, 25 mg of Benadryl, drink a cup of coffee, drink 3 to 4 glasses of water. Speak with your primary care provider about possibly starting a daily medication to prevent migraine called sumatriptan. Please return for any severe increase in headache symptoms especially with neurologic changes like focal weakness, numbness, tingling, visual changes, vertigo. Referrals: Tania Salas [Primary Care Provider] - Discharge Data Discharge Date/Time-TO BE ENTERED AT DEPARTURE: 05/29/24 21:49 HPI General Date/Time Provider Initiated Documentation: 05/29/24 20:04 . HPI Narrative: 28 year-old female presents to ED today by POV/ambulating with a chief complaint of persistent headache for a week, rubber-band like around her head, history of migraines. Quality described as generalized headache, waxes and wanes, no radiation to focal numbness/weakness/tingling, visual changes, vomiting, hearing changes, neck stiffness, fever, cough, abdominal pain. Severity is described as severe. Palliating factors include mildly response to OTC meds, improves when she goes for a walk. Provoking factors include nothing specific, endorses stressful events lately. Patient not anticoagulated. Related Data Home Medications ?Medication ?Instructions ?Recorded ?Confirmed acetaminophen 325 mg capsule 325 mg PO ONCE PRN 09/22/23 05/29/24 ibuprofen 200 mg capsule 200 mg PO Q6H PRN 09/22/23 05/29/24 gmxmuxcgldyv-Oz-nasc-minerals 18 1 tab PO DAILY 09/22/23 05/29/24 mg-0.4 mg tablet levonorgestrel 21 mcg/24 hr (up to 1 device intrauterine ONCE 11/05/23 05/29/24 8 years) 52 mg intrauterine device (Mirena) Allergies Allergy/AdvReac Type Severity Reaction Status Date / Time No Known Allergies Allergy Verified 05/29/24 20:01 General Stated Complaint: Headache HALEY: 4 Review of Systems All systems reviewed & are unremarkable except as noted in HPI and below Exam Narrative Exam Narrative: GENERAL APPEARANCE: Well-nourished, non-toxic, awake and alert, atraumatic, no acute distress. SKIN: Warm, pink, dry, intact, without rashes/lesions/ulcerations. HEAD: Normocephalic, atraumatic, normal hair distribution for gender/age. EYES: Normal conjunctiva, no exudates on lids/lashes. ENT: Nares patent, no circumoral cyanosis, no facial swelling NECK: Supple, trachea midline, painless cervical ROM. LUNGS/CHEST: Non-labored respirations, normal A/P diameter, symmetrical expansion, no chest wall deformity HEART (CV/PV): No peripheral edema, no JVD. ABDOMEN: Soft, non-distended, no guarding. MSK: Normal ROM, no swelling/deformity to bilateral UEs or LEs, moving all extremities without weakness, no cyanosis, spine midline without tenderness, normal curvature. NEURO: Mental Status AAOx4 - alert to person, place, time, events No facial droop, no forehead involvement. Motor: No focal weakness - strength 5/5 in bilateral UEs and LEs, proximal and distal, symmetric. Sensory: sensation intact to light touch globally. Gait normal: patient ambulated without ataxia into ED room. PSYCH: euthymic, cooperative, pleasant, appropriate speech Course Vital Signs Vital signs: Vital Signs Temperature 36.9 C 05/29/24 20:01 Pulse 73 05/29/24 20:01 Respiratory Rate 18 05/29/24 20:01 Blood Pressure 146/91 H 05/29/24 20:01 Pulse Oximetry 98 05/29/24 20:01 Temperature 36.9 C 05/29/24 20:01 Pulse 73 05/29/24 20:01 Respiratory Rate 18 05/29/24 20:01 Respiratory Effort Normal 05/29/24 20:03 Blood Pressure 146/91 H 05/29/24 20:01 Pulse Oximetry 98 05/29/24 20:01 Pain Level 5 05/29/24 20:01 Medical Decision Making This dictation utilizes jknwh-ha-pnyk dictation software and may contain unedited grammatical errors. 28 year-old female presents to ED today by POV/ambulating with a chief complaint of persistent headache for a week, rubber-band like around her head, history of migraines. Quality described as generalized headache, waxes and wanes, no radiation to focal numbness/weakness/tingling, visual changes, vomiting, hearing changes, neck stiffness, fever, cough, abdominal pain. Severity is described as severe. Palliating factors include mildly response to OTC meds, improves when she goes for a walk. Provoking factors include nothing specific, endorses stressful events lately. Patients' medical history: Anxiety. Family and social history: Noncontributory. Pertinent exam findings / vital signs include neuro intact, benign cardiopulmonary status, benign abdomen. Differential / pathologies of concern include tension headache, migraine syndrome, unlikely to be any focal intracranial pathology, not stroke. Diagnostic studies of: -None. Interventions of: -1 tablet of Fioricet, IV ketorolac, IV dexamethasone, Compazine, sumatriptan, 650 IV acetaminophen, 1 L IVF saline. Patient significantly improved. ED Course/Assessment/Plan: 28-year-old female presents with tension type headache pattern, waxing and waning migraines for about a week, was given aggressive regimen of headache medications here, recommend she follow-up with her primary care provider and possibly start once daily sumatriptan for migraine prevention. Counseled on at home headache remedies, strict return criteria for focal neurological complaints or severe increase especially with fever and neck stiffness. Findings not consistent with meningitis, stroke, fever, neurologic abnormality. Disposition of migraine syndrome. Patient verbalized understanding of the plan and return to ED criteria and engaged in shared decision making. Medical Records Medical records reviewed: Yes I reviewed the patient's medical records. Quality:SDOH Health Related Social Needs: Health related social needs risk of homeless, material hardship, food insecurity, transpo insecurity, personal safety PFSH All Active Problems (Updated 05/29/24 @ 21:36 by COREY Infante) Migraine syndrome (Acute) Hypokalemia (Acute) Abdominal pain of unknown etiology (Acute) Anxiety (Chronic) Medical History (Updated 05/29/24 @ 21:36 by COREY Infante) Presence of IUD Mirena IUD placed 10/08/23 COVID-19 Coccyx sprain from childbirth Family history of thrombocytopenia Bruises easily History of migraine Chlamydia trachomatis infection (05/17/13) Rx with Zithromax. YE 01/03/14 -neg Family History Mother Multiple sclerosis sx consist of temperature instability Diabetes Thrombocytopenia Maternal Grandmother Diabetes Pulmonary embolism Aneurysm of this age 72. smoker Father Substance use disorder Social History Smoking/Tobacco Use Status: Never Smoking risk assessment performed?: Yes Alcohol Intake: current Alcohol Intake frequency: a few times a week Drug use: Never Substance use type: does not use Household members: children and other Details: Brandi Davila Housing: apartment Do you feel safe at home: Yes (unable to assess privately) Do you feel safe in your relationship?: Yes History History 4 Para 3 Hx # Term Pregnancies 3 Multiple births 0 Hx # Pregnancies 0 Ectopic pregnancies 0 AB induced 0 Hx Number of Living Children 3 AB spontaneous 0 Past Pregnancies Del. Date GA/Weeks # Preg Succ Route Wgt Sex Labor Lgth Anesth esia Location [facility] 06/01/17 40 No vaginal 3118.448 g Male 5 hrs [facility] 04/15/19 39 No vaginal 3203.496 g Male 16 [facility] 01/13/21 4 06/03/22 40 No Yes vaginal 3270.004 g Female local [facility] Delivery Date: 06/01/17 Last Updated by: Ewa Vines Used nitrous, nml [place] Delivery Date: 04/15/19 Last Updated by: Ewa Vines Nml unmedicated though cat 2 tracing, used nitrous. [facility] Delivery Date: 01/13/21 Last Updated by: Juany Arriaza DO [facility] Delivery Date: 06/03/22 Last Updated by: FLAKITO Ocasio
[2024-05-29] MEDS: Butalbital/Acetaminophen/Caffeine 50/325/40 TAB PO (20:52)
[2024-05-29] MEDS: Normal Saline 1,000 ML 1000 ML IV (20:52)
[2024-05-29] MEDS: Dexamethasone 10 MG/ML VIAL IVP (20:52)
[2024-05-29] MEDS: Ketorolac 15 MG/ML VIAL IVP (20:52)
[2024-05-29] MEDS: Prochlorperazine 10 MG/2 ML VIAL 5 MG IVP (20:53)
[2024-05-29] MEDS: SUMAtriptan 25 MG TAB PO (20:53)
[2024-05-29 21:49] VITALS: BP 132/82; PULSE 67; RESP 13; O2SAT 99
== END 2024-05-29 21:49 | disposition home or self-care (01) ==
PROVIDERS: Emergency Provider Physician Assistant; PCP Nurse Practitioner Family
DX: G43.909 Migraine, unspecified, not intractable, without status migrainosus (principal)
CPT/HCPCS: 36415; 96361; 96365; 96375; 99284; 99283; J0131; J0780; J1100; J1885

== ENCOUNTER 2024-09-01 01:46 | Outpatient (CLI) | payer BC, SELFPAY ==
[2024-09-01 09:48] LABS: Panorama Kit Sent via Fed Ex
[2024-09-01 10:02] LABS: Abs Immature Grans 0.02 10^3/uL (0.0-0.06); Absolute Basophil Count 0.04 10^3/uL (0.0-0.2); Absolute Eosinophil Count 0.06 10^3/uL (0.0-0.7); Absolute Lymphocyte Count 1.69 10^3/uL (1.2-3.4); Absolute Monocyte Count 0.41 10^3/uL (0.1-0.8); Absolute Neutrophil Count 6.87 10^3/uL (1.2-6.7); Basophils % 0.4 %; Eosinophils % 0.7 %; HCT 37.5 % (36.0-46.0); Immature Grans % 0.2 %; Lymphocytes % 18.6 %; MCH 28.9 pg (27.0-33.0); MCHC 34.7 % (32.0-36.0); MCV 83 fL (80-95); MPV 9.2 fL (8.0-11.0); Monocytes % 4.5 %; Neutrophils % 75.6 %; Platelet Count 241 10^3/uL (130-400); RDW 11.9 % (11.7-14.6); RDW-SD 35.6 fL; WBC 9.09 10^3/uL (4.4-10.8)
[2024-09-03 09:19] LABS: HIV-1/2 Ag & Ab Screen Negative (Negative)
[2024-09-03 14:37] LABS: Syphilis IgG w/Reflex Nonreactive (Nonreactive)
[2024-09-04 10:24] LABS: Rubella IgG Ab (UVM) Positive (See Note)
[2024-09-04 10:26] LABS: Varicella IgG Antibody Negative (See Note)
[2024-09-04 10:37] LABS: Hepatitis B Surface Ag Negative (Negative)
[2024-09-04 12:32] LABS: Hepatitis C Ab w Rflx HCV PCR Negative (Negative)
[2024-09-04 17:03] LABS: Specimen WB Whole Blood
== END 2024-09-01 01:47 | disposition home or self-care (01) ==
LOC: LBO 01:47
PROVIDERS: Advanced Practice Midwife; PCP Nurse Practitioner Family; Visit Provider Advanced Practice Midwife
DX: Z34.91 Encounter for supervision of normal pregnancy, unspecified, first trimester (principal); Z3A.12 12 weeks gestation of pregnancy
CPT/HCPCS: 36415; 81329; 86787; 86803; 86850; 86900; 86901; 87340; 87389; 85025; 86762; 86780

== ENCOUNTER 2024-09-01 10:59 | Outpatient (REF) | payer BC, SELFPAY ==
[2024-09-04 12:20] LABS: Chlamydia Result Negative (Negative); GC Result Negative (Negative)
== END 2024-09-01 11:00 | disposition home or self-care (01) ==
LOC: LBN 10:59
PROVIDERS: PCP Nurse Practitioner Family; Visit Provider Advanced Practice Midwife
DX: Z34.91 Encounter for supervision of normal pregnancy, unspecified, first trimester (principal); Z3A.12 12 weeks gestation of pregnancy
CPT/HCPCS: 87491; 87591; 87086; 87480; 87510; 87660

== ENCOUNTER 2024-09-08 01:31 | Outpatient (CLI) | payer BC, SELFPAY ==
[2024-09-08 11:00] LABS: Glucose,1 Hr (Glucola) 70 mg/dL (80-140)
== END 2024-09-08 01:32 | disposition home or self-care (01) ==
LOC: LBO 01:31
PROVIDERS: Advanced Practice Midwife; PCP Nurse Practitioner Family; Visit Provider Advanced Practice Midwife
DX: Z34.91 Encounter for supervision of normal pregnancy, unspecified, first trimester (principal)
CPT/HCPCS: 36415; 82950

== ENCOUNTER 2024-09-20 09:16 | Outpatient (REF) | payer BC, SELFPAY | END 2024-09-20 09:17 | disposition home or self-care (01) | LOC: LBN 09:16 | PROVIDERS: PCP Nurse Practitioner Family; Visit Provider Advanced Practice Midwife | DX: N89.8 Other specified noninflammatory disorders of vagina (principal); R21 Rash and other nonspecific skin eruption | CPT/HCPCS: 87480; 87510; 87660 ==

== ENCOUNTER 2024-09-29 11:23 | Outpatient (CLI) | payer BC, SELFPAY ==
[2024-10-02 15:00] LABS: AFP 14.5 ng/mL; Calculated age at EDD 28 years; Cigarette smoking status non-Smoker; GA used in risk estimate Dates estimate; IVF Pregnancy No; Initial or repeat testing Initial testing; Insulin dependent diabetes No; Maternal Weight 205 lbs; Number of Fetuses 1; Physician Phone Number 802-748-7300; Prev Pregnancy w/NTD No; RECOMMENDED FOLLOW UP None.; Results Summary Normal risk
== END 2024-09-29 11:24 | disposition home or self-care (01) ==
LOC: LBO 11:24
PROVIDERS: PCP Nurse Practitioner Family; Visit Provider Advanced Practice Midwife
DX: Z34.91 Encounter for supervision of normal pregnancy, unspecified, first trimester (principal)
CPT/HCPCS: 36415; 82105

== ENCOUNTER 2024-12-10 15:56 | Outpatient (CLI) | payer BC, SELFPAY ==
[2024-12-10 17:04] VITALS: BP 131/72; PULSE 85
[2024-12-10 17:11] VITALS: BP 131/72; PULSE 85; TEMP 36.8
[2024-12-10] MEDS: Ondansetron O.D.T. 4 MG TABEF PO (17:20)
[2024-12-11 08:08] VITALS: BP 131/72; PULSE 85; TEMP 36.8
--- NOTE | 2024-12-11 08:08 | W.OBNST ---
Date of service: 12/10/24 Time of Service: 16:55 NST Evaluation Reason for NST Reasons for Nonstress Test: OTHER, SEE COMMENT Reason for NST Other: Headache/Blurry Vision Gestational Age Gestational Age in Weeks and Days: 26 Weeks and 3Days Test and Monitor Explained Test/Monitor Explained: Test Explained, Monitor Explained and Patient Verbalized Understanding Vital Signs Blood Pressure: 131/72 Pulse: 85 Temperature: 98.2 F Urine Results Urine Protein: Negative Urine Ketones: Negative Urine Glucose: Negative Urine Blood: Negative NST Information Date on Monitor: 12/10/24 Time on Monitor: 16:40 Date off Monitor: 12/10/24 Time off Monitor: 17:16 Total Time on Monitor: 36 NST Interventions: PO Hydration Contraction Frequency: None NST Evaluation Patient States Movement: Present FHR Baseline: 150 Variability: Moderate 6-25 bpm Accelerations: 10x10 Decelerations: None NST Results: Reactive Note Ultrasound Done: N/A. NST Note NST Reviewed and Verified by: Ewa Vines
== END 2024-12-10 18:12 ==
LOC: BCD 15:58 → OBS 16:00
PROVIDERS: PCP Nurse Practitioner Family; Referring Provider Advanced Practice Midwife; Visit Provider Advanced Practice Midwife
DX: O99.891 Other specified diseases and conditions complicating pregnancy (principal); R51.9 Headache, unspecified; Z3A.28 28 weeks gestation of pregnancy
CPT/HCPCS: 59025

== ENCOUNTER 2024-12-18 03:12 | Outpatient (CLI) | payer BC, SELFPAY ==
[2024-12-18 10:06] LABS: HCT 32.6 % (36.0-46.0); MCH 28.9 pg (27.0-33.0); MCHC 33.7 % (32.0-36.0); MCV 86 fL (80-95); MPV 8.8 fL (8.0-11.0); Platelet Count 215 10^3/uL (130-400); RDW 12.5 % (11.7-14.6); WBC 9.06 10^3/uL (4.4-10.8)
[2024-12-18 10:16] LABS: Glucose,1 Hr (Glucola) 123 mg/dL (80-140)
== END 2024-12-18 03:13 | disposition home or self-care (01) ==
LOC: LBO 03:12
PROVIDERS: PCP Nurse Practitioner Family; Visit Provider Advanced Practice Midwife
DX: Z34.91 Encounter for supervision of normal pregnancy, unspecified, first trimester (principal)
CPT/HCPCS: 36415; 82950; 85027

== ENCOUNTER 2025-02-01 09:17 | Outpatient (CLI) | payer BC, SELFPAY ==
[2025-02-01 09:33] LABS: HCT 32.7 % (36.0-46.0); HGB 10.6 g/dL (11.2-15.7); MCH 26.8 pg (27.0-33.0); MCHC 32.4 % (32.0-36.0); MCV 83 fL (80-95); Platelet Count 206 10^3/uL (130-400); RBC 3.96 10^6/uL (3.93-5.22); RDW-SD 36.4 fL; WBC 10.45 10^3/uL (4.4-10.8)
== END 2025-02-01 09:18 | disposition home or self-care (01) ==
LOC: LBO 09:17
PROVIDERS: PCP Nurse Practitioner Family; Visit Provider Advanced Practice Midwife
DX: Z34.93 Encounter for supervision of normal pregnancy, unspecified, third trimester (principal)
CPT/HCPCS: 36415; 85027

== ENCOUNTER 2025-02-02 18:11 | Outpatient (CLI) | payer BC, SELFPAY ==
[2025-02-02] VITALS (15 sets, daily range): BP systolic 139; BP diastolic 76; PULSE 79–107; RESP 16; TEMP 37.3; O2SAT 98–100
[2025-02-02 20:52] LABS: TSH (W/Ref FT4) 2.95 uIU/mL (0.36-3.74)
--- NOTE | 2025-02-03 11:27 | W.OBNST ---
Date of service: 02/02/25 Time of Service: 21:00 NST Evaluation Reason for NST Reasons for Nonstress Test: OTHER, SEE COMMENT Reason for NST Other: Heart palpitations, Shortness of breath Gestational Age Gestational Age in Weeks and Days: 34 Weeks and 1Days Test and Monitor Explained Test/Monitor Explained: Test Explained Vital Signs Blood Pressure: 139/76 Pulse: 98 Temperature: 210.4 F Urine Results Urine Protein: Positive Urine Ketones: Negative Urine Glucose: Negative Urine Blood: Negative NST Information Date on Monitor: 02/02/25 Time on Monitor: 19:21 Date off Monitor: 02/02/25 Time off Monitor: 20:08 Total Time on Monitor: 47 NST Interventions: PO Hydration Contraction Frequency: none per toco or reported NST Evaluation Patient States Movement: Present FHR Baseline: 145 Variability: Moderate 6-25 bpm Accelerations: 15x15 Decelerations: None NST Results: Reactive Note Ultrasound Done: N/A. NST Note Note: Shanti called and reported intermittent dizzy spells and racing heart rate. 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 She presents for NST and vital signs. Hgb was 10.6 yesterday and she was encouraged to continue daily PO iron. She denied symptoms during the NST. TSH with reflex drawn. Await results. Rest was encouraged over the weekend and will consider EKG in the office if symptoms persist. NST Reviewed and Verified by: Richa Rasheed
[2025-02-03 11:31] VITALS: BP 139/76; PULSE 98; TEMP 210.4; TEMP 99.1
== END 2025-02-02 20:20 | disposition other institution (70) ==
LOC: BCD 18:17 → NUR 19:21 → OBS 19:22
PROVIDERS: PCP Student in an Organized Health Care Education/Training Program; Visit Provider Advanced Practice Midwife
DX: O26.893 Other specified pregnancy related conditions, third trimester (principal); R00.2 Palpitations; R06.02 Shortness of breath; Z3A.34 34 weeks gestation of pregnancy
CPT/HCPCS: 59025; 84443

== ENCOUNTER 2025-02-12 09:24 | Outpatient (REF) | payer BC, SELFPAY | END 2025-02-12 09:25 | disposition home or self-care (01) | LOC: LBN 09:24 | PROVIDERS: PCP Student in an Organized Health Care Education/Training Program; Visit Provider Advanced Practice Midwife | DX: Z34.93 Encounter for supervision of normal pregnancy, unspecified, third trimester (principal) | CPT/HCPCS: 87480; 87510; 87660 ==

== ENCOUNTER 2025-02-19 10:24 | Outpatient (REF) | payer BC, SELFPAY | END 2025-02-19 10:25 | disposition home or self-care (01) | LOC: LBN 10:24 | PROVIDERS: PCP Student in an Organized Health Care Education/Training Program; Visit Provider Advanced Practice Midwife | DX: Z34.93 Encounter for supervision of normal pregnancy, unspecified, third trimester (principal) | CPT/HCPCS: 87081 ==

== ENCOUNTER 2025-02-28 18:22 | Outpatient (CLI) | payer BC, SELFPAY ==
[2025-02-28 18:59] VITALS: BP 136/79; PULSE 101; TEMP 36.8
[2025-02-28 19:03] VITALS: BP 136/79; PULSE 101
--- NOTE | 2025-02-28 22:18 | PDOC.NST_ITS ---
Date of service: 02/28/25 Time of Service: 22:18 NST Evaluation Reason for NST Reasons for Nonstress Test: DECREASED MOVEMENT Gestational Age Gestational Age in Weeks and Days: 37 Weeks and 6Days Test and Monitor Explained Test/Monitor Explained: Test Explained, Monitor Explained and Patient Verbalized Understanding Vital Signs Blood Pressure: 136/79 Pulse: 101 Temperature: 98.2 F Urine Results Urine Protein: Negative Urine Ketones: Negative Urine Glucose: Negative Urine Blood: Negative NST Information Date on Monitor: 02/28/25 Time on Monitor: 19:01 Date off Monitor: 02/28/25 Time off Monitor: 19:30 Total Time on Monitor: 29 NST Interventions: PO Hydration Contraction Frequency: 2-4 NST Evaluation Patient States Movement: Present and Decreased FHR Baseline: 140 Variability: Moderate 6-25 bpm Accelerations: 15x15 Decelerations: None NST Results: Reactive Note Ultrasound Done: N/A. NST Note Note: Shanti has been having mild contractions today.She reported that they were every 10 minutes at home. She has been monitoring movement and has noticed decreased movement and she presents for an NST. Reactive NST. Fetus active. Signs of labor reviewed and she will follow up at [facility]. NST Reviewed and Verified by: Richa Rasheed
[2025-02-28 22:20] VITALS: BP 136/79; PULSE 101; TEMP 36.8
== END 2025-02-28 19:35 ==
LOC: BCD 18:24 → OBS 18:56
PROVIDERS: PCP Student in an Organized Health Care Education/Training Program; Visit Provider Advanced Practice Midwife
DX: O36.8331 Maternal care for abnormalities of the fetal heart rate or rhythm, third trimester, fetus 1 (principal); Z3A.37 37 weeks gestation of pregnancy
CPT/HCPCS: 59025

== ENCOUNTER 2025-03-01 00:57 | Outpatient (RCR) | payer BC, SELFPAY ==
[2025-02-12] MEDS: IRON SUCROSE COMPLEX 200 MG in Normal Saline 100 ML 440 MG IVPB (14:06)
[2025-02-12] MEDS: Normal Saline Flush 10 ML SYR IVP (14:06)
[2025-02-19] MEDS: IRON SUCROSE COMPLEX 200 MG in Normal Saline 100 ML 440 MG IVPB (10:14)
[2025-02-19] MEDS: Normal Saline Flush 10 ML SYR IVP (10:41)
[2025-03-01] MEDS: Normal Saline Flush 10 ML SYR IVP (09:19)
[2025-03-01] MEDS: IRON SUCROSE COMPLEX 200 MG in Normal Saline 100 ML 440 MG IVPB (09:19)
== END 2025-03-05 23:59 | disposition home or self-care (01) ==
LOC: INF 00:57
PROVIDERS: PCP Student in an Organized Health Care Education/Training Program; Visit Provider Advanced Practice Midwife
DX: O99.013 Anemia complicating pregnancy, third trimester (principal)
CPT/HCPCS: 96365; J1756

== ENCOUNTER 2025-03-06 04:50 | Inpatient (IN) | payer BC, SELFPAY ==
[2025-03-06] VITALS (42 sets, daily range): BP systolic 112–159; BP diastolic 56–87; PULSE 80–102; RESP 18; TEMP 36.5–36.9; O2SAT 93–100
--- NOTE | 2025-03-06 04:29 | W.PM.OBHPL1 ---
Date of service: 03/06/25 Time of Service: 04:29 Assessment and Plan Assessment and plan (1) PROM with onset of labor within 24 hours of rupture: Status: Acute Assessment and plan: A: 29 yo @ 38+5 wks, SROM @ 0250 clear fluid, confirmed Spontaneous onset early labor shortly after ROM GBS negative, no increased risk for SD or PPH, Category 1 tracing Anemia of resolved after 3 infusions iron sucrose Generalized anxiety without medication P: Admit to L&D, CBC, T&S, add CMP due to initial elevated BP reading Pt plans unmedicated labor other than nitrous Comfort measures as pt desires, expectant management Will monitor BP once pt settles into labor room Intermittent auscultation, oral hydration Anticipate OB-HPI Labor/Delivery History of Present Illness Reason for Visit: term labor Chief Complaint: Suspected Rupture of Membranes , Associated Signs and Symptoms of Suspected ROM: large gush of fluids after sneezing. VALERIE Calculator Estimated Delivery Date Method Current WG Current Estimate 03/15/25 LMP (Certain) 38w 5d Other Estimates 03/18/25 Ultrasound #1 38w 2d History of Present Expected Delivery Route/Plan - CNM FOB - Ben Pouliot (4th child together) BG- [facility] Nitrous is very helpful, otherwise unmedicated Varicella non-immune, offer vaccine GBS negative Specific Issues/Plan 1. Known CF neg 2016; SMA - neg, cfDNA low risk female, AFP - low risk 2.?BMI 32- early glucola- 70 3. Hx right sciatica - no symptoms currently 4. 5P screen negative, PhQ9 score 2. Hx anxiety, no meds, declines ref to [facility] 5. Low back pain @ 14wk, Renal US 09/14 nml, UA+UC ordered. Will try stretching and yoga, PT referral if ongoing 6. If needed c/s would have tubal ligation; signed state consent 01/01/2025 7. anemia - Doesn't eat red meat. She has been taking blood builder daily. 07/04 - HGb 10.6, high iron foods recommended 7a/ Hgb 9.7- Iron nfusions weekly ordered. 8. Hemorrhoids- relief methods discussed 9. Dizzy spells and racing pulse associated with anxiety, evaluated at the Center 02/02, TSH WNL Assessment: History Reviewed & Current Review of Systems Narrative: ROS noncontributory other than HPI PFSH All Active Problems (Updated 03/06/25 @ 04:53 by Ewa Vines) PROM with onset of labor within 24 hours of rupture (Acute) History of anemia (Acute) Susceptible to varicella (non-immune), currently (Acute) History of migraine (Acute) (Acute) Anxiety (Chronic) no meds Medical History (Updated 03/06/25 @ 04:53 by Ewa Vines) Anemia affecting Constipation Flank pain in patient Vaginal discharge Pelvic pain Presence of IUD Mirena IUD placed 10/08/23 COVID-19 Coccyx sprain from childbirth Family history of thrombocytopenia Bruises easily Chlamydia trachomatis infection (05/17/13) Rx with Zithromax. YE 01/03/14 -neg Family History Mother Multiple sclerosis sx consist of temperature instability Diabetes Thrombocytopenia Maternal Grandmother Diabetes Pulmonary embolism Aneurysm of this age 72. smoker Father Substance use disorder Social History Smoking/Tobacco Use Status: Never Smoking risk assessment performed?: Yes Alcohol Intake: current Alcohol Intake frequency: a few times a week Drug use: Never Substance use type: does not use Household members: children and other Details: Brandi Davila Housing: apartment Do you feel safe at home: Yes (unable to assess privately) Do you feel safe in your relationship?: Yes History History 5 Para 3 Hx # Term Pregnancies 3 Multiple births 0 Hx # Pregnancies 0 Ectopic pregnancies 0 AB induced 0 Hx Number of Living Children 3 AB spontaneous 1 Past Pregnancies Del. Date GA/Weeks # Preg Succ Route Wgt Sex Labor Lgth Anesthesia Location Prov Complic 06/01/17 40 No vaginal 6 lb 14 oz Male 5 hrs [facility] 04/15/19 39 No vaginal 7 lb 1 oz Male 16 [facility] 01/13/21 4 06/03/22 40 No Yes vaginal 7 lb 3.346 oz Female 5 hours local [facility] Delivery Date: 06/01/17 Last Updated by: Ewa Vines Used nitrous, nml [facility] Delivery Date: 04/15/19 Last Updated by: Ewa Vines Nml unmedicated though cat 2 tracing, used nitrous. [facility] Delivery Date: 01/13/21 Last Updated by: DO Lizeth Calero Delivery Date: 06/03/22 Last Updated by: Richa Rasheed CNM Suhail Salguero used nitrous oxide Meds Allergies and Home Medications Allergies Allergy/AdvReac Type Severity Reaction Status Date / Time No Known Allergies Allergy Verified 03/05/25 08:39 Home Medications ?Medication ?Instructions ?Recorded ?Confirmed ?Type acetaminophen 325 mg capsule 325 mg PO ONCE PRN 09/22/23 03/05/25 History pantoprazole 40 mg tablet,delayed 40 mg PO DAILY #30 tabs 09/20/24 03/05/25 Rx release (Protonix) ondansetron 4 mg disintegrating 4 mg PO Q6H PRN nausea and 12/10/24 03/05/25 Rx tablet vomiting #90 tabs PNV 153-FA 400 mcg-om3 35 mg-dha tab PO DAILY 01/15/25 03/05/25 History 25 mg-epa 5 mg-fish oil chew tablet ( Gummies) ferrous sulfate 325 mg (65 mg 325 mg PO DAILY 02/12/25 03/05/25 History iron) tablet (FeroSul) magnesium 200 mg tablet 200 mg PO DAILY 02/12/25 03/05/25 History Exam Physical Exam Vital signs: Pulse BP 90 159/78 H 03/06/25 04:07 03/06/25 04:07 Vital Signs Reviewed: Yes Constitutional Constitutional: mild distress, obese and cooperative Detailed Labor and Delivery Exam Dilation: 2 Effacement (%): 80 station: -4 Cervix position: posterior Consistency: medium GUALLPA Score(Cervical Ripeness Score): 5 Amniotic Membrane Status: Ruptured Rupture Method: Spontaneous Amniotic Fluid: Clear Pooling: Positive (Gross rupture, large amt visually draining from introitus) Nitrazine: Positive Monitor Mode: External Contraction Frequency(min): q2 minutes Contraction Intensity: Mild/Moderate Fetus A Heart Rate Baseline: 155 Monitor Accelerations: Present Monitor Decelerations: None Variability: Moderate (6-25 BPM) Categories: Category I Est. Weight: 7 lb 7.931 oz Est. Weight: 3400 gms Date of Membrane Rupture: 03/06/25 Time of Membrane Rupture: 02:50 HEENT Exam HEENT Exam: Normal Neck Exam Neck Exam: Normal Chest/Brest/Axilla Exam Chest Exam: Normal Breast Exam Breast Exam: Not Done Respiratory Exam Respiratory Exam: Normal Cardiovascular Exam Cardiovascular Exam: Normal Abdominal Exam Abdominal Exam: Normal (gravid, nontender) Rectal Exam Rectal Exam: Normal Exam Exam: Normal (clear fluid draining from introitus) Extremities Exam Extremities Exam: Normal Back/Spine/Pelvis Exam Back Exam: Normal Pelvis Adequate: Yes (proven to 7'3) Skin Exam Skin Exam: Normal Neurological Exam Neurological Exam: Normal Psychiatric Exam Psychiatric Exam: Normal Results Results Group Beta Strep: Negative Blood Type: O+ Rubella Status: Immune Varicella Immunity: Nonimmune Risk Assessment Risk for Shoulder Dystocia Historical/Initial OB: POSITIVE FOR: Pre- BMI>30; NEGATIVE FOR: Pelvic Abnormality, Previous Shoulder Dystocia or Previous Macrosomia 36 Weeks: POSITIVE FOR: Maternal Weight Gain>40lbs; NEGATIVE FOR: Current Gestational DM or EFW>4500gms Increased Risk?: No Delivery Plan @ 36wks: Risk for Pre-Eclampsia Date Initiated/Initials: not indicated Yes, if one or more: NEGATIVE FOR: Hx Pre-E/Gest HTN, Chronic HTN, Multiple Gestation, Pre-gestational DM, Renal Disease, Systemic Lupus or APA Syndrome Yes, if 2 or more: POSITIVE FOR: BMI>30; NEGATIVE FOR: Nulliparity, Age>= 35 yrs, >10yr btwn pregnancies, ethinicty, Mother/Sister w/ Pre-E or Previous IUGR Risk for Post- Hemorrhage Initial: NEGATIVE FOR: Multiple Gestation, Previous PPH, Known Clotting Deficiency, Grand Multiparity or Anticoagulation 36 Weeks: NEGATIVE FOR: Anemia, hgb<10, Low platelets(thrombocytopenia), Gestational HTN or Pre-E, Polyhydraminios or EFW>4500gms At Risk?: No Interventions: IV iron infusions to correct anemia Counseled re: Active Management: Yes Risks Reviewed Risks Reviewed Upon Admission: Yes
[2025-03-06 04:57] LABS: HCT 35.3 % (36.0-46.0); HGB 11.7 g/dL (11.2-15.7); MCH 27.6 pg (27.0-33.0); MCHC 33.1 % (32.0-36.0); MCV 83 fL (80-95); MPV 8.9 fL (8.0-11.0); Platelet Count 220 10^3/uL (130-400); RBC 4.24 10^6/uL (3.93-5.22); RDW 14.8 % (11.7-14.6); RDW-SD 44.5 fL; WBC 9.51 10^3/uL (4.4-10.8)
[2025-03-06 05:08] LABS: ALT 16 U/L (14-59); AST 11 U/L (15-37); Albumin 2.5 g/dL (3.4-5.0); Alkaline Phosphatase 223 U/L (46-116); Anion Gap 10.7 mmol/L (3-11); BUN 7 mg/dL (7-18); Bilirubin, Total 0.1 mg/dL (0.2-1.0); CO2 21.3 mmol/L (21.0-32.0); Calcium 9.0 mg/dL (8.5-10.1); Chloride 104 mmol/L (98-107); Estimated GFR 130.94 (mL/min/1.73m2); Glucose 100 mg/dL (74-106); Potassium 3.9 mmol/L (3.5-5.1); Sodium 136 mmol/L (136-145); Total Protein 6.5 g/dL (6.4-8.2)
--- NOTE | 2025-03-06 07:37 | W.OBNST ---
Date of service: 03/06/25 Time of Service: 04:30 NST Evaluation Reason for NST Reasons for Nonstress Test: OTHER, SEE COMMENT Reason for NST Other: rule out rupture Gestational Age Gestational Age in Weeks and Days: 38 Weeks and 5Days Test and Monitor Explained Test/Monitor Explained: Test Explained, Monitor Explained and Patient Verbalized Understanding Vital Signs Blood Pressure: 159/78 Pulse: 90 Temperature: 98.4 F NST Information Date on Monitor: 03/06/25 Time on Monitor: 04:08 Date off Monitor: 03/06/25 Time off Monitor: 04:49 Total Time on Monitor: 41 NST Interventions: None Contraction Frequency: 2-4 NST Evaluation Patient States Movement: Present FHR Baseline: 160 Variability: Moderate 6-25 bpm Accelerations: 15x15 Decelerations: None NST Results: Reactive Note Ultrasound Done: N/A. NST Note Note: admit to L&D NST Reviewed and Verified by: Ewa Vines
--- NOTE | 2025-03-06 07:38 | W.PM.OBNL1 ---
Date of service: 03/06/25 Time of Service: 07:38 Contractions Monitor Mode: External Contraction Frequency(min): q2-3 Intensity: Mild/Moderate Fetus A Monitor: External (US) Heart Rate Baseline: 150 Presentation: Cephalic (confirmed by ultrasound at bedside) Variability: Moderate (6-25 BPM) Categories: Category I Accelerations: Present Decelerations: None Amniotic Membrane Status: Ruptured Assessment and Plan Assessment and plan (1) PROM with onset of labor within 24 hours of rupture: Status: Acute Assessment and plan: A: PROM, early labor, GBS neg, multipara P: Discussed pt's' preferences regarding induction of labor Risks and benefits of pitocin augmentation in PROM reviewed Settled on plan of expectant management through the morning If no significant progress by noon, pt consents to pitocin infusion Bedside scan confirms cephalic presentation since vaginal exam is deferred Objective Abnormal lab results 03/06/25 Range/Units 04:42 Hct 35.3 L (36.0-46.0) % RDW 14.8 H (11.7-14.6) % Creatinine 0.5 L (0.55-1.02) mg/dL Total Bilirubin 0.1 L (0.2-1.0) mg/dL AST 11 L (15-37) U/L Alkaline Phosphatase 223 H (46-116) U/L Albumin 2.5 L (3.4-5.0) g/dL Temp Pulse Resp BP Pulse Ox 98.1 F 85 18 124/68 97 03/06/25 06:27 03/06/25 06:59 03/06/25 06:27 03/06/25 06:58 03/06/25 06:59 Laboratory Results WBC 9.51 10^3/uL (4.4-10.8) 03/06/25 04:42 RBC 4.24 10^6/uL (3.93-5.22) 03/06/25 04:42 Hgb 11.7 g/dL (11.2-15.7) 03/06/25 04:42 Hct 35.3 % (36.0-46.0) L 03/06/25 04:42 MCV 83 fL (80-95) 03/06/25 04:42 MCH 27.6 pg (27.0-33.0) 03/06/25 04:42 MCHC 33.1 % (32.0-36.0) 03/06/25 04:42 RDW 14.8 % (11.7-14.6) H 03/06/25 04:42 Plt Count 220 10^3/uL (130-400) 03/06/25 04:42 MPV 8.9 fL (8.0-11.0) 03/06/25 04:42 Sodium 136 mmol/L (136-145) 03/06/25 04:42 Potassium 3.9 mmol/L (3.5-5.1) 03/06/25 04:42 Chloride 104 mmol/L (98-107) 03/06/25 04:42 Carbon Dioxide 21.3 mmol/L (21.0-32.0) 03/06/25 04:42 Anion Gap 10.7 mmol/L (3-11) 03/06/25 04:42 BUN 7 mg/dL (7-18) 03/06/25 04:42 Creatinine 0.5 mg/dL (0.55-1.02) L 03/06/25 04:42 Est GFR (CKD-EPI 2020) 130.94 (mL/min/1.73m2) 03/06/25 04:42 Glucose 100 mg/dL (74-106) 03/06/25 04:42 Calcium 9.0 mg/dL (8.5-10.1) 03/06/25 04:42 Total Bilirubin 0.1 mg/dL (0.2-1.0) L 03/06/25 04:42 AST 11 U/L (15-37) L 03/06/25 04:42 ALT 16 U/L (14-59) 03/06/25 04:42 Alkaline Phosphatase 223 U/L (46-116) H 03/06/25 04:42 Total Protein 6.5 g/dL (6.4-8.2) 03/06/25 04:42 Albumin 2.5 g/dL (3.4-5.0) L 03/06/25 04:42 ABO/Rh O Positive 03/06/25 04:42 Antibody Screen NEGATIVE 03/06/25 04:42 Vital Signs Reviewed: Yes Notable Details: BP 124/78, P-85, afebrile. Objective Narrative Objective Narrative: Pt calm, conversational, needs to breathe rhythmically through contractions WBC noted 9.5, hgb 11.7 Pre-e labs nml Subjective Interval history since last seen: Has taken a shower, sat on the physioball, rested, feeling hungry, reports contractions are persisting and feel somewhat stronger, she is unable to sleep but is coping well.
--- NOTE | 2025-03-06 11:25 | W.PM.OBNL1 ---
Date of service: 03/06/25 Time of Service: 11:05 Pelvic Exam Dilation: 5 Effacement (%): 90 station: -2 Cervix Position: posterior Consistency: medium Contractions Monitor Mode: Palpation Contraction Frequency(min): q2-4 Intensity: Moderate Fetus A Monitor: Doppler Heart Rate Baseline: 150 FHR Rhythm: Regular Characteristics: Normal Assessment and Plan Assessment and plan (1) PROM with onset of labor within 24 hours of rupture: Status: Acute Assessment and plan: A: Progressing spontaneously toward active labor, coping well FHT's reassuring per intermittent doppler monitoring P: Continue expectant management Anticipate Subjective Interval history since last seen: feeling increased rectal pressure with contractions, feels an urge to bear down which goes away between pains. Is using nitrous inhalant for discomfort.
--- NOTE | 2025-03-06 14:52 | W.PM.OBNL1 ---
Date of service: 03/06/25 Time of Service: 14:53 Pelvic Exam Dilation: 7 Effacement (%): 90 station: -2 Cervix Position: anterior Consistency: soft Contractions Monitor Mode: Palpation Contraction Frequency(min): q3-4 Intensity: Moderate/Strong Fetus A Monitor: Doppler Heart Rate Baseline: 150 FHR Rhythm: Regular Characteristics: Normal Accelerations: Present Decelerations: None Amniotic Membrane Status: Ruptured Assessment and Plan Assessment and plan (1) PROM with onset of labor within 24 hours of rupture: Status: Acute Assessment and plan: A: Using nitrous to good effect, progressed to 7cm Coping well and looking forward to delivery Tolerating PO hydration without emesis, FHT per intermittent guidelines are reassuring P: Reassess for progress & descent in 1-2 hrs Consider pitocin augmentation if indicated Anticipate Objective Vital Signs Reviewed: Yes Subjective Interval history since last seen: Contractions are stronger though not as frequent, using nitrous and changing positions often
--- NOTE | 2025-03-06 17:13 | W.PM.OBNL1 ---
Date of service: 03/06/25 Time of Service: 17:13 Informed Consent Informed Consent: Augmentation of Labor and Risk,Benefits,Alternatives Discussed Pelvic Exam Dilation: 8 Effacement (%): 90 station: -1 Contractions Contraction Frequency(min): q2-3 Intensity: Moderate/Strong Fetus A Heart Rate Baseline: 155 Variability: Moderate (6-25 BPM) Categories: Category I Accelerations: Present Decelerations: None Assessment and Plan Assessment and plan (1) PROM with onset of labor within 24 hours of rupture: Status: Acute Assessment and plan: A: Slowed progress, now 8 cm w/vtx -1 , pt tiring, using nitrous well P: Consents to pitocin augmentation Anticipate Objective Vital Signs Reviewed: Yes Subjective Interval history since last seen: still have urges to bear down at peak of contractions, slight blood tinge in vaginal mucous
[2025-03-06] MEDS: Lactated Ringers 1,000 ML 125 ML IV (17:20)
[2025-03-06] MEDS: Oxytocin/Normal Saline 30 UNIT/500 ML BAG 2 UNITS IV (17:30)
[2025-03-06] MEDS: Oxytocin/Normal Saline 30 UNIT/500 ML BAG 95 UNITS IV (18:15)
[2025-03-06] MEDS: Methylergonovine 0.2 MG/ML VIAL (19:05)
--- NOTE | 2025-03-06 19:11 | OBVDS_ITS ---
Date of service: 03/06/25 Time of Service: 18:30 OB Labor/ Delivery Information Baby A Delivery Delivery Method: Spontaneaous Presentation: Cephalic Cephalic Position: Vertex Vertex Position: Right Occipital Anterior Breech Position: N/A Cord Description-Baby A: 3 Vessels, Nuchal Cord and Reduced (pushed over the anterior shoulder) Amniotic Fluid: Clear Quantitative Blood Loss: 100 ml Delivery Outcome: Liveborn Transferred: Remains with Mother Note: Pitocin augmentation begun due to slow progress into transition and descent at -1, ROM at 14 hours. Within 30 minutes pt began involuntarily pushing, SVE for 8/90% and vtx descending to 0 station, pt positioned LLP with pnut ball for a short period of time which brought head to +3 and full dilation, pt spontaneously rolled to semifowlers, 2nd stage huddle completed, over intact perineum of a vigorous female infant assisted by FOB, nuchal cord noted and pushed over anterior shoulder by CNM as torso emerged, FOB handed infant to mother's arms immediately, cord ceased pulsating and clamped then cut by FOB, cord blood collected, pitocin bolus begun, Wallace pacenta intact with 3VC, fundus firm below umbilicis, minimal lochia. Vaginal and vulva inspected and are without laceration, strong family bonding observed, apgars 8/9, weight 3295 gms. Providers Nurse Residential Mortgage Underwriter: Ewa Vines Nurse: Chante Abdi Nurse: Janell Cosme Labor/Delivery Information Number of Babies in Womb: 1 Steroids Given: None Reason Steroids Not Administered: N/A Group Beta Strep: Negative Antibiotics Administered: No Rubella Status: Immune Blood Type: O+ Varicella Immunity: Nonimmune Shoulder Dystocia: No Stages of Labor Onset of Labor Date: 03/06/25 Onset of Labor Time: 02:50 Complete Dilatation Date: 03/06/25 Complete Dilatation Time: 18:07 Labor - Stage 1 Duration: 15 hours and 17 minutes ROM Baby A: 03/06/25 ROM Baby A: 02:50 ROM Total Time- Baby A: [id number] Infant Delivery Date-Baby A: 03/06/25 Infant Delivery Time-Baby A: 18:11 Labor Stage 2 Duration: 4 minutes Placenta Delivery Date-Baby A: 03/06/25 Placenta Delivery Time-Baby A: 18:16 Labor-Stage 3 Duration: 5 minutes Total Length of Labor-Baby A: 15 hours and 21 minutes Placenta Status: Delivered Baby A Infant Gender: Female Gestational Status: Early Term (37-38.6 wks) Gestational Age in Weeks/Days: 38 Weeks and 5 Days weight: 7 lb 4.228 oz Weight Comment: 3295 gms Length-Baby A: 20.08 in Score-1 Minute Interval(Baby A) Heart Rate-1 minute: 100 BPM or Greater Respiratory Effort- 1 minute: Spontaneous/Strong Cry Muscle Tone-1 minute: Active Movement Reflex Response-1 minute: Prompt Response Color-1 minute: Pallor or Cyanosis Total Score-1 minute: 8 Score-5 Minute Interval(Baby A) Heart Rate- 5 minute: 100 BPM or Greater Respiratory Effort-5 minute: Spontaneous/Strong Cry Muscle Tone-5 minute: Active Movement Reflex Response-5 minute: Prompt Response Color-5 minute: Bluish Hands or Feet Total Score- 5 minute: 9
[2025-03-06] MEDS: Ibuprofen 600 MG TAB PO (19:22)
[2025-03-06] MEDS: Acetaminophen 325 MG TAB 650 MG PO (19:22)
[2025-03-06] MEDS: Dibucaine 1% 28 GM TUBE TP (19:32)
[2025-03-06] MEDS: Hamamelis Leaf/Glycerin 100 EACH BOX PR (19:32)
[2025-03-07 02:00] VITALS: BP 118/72; PULSE 76; RESP 18; TEMP 36.5
[2025-03-07] MEDS: Methylergonovine 0.2 MG TAB PO ×2 (04:14→12:03)
--- NOTE | 2025-03-07 06:28 | W.PM.OBPNV1 ---
Date of service: 03/07/25 Time of Service: 06:28 Assessment and Plan Assessment and plan (1) Term delivered: Status: Acute Assessment and plan: A: PPD#1, nml recovery satisfied with experience is going well P: Plan for discharge this evening after 24 hrs IUD at 6-8 wks PP planned F/up at 2 & 6 wks Written instructions reviewed and given to pt Subjective Subjective Patient comments: No complaints, Pain well controlled, Tolerating diet and Flatus present Patient's Mood: happy baby status: Doing well, Nursing well, Rooming in and Strong Bonding Observed feeding status: Exclusively breast feeding Exam Physical Exam Vital signs: Temp Pulse Resp BP Pulse Ox 97.7 F 76 18 118/72 100 03/07/25 02:00 03/07/25 02:00 03/07/25 02:00 03/07/25 02:00 03/06/25 17:42 Vital Signs Reviewed: Yes Constitutional Constitutional: no acute distress and cooperative HEENT Exam HEENT Exam: Normal Neck Exam Neck Exam: Normal Breast Exam Bilateral: Breast Exam: Normal and Soft Nipple Exam: Normal and Uninjured Respiratory Exam Respiratory Exam: Normal Cardiovascular Exam Cardiovascular Exam: Normal Abdominal Exam Abdomen: Other (soft, nontender) Fundal Exam Fundus: Below Umbilicus and Firm Rectal Exam Rectal Exam: Normal Exam Perineum: Intact Extremities Exam Extremity Exam: Normal, Full ROM and Warm to Touch Back/Spine/Pelvis Exam Back Exam: Normal Skin Exam Skin Exam: Normal Neurological Exam Neurological Exam: Normal Psychiatric Exam Psychiatric Exam: Normal Results Hemoglobin/Hematocrit: Hgb 11.7 g/dL (11.2-15.7) 03/06/25 04:42 Hct 35.3 % (36.0-46.0) L 03/06/25 04:42
[2025-03-07] MEDS: Ibuprofen 600 MG TAB PO ×3 (06:30→19:17)
[2025-03-07] MEDS: Acetaminophen 325 MG TAB 650 MG PO ×3 (06:30→19:17)
[2025-03-07 07:15] VITALS: BP 116/76; PULSE 93; RESP 20; TEMP 36.4; O2SAT 98
[2025-03-07] MEDS: Docusate Sodium 100 MG CAP PO (07:52)
[2025-03-07] MEDS: Varicella Virus Vaccine (Live) 0.5 ML SC (11:18)
[2025-03-07 12:17] VITALS: BP 125/76; PULSE 88; RESP 20; TEMP 36.4; O2SAT 98
[2025-03-07 17:55] VITALS: BP 125/80; PULSE 85; RESP 20; TEMP 36.7; O2SAT 97
[2025-03-07 19:30] VITALS: BP 118/78; PULSE 71; RESP 16; TEMP 36.7; O2SAT 98
[2025-03-08] MEDS: Ibuprofen 600 MG TAB PO ×2 (03:45→10:27)
[2025-03-08] MEDS: Acetaminophen 325 MG TAB 650 MG PO ×3 (03:46→15:23)
[2025-03-08 08:00] VITALS: BP 113/75; PULSE 86; RESP 16; TEMP 36.5; O2SAT 99
[2025-03-08 15:10] VITALS: BP 123/76; PULSE 90; RESP 16; TEMP 36.7; O2SAT 98
--- NOTE | 2025-03-08 17:31 | DSE_ITS ---
Date of service: 03/08/25 Time of Service: 17:31 DS: Diagnosis Discharge Diagnosis (1) Term delivered: Status: Acute Asessment and Plan: Caring for baby independently. Pain is managed well with oral analgesics. Voiding without difficulty. well. A - stable mother and baby , Post day 2, history of anxiety P - Discharge to home. Routine post instructions. [facility] Discharge Plan Disposition Patient Disposition: Home Condition: Good Discharge Details Reason For Visit: term labor Admit Date/Time: 03/06/25 04:50 Admit Provider: Ewa Vines Attending Provider: Ewa Vines Primary Care Provider: [facility] Smith Hospital Course Hospital Course: on HD#1, nml course, pt desires discharge on 2nd day Home Meds and New Rx's Prescriptions: No Action magnesium 200 mg tablet 200 mg PO DAILY Gummies 400 mcg-35 mg- 25 mg-5 mg tablet,chewable 1 tab PO DAILY Discharge Instructions Additional Instructions: Please keep your 2 and 6 wk check ups with the midwives, call for any and all concerns. Plan for 2nd varicella vaccine injection at 6 week check up. Stand Alone Forms: Instructions, BC Post Vaginal Deliver Activity:: Activity as Tolerated Equipment/Supplies:: No Equipment Needed Diet:: Normal Diet Discharge Orders Discharge Orders: Discharge Order (Routine); Ordered 03/08/25 Ordered By: Richa Rasheed OB:DS Summary Summary Vaginal Delivery Method: Spontaneaous Episiotomy Description: None Laceration Description: None Laceration Extension: N/A Contraception Discussed Contraception Discussed: Yes Contraceptive Plan: IUD, [place] Infant Gender-Baby A: Female weight: 7 lb 4.228 oz Status at Discharge Functional status at discharge: independent ambulation Overall status at discharge: patient is back to baseline Mental Status: mental status grossly normal Speech and Movement: speech and movement normal Mood: congruent mood Affect: normal affect Exam Physical Exam Vital signs: Temp Pulse Resp BP Pulse Ox 98.1 F 90 16 123/76 98 03/08/25 15:10 03/08/25 15:10 03/08/25 15:10 03/08/25 15:10 03/08/25 15:10 Vital Signs Reviewed: Yes Constitutional Constitutional: no acute distress Respiratory Exam Respiratory Exam: Normal Cardiovascular Exam Cardiovascular Exam: Normal Fundal Exam Fundus: Below Umbilicus and Firm Rectal Exam Rectal Exam: Normal Extremities Exam Extremity Exam: Normal Skin Exam Skin Exam: Normal Psychiatric Exam Psychiatric Exam: Normal PFSH All Active Problems (Updated 03/07/25 @ 06:30 by Ewa Vines) Term delivered (Acute) History of anemia (Acute) Susceptible to varicella (non-immune), currently (Acute) History of migraine (Acute) Anxiety (Chronic) no meds Medical History (Updated 03/07/25 @ 06:30 by Ewa Vines) PROM with onset of labor within 24 hours of rupture Anemia affecting Constipation Flank pain in patient Vaginal discharge Pelvic pain Presence of IUD Mirena IUD placed 10/08/23 COVID-19 Coccyx sprain from childbirth Family history of thrombocytopenia Bruises easily Chlamydia trachomatis infection (05/17/13) Rx with Zithromax. YE 01/03/14 -neg Family History Mother Multiple sclerosis sx consist of temperature instability Diabetes Thrombocytopenia Maternal Grandmother Diabetes Pulmonary embolism Aneurysm of this age 72. smoker Father Substance use disorder Social History Smoking/Tobacco Use Status: Never Smoking risk assessment performed?: Yes Alcohol Intake: current Alcohol Intake frequency: a few times a week Drug use: Never Substance use type: does not use Household members: children and other Details: Brandi Davila Housing: apartment Do you feel safe at home: Yes (unable to assess privately) Do you feel safe in your relationship?: Yes History History 5 Para 3 Hx # Term Pregnancies 3 Multiple births 0 Hx # Pregnancies 0 Ectopic pregnancies 0 AB induced 0 Hx Number of Living Children 3 AB spontaneous 1 Past Pregnancies Del. Date GA/Weeks # Preg Succ Route Wgt Sex Labor Lgth Anesth esia L ocation Prov Complic 06/01/17 40 No vaginal 6 lb 14 oz Male 5 hrs [facility] 04/15/19 39 No vaginal 7 lb 1 oz Male 16 [facility] 01/13/21 4 06/03/22 40 No Yes vaginal 7 lb 3.346 oz Female 5 hours local RICA Renee Delivery Date: 06/01/17 Last Updated by: Ewa Vines Used nitrous, nml [place] Delivery Date: 04/15/19 Last Updated by: Ewa Vines Nml unmedicated though cat 2 tracing, used nitrous. [place] Delivery Date: 01/13/21 Last Updated by: Juany Arriaza DO [facility] Delivery Date: 06/03/22 Last Updated by: Richa Rasheed CNM Suhail Salguero used nitrous oxide DS: Data Vitals/I&O Vitals and I&O: Vital Signs Temperature 98.1 F 03/08/25 15:10 Temperature 98.4 F 03/06/25 07:38 Temperature Source Oral 03/08/25 15:10 Pulse 90 03/08/25 15:10 Pulse 90 03/06/25 07:38 Pulse Rhythm Regular 03/08/25 08:00 Respiratory Rate 16 03/08/25 15:10 Respiratory Depth Normal 03/07/25 19:30 Blood Pressure 123/76 03/08/25 15:10 Blood Pressure 159/78 03/06/25 07:38 Blood Pressure Mean 91 03/08/25 15:10 Pulse Oximetry 98 03/08/25 15:10 Oxygen Delivery Method Room Air 03/06/25 06:27 Oxygen Flow Rate 0 03/06/25 06:27 Pain Level 3 03/08/25 15:23 Intake & Output 03/07/25 03/08/25 03/08/25 23:59 11:59 23:59 Other: Urine Color Yellow Urine Appearance Clear Urine Odor None Comment Patient voiding in toilet. No complaints of difficulty or discomfort
== END 2025-03-08 17:45 | disposition home or self-care (01) | DRG 807 ==
LOC: BCD 04:52 → OBS 04:52
PROVIDERS: Admitting Provider Advanced Practice Midwife; PCP Student in an Organized Health Care Education/Training Program; Visit Provider Advanced Practice Midwife
DX: O42.02 Full-term premature rupture of membranes, onset of labor within 24 hours of rupture (principal); Z37.0 Single live birth; Z3A.38 38 weeks gestation of pregnancy; O99.344 Other mental disorders complicating childbirth; F41.1 Generalized anxiety disorder; O69.81X0 Labor and delivery complicated by cord around neck, without compression, not applicable or unspecified; O99.02 Anemia complicating childbirth; D64.9 Anemia, unspecified; O99.62 Diseases of the digestive system complicating childbirth; K64.8 Other hemorrhoids; K59.00 Constipation, unspecified; Z83.2 Family history of diseases of the blood and blood-forming organs and certain disorders involving the immune mechanism
CPT/HCPCS: 36415; 80053; 85027; 86850; 86900; 86901; 90716; 59025; J2210

== ENCOUNTER 2025-03-13 13:50 | Outpatient (REF) | payer BC, SELFPAY | END 2025-03-13 13:51 | disposition home or self-care (01) | LOC: LBN 13:50 | PROVIDERS: PCP Student in an Organized Health Care Education/Training Program; Visit Provider Advanced Practice Midwife | DX: N89.8 Other specified noninflammatory disorders of vagina (principal); R30.0 Dysuria | CPT/HCPCS: 87086; 87480; 87510; 87660 ==

== ENCOUNTER 2025-04-03 19:11 | Emergency (ER) | payer BC, SELFPAY ==
[2025-04-03 19:15] VITALS: BP 130/83; PULSE 91; RESP 16; TEMP 36.7; O2SAT 97
[2025-04-03 19:21] VITALS: BP 130/83; PULSE 91; RESP 16; TEMP 36.7; O2SAT 98
--- NOTE | 2025-04-03 20:08 | ED.GENADUL_ITS ---
Discharge Plan Disposition Patient Disposition: Home Condition: Stable Discharge Details Clinical Impression: Abdominal pain, right lower quadrant Primary Care Provider: [facility] ED Provider: Ana Escobar Home Meds and New Rx's Prescriptions: No Action magnesium 200 mg tablet 200 mg PO DAILY Gummies 400 mcg-35 mg- 25 mg-5 mg tablet,chewable 1 tab PO DAILY cholecalciferol (vitamin D3) 125 mcg (5,000 unit) capsule 125 mcg PO DAILY nitrofurantoin monohyd/m-cryst [Macrobid] 100 mg capsule 100 mg PO BID Qty: 14 0RF Rx Instructions: must administer with a meal/food Discharge Instructions Instructions: Abdominal Pain, Adult ED, Pelvic Pain ED Additional Instructions: At this time your labs are largely within normal limits, no evidence of urinary tract infection. I did order an outpatient ultrasound to be done within the next 1 to 2 days. Please return to the ER if you have any worsening pain, fever greater than 100.8, vomiting or concerns. Follow up with primary care provider in 3-5 days. Return to ED sooner if any worsening or concerns. Follow-up with primary care provider regarding the outpatient ultrasound. Referrals: Albert Smith [Primary Care Provider, Medicine] - 5 days Discharge Orders Other Ambulatory Orders: US pelvis (Routine) Timeframe: 3 Days Facility: [facility] - Location: DIAGNOSTIC IMAGING Ordered By: Ana Escobar [facility] General Mode of arrival: ambulatory . Date/Time Provider Initiated Documentation: 04/03/25 19:26 . Limitations to Documentation: no limitations . Information obtained by: patient, RN notes reviewed and old records reviewed . HPI Narrative: 29-year-old female presents to the ER with a chief complaint of right lower quadrant abdominal pain which began approximately 4 days ago. She is 4 weeks and breast-feeding. Vaginal delivery without complications, she does have 4 children at home. She reports that she does have a history of ovarian cyst, stopped vaginal bleeding approximately 4 to 5 days ago. Denies any fever or chills. Does hurt with movement, she reports it has now become more constant. Patient has been taking ibuprofen with little to no relief for the pain. Related Data Home Medications ?Medication ?Instructions ?Recorded ?Confirmed PNV 153-FA 400 mcg-om3 35 mg-dha 1 tab PO DAILY 04/03/25 25 mg-epa 5 mg-fish oil chew tablet ( Gummies) magnesium 200 mg tablet 200 mg PO DAILY 02/12/25 nitrofurantoin 100 mg PO BID #14 caps 03/1604/03/25 monohydrate/macrocrystals 100 mg capsule (Macrobid) cholecalciferol (vitamin D3) 125 125 mcg PO DAILY 03/0604/03/25 mcg (5,000 unit) capsule Previous Rx's ?Medication ?Instructions ?Recorded nitrofurantoin 100 mg PO BID #14 caps 03/16 monohydrate/macrocrystals 100 mg capsule (Macrobid) Allergies Allergy/AdvReac Type Severity Reaction Status Date / Time No Known Allergies Allergy Verified 04/03/25 19:21 General Stated Complaint: Abd Prob HALEY: 3 Review of Systems All systems reviewed & are unremarkable except as noted in HPI and below Gastrointestinal Gastrointestinal: Reports as per HPI, Reports abdominal pain, Denies diarrhea and Denies vomiting Exam Narrative Exam Narrative: Constitutional: Alert and oriented x3. Appears stated age. Normal body habitus. Head: Normocephalic, no trauma. Eyes: Pupils PERRL, Red reflex noted, EOM's intact. Eyelids symmetrical without lesions, discharge, or swelling. Chest: RRR, Normal S1, S2, distal pulses intact. Resp: Lungs clear to auscultation bilaterally, no wheezes, rales, or rhonchi. Abdomen: Soft, non-distended, Normoactive bowel sounds all 4 quads. Musculoskeletal: Normal gait, Moves all 4 extremities without difficulty. Skin: No suspicious rashes or lesions. Capillary refill less than 2 sec. Neurologic: Cranial nerves II-XII intact. Alert and oriented x 3. Motor: No deficits noted. Sensory: Intact bilaterally all 4 extremities. Hematologic/Lymphatic: No ecchymosis, no lymphadenopathy. Course Vital Signs Vital signs: Vital Signs Temperature 36.7 C 04/03/25 19:15 Pulse 91 H 04/03/25 19:15 Respiratory Rate 16 04/03/25 19:15 Blood Pressure 130/83 04/03/25 19:15 Pulse Oximetry 97 04/03/25 19:15 Temperature 36.7 C 04/03/25 19:21 Temperature Source Oral 04/03/25 19:21 Pulse 91 H 04/03/25 19:21 Respiratory Rate 16 04/03/25 19:21 Blood Pressure 130/83 04/03/25 19:21 Blood Pressure Position Sitting 04/03/25 19:21 Pulse Oximetry 98 04/03/25 19:21 Oxygen Delivery Method Room Air 04/03/25 19:21 Oxygen Flow Rate 0 04/03/25 19:15 Pain Level 3 04/03/25 19:15 Comment patient is 3 with sitting with activities goes up to a 8 04/03/25 19:15 Medical Decision Making 29-year-old female presents to the ER with a chief complaint of right lower quadrant abdominal pain which began approximately 4 days ago. She is 4 weeks and breast-feeding. Vaginal delivery without complications, she does have 4 children at home. She reports that she does have a history of ovarian cyst, stopped vaginal bleeding approximately 4 to 5 days ago. Denies any fever or chills. Does hurt with movement, she reports it has now become more constant. Patient has been taking ibuprofen with little to no relief for the pain. Labs ordered including CBC CMP lipase and urinalysis. At this time patient would like to hold off on imaging until labs resulted. I did discuss an outpatient ultrasound if patient prefers since she is breast-feeding versus CT imaging. She is in agreement the plan. Differential diagnose includes but not limited to appendicitis, ovarian cyst, gastroenteritis, UTI, PID however this is unlikely as no fever or tachycardia. CBC shows white blood cell count of 10.81 barely elevated, lymphocytes 3.56, sodium potassium within normal limits, creatinine slightly elevated at 1.1, ALT 60 alk phos 134, urinalysis shows trace leukocytes 0-2 WBCs moderate epithelial cells no culture indicated for squamous contamination. At this time patient prefers ultrasound versus CT imaging as noted above. I did discuss risks and benefits. Outpatient ultrasound ordered instructed to follow- up with [facility] or back to the ER if she gets any worse. She verbalized understanding. Was ambulatory upon discharge from the department. Remained hemodynamically stable throughout the remainder of her stay. This text was generated using [employer] system, please disregard any oddities of phrase or misspellings. Lab Data Lab results reviewed: Yes I reviewed the patient's lab results. Labs: Laboratory Tests Range/Units 04/03/25 04/03/25 19:10 19:52 WBC (4.4-10.8) 10^3/uL 10.81 H RBC (3.93-5.22) 10^6/uL 5.12 Hgb (11.2-15.7) g/dL 13.8 Hct (36.0-46.0) % 42.4 MCV (80-95) fL 83 MCH (27.0-33.0) pg 27.0 MCHC (32.0-36.0) % 32.5 RDW (11.7-14.6) % 13.2 Plt Count (130-400) 10^3/uL 335 MPV (8.0-11.0) fL 9.2 Immature Gran % % 0.4 Neutrophils % % 58.8 Lymphocytes % % 32.9 Monocytes % % 5.6 Eosinophils % % 1.8 Basophils % % 0.5 Nucleated RBC % (0.0-0.3) % 0.0 Absolute Neutrophils (1.2-6.7) 10^3/uL 6.36 Absolute Lymphocytes (1.2-3.4) 10^3/uL 3.56 H Absolute Monocytes (0.1-0.8) 10^3/uL 0.61 Absolute Eosinophils (0.0-0.7) 10^3/uL 0.19 Absolute Basophils (0.0-0.2) 10^3/uL 0.05 Sodium (136-145) mmol/L 143 Potassium (3.5-5.1) mmol/L 3.9 Chloride (98-107) mmol/L 104 Carbon Dioxide (21.0-32.0) mmol/L 29.1 Anion Gap (3-11) mmol/L 9.9 BUN (7-18) mg/dL 15 Creatinine (0.55-1.02) mg/dL 1.1 H Est GFR (CKD-EPI 2020) (mL/min/1.73m2) 70.19 Glucose (74-106) mg/dL 87 Calcium (8.5-10.1) mg/dL 9.5 Total Bilirubin (0.2-1.0) mg/dL 0.3 AST (15-37) U/L 32 ALT (14-59) U/L 60 H Alkaline Phosphatase (46-116) U/L 134 H Total Protein (6.4-8.2) g/dL 8.0 Albumin (3.4-5.0) g/dL 4.0 Lipase (<78) U/L 22 Urine Color (Yellow) Yellow Urine Clarity (Clear) Clear Urine pH (5-8) 6.0 Ur Specific [place] (1.005-1.025) 1.015 Urine Protein (Neg-Trace) mg/dL Negative Urine Ketones (Negative) mg/dL Negative Urine Blood (Negative) Negative Urine Nitrite (Negative) Negative Urine Bilirubin (Negative) Negative Urine Urobilinogen (Up to 0.2) mg/dL 0.2 Ur Leukocyte Esterase (Negative) Trace H Urine RBC (0-2) HPF Negative Urine WBC (0-5) HPF 0-2 Ur Epithelial Cells (Negative) HPF Moderate Urine Crystals (Negative) HPF Negative Urine Bacteria (Negative) HPF Negative Urine Casts (Negative) LPF Negative Urine Mucus (Negative) Negative Ur Culture Indicated? No/Sq. Contamination Urine Glucose (Negative) mg/dL Negative PFSH All Active Problems (Updated 04/03/25 @ 22:07 by Ana Escobar NP) Abdominal pain, right lower quadrant (Acute) Term delivered (Acute) History of anemia (Acute) Susceptible to varicella (non-immune), currently (Acute) History of migraine (Acute) Anxiety (Chronic) no meds Medical History (Updated 04/03/25 @ 22:07 by Ana Escobar NP) PROM with onset of labor within 24 hours of rupture Anemia affecting Constipation Flank pain in patient Vaginal discharge Pelvic pain Presence of IUD Mirena IUD placed 10/08/23 COVID-19 Coccyx sprain from childbirth Family history of thrombocytopenia Bruises easily Chlamydia trachomatis infection (05/17/13) Rx with Zithromax. YE 01/03/14 -neg Family History Mother Multiple sclerosis sx consist of temperature instability Diabetes Thrombocytopenia Maternal Grandmother Diabetes Pulmonary embolism Aneurysm of this age 72. smoker Father Substance use disorder Social History Smoking/Tobacco Use Status: Never Smoking risk assessment performed?: Yes Alcohol Intake: current Alcohol Intake frequency: a few times a week Drug use: Never Substance use type: does not use Details: not drinking for the past 9 months Household members: children and other Details: BF Brandi walter Housing: apartment Do you feel safe at home: Yes (unable to assess privately) Do you feel safe in your relationship?: Yes History History 5 Para 3 Hx # Term Pregnancies 3 Multiple births 0 Hx # Pregnancies 0 Ectopic pregnancies 0 AB induced 0 Hx Number of Living Children 3 AB spontaneous 1 Past Pregnancies Del. Date GA/Weeks # Preg Succ Route Wgt Sex Labor Lgth Anesth esia Location [facility] 06/01/17 40 No vaginal 3118.448 g Male 5 hrs [facility] 04/15/19 39 No vaginal 3203.496 g Male 16 [facility] 01/13/21 4 06/03/22 40 No Yes vaginal 3270.004 g Female 5 hours local Jair Hall CNM 03/06/25 No Yes vaginal 3288.545 g Female [facility] Delivery Date: 06/01/17 Last Updated by: Ewa Vines Used nitrous, nml [place] Delivery Date: 04/15/19 Last Updated by: Ewa Vines Nml unmedicated though cat 2 tracing, used nitrous. [place] Delivery Date: 01/13/21 Last Updated by: Juany Arriaza DO [facility] Delivery Date: 06/03/22 Last Updated by: RICA Reyna used nitrous oxide
[2025-04-03 20:17] LABS: Glucose Negative (Negative)
[2025-04-03 20:17] LABS: Abs Immature Grans 0.04 10^3/uL (0.0-0.06); HCT 42.4 % (36.0-46.0); HGB 13.8 g/dL (11.2-15.7); Immature Grans % 0.4 %; MCH 27.0 pg (27.0-33.0); MCHC 32.5 % (32.0-36.0); MCV 83 fL (80-95); MPV 9.2 fL (8.0-11.0); Platelet Count 335 10^3/uL (130-400); RBC 5.12 10^6/uL (3.93-5.22); RDW 13.2 % (11.7-14.6); RDW-SD 39.8 fL; WBC 10.81 10^3/uL (4.4-10.8)
[2025-04-03 20:29] LABS: RBC Negative HPF (0-2); WBC 0-2 HPF (0-5)
[2025-04-03 20:32] LABS: ALT 60 U/L (14-59); AST 32 U/L (15-37); Albumin 4.0 g/dL (3.4-5.0); Alkaline Phosphatase 134 U/L (46-116); Anion Gap 9.9 mmol/L (3-11); BUN 15 mg/dL (7-18); Bilirubin, Total 0.3 mg/dL (0.2-1.0); CO2 29.1 mmol/L (21.0-32.0); Calcium 9.5 mg/dL (8.5-10.1); Chloride 104 mmol/L (98-107); Estimated GFR 70.19 (mL/min/1.73m2); Glucose 87 mg/dL (74-106); Lipase 22 U/L (<78); Potassium 3.9 mmol/L (3.5-5.1); Sodium 143 mmol/L (136-145); Total Protein 8.0 g/dL (6.4-8.2)
[2025-04-03 23:02] VITALS: BP 145/97; PULSE 82; RESP 18; TEMP 36.7; O2SAT 97
== END 2025-04-03 23:09 | disposition home or self-care (01) ==
PROVIDERS: Emergency Provider Registered Nurse Emergency; PCP Student in an Organized Health Care Education/Training Program
DX: R10.31 Right lower quadrant pain (principal)
CPT/HCPCS: 36415; 80053; 83690; 99283; 81003; 81015; 85025

== ENCOUNTER 2025-05-16 09:46 | Outpatient (REF) | payer BC, SELFPAY | END 2025-05-16 09:47 | disposition home or self-care (01) | LOC: LBN 09:46 | PROVIDERS: PCP Student in an Organized Health Care Education/Training Program; Visit Provider Advanced Practice Midwife | DX: N89.8 Other specified noninflammatory disorders of vagina (principal) | CPT/HCPCS: 87480; 87510; 87660 ==